=== PATIENT | male | born 1955 | race Caucasian/White ===

== ENCOUNTER → 2018-09-15 10:52 | Outpatient (CLI) | payer BC, MEDICAID, SELFPAY ==
[2018-09-12 13:05] VITALS: BMI 29.4
[2018-09-12 14:10] LABS: Absolute Lymphocyte Count 1.66 X10^3/ul (0.83-4.51); Absolute Neutrophil Count 4.1 X10^3/uL (2.0-7.7); Basophil# 0.02 X10^3/uL; Basophil% 0.3 % (0-1); Eosinophil# 0.18 X10^3/uL; Eosinophils% 2.4 % (0-5); Hemoglobin 11.3 g/dl (13.0-16.5); Lymphocyte # 1.66 X10^3/ul (4.0); Lymphocyte % 22.4 % (19-41); Mean Corp Hgb Conc 29.7 g/gl (32-36); Mean Corpuscular Hgb 23.1 pg (27.0-32.0); Mean Corpuscular Volume 77.7 fL (80-94); Mean Platelet Vol. 8.4 fl (6.2-12.0); Monocyte# 1.41 X10^3/uL; Neutrophil % 55.4 % (47-70); Platelet Count 315 K/mm3 (150-450); RBC Distribution Width CV 29.1 % (11.6-14.6); Red Blood Count 4.89 M/mm3 (4.6-6.2); White Blood Count 7.4 K/mm3 (4.4-11.0)
[2018-09-12 14:12] LABS: Differential Indicated SCAN CRITERIA MET; POSITIVE COUNT NO; POSITIVE DIFFERENTIAL NO; POSITIVE MORPHOLOGY YES
[2018-09-12 14:23] LABS: ALB/GLOB Ratio 0.9 RATIO (0.9-2.4); AST(SGOT) 15 U/L (15-37); Alanine Aminotransfer ALT/SGPT 22 U/L (16-61); Albumin, Serum 3.6 g/dL (3.2-5.0); Alkaline Phosphatase 44 U/L (45-117); Anion Gap 8 (5-15); BUN 18 mg/dL (7-18); BUN/Creat Ratio 16.4 RATIO (10-20); Calcium,Total 8.7 mg/dL (8.5-10.1); Chloride 108 mmol/L (98-107); EST Glomerular Filtration Rate 72 mL/min (>60); Est Glom Filt Rate - Afr Amer 88 mL/min (>60); Globulin 3.9 g/dL (2.2-4.2); Glucose 90 mg/dL (74-106); Protein, Total 7.5 g/dL (6.4-8.2); Sodium Level 139 mmol/L (136-145)
--- NOTE | 2018-09-15 10:42 | CT_ITS ---
STUDY: CT ABDOMEN AND PELVIS WITH CONTRAST REASON FOR EXAM: Male, 62 years old. Colon cancer, newly diagnosed, staging. RADIATION DOSAGE (If Supplied By Facility): CTDIvol = ( 15.37 ) mGy, DLP = ( 1526.41 ) mGycm TECHNIQUE: Transaxial images were obtained from the dome of the diaphragm to the symphysis pubis with oral contrast. 100 ml of Isovue 300 contrast was administered. Sagittal and coronal images were reconstructed. Individualized dose optimization techniques were used for this CT. COMPARISON: None. FINDINGS: The visualized lung bases are unremarkable. The visualized portions of the heart are within normal limits. Normal liver. There is a solitary gallstone. Normal spleen. Normal pancreas. Normal bilateral adrenal glands. Normal right kidney. Normal left kidney. Small right renal cyst, nonenhancing. Normal visualized stomach. Normal small intestine. Circumferential wall thickening with neoplastic narrowing in the ascending colon; apple core lesion. Remainder of the colon demonstrates chronic diverticulosis. The appendix is visualized and appears normal. Normal abdominal aorta. Normal inferior vena cava. Normal retroperitoneum. Normal urinary bladder. Normal visualized prostate gland. Normal abdominal wall. There are diffuse degenerative changes of the visualized lumbar spine. CT/Abdomen/Pelvis WITH Contrast IMPRESSION: Neoplastic process involving the ascending colon. No evidence of metastatic disease involving the liver. No suspicious lymphadenopathy. Electronically Signed: Piter Reid DO at 11:36 EST Tel , Service support ,
== END ==
PROVIDERS: Family Provider Family Medicine; PCP Family Medicine; Referring Provider Physician Assistant; Visit Provider Physician Assistant
DX: C18.9 Malignant neoplasm of colon, unspecified (principal); R10.9 Unspecified abdominal pain
CPT/HCPCS: 36415; 74177; 80053; 85025; Q9967

== ENCOUNTER 2018-10-16 10:14 | Inpatient (IN) | payer MEDICAID, SELFPAY ==
[2018-08-13 09:34] VITALS: BMI 29.4
[2018-10-09 08:31] VITALS: BMI 29.4
[2018-10-09 09:44] VITALS: BP 146/95; PULSE 68; RESP 16; TEMP 36.6; O2SAT 98; BMI 30.7
--- NOTE | 2018-10-09 10:02 | SDCEKG_ITS ---
Test Reason : Blood Pressure : / mmHG Vent. Rate : 067 BPM Atrial Rate : 067 BPM P-R Int : 124 ms QRS Dur : 094 ms QT Int : 410 ms P-R-T Axes : -14 -16 -19 degrees QTc Int : 433 ms Normal sinus rhythm Moderate voltage criteria for LVH, may be normal variant Cannot rule out Inferior infarct , age undetermined Abnormal ECG Confirmed by JUAN TREVIÑO, SERJIO ([id number]), copy editor MILTON MICHEL ([id number]) on 10/11/2018 4:04:18 PM Referred By: Alexandre Salazar Confirmed By:SERJIO MARTINEZ MD
[2018-10-09 10:36] LABS: Hematocrit 40.7 % (40-54); Hemoglobin 12.7 g/dl (13.0-16.5); Mean Corp Hgb Conc 31.2 g/gl (32-36); Mean Corpuscular Hgb 26.2 pg (27.0-32.0); Mean Corpuscular Volume 83.9 fL (80-94); Mean Platelet Vol. 8.4 fl (6.2-12.0); Platelet Count 212 K/mm3 (150-450); RBC Distribution Width CV 21.7 % (11.6-14.6); RBC Distribution Width SD 66.5 fl (35.1-43.9); Red Blood Count 4.85 M/mm3 (4.6-6.2); White Blood Count 5.1 K/mm3 (4.4-11.0)
[2018-10-09 10:41] LABS: Scan Indicated on CBC? Y/N YES- FLAGS NOTED
[2018-10-09 10:44] LABS: International Normalized Ratio 1.1; Prothrombin Time (Protime)PT. 14.4 SECONDS (11.7-14.9)
[2018-10-09 10:45] LABS: Partial Thromboplast Time 36.4 Seconds (24.1-36.2)
[2018-10-09 11:02] LABS: Anion Gap 8 (5-15); BUN 17 mg/dL (7-18); BUN/Creat Ratio 14.2 RATIO (10-20); Calcium,Total 8.8 mg/dL (8.5-10.1); Chloride 107 mmol/L (98-107); EST Glomerular Filtration Rate 65 mL/min (>60); Est Glom Filt Rate - Afr Amer 79 mL/min (>60); Estimated Creatinine Clearance 77.26 ml/min; Glucose 93 mg/dL (74-106); Potassium 4.1 mmol/L (3.5-5.1); Sodium Level 139 mmol/L (136-145)
[2018-10-10 12:33] LABS: Carcinoembryonic Antigen 8.5 ng/mL (0.0-4.7)
[2018-10-16] VITALS (18 sets, daily range): BP systolic 74–132; BP diastolic 49–91; PULSE 76–105; RESP 16–20; TEMP 36.4–37.3; O2SAT 94–98; BMI 30.7
--- NOTE | 2018-10-16 | IMM_PTH ---
PATIENT: NESTOR HALL LOC: MS3 U#:[id number] AGE/SX: 63/M ROOM: IN314 RE10/16/[address]: Dr. Alexandre Salazar MD : 1955 BED: 1 DIS: 10/18/2018 SPEC #: [id number] RECD: 10/22/18 09:25 STATUS: FERCHO REQ #: [id number] HENRIETTA: 10/16/18 00:[address]: Alexandre Salazar DEPT: IMMUNOHISTOCHEMISTRY RECD BY: Marybeth Morin ENTERED: 10/22/18 09:27 SP TYPE: IMMUNO OTHR DR: Dr. Lito Farrell MD Tissues: Right colon Procedures: MSH2 (add) MLH-1 (add) MSH6 (add) Anti-PMS2 (add) SHAIKH-2 (add) HER2 VIJI (add) P53 (add) KI-67 (initial) PHYSICIAN & INSTITUTION [facility] [id number] SPECIMEN INFORMATION: Tissue Source: Right colon Clinical Info: Malignant neoplasm of ascending colon Specimen Number: [id number] #6 CPT code: 31839, 83760 x7 METHODOLOGY: Deparaffinized sections of prefer/formalin-fixed tissue or PAP/DQ stained slides are incubated with monoclonal/polyclonal antibodies/oligonucleotide probes. Localization is made via biotin free immunoperoxidase method. Appropriate controls are performed and reacted as expected. Results on target cell population are indicated in the following table: RESULTS: ANTIBODY / CLONE RESULT Ki-67 (30-9) positive, high P53 (DO-7) positive, >50% SHAIKH-2 (SP21) positive MLH-1 (M1) positive MSH2 (25D12) positive MSH6 (44) positive PMS2 (XJR4723) positive Her-2neu (CB11) negative 0-1+ These tests were developed and their performance characteristics determined by [facility]. They may not have been cleared or approved by the U.S. Food and Drug Administration. The FDA has determined that such clearance or approval is not necessary. INTERPRETATION: Right colon, colectomy: Invasive adenocarcinoma. Result of Microsatellite Instability Study: Negative (no loss of mismatch protein; no microsatellite instability detected). AM:kirsten 10/23/18
[2018-10-16] MEDS: Acetaminophen 500 MG Tablet 1000 MG PO ×3 (10:53→23:53)
[2018-10-16] MEDS: Gabapentin 600 MG Tablet PO (10:53)
[2018-10-16] MEDS: Lactated Ringers 1,000 ML 40 ML IV ×2 (11:18→16:42)
[2018-10-16] MEDS: Magnesium Sulfate 4gm/100mL 4 GM/100 ML IV.SOLN. IV (11:19)
[2018-10-16 11:25] LABS: Bedside Glucose 101 mg/dL (70-110)
--- NOTE | 2018-10-16 12:00 | COL._PTH ---
PATIENT: NESTOR HALL LOC: MS3 U#:[id number] AGE/SX: 63/M ROOM: MS314 RE10/16/[address]: Dr. Alexandre Salazar MD : 1955 BED: 1 DIS: 10/18/2018 SPEC #: [id number] RECD: 10/17/18 07:03 STATUS: FERCHO REMagda #: [id number] HENRIETTA: 10/16/18 12:[address]: Alexandre Salazar DEPT: SURGICAL PATHOLOGY RECD BY: Ted Holguin ENTERED: 10/17/18 08:46 SP TYPE: COLON OTHR DR: Dr. Lito Farrell MD Tissues: Right colon Procedures: Surgery Specimen Level HEADER OPERATION: ERAS, laparoscopic hemicolectomy, repair of umbilical hernia PRE-OP DIAGNOSIS: Malignant neoplasm of ascending colon TISSUE SUBMITTED: Right colon MICROSCOPIC DIAGNOSIS Right colon, segmental colectomy: Invasive adenocarcinoma. See cancer checklist below. AM:kirsten 10/23/18 COMMENT COLON CANCER SUMMARY: Specimen - right colon Procedure - right hemicolectomy Tumor site - right colon Tumor size - 7 x 4 x 1.8 cm Macroscopic tumor perforation - not identified Macroscopic intactness of mesorectum - intact Histologic type - adenocarcinoma with focal mucinous differentiation (15%) Histologic grade - low grade (moderately differentiated) Microscopic tumor extension - tumor penetrates to surface of visceral peritoneum (serosa) Margins: Proximal margin - uninvolved in invasive carcinoma Distal margin - uninvolved in invasive carcinoma Circumferential margin - uninvolved in invasive carcinoma Treatment effect - unknown Lymph-Vascular invasion - not identified Perineural invasion - not identified Tumor deposits - 2 deposits Lymph nodes: Number of lymph nodes examined - 20 Number of lymph nodes involved - 15 Distant metastasis - unknown Additional pathologic findings - appendix with no significant pathologic change. Ancillary studies: See microsatellite instability study by IHC ([id number]) for complete details. Negative (no loss of microsatellite instability markers). See separate immunohistochemical report ([id number]). PATHOLOGIC STAGE: pT4a N2b Mx The above summary is in compliance with [employer] (CAP) Cancer Protocols Checklist and [place] Joint Committee on Cancer (AJCC), Staging Manual, 8th Ed. Case has been reviewed in consultation with Dr. Denise who concurs with the above diagnosis. IDC:CE MICROSCOPIC DESCRIPTION Slides are reviewed. GROSS DESCRIPTION Received in fixative is one container labeled with the patient's name and designated right colon. The specimen consists of a 16.5 cm segment of large bowel with attached 6 cm of terminal ileum and attached 6.5 cm length appendix that has an average diameter of 0.7 cm. Located 3.8 cm distal to the ileocecal valve and 8 cm from its proximal margin of resection and 9 cm from the distal margin of resection is a fungating perez ulcerated mass occupying 100% of the circumference of the bowel and measuring 7 x 4 x 1.8 cm. The fibrofatty tissue in the area of the mass is inked in black ink. Also present free in the specimen container is an elongated fragment of smooth, glistening perez mucosa with attached fibrofatty tissue measuring 7.5 x 2 x 1 cm. Serial sections of the appendix does not reveal mass lesions. The attached fibrofatty tissue contains a number of nodules resembling lymph nodes. The remainder of the small and large bowel mucosa is free of mass lesions. Serial sections through the mass reveal extension into underlying fibrofatty tissue. Also present attached is a fragment of omentum measuring 13 x 8 x 2 cm. Serial sections of the omentum does not reveal mass lesions. Ceo And Founder sections are submitted as follows: 1 - proximal and distal mucosal margins, 2 - appendix and fragment of bowel free in container, 3-6 - tumor, 7 - one firm lymph node, leasing representative section, 8 - leasing representative sections of one lymph node, 9-12 - multiple lymph nodes in each cassette. / AM:kirsten 10/19/18 TC:0 CPT: 07327
[2018-10-16] MEDS: Lidocaine/D5W 2,000 MG/250 ML IV.SOLN 33.42 MG IV (12:47)
--- NOTE | 2018-10-16 12:54 | PCM.OPRPT ---
Problem List (1) Colon cancer Status: Acute Qualifiers: Colon location: ascending Qualified Code(s): C18.2 - Malignant neoplasm of ascending colon (2) Umbilical hernia Status: Acute Qualifiers: Obstruction and gangrene presence: without obstruction or gangrene Qualified Code(s): K42.9 - Umbilical hernia without obstruction or gangrene Report of Operation Date of Procedure: 10/16/18 Pre-Operative Diagnosis: Ascending colon cancer. Umbilical hernia Post-Operative Diagnosis: Same Surgery/Procedure Performed:: Laparoscopic right hemicolectomy. Repair of umbilical hernia Type of Anesthesia:: General Anesthesiologist: Tyrell Samayoa Specimen's removed: Ascending colon Estimated Blood Loss (mL): < 50 cc Fluids Replaced: 2 l lr Description of Procedure: Patient was brought into the operating room placed in the supine position. Under excellent endotracheal intubation abdomen was sterilely prepped and draped in usual fashion. Local was injected superior to the umbilical hernia dissection was carried down to the fascia the fascia grasped with a Sargents varies needle was placed inside the abdomen a 10/12 trocar was placed without difficulty. A right lower quadrant #5 trocar was placed in a subxiphoid #5 trocar was placed over these under direct visualization without injury to underlying structures I used the Enseal device came down along the white line of Toldt for the cecum and ascending colon. I did quite a bit of dissecting and mobilizing of the appendix and terminal ileum as well I took the colo-hepatic ligaments down with the Enseal device and started to rotate the colon lateral to medial standpoint very hard dissection with obvious enlarged lymph nodes I did not feel really comfortable continue to go back further when I could not easily mobilize this laparoscopically I made an incision from the umbilical defect up to the subxiphoid area I placed a wound protector in the wound identified and mobilized the rest of the right side of the colon using the Enseal device with my hands directly and there I rotated the colon mesentery directly off the duodenum I then went to the terminal ileum transected it with a 75 linear cutter came down on the mesentery came down to the right colic artery where most of the lymph nodes were involved I got proximal to that tied off the artery with 0 Vicryl tie. I then went to the transverse colon identified the middle colic and I transected the transverse colon with a 75 linear cutter was again coming down in the mesentery and tying off all the vessels with 0 Vicryl ties. I put the specimen off I then created a [id number]-tqiv functional end-to-end anastomosis by opening up and using a 75 linear cutter to create the anastomosis and then using a 60 stapler to close the enterotomy. It was watertight and airtight. Used a 3-0 GI silk in the crotch stitch I closed the mesenteric rent with a 2-0 Vicryl and I placed a specimen back up into the right upper quadrant after I inspected the area and felt that I did not feel any lymph nodes left behind were hard everything felt soft #1 #2 after I given a proper examination of the liver and I saw nothing that felt hard in the liver with that would be suspicious for metastatic disease. The only thing that looks suspicious was there was obvious hard enlarged lymph nodes just before where the specimen was located in the a sending colon. I placed the anastomosis in the right upper quadrant I got an accurate needle and sponge count. I dissected free the umbilical defect I closed it with interrupted sutures of #1 Nurolon. I injected Exparel throughout my incision I then closed my incision with a #1 PDS. More local was injected subcu was brought together with a 2-0 Vicryl deep dermals with 3-0 Vicryl then a running 4-0 Monocryl Steri-Strips are applied sterile dressings were applied and the patient tolerated the procedure well. - Admit VTE Documentation VTE Present on Admission: No VTE Mechan Device Prophylaxis: SCD's VTE Pharm Prophylaxis ordered?: No Reason prophylaxis not ordered:: Treatment Not Indicated
[2018-10-16] MEDS: BUPIVACAINE LIPOSOME/PF 20 ML VIAL OPERA.SITE (14:00)
[2018-10-16] MEDS: Bupivacaine 0.25% 30 ML Vial (14:00)
[2018-10-16] MEDS: Ketorolac 15 MG/ML Vial IV (18:06)
[2018-10-16] MEDS: Atorvastatin Calcium 40 MG Tablet PO (21:57)
[2018-10-16] MEDS: Docusate Sodium 100 MG Capsule PO (21:57)
[2018-10-16] MEDS: Metoprolol Tartrate 100 MG Tablet PO (23:53)
[2018-10-17] VITALS (8 sets, daily range): BP systolic 101–113; BP diastolic 59–73; PULSE 84–92; RESP 16–18; TEMP 36.8–37.2; O2SAT 89–95
[2018-10-17] MEDS: 0.9% NaCl Peripheral Flush Adult/Peds IV (00:01)
[2018-10-17] MEDS: Ketorolac 15 MG/ML Vial IV ×4 (00:01→17:23)
[2018-10-17] MEDS: oxyCODONE 5 MG Tablet PO ×2 (04:08→14:06)
[2018-10-17] MEDS: Acetaminophen 500 MG Tablet 1000 MG PO ×3 (06:03→18:26)
[2018-10-17 06:27] LABS: Anion Gap 10 (5-15); BUN 16 mg/dL (7-18); BUN/Creat Ratio 10.9 RATIO (10-20); Calcium,Total 7.9 mg/dL (8.5-10.1); Chloride 104 mmol/L (98-107); Creatinine, Serum 1.47 mg/dL (0.70-1.30); EST Glomerular Filtration Rate 52 mL/min (>60); Est Glom Filt Rate - Afr Amer 63 mL/min (>60); Estimated Creatinine Clearance 63.07 ml/min; Glucose 123 mg/dL (74-106); Potassium 4.4 mmol/L (3.5-5.1); Sodium Level 134 mmol/L (136-145)
[2018-10-17 06:41] LABS: Hematocrit 33.6 % (40-54); Hemoglobin 10.7 g/dl (13.0-16.5); Mean Corp Hgb Conc 31.8 g/gl (32-36); Mean Corpuscular Hgb 27.2 pg (27.0-32.0); Mean Corpuscular Volume 85.3 fL (80-94); Mean Platelet Vol. 9.2 fl (6.2-12.0); Platelet Count 217 K/mm3 (150-450); RBC Distribution Width CV 20.1 % (11.6-14.6); RBC Distribution Width SD 60.8 fl (35.1-43.9); Red Blood Count 3.94 M/mm3 (4.6-6.2); White Blood Count 10.6 K/mm3 (4.4-11.0)
[2018-10-17 06:45] LABS: Scan Indicated on CBC? Y/N YES- FLAGS NOTED
--- NOTE | 2018-10-17 07:24 | PCM.PN.SRG ---
Patient Problems: Active and Suspected Problems (Last Reviewed 10/09/18 @ 08:28 by Irina Lema) Colon cancer (Acute) Umbilical hernia (Acute) Subjective: Patient evaluated resting comfortably in bed. He notes pain in his abdomen. He denies nausea, vomiting, fever. He is tolerating clear liquids. - Physical Exam General: Alert, Oriented x3, Cooperative Abdomen: Soft, Hypoactive Bowel Sounds, Distended, Tender - generalized, - - Incisions c/d/i. No erythema or infection noted. Vital Signs Temp Pulse Resp BP Pulse Ox 98.9 F 84 18 101/59 L 92 10/17/18 06:00 10/17/18 06:00 10/17/18 06:00 10/17/18 06:00 10/17/18 06:00 Oxygen Flow Rate (L/min) 2 Oxygen Delivery Method Room Air Weight: 245 lb 9.519 oz Body Mass Index (BMI) 30.7 Intake and Output for Last 24 Hours 10/15/18 10/16/18 10/17/18 23:59 23:59 23:59 Intake Total 3024 / 3024 1555 / 1555 Output Total 25 / 25 350 / 350 Balance 2999 / 2999 1205 / 1205 Laboratory Tests Past 24 Hrs 10/17/18 10/17/18 05:48 05:48 WBC 10.6 RBC 3.94 L Hgb 10.7 L Hct 33.6 L MCV 85.3 MCH 27.2 MCHC 31.8 L RDW 20.1 H RDW Differential 60.8 H Plt Count 217 MPV 9.2 Sodium 134 L Potassium 4.4 Chloride 104 Carbon Dioxide 20.0 L Anion Gap 10 BUN 16 Creatinine 1.47 H Estim Creat Clear Calc 63.07 Est GFR (MDRD) Af Amer 63 Est GFR (MDRD) Non-Af 52 L BUN/Creatinine Ratio 10.9 Glucose 123 H Calcium 7.9 L POC Glucose 10/16/18 11:02 POC Glucose 101 Medical Necessity - Tobacco Use Smoking Status: Never smoker Tobacco Use: Non-smoker Assessment/Plan All Active Problems (Last Reviewed 10/09/18 @ 08:28 by Irina Lema) Colon cancer (Acute) Umbilical hernia (Acute) I am following this patient in conjunction with Dr. Salazar S/p right hemicolectomy Encourage ambulation and I.S. May chew gum or hard candy Start Flomax Labs reviewed Patient discussed with Dr. Salazar We will continue to monitor this patient Code Visit Inpatient E&M: 27329 Subs Hosp L1 - POST-OP
[2018-10-17] MEDS: Docusate Sodium 100 MG Capsule PO (08:35)
[2018-10-17] MEDS: Tamsulosin HCl 0.4 MG Capsule PO ×2 (10:57→18:27)
--- NOTE | 2018-10-17 11:20 | CASEMGMT ---
RN SUZY Face to Face with patient for initial transition planning/care coordination assessment. RN CM introduced self and role at [facility]. Patient lying in bed, alert and oriented. Patient willing to participate in assessment and is able to answer all questions appropriately. Care providers, pharmacy, and demographics verified. Patient wishes to discharge home, denies need for home health at this time. Patient states he has no further needs or concerns at this time. CM to follow for discharge planning needs that may arise. 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 Transportation: self/daughter DME/HHC: Patient has raised toilet, cane, and walker at home. No previous HHC. Disposition Plan: Patient to discharge home with family support and follow-up plans in place. Aruna AVENDAÑO, RN, CM
[2018-10-17] MEDS: Metoprolol Tartrate 100 MG Tablet PO ×2 (16:32→22:12)
[2018-10-17] MEDS: Atorvastatin Calcium 40 MG Tablet PO (22:12)
[2018-10-18] MEDS: Acetaminophen 500 MG Tablet 1000 MG PO ×2 (00:33→06:04)
[2018-10-18] MEDS: Ketorolac 15 MG/ML Vial IV (00:34)
[2018-10-18] MEDS: 0.9% NaCl Peripheral Flush Adult/Peds IV ×2 (00:34→09:05)
[2018-10-18 05:36] VITALS: BP 99/63; PULSE 79; RESP 18; TEMP 36.6; O2SAT 93
[2018-10-18 06:28] LABS: Hematocrit 32.1 % (40-54); Hemoglobin 9.9 g/dl (13.0-16.5); Mean Corp Hgb Conc 30.8 g/gl (32-36); Mean Corpuscular Hgb 26.5 pg (27.0-32.0); Mean Corpuscular Volume 85.8 fL (80-94); Mean Platelet Vol. 8.4 fl (6.2-12.0); Platelet Count 166 K/mm3 (150-450); RBC Distribution Width CV 19.9 % (11.6-14.6); RBC Distribution Width SD 60.6 fl (35.1-43.9); Red Blood Count 3.74 M/mm3 (4.6-6.2); White Blood Count 9.4 K/mm3 (4.4-11.0)
[2018-10-18 06:29] LABS: Scan Indicated on CBC? Y/N NO
[2018-10-18 06:59] LABS: Anion Gap 8 (5-15); BUN 19 mg/dL (7-18); Calcium,Total 8.2 mg/dL (8.5-10.1); Chloride 105 mmol/L (98-107); Creatinine, Serum 1.46 mg/dL (0.70-1.30); EST Glomerular Filtration Rate 52 mL/min (>60); Est Glom Filt Rate - Afr Amer 63 mL/min (>60); Glucose 99 mg/dL (74-106); Potassium 4.1 mmol/L (3.5-5.1); Sodium Level 137 mmol/L (136-145)
[2018-10-18 07:10] VITALS: O2SAT 92
[2018-10-18 09:00] VITALS: BP 105/68; PULSE 86; RESP 18; TEMP 36.8; O2SAT 95
[2018-10-18] MEDS: oxyCODONE 5 MG Tablet PO (09:04)
[2018-10-18] MEDS: Docusate Sodium 100 MG Capsule PO (09:05)
[2018-10-18] MEDS: Losartan Potassium 50 MG Tablet PO (09:05)
--- NOTE | 2018-10-18 11:55 | DCINST_ITS ---
Discharge Diet: - - Continue transitional diet until follow-up in office Discharge Activity: May Not Drive - 5 days or while taking narcotic pain medication May shower in (days): 1 Lifting Restrictions: 10 pounds Call your doctor if your incision/area has: Continuous Slow Oozing, Sudden Increased Bleeding, Increased Pain/ Swelling, Increased Redness, Foul Smelling Discharge, Swelling at the incision site Call your doctor if you observe: Fever of 101 or Higher, Numbness or Tingling Suture Line Care: Avoid Pulling/Pushing, Avoid Pinching/Bending Remove Dressing in (days):: 2 - Leave steri-strips in place for 1 week Cleanse incision/area with: Soap & Water Allergies/Adverse Reactions: Allergies triamterene Allergy (Mild, Verified 10/09/18 09:19) rash Medications to take at Discharge amoxicillin 875 mg-potassium clavulanate 125 mg tablet 1 tab PO BID 08/13/18 atorvastatin 40 mg tablet 40 mg PO DAILY 08/13/18 ferrous sulfate 325 mg (65 mg iron) tablet,delayed release 325 mg PO DAILY tab 08/13/18 losartan 50 mg tablet 50 mg PO DAILY 08/13/18 metoprolol tartrate 100 mg tablet 100 mg PO 1600,2200 08/13/18 Hydroxyzine HCl 25 mg PO TID PRN PRN 10/16/18 traMADol [Ultram] 50 mg PO Q6H PRN PRN 7 Days #20 tablet 10/18/18 The following prescriptions were given: traMADol [Ultram] 50 mg PO Q6H PRN PRN 7 Days #20 tablet PRN Reason: Pain Primary Care Physician: Lito Farrell MD [Primary Care Provider] - Test Results: Test results from this visit will be discussed in further detail at your follow- up appointment, if applicable. Please Follow Up With: Alexandre Salazar MD When: 10/23/2018 at 9:00 AM
--- NOTE | 2018-10-18 11:56 | PCM.DC.SUM ---
Discharge Date and Diagnosis - Problem List Patient Problems: Active and Suspected Problems (Last Reviewed 10/09/18 @ 08:28 by Irina Lema) Colon cancer (Acute) Umbilical hernia (Acute) Date of Admission: 10/16/18 Date of Discharge: 10/18/18 - Primary Discharge Diagnosis Active and Suspected Problems (Last Reviewed 10/09/18 @ 08:28 by Irina Lema) Colon cancer (Acute) Umbilical hernia (Acute) Hospital Course and Treatment Operations: colectomy Summary of Care Provided: The patient is a 63 year old M who presented with colon cancer. Dr. Salazar performed a Laparoscopic right hemicolectomy and repair of umbilical hernia on 10/16/2018. Patient tolerated the procedure well. He had an uneventful hospitalization. Upon discharge, he noted minimal amount of abdominal discomfort. He denies nausea, vomiting, fever. He is tolerating his transitional diet. He is urinating well. He has positive flatus and BM's. Patient Problems: Active and Suspected Problems (Last Reviewed 10/09/18 @ 08:28 by Irina Lema) Colon cancer (Acute) Umbilical hernia (Acute) - Physical Exam General: Alert, Oriented x3, Cooperative Abdomen: Bowel Sounds Present, Soft, Tender - minimal generalized, - - Incisions c/d/i. No erythema or infection noted. Vital Signs Temp Pulse Resp BP Pulse Ox 98.3 F 86 18 105/68 95 10/18/18 09:00 10/18/18 09:00 10/18/18 09:00 10/18/18 09:00 10/18/18 09:00 Oxygen Flow Rate (L/min) 1 Oxygen Delivery Method Room Air Weight: 245 lb 9.519 oz Body Mass Index (BMI) 30.7 Intake and Output for Last 24 Hours 10/16/18 10/17/18 10/18/18 23:59 23:59 23:59 Intake Total 3024 / 3024 3016 / 3016 650 / 650 Output Total 1900 / 1900 650 / 650 Balance 2999 / 2999 1116 / 1116 0 / 0 Laboratory Tests Past 24 Hrs 10/18/18 10/18/18 06:14 06:14 WBC 9.4 RBC 3.74 L Hgb 9.9 L Hct 32.1 L MCV 85.8 MCH 26.5 L MCHC 30.8 L RDW 19.9 H RDW Differential 60.6 H Plt Count 166 MPV 8.4 Sodium 137 Potassium 4.1 Chloride 105 Carbon Dioxide 24.0 Anion Gap 8 BUN 19 H Creatinine 1.46 H Estim Creat Clear Calc 63.50 Est GFR (MDRD) Af Amer 63 Est GFR (MDRD) Non-Af 52 L BUN/Creatinine Ratio 13.0 Glucose 99 Calcium 8.2 L Discharge Diet: - - Continue transitional diet until follow-up in office Discharge Activity: May Not Drive - 5 days or while taking narcotic pain medication May shower in (days): 1 Call your doctor if your incision/area has: Continuous Slow Oozing, Sudden Increased Bleeding, Increased Pain/ Swelling, Increased Redness, Foul Smelling Discharge, Swelling at the incision site Call your doctor if you observe: Fever of 101 or Higher, Numbness or Tingling Suture Line Care: Avoid Pulling/Pushing, Avoid Pinching/Bending Remove Dressing in (days):: 2 - Leave steri-strips in place for 1 week Cleanse incision/area with: Soap & Water Home Medications: Medications to take at Discharge amoxicillin 875 mg-potassium clavulanate 125 mg tablet 1 tab PO BID 08/13/18 atorvastatin 40 mg tablet 40 mg PO DAILY 08/13/18 ferrous sulfate 325 mg (65 mg iron) tablet,delayed release 325 mg PO DAILY tab 08/13/18 losartan 50 mg tablet 50 mg PO DAILY 08/13/18 metoprolol tartrate 100 mg tablet 100 mg PO 1600,2200 08/13/18 Hydroxyzine HCl 25 mg PO TID PRN PRN 10/16/18 traMADol [Ultram] 50 mg PO Q6H PRN PRN 7 Days #20 tablet 10/18/18 Following Prescrptions Were Given to Patient: traMADol [Ultram] 50 mg PO Q6H PRN PRN 7 Days #20 tablet PRN Reason: Pain Primary Care Physician: Lito Farrell MD [Primary Care Provider] - Please Follow Up With: Alexandre Salazar MD When: 10/23/2018 at 9:00 AM Disposition: Home Minutes spent on discharge:: 25 Patient Condition:: Stable Medical Necessity - Tobacco Use Smoking Status: Never smoker Tobacco Use: Non-smoker Meaningful Use Info Meaningful Use Diagnoses (Choose all that apply): None applicable Code Visit Inpatient E&M: 06959 Disch Hosp
[2018-10-18] MEDS: Glycerin/Hypromellose/PEG400 15 ml Bottle 1 DRP EACH EYE (11:58)
[2018-10-18 12:15] VITALS: BP 103/65; PULSE 79; RESP 18; TEMP 36.7; O2SAT 95
--- OUTSIDE RECORDS SUMMARY | 2018-12-18 12:59 | XMS RPT_ITS ---
:1955 Author Organization [place] Support Name Relationship Address Phone BRITTANI RODRIGUEZ Unavailable Unavailable + [facility] Unavailable [address] + [place] [address] MARY RIZOER Unavailable Unavailable + BRITTANI RODRIGUEZ Unavailable Unavailable + [facility] Unavailable [address] + [place] [address] MARY RIZOER Unavailable Unavailable + BRITTANI RODRIGUEZ Unavailable Unavailable + [facility] Unavailable [address] + [place] [address] KIKI RIZOOPHER Unavailable Unavailable + BRITTANI RODRIGUEZ Unavailable Unavailable + BRITTANI RODRIGUEZ Unavailable . + [place] [address] [facility] Unavailable [address] + [place] [address] MARY RIZOER Unavailable . + [place] [address] BRITTANI RODRIGUEZ Unavailable Unavailable + [facility] Unavailable [address] + [place] [address] MARY RIZOER Unavailable Unavailable + BRITTANI RODRIGUEZ Unavailable Unavailable + [facility] Unavailable [address] + [place] [address] KIKI RIZOOPHER Unavailable Unavailable + [facility] Unavailable Unavailable + [place] [address] [facility] Unavailable Unavailable + [place] [address] RODRIGUEZ, BRITTANI Unavailable Unavailable + RODRIGUEZ, BRITTANI Unavailable Unavailable + RODRIGUEZ, BRITTANI Unavailable Unavailable + RODRIGUEZ, BRITTANI Unavailable Unavailable + RODRGIUEZ, BRITTANI Unavailable Unavailable + RODRIGUEZ, BRITTANI Unavailable Unavailable + RODRIGUEZ, BRITTANI Unavailable Unavailable + RODRIGUEZ, BRITTANI Unavailable Unavailable + RODRIGUEZ, BRITTANI Unavailable Unavailable + Care Team Providers Name Role Phone LALITA SULLIVAN Admitting Unavailable LALITA SULLIVAN Attending Unavailable CIFUENTES, GHAZALA Primary Care Unavailable Nimo Lomeli Attending Unavailable [facility], [facility] Primary Care Unavailable Nimo Lomeli L Admitting Unavailable FarrierNimo L Admitting Unavailable FarrierNimo L Attending Unavailable [facility], [facility] Primary Care Unavailable Eileen, Vicente W Admitting Unavailable Eileen, Vicente W Attending Unavailable Cifuentes, Ghazala Primary Care Unavailable Cifuentes, Ghazala Attending Unavailable Cifuentes, Ghazala Primary Care Unavailable Cifuentes, Ghazala Admitting Unavailable Cfiuentes, Ghazala Attending Unavailable Cifuentes, Ghazala Primary Care Unavailable Sleik, Khaled Attending Unavailable Cifuentes, Ghazala Primary Care Unavailable Tourlas, Saul Attending Unavailable Cifuentes, Ghazala Primary Care Unavailable Tourlas, Saul Admitting Unavailable Cifuentes, Ghazala Attending Unavailable Cifuentes, Ghazala Primary Care Unavailable Cifuentes, Ghazala Admitting Unavailable Sleik, Khaled Attending Unavailable Cifuentes, Ghazala Primary Care Unavailable Sleik, Khaled Admitting Unavailable Sleik, Khaled Attending Unavailable Cifuentes, Ghazala Primary Care Unavailable Sleik, Khaled Attending Unavailable Cifuentes, Ghazala Primary Care Unavailable Sleik, Khaled Attending Unavailable Cifuentes, Ghazala Primary Care Unavailable Sleik, Khaled Attending Unavailable Cifuentes, Ghazala Primary Care Unavailable Cifuentes, Ghazala Attending Unavailable Cifuentes, Ghazala Primary Care Unavailable Cifuentes, Ghazala Admitting Unavailable Cifuentes, Ghazala Attending Unavailable Cifuentes, Ghazala Primary Care Unavailable Cifuentes, Ghazala Admitting Unavailable CifuentesGhazala campuzano Attending Unavailable Cifuentes, Ghazala Primary Care Unavailable CifuentesMario loraer Admitting Unavailable CifuentesGhazala campuzano Attending Unavailable Cifuentes, Ghazala Primary Care Unavailable Sleik, Khaled Admitting Unavailable Sleik, Khaled Attending Unavailable CifuentesGhazala campuzano Primary Care Unavailable CifuentesGhazala campuzano Attending Unavailable Cifuentes, Ghazala Primary Care Unavailable Pauly Bolanos Consulting Unavailable Ghazala Cifuentes Attending Unavailable Cifuentes, Ghazala Primary Care Unavailable CifuentesGhazala campuzano Attending Unavailable Cifuentes, Ghazala Primary Care Unavailable CifuentesGhazala campuzano Attending Unavailable Cifuentes, Ghazala Primary Care Unavailable CifuentesGhazala campuzano Admitting Unavailable Ghazala Cifuentes Attending Unavailable Cifuentes, Ghazala Primary Care Unavailable Sleik, Khaled Attending Unavailable CifuentesGhazala campuzano Primary Care Unavailable Sleik, Khaled Admitting Unavailable Sleik, Khaled Attending Unavailable Sleik, Khaled Referring Unavailable Ghazala Cifuentes Primary Care Unavailable Cifuentes, Ghazala Primary Care Unavailable Samdani, Patrice Jawwad Admitting Unavailable Samdani, Patrice Jawwad Attending Unavailable Sleik, Khaled Consulting Unavailable Ghazala Cifuentes Attending Unavailable Ghazala Cifuentes Primary Care Unavailable Ghazala Cifuentes Admitting Unavailable Ghazala Cifuentes Attending Unavailable Ghazala Cifuentes Primary Care Unavailable Ghazala Cifuentes Admitting Unavailable Ghazala Cifuentes Attending Unavailable Ghazala Cifuentes Primary Care Unavailable Ricco Henderson Admitting Unavailable Ricco Henderson D Attending Unavailable Cifuentes, Ghazala Primary Care Unavailable Sleik, Khaled Admitting Unavailable Sleik, Khaled Attending Unavailable Sleik, Khaled Referring Unavailable CifuentesGhazala campuzano Primary Care Unavailable Alexandre Salazar Consulting Unavailable Ghazala Cifuentes Primary Care Unavailable Janice, Jordan Admitting Unavailable Janice, Jordan Attending Unavailable PROVIDER, UNKNOWN Admitting Unavailable PROVIDER, UNKNOWN Attending Unavailable Alexandre Salazar Attending Unavailable GHAZALA CIFUENTES O Referring Unavailable Porsha Barber PA-C Attending Unavailable GHAZALA CIFUENTES O Referring Unavailable Wilbur Downs Attending Unavailable Tyrell Samayoa Referring Unavailable [place], Alexandre Admitting Unavailable Barber PA-C, Porsha Attending Unavailable Princeton, Alexandre Referring Unavailable CIFUENTES, GHAZALA O Primary Care Unavailable Marie, Alexandre Consulting Unavailable Marie, Alexandre Admitting Unavailable Barber PA-C, Porsha Attending Unavailable Marie, Alexandre Referring Unavailable CIFUENTES, GHAZALA O Primary Care Unavailable Princeton, Alexandre Consulting Unavailable Marie, Alexandre Admitting Unavailable Marie, Alexandre Attending Unavailable Marie, Alexandre Referring Unavailable CIFUENTES, GHAZALA O Primary Care Unavailable Barber PA-C, Porsha Attending Unavailable Barber PA-C, Porsha Referring Unavailable CIFUENTES, GHAZALA O Primary Care Unavailable Barber PA-C, Porsha Attending Unavailable CIFUENTES, GHAZALA O Referring Unavailable Monica, Dr. Dane Sibley Admitting Unavailable Monica, Dr. Dane Sibley Referring Unavailable Cifuentes, Ghazala Aquiles Primary Care Unavailable Dr. Darci Yuan Attending Unavailable Cifuentes, Ghazala Aquiles Primary Care Unavailable Cifuentes, Ghazala Aquiles Primary Care Unavailable Cifuentes, Ghazala Aquiles Primary Care Unavailable Cifuentes, Ghazala Aquiles Primary Care Unavailable Patrick Garcia Attending Unavailable ROMAN, ALEXANDRE Referring Unavailable Cifuentes, Ghazala Aquiles Primary Care Unavailable Cifuentes, Ghazala Aquiles Primary Care Unavailable Cifuentes, Ghazala Aquiles Primary Care Unavailable PROBLEMS PROBLEMS DATE TYPE CONDITION / CODE ATTENDING STATUS SOURCE Unknown C18.9 - Malignant Marie, Active [facility] 9 neoplasm of colon, [facility] unspecified / Hospital C18.9(ICD-10) Repository Unknown R94.31 - Abnormal [place], Active Jacek 9 electrocardiogram [facility] [ECG] [EKG] / Hospital R94.31(ICD-10) Repository Unknown R10.9 - Unspecified Barber PA-C, Active [place] 8 abdominal pain / [facility] R10.9(ICD-10) Hospital Repository Unknown 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 Darci Yuan [facility] 8 diagnosis (NSTEMI) myocardial [facility] infarction / Repository I21.4(ICD-10) Final Non-ST elevation Dr. Darci Yuan [facility] 8 diagnosis (NSTEMI) myocardial [facility] (discharge) infarction / Repository I21.4(ICD-10) Final Unspecified systolic Dr. Darci Yuan [facility] 8 diagnosis (congestive) heart [facility] (discharge) failure / Repository I50.20(ICD-10) Final Unspecified atrial Dr. Darci Yuan [facility] 8 diagnosis flutter / [facility] (discharge) I48.92(ICD-10) Repository Final Gastrointestinal Dr. Darci Yuan [facility] 8 diagnosis hemorrhage, [facility] (discharge) unspecified / Repository K92.2(ICD-10) Final Acute posthemorrhagic Dr. Darci Yuan [facility] 8 diagnosis anemia / D62(ICD-10) [facility] (discharge) Repository Final Atelectasis / Dr. Darci Yuan [facility] 8 diagnosis J98.11(ICD-10) [facility] (discharge) Repository Final Thrombocytopenia, Dr. Darci Yuan [facility] 8 diagnosis unspecified / [facility] (discharge) D69.6(ICD-10) Repository Final Hypertensive heart Dr. Darci Yuan [facility] 8 diagnosis disease with heart [facility] (discharge) failure / Repository I11.0(ICD-10) Final Hypomagnesemia / Dr. Darci Yuan [facility] 8 diagnosis E83.42(ICD-10) [facility] (discharge) Repository Final Unspecified atrial Dr. Darci Yuan [facility] 8 diagnosis fibrillation / 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 (discharge) unsp ang pctrs / Repository I25.119(ICD-10) Final Obesity, unspecified / Dr. Darci Yuan [place] 8 diagnosis E66.9(ICD-10) [facility] (discharge) Repository Final Body mass index (BMI) Dr. Darci Yuan [facility] 8 diagnosis 32.0-32.9, adult / [facility] (discharge) Z68.32(ICD-10) Repository Final Iron deficiency Dr. Darci Yuan [facility] 8 diagnosis anemia, unspecified / [facility] (discharge) D50.9(ICD-10) Repository Final Hypoxemia / Dr. Darci Yuan [facility] 8 diagnosis R09.02(ICD-10) [facility] (discharge) Repository Final Hyperglycemia, Dr. Darci Yuan [facility] 8 diagnosis unspecified / [facility] (discharge) R73.9(ICD-10) Repository Final Diaphragmatic hernia Dr. Darci Yuan [facility] 8 diagnosis without obstruction or [facility] (discharge) gangrene / Repository K44.9(ICD-10) Admitting Unstable angina / [place] COUCHTHA [place] [address] diagnosis I20.0(ICD-9) [address] Final ST elevation (STEMI) [place] [address] diagnosis myocardial infarction [facility] / I21.3(ICD-9) Final Anemia, unspecified / SULLIVAN, [facility] 8 diagnosis D64.9(ICD-9) Repository (discharge) Final Essential (primary) SULLIVAN, [facility] 8 diagnosis hypertension / Repository (discharge) I10(ICD-9) [facility] ([facility]charge) unspecified site / M19.90(ICD-9) Final Athscl heart disease SULLIVAN, [facility] 8 diagnosis of makah cor art w Repository (discharge) unstable ang pctrs / I25.110(ICD-9) Final [facility] w/o obst or gangr, not Repository (discharge) spcf as recur / K40.90(ICD-9) PROCEDURES PROCEDURES DATE CODE DESCRIPTION STATUS SOURCE 11/29/2017 [id number](ICD10- [id number] [facility]) Hospitals Repository 11/23/2017 92940A3(ICD10- 46200U3 Completed [facility]) Hospitals Repository 11/23/2017 [id number](ICD10- 18213F5 Completed [facility]) Hospitals Repository 11/23/2017 [id number](ICD10- 792198Q Completed [facility]) Hospitals Repository 11/23/2017 [id number](ICD10- 79LG8AM Completed [facility]) Hospitals Repository 11/23/2017 [id number](ICD10- [id number] Completed [facility]) Hospitals Repository 11/23/2017 [id number](ICD10- 8Y0590P Completed [facility]) Hospitals Repository 11/21/2017 [id number](ICD10- [id number] Completed [facility]) Hospitals Repository RESULTS RESULTS UA COMPLETE Collected: 10/21/2018 Status: F Source: CAODAISM 1:21 PM [facility] REPOSITORY TYPE CODE TESTS RESULT OUT OF RANGE REFERENCE UNITS LAB [id number]( Yellow LOINC) Normal UA Color Yellow LAB [id number]( Clear LOINC) Normal UA Clarity Clear LAB [id number]( Negative LOINC) Normal UA Glucose Negative LAB [id number]( Negative LOINC) Normal UA Bili Negative LAB [id number]( Negative LOINC) Normal UA Ketones Negative LAB [id number]( 1.003-1.030 LOINC) High UA Spec Grav 1.036 LAB [id number]( 4.6-8.0 LOINC) Normal UA pH 5.0 LAB [id number]( Negative LOINC) Normal UA Protein Negative LAB [id number]( mg/dL LOINC) UA Abnormal Urobilinogen 2.0 Result Comment: Due to a manufacturing issue, low positive urobilinogen results may be fasely positive. Correlate with urine bilirubin and additional clinical/laboratory findings to assess the risk of hemolytic anemia or liver disease. If clinically indicated, repeat testing with an alternate method is available by contacting the laboratory within 24 hours. LAB [id number](LOINC) Negative Normal UA Negative Nitrite LAB [id number](LOINC) Negative Normal UA Blood Negative LAB [id number](LOINC) Negative Normal UA Leuk Negative Est LAB [id number](LOINC) 0-3 /HPF Normal UA RBC 0-3 LAB [id number](LOINC) 0-5 /HPF Normal UA WBC 0-5 LAB [id number](LOINC) Trace /LPF Abnormal UA Mucous Trace Performed By: #### [id number] #### BASILIO Urinalysis Automated Subsection [facility] [place] [address] CT ABDOMEN/PELVIS W/ Observed: 10/21/2018 Status: F Source: CAODAISM CONTRAST 12:00 PM [facility] REPOSITORY Exam Date/Time: 10/21/2018 13:20 EST Reason for Exam: Pain Report STUDY: CT Abdomen/Pelvis w/ Contrast; 10/21/2018 1:20 pm INDICATION: Pain. Diffuse abdominal pain. Postop day 4 from right hemicolectomy. COMPARISON: 07/23/2018 ACCESSION NUMBER(S): [id number] ORDERING CLINICIAN: Uma Mcqueen TECHNIQUE: CT of the abdomen and pelvis was performed. Contiguous axial images were obtained at 3 mm slice thickness through the abdomen. Coronal and sagittal reconstructions at 3 mm slice thickness were performed. 200 ml of contrast material Omnipaque 350 were administered intravenously without immediate complication. FINDINGS: LOWER CHEST: Please see following report for chest CT ABDOMEN: LIVER: No definite focal lesion BILE DUCTS: Bile ducts: Normal caliber. GALLBLADDER: Cholelithiasis. No wall thickening or pericholecystic fluid. PANCREAS: The pancreas appears unremarkable. SPLEEN: Within normal limits. ADRENAL GLANDS: Bilateral adrenal glands appear normal. KIDNEYS AND URETERS: Exam Date/Time: 10/21/2018 13:20 EST Report Upper pole right renal cyst unchanged. No definite solid cortical lesion. 4 mm interpolar anterior right renal collecting system stone unchanged. There is new onset mild right hydroureteronephrosis without definite focal obstructing ureter lesion. Bladder: Unusually distended otherwise unremarkable. Reproductive organs: Unremarkable BOWEL: The stomach is unremarkable. Proximal small bowel loops are mildly dilated and there are gas fluid levels possibly due to postoperative ileus. More distally, bowel loops are abnormal in appearance. There are mildly dilated but there is considerable mural thickening. This could relate to enteritis either due to ischemia or infection. Mural thickening is circumferential about these loops of bowel in this extends to the ileocolic anastomosis. In the interval since the prior exam, the patient has undergone a right hemicolectomy. There is ileocolic anastomosis. There fluid contents of the colon possibly due to enteritis but nonspecific. No: Mural thickening. Diverticulosis without acute diverticulitis. Some sigmoid colon extends to the previously present left inguinal hernia without obstruction or incarceration. The appendix is surgically absent due to right hemicolectomy. VESSELS: Minimal atherosclerotic calcifications otherwise liver PERITONEUM/RETROPERITONEUM/LYMPH NODES: Hazy infiltrative postoperative changes in the peritoneal. In the right upper quadrant abutting the medial capsular margin of the inferior right liver lobe there is a small rim enhancing fluid collection measuring 38 mm in AP dimension by 9 mm in transverse dimension which could represent a small abscess. More inferiorly posterior to the ileocolic anastomosis there is another rim enhancing fluid collection that could represent an abscess. It measures 45 by 26 by 26 mm. Other small pockets of inter fluid fluid not greater than 2-3 mm are noted. No overt dependent layering ascites. No abdominopelvic lymphadenopathy is present. ABDOMINAL WALL: The periumbilical abdominal wall hernia apparent on the prior exam may have undergone surgical repair at the time of colectomy is no longer is well seen. There is some fluid at this site within the periumbilical hernia. The there is a left inguinal hernia. On today's exam non incarcerated nonobstructed sigmoid colon extends inferiorly into a. BONES: No suspicious osseous lesions are present. Degenerative discogenic disease is noted in the lower thoracic and lumbar spine. IMPRESSION: 1. There is been interval right hemicolectomy with ileocolic anastomosis. 2. Small bowel loops are mostly mildly dilated along their course with gas fluid levels which could be due to enteritis or ileus. Proximally bowel loops exhibit no mural thickening. However there is significant circumferential mural thickening in the more distal loops possibly due to inflammatory changes or ischemia. 3. The urinary bladder is unusually distended and there is mild symmetric bilateral hydro ureteral nephrosis. 4. There is if peritoneal fluid collection abutting the medial capsular margin of the inferior right liver lobe. Additionally there is an interloop peritoneal collection just posterior to the ileocolic anastomosis. See discussion above in the peritoneum section of the report. 5. Non incarcerated nonobstructed sigmoid colon extends inferiorly into the left inguinal hernia Exam Date/Time: 10/21/2018 13:20 EST Report 6. FINAL REPORT Dictated: 10/21/2018 1:55 pm Ramin Flores MD Signed (Electronic Signature): 10/21/2018 1:55 pm Signed by: Ramin Flores MD Technologist: SLB CTA CHEST Observed: 10/21/2018 Status: F Source: CAODAISM 12:00 PM [facility] REPOSITORY Exam Date/Time: 10/21/2018 13:20 EST Reason for Exam: Pulmonary Emboli (PE) Report STUDY: CTA Chest; 10/21/2018 1:20 pm INDICATION: Pulmonary Emboli (PE). COMPARISON: None. ACCESSION NUMBER(S): [id number] ORDERING CLINICIAN: Uma Mcqueen TECHNIQUE: Helical data acquisition of the chest was obtained contrast with to 100 cc Omnipaque 350 intravenous contrast. Images were reformatted in coronal and sagittal planes. Axial and coronal MIP images were created and reviewed. FINDINGS: POTENTIAL LIMITATIONS OF THE STUDY:Breathing motion limits the exam especially in the lung bases. HEART AND VESSELS: No definite filling defect is seen in the main, lobar, segmental, or proximal subsegmental pulmonary arteries. Main pulmonary artery and its branches are normal in caliber. Thoracic aorta is normal in caliber with mild atherosclerotic calcifications. There are mild coronary atherosclerotic calcifications.The study is not optimized for evaluation of coronary arteries. There is enlargement of the left atrium and left ventricle. No evidence of pericardial effusion. MEDIASTINUM AND REEMA, LOWER NECK AND AXILLA: The visualized thyroid gland is within normal limits. No evidence of thoracic lymphadenopathy by CT criteria. Small hiatus hernia. There may be some circumferential wall thickening of the thoracic esophagus specially below the level the mariella possibly due to esophagitis. Correlate clinically. LUNGS AND AIRWAYS: Exam Date/Time: 10/21/2018 13:20 EST Report There is dependent atelectasis in the lung bases. A linear bandlike density in the right lung base suggest areas platelike atelectasis. No airspace consolidation. No pleural effusion or pneumothorax. Large airways intact. UPPER ABDOMEN: See report for abdomen pelvis CT CHEST WALL AND OSSEOUS STRUCTURES: There are no suspicious osseous lesions. Multilevel degenerative changes are present IMPRESSION: 1. No CT findings suggesting aortic dissection or acute pulmonary embolus. 2. Dependent and platelike atelectasis in the right lung base some minimal dependent atelectasis the left lung base. 3. Question esophagitis with sub circumferential wall thickening of the infracarinal thoracic esophagus FINAL REPORT Dictated: 10/21/2018 2:06 pm Ramin Flores MD Signed (Electronic Signature): 10/21/2018 2:06 pm Signed by: Ramin Flores MD Technologist: KLARISSA PT Collected: 10/21/2018 Status: F Source: CAODAISM 11:12 AM [facility] REPOSITORY TYPE CODE TESTS RESULT OUT OF RANGE REFERENCE UNITS LAB [id number](LO 0.9-1.1 INC) High INR 1.3 Result Comment: INR Recommended Therapeutic ranges: Prophylaxis/treatment of DVT and PE..........2.0-3.0 Prevention of systemic embolism.................2.0-3.0 Mechanical prosthetic values........................2.5-3.5 CRITICAL VALUE.........................................> 4.0 NOTE: New methodology started 10/08/2018 LAB [id number](LOINC) 9.7-12.7 second(s) High PT 14.6 Result Comment: NOTE: New reference range established on 10/08/2018 due to change in methodology. Performed By: #### [id number] #### BASILIO [employer] [address] [place] [address] PTT Collected: 10/21/2018 Status: F Source: CAODAISM 11:12 AM [facility] REPOSITORY TYPE CODE TESTS RESULT OUT OF RANGE REFERENCE UNITS LAB [id number](LO 28-38 second(s) INC) Normal PTT 29 Result Comment: NOTE:New reference range established 10/08/2018 due to change in methodology. Performed By: #### [id number] #### BASILIO [employer] [address] [place] [address] BMP Collected: 10/21/2018 Status: F Source: CAODAISM 11:12 AM [facility] REPOSITORY TYPE CODE TESTS RESULT OUT OF RANGE REFERENCE UNITS LAB [id number](L 70-99 mg/dL OINC) High Glucose Lvl 149 LAB [id number](L 6-23 mg/dL OINC) BUN Normal 16 LAB [id number](LO 0.5-1.3 mg/dL INC) Normal Creatinine 1.0 LAB [id number](L 5.4-30.0 ratio OINC) Normal BUN/Creat Ratio 16.0 LAB [id number](L 8.6-10.3 mg/dL OINC) Calcium Normal Lvl 9.3 LAB [id number](L 136-145 mEq/L OINC) Low Sodium Lvl 134 LAB [id number](L 3.5-5.3 mEq/L OINC) Normal Potassium Lvl 3.5 LAB [id number](L 98-107 mEq/L OINC) Chloride Normal 103 LAB [id number](L 21.0-32.0 mEq/L OINC) CO2 Normal 22.0 LAB [id number](L 10-20 mEq/L OINC) AGAP Normal 13 Performed By: #### [id number] #### BASILIO [employer] [address] [place] [address] EGFR Collected: 10/21/2018 Status: F Source: CAODAISM 11:12 AM [facility] REPOSITORY Order Comment: Order added by Discern Expert. TYPE CODE TESTS RESULT OUT OF RANGE REFERENCE UNITS LAB [id number](LO mL/min/1.73 INC) m2 Normal eGFR >60 LAB [id number](LO mL/min/1.73 INC) m2 Normal eGFR AA >60 Performed By: #### [id number] #### BASILIO [employer] [address] [place], [place] [address] HEP FUNC PANEL Collected: 10/21/2018 Status: F Source: CAODAISM 11:[address] [facility] REPOSITORY TYPE CODE TESTS RESULT OUT OF RANGE REFERENCE UNITS LAB [id number](L 10-52 Int._Unit/L OINC) Normal ALT 15 LAB [id number](L 9-39 Int._Unit/L OINC) Normal AST 12 LAB [id number](L 3.4-5.0 gm/dL OINC) Normal Albumin Lvl 3.4 LAB [id number](L 2.0-4.0 G/DL OINC) Normal Globulin 4.0 LAB [id number](L 1.1-1.9 ratio OINC) Low A/G Ratio 0.9 LAB [id number](L 33-136 Int._Unit/L OINC) Normal Alk Phos 59 LAB [id number](L 0.00-0.30 mg/dL OINC) Normal Bili Direct 0.20 LAB [id number](L mg/dL OINC) Normal Bili Indirect 0.61 Result Comment: No established ranges available for the indirect bilirubin LAB [id number](LOINC) 0.00-1.20 mg/dL Normal Bili Total 0.81 LAB [id number](LOINC) 6.4-8.2 gm/dL Normal Total Protein 7.0 Performed By: #### [id number] #### [employer] [address] [place] [address] LIPASE LEVEL Collected: 10/21/2018 Status: F Source: CAODAISM 11:12 AM [facility] REPOSITORY TYPE CODE TESTS RESULT OUT OF RANGE REFERENCE UNITS LAB [id number](LO 9-82 Int._Unit/L INC) Normal Lipase Lvl 14 Performed By: #### [id number] #### [employer] [address] [place] [address] MAGNESIUM Collected: 10/21/2018 Status: F Source: CAODAISM 11:12 AM [facility] REPOSITORY TYPE CODE TESTS RESULT OUT OF RANGE REFERENCE UNITS LAB [id number](L 1.6-2.4 Int._Unit/L OINC) Normal Magnesium 1.8 Performed By: #### [id number] #### [employer] [address] [place] [address] LACTIC ACID Collected: 10/21/2018 Status: F Source: CAODAISM 11:12 AM [facility] REPOSITORY TYPE CODE TESTS RESULT OUT OF RANGE REFERENCE UNITS LAB [id number](LO 0.4-2.0 mmol/L INC) Normal Lactic Acid 1.2 Lvl Performed By: #### [id number] #### [employer] [address] [place] [address] TROPONIN-I Collected: 10/21/2018 Status: F Source: CAODAISM 11:12 AM [facility] REPOSITORY TYPE CODE TESTS RESULT OUT OF RANGE REFERENCE UNITS LAB [id number](LO .00-.03 ng/mL INC) Normal .03 Troponin-I Performed By: #### [id number] #### [employer] [address] [place] [address] CBC W/ AUTO DIFF Collected: 10/21/2018 Status: F Source: CAODAISM 11:12 AM [facility] REPOSITORY TYPE CODE TESTS RESULT OUT OF RANGE REFERENCE UNITS LAB [id number](L 3.6-11.0 E3/mcL OINC) Normal WBC 10.1 LAB [id number](L 3.90-6.10 E6/mcL OINC) Normal RBC 4.68 LAB [id number](L 13.5-18.0 G/DL OINC) Low Hgb 13.0 LAB 74098017(L 42.0-52.0 % OINC) Low Hct 38.8 LAB 33820032(L 11.5-14.5 % OINC) High RDW 20.6 LAB [id number](L 27.0-31.0 pg OINC) Normal MCH 27.7 LAB 15858472(L 33.0-37.0 G/DL OINC) Normal MCHC 33.4 LAB 83009545(L 78.0-100.0 fL OINC) Normal MCV 82.9 LAB 63866500(L 7.4-11.0 fL OINC) Low MPV 6.7 LAB [id number](L 130-400 E3/mcL OINC) Normal Platelet 375 Performed By: #### [id number] #### [facility] [place] [address] MANUAL DIFF Collected: 10/21/2018 Status: F Source: CAODAISM 11:12 AM [facility] REPOSITORY Order Comment: Order Added by Discern Expert. TYPE CODE TESTS RESULT OUT OF REFERENCE UNITS RANGE LAB [id number]( 37-75 % LOINC) Segs Man 85 High LAB 33251665( 14-48 % LOINC) Low Lymph Man 3 LAB 11240802( 1-11 % LOINC) Monocyte Man 11 Normal LAB 70158480( 0-5 % LOINC) Eos Man 1 Normal LAB 23500090( 0-1 % LOINC) Basophil Man 0 Normal LAB 25791221( LOINC) RBC Morph SEE Normal MORPHOLOGY LAB 49954446( LOINC) Polychromasia 1+ Normal LAB 81334322( LOINC) Anisocytosis 2+ Normal LAB 32311811( LOINC) Ovalocytes 2+ Normal Performed By: #### [id number] #### [employer] [address] [place] [address] ZZPLT MORPH Collected: 10/21/2018 Status: F Source: CAODAISM 11:12 AM [facility] TYPE CODE TESTS RESULT OUT OF RANGE REFERENCE UNITS LAB 54261479(L OINC) Normal Platelet NORMAL Estimate LAB 87619281(L OINC) Normal Platelet Morph NORMAL Performed By: #### [id number] #### [employer] [address] [place] [address] .MANUAL ABS Collected: 10/21/2018 Status: F Source: CAODAISM 11:12 AM [facility] REPOSITORY Order Comment: Order Added by Discern Expert. TYPE CODE TESTS RESULT OUT OF RANGE REFERENCE UNITS LAB [id number](L 1.4-6.5 10x3/ OINC) High Segs Abs Man 8.6 LAB [id number](L 1.2-3.4 10x3/ OINC) Low Lymph Abs Man 0.3 LAB 45150505(L 0.0-0.7 10x3/ OINC) High Ada Abs Man 1.1 LAB 66912024(L 0.0-0.5 10x3/ OINC) Normal Eos Abs Man 0.1 LAB 81249927(L 0.0-0.2 10x3/ OINC) Normal Basophil Abs 0.0 Man Performed By: #### [id number] #### [employer] [address] [place] [address] XR CHEST AP PORTABLE Observed: 10/21/2018 Status: F Source: CAODAISM 11:09 AM [facility] Exam Date/Time: 10/21/2018 11:17 EST Reason for Exam: Chest pain Report STUDY: XR Chest AP Portable; 10/21/2018 11:17 am INDICATION: Chest pain. COMPARISON: 07/14/2019 ACCESSION NUMBER(S): [id number] ORDERING CLINICIAN: Uma Mcqueen FINDINGS: AP portable view of the chest is obtained. Limited exam due to portable nature and likely poor inspiration. Low lung volumes may be due to poor inspiration.. Magnified cardiac silhouette. No infiltrates, effusions or pneumothorax. Sternal wires. IMPRESSION: 1. Limited AP poor inspiratory radiograph without focal active disease. FINAL REPORT Dictated: 10/21/2018 11:32 am Eder Gardiner MD Signed (Electronic Signature): 10/21/2018 11:32 am Signed by: Eder Gardiner MD Technologist: KIM DISCHARGE SUMMARY Observed: 10/18/2018 Status: F Source: SECO 12:09 PM [facility] REPOSITORY [facility] Medical Records Department [address] [place] [address] Discharge Summary 10/18/18 1156 MR#: [id number] Acct: [id number] Name: ANDREI RODRIGUEZ Rep #: [id number] : 1955 63 From: Porsha Barber PA-C PCP: Ghazala Cifuentes MD Status: ADM IN Y Location: [place] [address] Discharge Date and Diagnosis - Problem List Patient Problems: Active and Suspected Problems (Last Reviewed 10/09/18 @ 08:28 by Irina Lema) Colon cancer (Acute) Umbilical hernia (Acute) Date of Admission: 10/16/18 Date of Discharge: 10/18/18 - Primary Discharge Diagnosis Active and Suspected Problems (Last Reviewed 10/09/18 @ 08:28 by Irina Lema) Colon cancer (Acute) Umbilical hernia (Acute) Hospital Course and Treatment Operations: colectomy Summary of Care Provided: The patient is a 63 year old M who presented with colon cancer. Dr. Salazar performed a Laparoscopic right hemicolectomy and repair of umbilical hernia on 10/16/2018. Patient tolerated the procedure well. He had an uneventful hospitalization. Upon discharge, he noted minimal amount of abdominal discomfort. He denies nausea, vomiting, fever. He is tolerating his transitional diet. He is urinating well. He has positive flatus and BM's. Patient Problems: Active and Suspected Problems (Last Reviewed 10/09/18 @ 08:28 by Irina Lema) Colon cancer (Acute) Umbilical hernia (Acute) - Physical Exam General: Alert, Oriented x3, Cooperative Abdomen: Bowel Sounds Present, Soft, Tender - minimal generalized, - - Incisions c/d/i. No erythema or infection noted. Vital Signs Temp Pulse Resp BP Pulse Ox 98.3 F 86 18 105/68 95 10/18/18 09:00 10/18/18 09:00 10/18/18 09:00 10/18/18 09:00 10/18/18 09:00 Oxygen Flow Rate (L/min) 1 Oxygen Delivery Method Room Air Weight: 245 lb 9.519 oz Body Mass Index (BMI) 30.7 Intake and Output for Last 24 Hours Intake Total 3024 / 3024 3016 / 3016 650 / 650 Output Total 1900 / 1900 650 / 650 Balance 2999 / 2999 1116 / 1116 0 / 0 Laboratory Tests Past 24 Hrs WBC 9.4 RBC 3.74 L Hgb 9.9 L Hct 32.1 L Discharge Diet: - - Continue transitional diet until follow- up in office Discharge Activity: May Not Drive - 5 days or while taking narcotic pain medication May shower in (days): 1 Call your doctor if your incision/area has: Continuous Slow Oozing, Sudden Increased Bleeding, Increased Pain/ Swelling, Increased Redness, Foul Smelling Discharge, Swelling at the incision site Call your doctor if you observe: Fever of 101 or Higher, Numbness or Tingling Suture Line Care: Avoid Pulling/Pushing, Avoid Pinching/Bending Remove Dressing in (days):: 2 - Leave steri-strips in place for 1 week Cleanse incision/area with: Soap AND Water Home Medications: Medications to take at Discharge amoxicillin 875 mg-potassium clavulanate 125 mg tablet 1 tab PO BID 08/13/18 atorvastatin 40 mg tablet 40 mg PO DAILY 08/13/18 ferrous sulfate 325 mg (65 mg iron) tablet,delayed release 325 mg PO DAILY tab 08/13/18 losartan 50 mg tablet 50 mg PO DAILY 08/13/18 metoprolol tartrate 100 mg tablet 100 mg PO 1600,2200 08/13/18 Hydroxyzine HCl 25 mg PO TID PRN PRN 10/16/18 traMADol [Ultram] 50 mg PO Q6H PRN PRN 7 Days #20 tablet 10/18/18 Following Prescrptions Were Given to Patient: traMADol [Ultram] 50 mg PO Q6H PRN PRN 7 Days #20 tablet PRN Reason: Pain Primary Care Physician: Ghazala Cifuentes MD [Primary Care Provider] - Please Follow Up With: Alexandre Salazar MD When: 10/23/2018 at 9:00 AM Disposition: Home Minutes spent on discharge:: 25 Patient Condition:: Stable Medical Necessity - Tobacco Use Smoking Status: Never smoker Tobacco Use: Non-smoker Meaningful Use Info Meaningful Use Diagnoses (Choose all that apply): None applicable Code Visit Inpatient Mando STRICKLAND M: [id number] Disch Hosp 10/18/18 1209 <Electronically signed by Porsha Barber PA-C> Date Porsha Barber PA-C Cosigner Signature (if applicable): Date CC: Porsha Barber PA-C; Ghazala Cifuentes MD Signed DISCHARGE INSTRUCTION Observed: 10/18/2018 Status: F Source: SECO 11:56 [facility] REPOSITORY [facility] Medical Records Department [address] [place] [address] Instructions for Home/Discharge Instructions 10/18/18 1148 MR#: [id number] Acct: [id number] Name: ANDREI RODRIGUEZ Rep #: [id number] : 1955 63 From: Porsha Barber PA-C PCP: Ghazala Cifuentes MD Status: ADM IN Discharge Diet: - - Continue transitional diet until follow- up in office Discharge Activity: May Not Drive - 5 days or while taking narcotic pain medication May shower in (days): 1 Lifting Restrictions: 10 pounds Call your doctor if your incision/area has: Continuous Slow Oozing, Sudden Increased Bleeding, Increased Pain/ Swelling, Increased Redness, Foul Smelling Discharge, Swelling at the incision site Call your doctor if you observe: Fever of 101 or Higher, Numbness or Tingling Suture Line Care: Avoid Pulling/Pushing, Avoid Pinching/Bending Remove Dressing in (days):: 2 - Leave steri-strips in place for 1 week Cleanse incision/area with: Soap AND Water Allergies/Adverse Reactions: Allergies triamterene Allergy (Mild, Verified 10/09/18 09:19) rash Medications to take at Discharge amoxicillin 875 mg-potassium clavulanate 125 mg tablet 1 tab PO BID 08/13/18 atorvastatin 40 mg tablet 40 mg PO DAILY 08/13/18 ferrous sulfate 325 mg (65 mg iron) tablet,delayed release 325 mg PO DAILY tab 08/13/18 losartan 50 mg tablet 50 mg PO DAILY 08/13/18 metoprolol tartrate 100 mg tablet 100 mg PO 1600,2200 08/13/18 Hydroxyzine HCl 25 mg PO TID PRN PRN 10/16/18 traMADol [Ultram] 50 mg PO Q6H PRN PRN 7 Days #20 tablet 10/18/18 The following prescriptions were given: traMADol [Ultram] 50 mg PO Q6H PRN PRN 7 Days #20 tablet PRN Reason: Pain Primary Care Physician: Ghazala Cifuentes MD [Primary Care Provider] - Test Results: Test results from this visit will be discussed in further detail at your follow-up appointment, if applicable. Please Follow Up With: Alexandre Salazar MD When: 10/23/2018 at 9:00 AM 10/18/18 1156 <Electronically signed by Porsha Barber PA-C> Date Porsha Barber PA-C CC: Ghazala Cifuentes MD Signed CBC-COMPLETE BLOOD CNT Collected: 10/18/2018 Status: F Source: JACEK NO DIFF 6:14 AM [facility] REPOSITORY TYPE CODE TESTS RESULT OUT OF RANGE REFERENCE UNITS LAB L100.1000 4.4-11.0 K/mm3 Normal WBC 9.4 LAB L100.1200 4.6-6.2 M/mm3 Low RBC 3.74 LAB L100.1300 13.0-16.5 g/dl Low HGB 9.9 LAB L100.1400 40-54 % Low HCT 32.1 LAB L100.1500 80-94 fL Normal MCV 85.8 LAB L100.1600 27.0-32.0 pg Low MCH 26.5 LAB L100.1700 32-36 g/gl Low MCHC 30.8 LAB L100.1810 11.6-14.6 % High RDW CV 19.9 LAB L100.1820 35.1-43.9 fl High RDW SD 60.6 LAB L100.1900 150-450 K/mm3 Normal PLT 166 LAB L100.2000 6.2-12.0 fl Normal MPV 8.4 Performed By: #### L100.0500 #### [facility] [address] [place], [place], [address] BASIC METABOLIC Collected: 10/18/2018 Status: F Source: SECO PROFILE ([facility]) 6:14 AM [facility] REPOSITORY TYPE CODE TESTS RESULT OUT OF RANGE REFERENCE UNITS LAB L501.0100 74-106 mg/dL Normal GLU 99 Result Comment: Please note revised GLUCOSE reference range effective 2017. LAB L501.1000 7-18 mg/dL High BUN 19 LAB L501.1100 0.70-1.30 mg/dL High CREAT,SERUM 1.46 Result Comment: The validity of the calculated GFR AND GFRAA in patients over 70 years has not been determined. Clinical correlation is essential. LAB L501.1110 >60 mL/min Low EST GFR 52 Result Comment: Non- GFR Calc LAB L501.1115 >60 mL/min Normal EST GFR - AA 63 Result Comment: GFR Calc LAB L501.1255 ml/min Normal Estimated CRCL 63.50 LAB L501.1300 10-20 RATIO Normal BUN/CRE 13.0 LAB L501.2200 8.5-10 mg/dL Low .1 CA 8.2 LAB L501.5300 136-14 mmol/L Normal 5 NA 137 LAB L501.5600 3.5-5. mmol/L Normal 1 K 4.1 LAB L501.5900 98-107 mmol/L Normal CL 105 LAB L501.6100 21.0-3 mmol/L Normal 2.0 CO2 24.0 LAB L501.6200 5-15 Normal GAP 8 Performed By: #### L500.2500 #### [facility] [address] [place], [address] BASIC METABOLIC Collected: 10/17/2018 Status: F Source: SECO PROFILE ([facility]) 5:48 AM [facility] REPOSITORY TYPE CODE TESTS RESULT OUT OF RANGE REFERENCE UNITS LAB L501.0100 74-106 mg/dL High GLU 123 Result Comment: Fasting Glucose result from 100 to 125 mg/dL suggests IMPAIRED HOMEOSTASIS per A.D.A. criteria. Please note revised GLUCOSE reference range effective 2017. LAB L501.1000 7-18 mg/dL Normal BUN 16 LAB L501.1100 0.70-1.30 mg/dL High CREAT,SERUM 1.47 Result Comment: The validity of the calculated GFR AND GFRAA in patients over 70 years has not been determined. Clinical correlation is essential. LAB L501.1110 >60 mL/min Low EST GFR 52 Result Comment: Non- GFR Calc LAB L501.1115 >60 mL/min Normal EST GFR - AA 63 Result Comment: GFR Calc LAB L501.1255 ml/min Normal Estimated CRCL 63.07 LAB L501.1300 10-20 RATIO Normal BUN/CRE 10.9 LAB L501.2200 8.5-10 mg/dL Low .1 CA 7.9 LAB L501.5300 136-14 mmol/L Low 5 NA 134 LAB L501.5600 3.5-5. mmol/L Normal 1 K 4.4 LAB L501.5900 98-107 mmol/L Normal CL 104 LAB L501.6100 21.0-3 mmol/L Low 2.0 CO2 20.0 LAB L501.6200 5-15 Normal GAP 10 Performed By: #### L500.2500 #### [facility] [address] [place], [place], [address] CBC-COMPLETE BLOOD CNT Collected: 10/17/2018 Status: F Source: SECO NO DIFF 5:48 AM [facility] REPOSITORY TYPE CODE TESTS RESULT OUT OF RANGE REFERENCE UNITS LAB L100.1000 4.4-11.0 K/mm3 Normal WBC 10.6 LAB L100.1200 4.6-6.2 M/mm3 Low RBC 3.94 LAB L100.1300 13.0-16.5 g/dl Low HGB 10.7 LAB L100.1400 40-54 % Low HCT 33.6 LAB L100.1500 80-94 fL Normal MCV 85.3 LAB L100.1600 27.0-32.0 pg Normal MCH 27.2 LAB L100.1700 32-36 g/gl Low MCHC 31.8 LAB L100.1810 11.6-14.6 % High RDW CV 20.1 LAB L100.1820 35.1-43.9 fl High RDW SD 60.8 LAB L100.1900 150-450 K/mm3 Normal PLT 217 LAB L100.2000 6.2-12.0 fl Normal MPV 9.2 Performed By: #### L100.0500, L100.4500 #### [facility] [address] [place], [address] DIFFERENTIAL COMMENT Collected: 10/17/2018 Status: F Source: JACEK 5:48 AM [facility] REPOSITORY TYPE CODE TESTS RESULT OUT OF RANGE REFERENCE UNITS LAB L100.4500 Normal SMEAR COMMENT COMMENT Result Comment: SLIDE SCANNED - 1+ ANISO. Performed By: #### L100.0500, L100.4500 #### [facility] [address] [place], [address] BEDSIDE GLUCOSE Collected: 10/16/2018 Status: F Source: JACEK 11:02 AM [facility] REPOSITORY TYPE CODE TESTS RESULT OUT OF RANGE REFERENCE UNITS LAB L501.080 70-110 mg/dL Normal BEDSIDE GLU 101 Result Comment: MANAGEMENT OF PATIENT CARE PER NURSING PROTOCOL Performed By: #### L501.080 #### [facility] Point of Care [address] [place] [address] NM MYOCARDIAL SPECT Observed: 10/15/2018 Status: F Source: CAODAISM MULTI REST/STRESS 6:26 AM [facility] REPOSITORY Exam Date/Time: 10/15/2018 10:14 EST Reason for Exam: PRE OP CLEARANCE Report STUDY: NM Myocardial Spect Multi Rest/Stress; 10/15/2018 10:14 am INDICATION: PRE OP CLEARANCE. COMPARISON: None. ACCESSION NUMBER(S): [id number] ORDERING CLINICIAN: Reymundo Scott TECHNIQUE: DIVISION OF NUCLEAR MEDICINE PHARMACOLOGIC STRESS MYOCARDIAL PERFUSION SCAN, ONE DAY PROTOCOL The patient received an intravenous dose of 10.9 mCi of Tc- 99m Myoview and resting emission tomographic (SPECT) images of the myocardium were acquired. The patient then received an intravenous infusion of 0.4 mg regadenoson (Lexiscan) followed by an additional dose of 31.9 mCi of Tc-99m Myoview. Stress phase SPECT images of the myocardium were then acquired. These included ECG-gated images to assess and quantify ventricular function. FINDINGS: Stress and rest images both demonstrate a normal distribution of perfusion throughout all LV segments with no sign of ischemia. There is moderate LV dilation with an end-diastolic volume calculated at 168 mL. ECG-gated images demonstrate artifact secondary to ectopic ventricular arrhythmia. The LV EF could not be calculated. IMPRESSION: 1. Normal stress myocardial perfusion imaging in response to pharmacologic stress without evidence of ischemia or prior infarct. 2. There is moderate dilation of the LV. 3. The LV EF could not be calculated secondary to gating artifact from ectopic ventricular arrhythmia. Exam Date/Time: 10/15/2018 10:14 EST Report I personally reviewed the images/study and I agree with the findings as stated. This study was interpreted at [address], [place]. FINAL REPORT Dictated: 10/15/2018 11:29 am Layton Dupree MD Signed (Electronic Signature): 10/15/2018 11:29 am Signed by: Layton Dupree MD Technologist: CAM 12 LEAD ELECTROCARDIOGRAM Observed: 10/11/2018 Status: F Source: SECO 4:04 PM [facility] REPOSITORY [facility] Cardiovascular Services [address] [place] [id number] EKG - [facility] 10/09/18 0956 MR#: [id number] Acct: [id number] Name: ANDREI RODRIGUEZ Rep #: [id number] : 1955 63 From: Wilbur Downs MD Attending Dr: Alexandre Salazar MD Status: PRE IN Ordering Dr: Tyrell Samayoa MD Date: 10/09/18 Location: [facility] Sex: M C Admitted: Test Reason : Blood Pressure : / mmHG Vent. Rate : 067 BPM Atrial Rate : 067 BPM P-R Int : 124 ms QRS Dur : 094 ms QT Int : 410 ms P-R-T Axes : -14 -16 -19 degrees QTc Int : 433 ms Normal sinus rhythm Moderate voltage criteria for LVH, may be normal variant Cannot rule out Inferior infarct , age undetermined Abnormal ECG Confirmed by JUAN TREVIÑO, WILBUR ([id number]), script editor MILTON MICHEL ([id number]) on 10/11/2018 4:04:18 PM Referred By: Alexandre Salazar Confirmed By:WILBUR DOWNS MD 10/11/18 1604 Date Wilbur Downs MD CC: Aelxandre Salazar MD; Tyrell Samayoa MD; Ghazala Cifuentes MD Date Dictated: 10/09/18955 Date Transcribed: 10/09/18955 Licensed Clinician: Signed SURGERY VISIT REPORT Observed: 10/09/2018 Status: F Source: SECO 11:21 AM [facility] REPOSITORY [facility] [address] [place] [address]. [address] [place] [address] OFFICE VISIT Date of Service: 10/09/18 MR#: [id number] Acct: [id number] Name: ANDREI RODRIGUEZ Rep #: [id number] : 1955 Provider: Porsha Barber PA-C Age/Sex: 63/M Location: [facility] Status: Signed Intake Vital Signs10/09/18 Body Mass Index (BMI) 29.4 10/09/18 Height 6 ft 3 in 10/09/18 Weight: 235 lb 10/09/18 Body Mass Index (BMI) 29.3 Intake Visit Reasons: update h AND p colectomy w/ DP - Chief Complaint: ascending colon cancer Clinical Nursing Instructor Required: No Is patient in pain?: Yes Allergies triamterene Allergy (Mild, Verified 10/09/18 09:19) rash Medications amoxicillin 875 mg-potassium clavulanate 125 mg tablet 1 tab PO BID 08/13/18 [History Confirmed 10/09/18] atorvastatin 40 mg tablet 40 mg PO DAILY 08/13/18 [History Confirmed 10/09/18] ferrous sulfate 325 mg (65 mg iron) tablet,delayed release 325 mg PO DAILY tab 08/13/18 [History Confirmed 10/09/18] losartan 50 mg tablet 50 mg PO DAILY 08/13/18 [History Confirmed 10/09/18] metoprolol tartrate 100 mg tablet 100 mg PO 1600,2200 08/13/18 [History Confirmed 10/09/18] hydrALAZINE [Apresoline] 25 mg PO TID PRN 10/09/18 [History Confirmed 10/09/18] traMADol [Ultram (G)] 50 mg PO Q6H PRN PRN 10/09/18 [History Confirmed 10/09/18] PFSH Medical History Anemia (Acute 06/2018) Back pain (Acute) Colon cancer (Acute 07/2018) Hyperlipidemia (Acute) Myocardial infarction (Acute 10/2017) Osteoarthritis (Acute) HTN (hypertension) (Chronic) Surgical History History of colonoscopy (Acute 07/2018) History of coronary artery bypass graft x 6 (Acute 10/2017) Family History Mother Hypertension Alzheimer disease Brother Colon cancer, Onset Age: 42 Social History Smoking Status: Never smoker alcohol intake: never HPI HPI HPI: ANDREI RODRIGUEZ, is a 62 M who presents to the office today for an update history and physical for an upcoming elective colectomy for known biopsied colon cancer. Patient notes recent history of right-sided abdominal pain for 1 month. Patient does note his brother with colon cancer at the age of 47. Patient also has bilateral inguinal and umbilical hernias. He notes having increased pain/discomfort with the left inguinal hernia. Patient is also concerned that he may have to have chemotherapy after the procedure. 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 Patient notes he has had 3 previous heart attacks in October of last year. Patient noted he had a 5 vessel bypass at that time at in [place]. Patient noted a bloody bowel movement yesterday. He also notes feeling slightly weak. He is also taking Augmentin for sinus infection. Patient's previous history per Dr. Salazar: ANDREI RODRIGUEZ, is a 62 M who presents to the office today for evaluation for colon cancer. Patient underwent a colonoscopy by Dr. Patrick Soliz on 07/25/2018. Patient was noted to have a near obstructing apple core lesion in the ascending colon. Biopsy came back as moderately differentiated adenocarcinoma. Patient prior to that had undergone a CAT scan of the abdomen which was suspicious for the colon cancer. There were no lesions identified in the liver however it was suspicious for lymph node involvement in the ascending colon area. Patient has not had any diarrhea. He is complaining of occasional abdominal discomfort on the right side. He has had no nausea or vomiting. Earlier this year the patient underwent a 5 vessel bypass up in [place]. He had been on aspirin and what propagated this workup was that he presented to the emergency department in [place] on 07/23/2018. At that time he was noted to be profoundly anemic with a hemoglobin of 6.6. He had been on quite a bit of aspirin secondary to his 5 vessel bypass this past November. His most recent hemoglobin on 07/24/2018 was 7.7. Platelets were 287,000. Impression on the CAT scan was that there was a 4.5 cm enhancing annular constricting mass in the ascending colon consistent with colon carcinoma. In addition there was several lymph nodes bordering on enlargement in the ascending colon region. In addition he has 2 rather large inguinal hernias. As well as an umbilical hernia. Patient was seen by his enterprise architect manager status post his 5 vessel bypass. From a cardiac standpoint he was noted to be asymptomatic and stable and was cleared for surgery with a moderate risk. ROS General General: Yes fatigue and colon cancer; no weight change, appetite, breast cancer or weakness HEENT HEENT: Yes swollen glands; no difficulty swallowing, eye injury, eye surgery or hoarseness Endo Endocrine: No thyroid disease, diabetes mellitus, thyroid cancer, Hair loss, heat intolerance or cold intolerance Musc Musculoskeletal: Yes back problems and arthritis; no rheumatoid arthritis, gout or joint pain Cardio Cardiovascular: Yes high blood pressure, heart attack and chest pain; no murmur, pacemaker, heart disease, atrial fibrillation, heart stent, palpitations or shortness of breat with exertion Resp Respiratory: Yes shortness of breath, No sleep apnea, No cough, No COPD, No asthma, No emphysema, No wheezing Gastro Gastrointestinal: No abdominal pain, No nausea or vomiting, Yes diarrhea, No constipation, Yes blood in stool, No acid reflux, No hemorrhoids, No ulcers, No gallbladder problem, No black,tarry stools Dominguez Hematologic: No blood thinners, No blood disorders, No bleeding, Yes anemia, No blood clots Neuro Neurologic: No weakness Exam Const General: cooperative, healthy appearing, comfortable, no acute distress [facility] Head: normal to inspection Eyes General: appearance normal, both eyes and all related structures Neck Neck: normal visual inspection Neck mass: No Resp Effort AND Inspection: normal respiratory effort Auscultation: clear to auscultation bilaterally Cardio Rate: regular rate Rhythm: regular rhythm Heart Sounds: no murmurs GI Inspection: obesity Palpation: soft, tender in the RUQ Auscultation: normal bowel sounds Skin General: no rashes or lesions noted Neuro General: no focal motor deficits, CN's II-XI intact bilaterally Extrem General: normal to inspection Psych Appearance: grossly normal Affect: normal affect Assessment AND Plan Problems 1. Malignant neoplasm of ascending colon C18.2 2. Non-recurrent bilateral inguinal hernia without obstruction or gangrene K40.20 3. Umbilical hernia without obstruction and without gangrene K42.[address] Salazar will plan to perform a laparoscopic right hemicolectomy with ERAS protocol. Procedure details, risks and benefits were reviewed. Patient will also have to wait approximately 3 months after colectomy to have his umbilical, bilateral inguinal hernias repaired. Patient is aware of this and has been discussed in complete detail. Patient is also aware that we are not able to predict how quickly his cancer may spread. I have also discussed with him that he will continue to be anemic until the tumor is removed. Coding Level of Care Code No Charge Diagnoses Malignant neoplasm of ascending colon C18.2 Colon location: ascending Non-recurrent bilateral inguinal hernia without obstruction or gangrene K40.20 Obstruction and gangrene presence: without obstruction or gangrene Recurrence: non-recurrent Umbilical hernia without obstruction and without gangrene K42.9 Obstruction and gangrene presence: without obstruction or gangrene Comment Update H AND P 10/09/18 1121 <Electronically signed by Porsha Barber PA-C> Date Porsha Barber PA-C Cosigner Signature: Date (if applicable) CC: CBC-COMPLETE BLOOD CNT Collected: 10/09/2018 Status: F Source: JACEK NO DIFF 10:20 AM [facility] REPOSITORY TYPE CODE TESTS RESULT OUT OF RANGE REFERENCE UNITS LAB L100.1000 4.4-11.0 K/mm3 Normal WBC 5.1 LAB L100.1200 4.6-6.2 M/mm3 Normal RBC 4.85 LAB L100.1300 13.0-16.5 g/dl Low HGB 12.7 LAB L100.1400 40-54 % Normal HCT 40.7 LAB L100.1500 80-94 fL Normal MCV 83.9 LAB L100.1600 27.0-32.0 pg Low MCH 26.2 LAB L100.1700 32-36 g/gl Low MCHC 31.2 LAB L100.1810 11.6-14.6 % High RDW CV 21.7 LAB L100.1820 35.1-43.9 fl High RDW SD 66.5 LAB L100.1900 150-450 K/mm3 Normal PLT 212 LAB L100.2000 6.2-12.0 fl Normal MPV 8.4 Performed By: #### L100.0500, L100.4500 #### [facility] [address] [place], [place], [id number] DIFFERENTIAL COMMENT Collected: 10/09/2018 Status: F Source: JACEK 10:20 AM [facility] REPOSITORY TYPE CODE TESTS RESULT OUT OF RANGE REFERENCE UNITS LAB L100.4500 Normal SMEAR COMMENT Result Comment: ANISOCYTOSIS 2+ Performed By: #### L100.0500, L100.4500 #### [facility] [address] [place], [place], [id number] PROTHROMBIN TIME W/INR Collected: 10/09/2018 Status: F Source: JACEK 10:20 AM [facility] REPOSITORY TYPE CODE TESTS RESULT OUT OF RANGE REFERENCE UNITS LAB L300.4150 11.7-14.9 SECONDS Normal PROTIME 14.4 LAB L300.4200 Normal INR 1.1 Performed By: #### L300.3900, L300.4310 #### [facility] [address] [place], [place], [id number] PARTIAL THROMBOPLAST Collected: 10/09/2018 Status: F Source: SECO TIME 10:20 AM [facility] REPOSITORY TYPE CODE TESTS RESULT OUT OF REFERENCE UNITS RANGE LAB L300.4310 24.1-36.2 Seconds High PTT 36.4 Performed By: #### L300.3900, L300.4310 #### [facility] [address] [place], [place], [address] BASIC METABOLIC Collected: 10/09/2018 Status: F Source: JACEK PROFILE (BMP) 10:20 AM [facility] REPOSITORY TYPE CODE TESTS RESULT OUT OF RANGE REFERENCE UNITS LAB L501.0100 74-106 mg/dL Normal GLU 93 Result Comment: Please note revised GLUCOSE reference range effective 2017. LAB L501.1000 7-18 mg/dL Normal BUN 17 LAB L501.1100 0.70-1.30 mg/dL Normal CREAT,SERUM 1.20 Result Comment: The validity of the calculated GFR AND GFRAA in patients over 70 years has not been determined. Clinical correlation is essential. LAB L501.1110 >60 mL/min Normal EST GFR 65 Result Comment: Non- GFR Calc LAB L501.1115 >60 mL/min Normal EST GFR - AA 79 Result Comment: GFR Calc LAB L501.1255 ml/min Normal Estimated CRCL 77.26 LAB L501.1300 10-20 RATIO Normal BUN/CRE 14.2 LAB L501.2200 8.5-10 mg/dL Normal .1 CA 8.8 LAB L501.5300 136-14 mmol/L Normal 5 NA 139 LAB L501.5600 3.5-5. mmol/L Normal 1 K 4.1 LAB L501.5900 98-107 mmol/L Normal CL 107 LAB L501.6100 21.0-3 mmol/L Normal 2.0 CO2 24.0 LAB L501.6200 5-15 Normal GAP 8 Performed By: #### L500.2500 #### [facility] [address] [place], [address] CARCINOEMBRYONIC ANTIGEN Collected: 10/09/2018 Status: F Source: JACEK 10:20 AM [facility] REPOSITORY TYPE CODE TESTS RESULT OUT OF RANGE REFERENCE UNITS LAB L3100.2300 0.0-4.7 ng/mL High CEA 8.5 Result Comment: Nonsmokers <3.9 Smokers <5.6 [facility] Electrochemiluminescence Immunoassay (ECLIA) Values obtained with different assay methods or kits cannot be used interchangeably. Results cannot be interpreted as absolute evidence of the presence or absence of malignant disease. Performed at: [facility] [id number] Advertising Director: Adriano Waters PhD, Phone: [phone] Performed By: #### L3100.2300 #### [facility] (refer to report for specific site) refer to report for address and phone number SURGERY VISIT REPORT Observed: 09/17/2018 Status: F Source: SECO 7:47 AM [facility] [address] [place] [address] [address] [place], [place] [id number] OFFICE VISIT Date of Service: 09/12/18 MR#: [id number] Acct: [id number] Name: ANDREI RODRIGUEZ Rep #: [id number] : 1955 Provider: Porsha Barber PA-C Age/Sex: 62/M Location: [facility] Status: Signed Intake Vital Signs09/12/18 Body Mass Index (BMI) 29.4 09/12/18 Height 6 ft 3 in 09/12/18 Weight: 235 lb Intake Visit Reasons: update h AND p colectomy w/ DP 09-20 Chief Complaint: ascending colon cancer Clinical Nursing Instructor Required: No Is patient in pain?: Yes (RUQ / R Flank) Pain scale (1-10): 8 Allergies triamterene Allergy (Mild, Verified 09/12/18 13:05) rash Medications amoxicillin 875 mg-potassium clavulanate 125 mg tablet 1 tab PO BID 08/13/18 [History Confirmed 09/12/18] atorvastatin 40 mg tablet 40 mg PO DAILY 08/13/18 [History Confirmed 09/12/18] ferrous sulfate 325 mg (65 mg iron) tablet,delayed release 325 mg PO DAILY tab 08/13/18 [History Confirmed 09/12/18] losartan 50 mg tablet 50 mg PO DAILY 08/13/18 [History Confirmed 09/12/18] metoprolol tartrate 100 mg tablet 100 mg PO BID 08/13/18 [History Confirmed 09/12/18] metronidazole 500 mg tablet 500 mg PO .COMPLEX #6 tab 09/12/18 [Rx Confirmed 09/12/18] neomycin 500 mg tablet 500 mg PO .COMPLEX #6 tab 09/12/18 [Rx Confirmed 09/12/18] PFSH Medical History Anemia (Acute 06/2018) Back pain (Acute) Colon cancer (Acute 07/2018) Hyperlipidemia (Acute) Myocardial infarction (Acute 10/2017) Osteoarthritis (Acute) HTN (hypertension) (Chronic) Surgical History History of colonoscopy (Acute 07/2018) History of coronary artery bypass graft x 6 (Acute 10/2017) Family History Mother Hypertension Alzheimer disease Brother Colon cancer, Onset Age: 42 Social History Smoking Status: Never smoker alcohol intake: never HPI HPI HPI: ANDREI RODRIGUEZ, is a 62 M who presents to the office today for an update history and physical for an upcoming elective colectomy for known biopsied colon cancer. Patient notes recent history of right-sided abdominal pain for 2 weeks. Patient is concerned that the cancer has spread. Patient is also concerned about finances and would like to wait until mid September to have his surgery. Patient also would like to have a way to see if the cancer has spread. Patient notes if cancer has spread, he would like the surgery as scheduled currently on 09-20. Patient does note his brother with colon cancer at the age of 47. Patient also has bilateral inguinal and umbilical hernias. He notes having increased pain/discomfort with the left inguinal hernia. Patient notes he is at risk for having his electric shut off due to non-payment, which is the reason he would also like to wait. Patient is also concerned that he may have to have chemotherapy after the procedure. 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 Patient's previous history per Dr. Salazar: ANDREI RODRIGUEZ, is a 62 M who presents to the office today for evaluation for colon cancer. Patient underwent a colonoscopy by Dr. Patrick Soliz on 07/25/2018. Patient was noted to have a near obstructing apple core lesion in the ascending colon. Biopsy came back as moderately differentiated adenocarcinoma. Patient prior to that had undergone a CAT scan of the abdomen which was suspicious for the colon cancer. There were no lesions identified in the liver however it was suspicious for lymph node involvement in the ascending colon area. Patient has not had any diarrhea. He is complaining of occasional abdominal discomfort on the right side. He has had no nausea or vomiting. Earlier this year the patient underwent a 5 vessel bypass up in [place]. He had been on aspirin and what propagated this workup was that he presented to the emergency department in [place] on 07/23/2018. At that time he was noted to be profoundly anemic with a hemoglobin of 6.6. He had been on quite a bit of aspirin secondary to his 5 vessel bypass this past November. His most recent hemoglobin on 07/24/2018 was 7.7. Platelets were 287,000. Impression on the CAT scan was that there was a 4.5 cm enhancing annular constricting mass in the ascending colon consistent with colon carcinoma. In addition there was several lymph nodes bordering on enlargement in the ascending colon region. In addition he has 2 rather large inguinal hernias. As well as an umbilical hernia. Patient was seen by his enterprise architect manager status post his 5 vessel bypass. From a cardiac standpoint he was noted to be asymptomatic and stable and was cleared for surgery with a moderate risk. ROS General General: Yes fatigue and colon cancer; no weight change, appetite, breast cancer or weakness HEENT HEENT: Yes swollen glands; no difficulty swallowing, eye injury, eye surgery or hoarseness Endo Endocrine: No thyroid disease, diabetes mellitus, thyroid cancer, Hair loss, heat intolerance or cold intolerance Musc Musculoskeletal: Yes back problems and arthritis; no rheumatoid arthritis, gout or joint pain Cardio Cardiovascular: Yes high blood pressure, heart attack and chest pain; no murmur, pacemaker, heart disease, atrial fibrillation, heart stent, palpitations or shortness of breat with exertion Resp Respiratory: Yes shortness of breath, No sleep apnea, No cough, No COPD, No asthma, No emphysema, No wheezing Gastro Gastrointestinal: No abdominal pain, No nausea or vomiting, Yes diarrhea, No constipation, Yes blood in stool, No acid reflux, No hemorrhoids, No ulcers, No gallbladder problem, No black,tarry stools Dominguez Hematologic: No blood thinners, No blood disorders, No bleeding, Yes anemia, No blood clots Neuro Neurologic: No weakness Exam Const General: no acute distress, disheveled Nutritional Appearance: obese HENMT Head: normal to inspection Ears: hearing grossly normal bilaterally Eyes General: appearance normal, both eyes and all related structures Neck Neck: normal visual inspection Neck mass: No Resp Effort AND Inspection: normal respiratory effort Auscultation: clear to auscultation bilaterally Cardio Rate: regular rate Rhythm: regular rhythm Heart Sounds: no murmurs GI Inspection: obesity Palpation: hernia other (bilateral inguinal hernia. Left inguinal hernia larger than the right. Umbilical hernia noted.), other (obtunded; hollow. RUQ pain/discomfort noted. ) Auscultation: normal bowel sounds Skin General: no rashes or lesions noted Neuro General: no focal motor deficits, CN's II-XI intact bilaterally Extrem General: normal to inspection Psych Appearance: grossly normal Affect: normal affect Assessment AND Plan Problems 1. Malignant neoplasm of ascending colon C18.2 2. Non-recurrent bilateral inguinal hernia with obstruction without gangrene K40.00 3. Umbilical hernia with obstruction, without gangrene K42.[address] Salazar will plan to perform a laparoscopic right hemicolectomy with ERAS protocol. Procedure details, risks and benefits were reviewed. Recommend a CT scan of the abdomen/pelvis and STAT labs today. We will evaluate progression of the disease. It was discussed with the patient that postponing may allow for spreading of the disease. Patient will also have to wait approximately 3 months after colectomy to have his umbilical, bilateral inguinal hernias repaired. Patient is aware of this and has been discussed in complete detail. Patient is also aware that we are not able to predict how quickly his cancer may spread. I have also discussed with him that he will continue to be anemic until the tumor is removed. I have highly recommended that patient keep his scheduled 09/20 date of surgery. Our office will continue to be in discussion with the patient in regards to when he would like to proceed. Orders Orders: Medications New: neomycin Take two (2) 500 mg tablets PO at 1300, 1500, 2300 6 tabs 0RF pre-op antibio tics Coding Level of Care Code No Charge Diagnoses Malignant neoplasm of ascending colon C18.2 Colon location: ascending Non-recurrent bilateral inguinal hernia with obstruction without gangrene K40.00 Obstruction and gangrene presence: with obstruction but without gangrene Recurrence: non-recurrent Umbilical hernia with obstruction, without gangrene K42.0 Obstruction and gangrene presence: with obstruction but without gangrene Comment Update H AND P 09/17/18 0747 <Electronically signed by Porsha Barber PA-C> Date Porsha Barber PA-C Cosigner Signature: Date (if applicable) CC: ABDOMEN/PELVIS WITH Observed: 09/15/2018 Status: F Source: SECO CONTRAST 10:42 AM [facility] REPOSITORY [facility] Imaging Services [address] [facility] [place] [address] Abdomen/Pelvis WITH Contrast MR#: [id number] Acct: [id number] Name: RODRIGUEZANDREI Rep #: [id number] : 1955 62 From: Piter Jeanette PCP: Ghazala Cifuentes MD Status: REG CLI Study: Abdomen/Pelvis WITH Contrast Date of Exam: 09/15/18 Exam# [id number] Ordering Dr: Porsha Barber PA-C STUDY: CT ABDOMEN AND PELVIS WITH CONTRAST REASON FOR EXAM: Male, 62 years old. Colon cancer, newly diagnosed, staging. RADIATION DOSAGE (If Supplied By Facility): CTDIvol = ( 15.37 ) mGy, DLP = ( 1526.41 ) mGycm TECHNIQUE: Transaxial images were obtained from the dome of the diaphragm to the symphysis pubis with oral contrast. 100 ml of Isovue 300 contrast was administered. Sagittal and coronal images were reconstructed. Individualized dose optimization techniques were used for this CT. COMPARISON: None. FINDINGS: The visualized lung bases are unremarkable. The visualized portions of the heart are within normal limits. Normal liver. There is a solitary gallstone. Normal spleen. Normal pancreas. Normal bilateral adrenal glands. Normal right kidney. Normal left kidney. Small right renal cyst, nonenhancing. Normal visualized stomach. Normal small intestine. Circumferential wall thickening with neoplastic narrowing in the ascending colon; apple core lesion. Remainder of the colon demonstrates chronic diverticulosis. The appendix is visualized and appears normal. Normal abdominal aorta. Normal inferior vena cava. Normal retroperitoneum. Normal urinary bladder. Normal visualized prostate gland. Normal abdominal wall. There are diffuse degenerative changes of the visualized lumbar spine. CT/Abdomen/Pelvis WITH Contrast IMPRESSION: Neoplastic process involving the ascending colon. No evidence of metastatic disease involving the liver. No suspicious lymphadenopathy. Electronically Signed: Piter Reid DO at 11:36 EST Tel , Service support , CC: Porsha Barber PA-C; Ghazala Cifuentes MD Licensed Clinician: Signed CBC W/DIFF, AUTOMATED Collected: 09/12/2018 Status: F Source: JACEK 1:53 PM [facility] REPOSITORY TYPE CODE TESTS RESULT OUT OF RANGE REFERENCE UNITS LAB L100.1000 4.4-11.0 K/mm3 Normal WBC 7.4 LAB L100.1200 4.6-6.2 M/mm3 Normal RBC 4.89 LAB L100.1300 13.0-16.5 g/dl Low HGB 11.3 LAB L100.1400 40-54 % Low HCT 38.0 LAB L100.1500 80-94 fL Low MCV 77.7 LAB L100.1600 27.0-32.0 pg Low MCH 23.1 LAB L100.1700 32-36 g/gl Low MCHC 29.7 LAB L100.1810 11.6-14.6 % High RDW CV 29.1 LAB L100.1820 35.1-43.9 fl High RDW SD 80.0 LAB L100.1900 150-450 K/mm3 Normal PLT 315 LAB L100.2000 6.2-12.0 fl Normal MPV 8.4 LAB L100.2100 47-70 % Normal NEUT% 55.4 LAB L100.2200 19-41 % Normal LY% 22.4 LAB L100.2300 0-10 % High MONO% 19.0 LAB L100.2400 0-5 % Normal EO% 2.4 LAB L100.2500 0-1 % Normal BASO% 0.3 LAB L100.2550 0.0-0.9 % Normal IM GRAN % 0.500 Result Comment: IG% - Immature Granulocytes (promyelocytes, myelocytes and metamyelocytes) > 1% indicates that a LEFT SHIFT is Present. LAB L100.2620 2.0-7.7 X10 3/uL Normal Absolute Neut 4.1 LAB L100.2720 0.83-4.51 X10 3/ul Normal Absolute Lymph 1.66 LAB L100.4500 Normal SMEAR COMMENT COMMENT Result Comment: SLIDE SCANNED - 1+ ANISO. Performed By: #### L100.0100 #### [facility] [address] [place], [address] COMPREHENSIVE METABOLIC Collected: 09/12/2018 Status: F Source: [facility] 1:53 PM [facility] REPOSITORY TYPE CODE TESTS RESULT OUT OF RANGE REFERENCE UNITS LAB L501.0100 74-106 mg/dL Normal GLU 90 Result Comment: Please note revised GLUCOSE reference range effective 2017. LAB L501.1000 7-18 mg/dL Normal BUN 18 LAB L501.1100 0.70-1.30 mg/dL Normal CREAT,SERUM 1.10 Result Comment: The validity of the calculated GFR AND GFRAA in patients over 70 years has not been determined. Clinical correlation is essential. LAB L501.1110 >60 mL/min Normal EST GFR 72 Result Comment: Non- GFR Calc LAB L501.1115 >60 mL/min Normal EST GFR - AA 88 Result Comment: GFR Calc LAB L501.1300 10-20 RATIO Normal BUN/CRE 16.4 LAB L501.1500 6.4-8.2 g/dL T Normal PROT 7.5 LAB L501.1800 3.2-5.0 g/dL Normal ALB 3.6 LAB L501.1950 2.2-4.2 g/dL Normal GLOB 3.9 LAB L501.2000 0.9-2.4 RATIO Normal A/G 0.9 LAB L501.2200 8.5-10.1 mg/dL CA Normal 8.7 LAB L501.4100 15-37 U/L Normal AST 15 LAB L501.4305 45-117 U/L Low ALK P 44 LAB L501.4405 16-61 U/L Normal ALT 22 LAB L501.4600 0.20-1.00 mg/dL T Normal BILI 0.70 LAB L501.5300 136-145 mmol/L NA Normal 139 LAB L501.5600 3.5-5.1 mmol/L K Normal 4.0 LAB L501.5900 98-107 mmol/L High CL 108 LAB L501.6100 21.0-32.0 mmol/L Normal CO2 23.0 LAB L501.6200 5-15 Normal GAP 8 Performed By: #### L500.4050 #### [facility] [address] [place], [address] SURGERY VISIT REPORT Observed: 08/13/2018 Status: F Source: SECO 10:13 AM [facility] REPOSITORY [facility] [address] [place] [address] OFFICE VISIT Date of Service: 08/13/18 MR#: [id number] Acct: [id number] Name: ANDREI RODRIGUEZ [place] Rep #: [id number] : 1955 Provider: Alexandre Salazar MD Age/Sex: 62/M Location: [facility] Status: Signed Intake Vital Signs08/13/18 Height 6 ft 3 in 08/13/18 Weight: 235 lb 8 oz 08/13/18 Body Mass Index (BMI) 29.4 08/13/18 Blood Pressure 129/81 H Intake Visit Reasons: Hemicolectomy DX Colon Cancer Chief Complaint: ascending colon cancer Clinical Nursing Instructor Required: No Is patient in pain?: No Allergies triamterene Allergy (Mild, Verified 08/13/18 09:35) rash Medications amoxicillin 875 mg-potassium clavulanate 125 mg tablet 1 tab PO BID 08/13/18 [History Confirmed 08/13/18] atorvastatin 40 mg tablet 40 mg PO DAILY 08/13/18 [History Confirmed 08/13/18] ferrous sulfate 325 mg (65 mg iron) tablet,delayed release 325 mg PO DAILY tab 08/13/18 [History Confirmed 08/13/18] losartan 50 mg tablet 50 mg PO DAILY 08/13/18 [History Confirmed 08/13/18] metoprolol tartrate 100 mg tablet 100 mg PO BID 08/13/18 [History Confirmed 08/13/18] [facility] Medical History Anemia (Acute 06/2018) Back pain (Acute) Colon cancer (Acute 07/2018) Hyperlipidemia (Acute) Myocardial infarction (Acute 10/2017) Osteoarthritis (Acute) HTN (hypertension) (Chronic) Surgical History History of colonoscopy (Acute 07/2018) History of coronary artery bypass graft x 6 (Acute 10/2017) Family History Mother Hypertension Alzheimer disease Brother Colon cancer, Onset Age: 42 Social History Smoking Status: Never smoker alcohol intake: never HPI HPI HPI: ANDREI RODRIGUEZ, is a 62 M who presents to the office today for evaluation for colon cancer. Patient underwent a colonoscopy by Dr. Patrick Soliz on 07/25/2018. Patient was noted to have a near obstructing apple core lesion in the ascending colon. Biopsy came back as moderately differentiated adenocarcinoma. Patient prior to that had undergone a CAT scan of the abdomen which was suspicious for the colon cancer. There were no lesions identified in the liver however it was suspicious for lymph node involvement in the ascending colon area. Patient has not had any diarrhea. He is complaining of occasional abdominal discomfort on the right side. He has had no nausea or vomiting. Earlier this year the patient underwent a 5 vessel bypass up in [place]. He had been on aspirin and what propagated this workup was that he presented to the emergency department in [place] on 07/23/2018. At that time he was noted to be profoundly anemic with a hemoglobin of 6.6. He had been on quite a bit of aspirin secondary to his 5 vessel bypass this past November. His most recent hemoglobin on 07/24/2018 was 7.7. Platelets were 287,000. Impression on the CAT scan was that there was a 4.5 cm enhancing annular constricting mass in the ascending colon consistent with colon carcinoma. In addition there was several lymph nodes bordering on enlargement in the ascending colon region. In addition he has 2 rather large inguinal hernias. As well as an umbilical hernia. Patient was seen by his enterprise architect manager status post his 5 vessel bypass. From a cardiac standpoint he was noted to be asymptomatic and stable and was cleared for surgery with a moderate risk. ROS General General: Yes fatigue and colon cancer; no weight change, appetite, breast cancer or weakness HEENT HEENT: Yes swollen glands; no difficulty swallowing, eye injury, eye surgery or hoarseness Endo Endocrine: No thyroid disease, diabetes mellitus, thyroid cancer, Hair loss, heat intolerance or cold intolerance Musc Musculoskeletal: Yes back problems and arthritis; no rheumatoid arthritis, gout or joint pain Cardio Cardiovascular: Yes high blood pressure, heart attack and chest pain; no murmur, pacemaker, heart disease, atrial fibrillation, heart stent, palpitations or shortness of breat with exertion Resp Respiratory: Yes shortness of breath, No sleep apnea, No cough, No COPD, No asthma, No emphysema, No wheezing Gastro Gastrointestinal: No abdominal pain, No nausea or vomiting, Yes diarrhea, No constipation, Yes blood in stool, No acid reflux, No hemorrhoids, No ulcers, No gallbladder problem, No black,tarry stools Dominguez Hematologic: No blood thinners, No blood disorders, No bleeding, Yes anemia, No blood clots Neuro Neurologic: No weakness Exam Const General: well developed, no acute distress, well hydrated Orientation: oriented to person, oriented to place, oriented to time [facility] Head: normocephalic, atraumatic Ears: external ears normal Mouth: moist mucous membranes Eyes Sclera: sclerae normal Pupils: normal by confrontation Neck Neck: no lymphadenopathy noted Neck mass: No Thyroid: symmetrical, thyroid normal Other: There are no palpable cervical lymphadenopathy noted. Chest Chest palpation AND inspection: normal inspection of the chest Resp Effort AND Inspection: normal respiratory effort Auscultation: clear to auscultation bilaterally Percussion: percussion normal Cardio Rate: regular rate Rhythm: regular rhythm Heart Sounds: no murmurs GI Palpation: soft, tender, no masses, no hepatosplenomegaly Rectal Exam: other Other: Patient has both the left and right inguinal hernia as well as an umbilical hernia. These are all reducible. There are nontender. Rectal exam deferred. I cannot palpate any abdominal masses at this time Extrem General: no clubbing, cyanosis or edema, normal to inspection Assessment AND Plan Problems 1. Colon cancer, ascending C18.2 Plan Did discuss the anatomy and procedure: laparoscopic right sera-colectomy, possible open with the patient. Including risks, but not limited to, bleeding, infection (superficial or intraabdominal), injury to another organ (small bowel, colon, ureter, etc.) requiring additional procedures, and blood clots. Also, discussed the pre-op, colon prep and antibiotics. All questions were answered. Coding Level of Care Code Off vis,new,level 4 Diagnoses Colon cancer, ascending C18.2 08/13/18 1013 <Electronically signed by Alexandre Salazar MD> Date Alexandre Salazar MD Cosigner Signature: Date (if applicable) CC: Ghazala Cifuentes MD CBC W/ AUTO DIFF Collected: 08/10/2018 Status: F Source: [facility] 10:40 AM [facility] REPOSITORY TYPE CODE TESTS RESULT OUT OF RANGE REFERENCE UNITS LAB [id number](L 3.6-11.0 E3/mcL OINC) Normal WBC 6.5 LAB 79537539(L 3.90-6.10 E6/mcL OINC) Normal RBC 5.16 LAB 60112297(L 13.5-18.0 G/DL OINC) Low Hgb 9.9 LAB 03645639(L 42.0-52.0 % OINC) Low Hct 33.5 LAB 04354834(L 11.5-14.5 % OINC) High RDW 28.5 LAB 83296320(L 27.0-31.0 pg OINC) Low MCH 19.2 LAB 77248942(L 33.0-37.0 G/DL OINC) Low MCHC 29.7 LAB 37253234(L 78.0-100.0 fL OINC) Low MCV 64.9 LAB 63198216(L 7.4-11.0 fL OINC) Normal MPV 8.4 LAB 99276546(L 130-400 E3/mcL OINC) High Platelet 415 Performed By: #### [id number] #### [facility] Rem[facility] [place] [address] MORPH Collected: 08/10/2018 Status: F Source: [place] 10:40 AM [facility] REPOSITORY Order Comment: Order Added by Discern Expert. TYPE CODE TESTS RESULT OUT OF REFERENCE UNITS RANGE LAB 24775429( LOINC) RBC Morph SEE Normal MORPHOLOGY LAB 10163220( LOINC) Hypochromasia 2+ Normal LAB 31210646( LOINC) Poikilocytosis 2+ Normal LAB 37130396( LOINC) Microcyte 2+ Normal LAB 12884742( LOINC) Anisocytosis 1+ Normal LAB 73599667( LOINC) Elliptocytes 1+ Normal Performed By: #### [id number] #### BAS[facility] SabrinaHemo [address] [place] [address] ZZPLT MORPH Collected: 08/10/2018 Status: F Source: [place] 10:40 AM [facility] REPOSITORY TYPE CODE TESTS RESULT OUT OF RANGE REFERENCE UNITS LAB 20366045(L OINC) Normal Platelet NORMAL Estimate LAB 69534911(L OINC) Normal Platelet Morph NORMAL Performed By: #### [id number] #### [place] [address] AUTO DIFF Collected: 08/10/2018 Status: F Source: [place] 10:40 AM [facility] REPOSITORY Order Comment: Order Added by Discern Expert. TYPE CODE TESTS RESULT OUT OF RANGE REFERENCE UNITS LAB 66144849(L 37.0-75.0 % OINC) Normal Neutro Auto 55.1 LAB 93023934(L 20.0-55.0 % OINC) Normal Lymph Auto 22.9 LAB 72687216(L 0.0-10.0 % OINC) High Ada Auto 17.7 LAB 10377612(L 0.0-11.0 % OINC) Normal Eos Auto 3.5 LAB 66369023(L 0.0-2.0 % OINC) Normal Basophil Auto 0.8 LAB 14869969(L 1.4-6.5 E3/mcL OINC) Normal Neutro 3.6 Absolute LAB 63496353(L 1.2-3.4 E3/mcL OINC) Normal Lymph Absolute 1.5 LAB 86319686(L 0.0-0.7 E3/mcL OINC) High Ada Absolute 1.1 LAB 02858951(L 0.0-0.7 E3/mcL OINC) Normal Eos Absolute 0.2 LAB 48690798(L 0.0-0.2 E3/mcL OINC) Normal Basophil 0.0 Absolute Performed By: #### [id number] #### [place] [address] XR SPINE CERVICAL Observed: 08/10/2018 Status: F Source: [place] COMP FLEX/EXT 10:26 AM [facility] REPOSITORY Exam Date/Time: 08/10/2018 10:43 EST Reason for Exam: Other (please specify) Report STUDY: XR Spine Cervical Comp Flex/Ext; 08/10/2018 10:43 am INDICATION: Other (please specify). Neck pain COMPARISON: None ACCESSION NUMBER(S): [id number] ORDERING CLINICIAN: Ghazala Cifuentes FINDINGS: 8 views cervical spine. Alignment normal. Prevertebral soft tissues normal. Mild upper cervical facet arthrosis noted. Moderate C6-7 discogenic degenerative disease with bilateral neural foraminal narrowing from osteophytes.. No pathologic motion. IMPRESSION: C6-7 discogenic degenerative disease with bilateral neural foraminal narrowing. Upper cervical mild facet arthrosis. FINAL REPORT Dictated: 08/12/2018 7:53 am Aleksander Bennett MD Signed (Electronic Signature): 08/12/2018 7:53 am Signed by: Aleksander Bennett MD Technologist: [facility] SURGICAL PATHOLOGY Observed: 07/30/2018 Status: F Source: [place] [facility] 12[facility] REPOS[facility] Name ANDREI RODRIGUEZ Pathologist: ZOHRA AL MD Date of Procedure: 07/30/2018 Date Received: 07/30/2018 Date Reported 07/31/2018 Submitting Physician: PATRICK GARCIA DO Location: [facility] Copy To/Referring/Attending: ALEXANDRE OWENS MD FINAL DIAGNOSIS RESULTS OF ANCILLARY TESTING ORDERED BY PATIENT'S PHYSICIAN/PATHOLOGIST ON OUTSIDE/ARCHIVED MATERIAL WILL BE RESULTED AN ADDENDUM. NO DIAGNOSIS IS RENDERED ON THIS CASE Electronically Signed Out By ZOHRA AL MD/ION By the signature on this report, the individual or group listed as making the Final Interpretation/Diagnosis certifies that they have reviewed this case. Addendum/Procedures: Special Oncology Report Date Ordered: 07/31/2018 Status: Signed Out Date Complete: 07/31/2018 Date Reported: 07/31/2018 Addendum Diagnosis Porsha [id number] (Scientology): Colon, adenocarcinoma. MISMATCH REPAIR PROTEIN EXPRESSION: Paraffin block number: A1 Protein: Result: MLH-1 Expression Present PMS-2 Expression Present MSH-2 Expression Present MSH-6 Expression Present INTERPRETATION: Colon neoplasm with normal mismatch repair protein expression. The immunohistochemistry study of DNA mismatch repair protein expression reveals the normal presence of hMLH-1, hMSH2, hMSH6 and hPMS2 in the tumor (normal internal controls stain appropriately). Reference Range: A result is reported Expression Present if any tumor staining is found. The findings do not exclude underlying Noriega Syndrome (HNPCC) because some mutations may result in intact protein expression. In addition, rare alterations can exist in other mismatch proteins, which have not been tested. In addition, some hereditary colorectal cancers are caused by alteration in other pathways unrelated to DNA Mismatch Repair. NOTE: Immunohistochemical staining (IHC) is used to determine the presence or absence of protein expression MLH1, MSH2, MSH6 and PMS2. Lymphocytes and normal epithelial cells exhibit strong nuclear staining and serve as Expression Present internal controls for staining of these proteins. Infiltrating carcinoma cells exhibiting nuclear staining are considered EXPRESSION PRESENT. The stated protein mouse and rabbit monoclonal antibodies (MLH1-clone M1([employer]), MSH2- clone [id number]([employer]), MSH6-clone 44 ([employer]), and PMS2- clone lone [id number]([employer])) staining are performed on formalin fixed paraffin embedded specimens. The method employed was a standard peroxidase labeled-polymer detection system from [employer] (ultraView Cantil DAB). Each assay was performed using appropriate Expression Present and negative controls, as well as evaluation of internal controls. LDT: One or more of the reagents used to perform assays on this specimen MAY have contained components considered to be Laboratory Developed Tests (LDT). LDT's have not been cleared or approved by the U.S. Food and Drug Administration. These assays/tests were developed and their performance characteristics determined by the Department of Pathology Immunohistochemistry Lab at [facility]. The FDA does not require this test to go through premarket FDA review. This test is used for clinical purposes. It should not be regarded as investigational or for research. This laboratory is certified under the Clinical Laboratory Improvement Amendments (CLIA) as qualified to perform high complexity clinical laboratory testing. The assays/tests were performed with appropriate Expression Present and negative controls, which stained appropriately. CAUTIONS: Test results should be interpreted in context of clinical findings, family history, and other laboratory data. If results obtained do not match other clinical or laboratory findings, please contact the laboratory for possible interpretation. Misinterpretation of results may occur if the information provided is inaccurate or incomplete. REFERENCE: 1. Susan Oreilly. Immunohistochemistry versus microsatellite microsatellite instability testing for screening colorectal CANCER patients at risk for Hereditary Nonpolyposis Colorectal Cancer Syndrome. Part1: The utility of immunohistochemistry. J Mol Diag 10(4):293-300, 2007. 2. JULIANE Clayton, Vicki THACKER. Colorectal cancer due to deficiency in DNA mismatch repair function: a review. Adv. Annemarie Pathol 16: 405-17, 2008. Electronically Signed Out By RAMIN KINGSLEY MD/AALIYAH By the signature on this report, the individual or group listed as making the Final Interpretation/Diagnosis certifies that they have reviewed this case. Clinical History: {Not Provided} Specimens Submitted As: A: [id number] (Scientology) Gross Description: {Not Entered} The assays/tests were performed with appropriate positive and negative controls which stained appropriately. Performed By: #### [facility] #### [facility] Surgical Pathology Department [id number] [facility] [id number] PT Collected: 07/26/2018 Status: F Source: [place] 5:[address] [facility] REPOSITORY TYPE CODE TESTS RESULT OUT OF RANGE REFERENCE UNITS LAB 63094324(LO 1.0-1.2 INC) High INR 1.3 Result Comment: INR Recommended Therapeuptic Ranges: Prophylaxis/treatment of DVT and PE?2.0-3.0 Prevention of systemic embolism?.2.0-3.0 Mechanical prosthetic values?2.5-3.5 CRITICAL VALUES?.>4.0 LAB 32844839(LOINC) 11.6-14.6 second(s) High PT 15.0 Performed By: #### [id number] #### [facility] [employer] [address] [place] [address] BMP Collected: 07/26/2018 Status: F Source: [place] 5:[address] [facility] REPOSITORY TYPE CODE TESTS RESULT OUT OF RANGE REFERENCE UNITS LAB 66439006(L 70-99 mg/dL OINC) Glucose Normal Lvl 85 LAB 36782445(L 6-23 mg/dL OINC) BUN Normal 10 LAB 5038448(LO 0.6-1.3 mg/dL INC) Normal Creatinine 1.0 LAB 91544856(L 5.4-30.0 ratio OINC) Normal BUN/Creat Ratio 10.0 LAB 79779906(L 8.6-10.3 mg/dL OINC) Calcium Normal Lvl 8.7 LAB 92628279(L 136-145 mEq/L OINC) Sodium Normal Lvl 137 LAB 75562434(L 3.5-5.3 mEq/L OINC) Normal Potassium Lvl 4.1 LAB 06526429(L 98-107 mEq/L OINC) High Chloride 108 LAB 51617006(L 21.0-32.0 mEq/L OINC) CO2 Normal 24.0 LAB 57798142(L 10-20 mEq/L OINC) Low AGAP 9 Performed By: #### [id number] #### BAS[facility] [employer] [address] [place] [address] EGFR Collected: 07/26/2018 Status: F Source: [place] 5:58 AM [facility] REPOSITORY Order Comment: Order added by Discern Expert. TYPE CODE TESTS RESULT OUT OF RANGE REFERENCE UNITS LAB 00852555(LO mL/min/1.73 INC) m2 Normal eGFR >60 LAB 17979749(LO mL/min/1.73 INC) m2 Normal eGFR AA >60 Performed By: #### [id number] #### BAS[facility] [address] [place] [address] CBC W/ AUTO DIFF Collected: 07/26/2018 Status: F Source: [place] 5:58 AM [facility] REPOSITORY TYPE CODE TESTS RESULT OUT OF RANGE REFERENCE UNITS LAB 33715170(L 3.6-11.0 E3/mcL OINC) Normal WBC 5.4 LAB 85719877(L 3.90-6.10 E6/mcL OINC) Normal RBC 4.75 LAB 09176921(L 13.5-18.0 G/DL OINC) Low Hgb 9.0 LAB 19223453(L 42.0-52.0 % OINC) Low Hct 29.8 LAB 75010505(L 11.5-14.5 % OINC) High RDW 27.2 LAB 20450644(L 27.0-31.0 pg OINC) Low MCH 19.0 LAB 86762130(L 33.0-37.0 G/DL OINC) Low MCHC 30.3 LAB 27111911(L 78.0-100.0 fL OINC) Low MCV 62.7 LAB 57136266(L 7.4-11.0 fL OINC) Normal MPV 8.3 LAB 43464955(L 130-400 E3/mcL OINC) Normal Platelet 313 Performed By: #### [id number] #### BASILIO BennettHemo [address] [place], [place] [address] MORPH Collected: 07/26/2018 Status: F Source: [place] 5:58 AM [facility] REPOSITORY Order Comment: Order Added by Discern Expert. TYPE CODE TESTS RESULT OUT OF REFERENCE UNITS RANGE LAB 89217675( LOINC) RBC Morph SEE Normal MORPHOLOGY LAB 00055393( LOINC) Hypochromasia 2+ Normal LAB 10104204( LOINC) Polychromasia 1+ Normal LAB 40918526( LOINC) Microcyte 2+ Normal LAB 05827178( LOINC) Anisocytosis 3+ Normal LAB 09460139( LOINC) Elliptocytes 2+ Normal Performed By: #### [id number] #### BAS[facility] RemHemo [facility] [place] [address] ZZPLT MORPH Collected: 07/26/2018 Status: F Source: [place] 5:58 AM [facility] REPOSITORY TYPE CODE TESTS RESULT OUT OF RANGE REFERENCE UNITS LAB 96029246(L OINC) Normal Platelet NORMAL Estimate LAB 27201373(L OINC) Normal Platelet Morph NORMAL Performed By: #### [id number] #### BASILIO SabrinaHemo [address] [place], [place] [address] AUTO DIFF Collected: 07/26/2018 Status: F Source: [place] 5:[address] [facility] REPOSITORY Order Comment: Order Added by Discern Expert. TYPE CODE TESTS RESULT OUT OF RANGE REFERENCE UNITS LAB 31794761(L 37.0-75.0 % OINC) Normal Neutro Auto 61.5 LAB 00433465(L 20.0-55.0 % OINC) Normal Lymph Auto 20.3 LAB 49426449(L 0.0-10.0 % OINC) High Ada Auto 13.7 LAB 11839688(L 0.0-11.0 % OINC) Normal Eos Auto 3.6 LAB 20397658(L 0.0-2.0 % OINC) Normal Basophil Auto 0.9 LAB 29452718(L 1.4-6.5 E3/mcL OINC) Normal Neutro 3.3 Absolute LAB 82137630(L 1.2-3.4 E3/mcL OINC) Low Lymph Absolute 1.1 LAB 11969030(L 0.0-0.7 E3/mcL OINC) Normal Ada Absolute 0.7 LAB 77671791(L 0.0-0.7 E3/mcL OINC) Normal Eos Absolute 0.2 LAB 85825366(L 0.0-0.2 E3/mcL OINC) Normal Basophil 0.0 Absolute Performed By: #### [id number] #### BAS[facility] Rem[facility] [address] [place], [place] [address] HCT & HGB Collected: 07/25/2018 Status: F Source: [place] 4:[address] [facility] REPOSITORY TYPE CODE TESTS RESULT OUT OF RANGE REFERENCE UNITS LAB 97540150(LO 13.5-18.0 G/DL INC) Low Hgb 9.2 LAB 59651588(LO 42.0-52.0 % INC) Low Hct 31.8 Performed By: #### [id number] #### BAS[facility]IO RemHemo [address] [place], [place] [address] HCT & HGB Collected: 07/25/2018 Status: F Source: [place] 8:35 AM [facility] REPOSITORY TYPE CODE TESTS RESULT OUT OF RANGE REFERENCE UNITS LAB 66836091(LO 13.5-18.0 G/DL INC) Low Hgb 8.8 LAB 14048807(LO 42.0-52.0 % INC) Low Hct 29.1 Performed By: #### [id number] #### BASILIO [facility] [address] [place] [address] BMP Collected: 07/25/2018 Status: F Source: [place] 8:35 AM [facility] REPOSITORY TYPE CODE TESTS RESULT OUT OF RANGE REFERENCE UNITS LAB 20343651(L 70-99 mg/dL OINC) Glucose Normal Lvl 98 LAB 90914770(L 6-23 mg/dL OINC) BUN Normal 11 LAB 2578434(LO 0.6-1.3 mg/dL INC) Normal Creatinine 1.0 LAB 62060562(L 5.4-30.0 ratio OINC) Normal BUN/Creat Ratio 11.0 LAB 58071213(L 8.6-10.3 mg/dL OINC) Calcium Normal Lvl 9.0 LAB 37389332(L 136-145 mEq/L OINC) Sodium Normal Lvl 138 LAB 66792115(L 3.5-5.3 mEq/L OINC) Normal Potassium Lvl 4.3 LAB 47324382(L 98-107 mEq/L OINC) High Chloride 110 LAB 71140459(L 21.0-32.0 mEq/L OINC) CO2 Normal 22.0 LAB 05570876(L 10-20 mEq/L OINC) AGAP Normal 10 Performed By: #### [id number] #### [facility] [address] [place] [address] EGFR Collected: 07/25/2018 Status: F Source: [place] 8:35 AM [facility] REPOSITORY Order Comment: Order added by Discern Expert. TYPE CODE TESTS RESULT OUT OF RANGE REFERENCE UNITS LAB 63972753(LO mL/min/1.73 INC) m2 Normal eGFR >60 LAB 64189111(LO mL/min/1.73 INC) m2 Normal eGFR AA >60 Performed By: #### [id number] #### [facility] [employer] [address] [place] [address] HCT & HGB Collected: 07/24/2018 Status: F Source: [place] 5:49 PM [facility] REPOSITORY TYPE CODE TESTS RESULT OUT OF RANGE REFERENCE UNITS LAB 40754286(LO 13.5-18.0 G/DL INC) Low Hgb 9.3 LAB 50814839(LO 42.0-52.0 % INC) Low Hct 30.7 Performed By: #### [id number] #### [facility] Rem[facility] [address] [place] [address] RCO Collected: 07/24/2018 Status: F Source: [place] 10:39 AM [facility] REPOSITORY TYPE CODE TESTS RESULT OUT OF RANGE REFERENCE UNITS LAB 67206070(L OINC) Normal Product Type None Required Performed By: #### [id number] #### [facility] [address] [place] [address] BMP Collected: 07/24/2018 Status: F Source: [place] 6:03 AM [facility] REPOSITORY TYPE CODE TESTS RESULT OUT OF RANGE REFERENCE UNITS LAB 04739050(L 70-99 mg/dL OINC) Glucose Normal Lvl 94 LAB 13165983(L 6-23 mg/dL OINC) BUN Normal 14 LAB 5781926(LO 0.6-1.3 mg/dL INC) Normal Creatinine 1.0 LAB 49313824(L 5.4-30.0 ratio OINC) Normal BUN/Creat Ratio 14.0 LAB 85111629(L 8.6-10.3 mg/dL OINC) Calcium Normal Lvl 8.6 LAB 87877897(L 136-145 mEq/L OINC) Sodium Normal Lvl 136 LAB 00273132(L 3.5-5.3 mEq/L OINC) Normal Potassium Lvl 4.1 LAB 27029964(L 98-107 mEq/L OINC) High Chloride 108 LAB 22929566(L 21.0-32.0 mEq/L OINC) CO2 Normal 22.0 LAB 61835272(L 10-20 mEq/L OINC) AGAP Normal 10 Performed By: #### [id number] #### [facility] [address] [place] [address] MAGNESIUM Collected: 07/24/2018 Status: F Source: [place] 6:[address] [facility] REPOSITORY TYPE CODE TESTS RESULT OUT OF RANGE REFERENCE UNITS LAB 67088732(L 1.6-2.4 mg/dL OINC) Normal Magnesium 1.8 Performed By: #### [id number] #### [facility] [place] [address] EGFR Collected: 07/24/2018 Status: F Source: [place] 6:[address] [facility] REPOSITORY Order Comment: Order added by Discern Expert. TYPE CODE TESTS RESULT OUT OF RANGE REFERENCE UNITS LAB 30125687(LO mL/min/1.73 INC) m2 Normal eGFR >60 LAB 44951528(LO mL/min/1.73 INC) m2 Normal eGFR AA >60 Performed By: #### [id number] #### [facility] [employer] [facility] [place] [address] CBC W/ AUTO DIFF Collected: 07/24/2018 Status: F Source: [place] 6:03 AM [facility] REPOSITORY TYPE CODE TESTS RESULT OUT OF RANGE REFERENCE UNITS LAB 04043356(L 3.6-11.0 E3/mcL OINC) Normal WBC 6.3 LAB 25118363(L 3.90-6.10 E6/mcL OINC) Normal RBC 4.18 LAB 43003645(L 13.5-18.0 G/DL OINC) Low Hgb 7.7 LAB 99269477(L 42.0-52.0 % OINC) Low Hct 25.7 LAB 92691299(L 11.5-14.5 % OINC) High RDW 24.4 LAB 26972086(L 27.0-31.0 pg OINC) Low MCH 18.4 LAB 05653309(L 33.0-37.0 G/DL OINC) Low MCHC 30.0 LAB 18765255(L 78.0-100.0 fL OINC) Low MCV 61.4 LAB 16408267(L 7.4-11.0 fL OINC) Normal MPV 8.2 LAB 43316375(L 130-400 E3/mcL OINC) Normal Platelet 287 Performed By: #### [id number] #### [facility] [address] [place] [address] MORPH Collected: 07/24/2018 Status: F Source: [place] 6:03 [facility] REPOSITORY Order Comment: Order Added by Discern Expert. TYPE CODE TESTS RESULT OUT OF REFERENCE UNITS RANGE LAB 26237777( LOINC) RBC Morph SEE Normal MORPHOLOGY LAB 73065808( LOINC) Hypochromasia 3+ Normal LAB 90337148( LOINC) Polychromasia 1+ Normal LAB 51667320( LOINC) Microcyte 3+ Normal LAB 50340109( LOINC) Anisocytosis 3+ Normal LAB 48816122( LOINC) Ovalocytes 1+ Normal Performed By: #### [id number] #### [facility] [place] [address] ZZPLT MORPH Collected: 07/24/2018 Status: F Source: [place] 6:03 [facility] REPOSITORY TYPE CODE TESTS RESULT OUT OF RANGE REFERENCE UNITS LAB 51499404(L OINC) Normal Platelet NORMAL Estimate LAB 48363625(L OINC) Normal Platelet Morph NORMAL Performed By: #### [id number] #### [facility] [place] [id number] AUTO DIFF Collected: 07/24/2018 Status: F Source: [place] 6:[address] [place] [address] REPOSITORY Order Comment: Order Added by Discern Expert. TYPE CODE TESTS RESULT OUT OF RANGE REFERENCE UNITS LAB 86693423(L 37.0-75.0 % OINC) Normal Neutro Auto 61.4 LAB 02679488(L 20.0-55.0 % OINC) Normal Lymph Auto 21.2 LAB 70402623(L 0.0-10.0 % OINC) High Ada Auto 15.0 LAB 90788046(L 0.0-11.0 % OINC) Normal Eos Auto 2.0 LAB 72835191(L 0.0-2.0 % OINC) Normal Basophil Auto 0.4 LAB 90095824(L 1.4-6.5 E3/mcL OINC) Normal Neutro 3.8 Absolute LAB 00539095(L 1.2-3.4 E3/mcL OINC) Normal Lymph Absolute 1.3 LAB 49613783(L 0.0-0.7 E3/mcL OINC) High Ada Absolute 0.9 LAB 51491558(L 0.0-0.7 E3/mcL OINC) Normal Eos Absolute 0.1 LAB 31909280(L 0.0-0.2 E3/mcL OINC) Normal Basophil 0.0 Absolute Performed By: #### [id number] #### [facility] [address] [place] [address] CT ABDOMEN/PELVIS W/ Observed: 07/23/2018 Status: F Source: [place] CONTRAST 6:18 PM [facility] REPOSITORY Exam Date/Time: 07/23/2018 18:35 EDT Reason for Exam: Other (please specify) Report STUDY: CT Abdomen/Pelvis w/ Contrast; 07/23/2018 6:35 pm INDICATION: Other (please specify). Amb to ED with c/o L arm pain and SOB x 3 days. COMPARISON: None. ACCESSION NUMBER(S): [id number] ORDERING CLINICIAN: Nazario Sanchez TECHNIQUE: Multiple contiguous axial images of the abdomen and pelvis were obtained after the intravenous administration of 150 mL Omnipaque 350 contrast. Coronal and sagittal reformatted images were reconstructed from the axial data. FINDINGS: LOWER CHEST: Heart is enlarged. Coronary artery calcifications are noted. ABDOMEN/PELVIS: ABDOMINAL WALL: Small fat containing bilateral inguinal hernias. Additionally, a small portion of the anti mesenteric sigmoid colonic wall projects into the proximal aspect of the inguinal canal. Moderate-sized fat containing umbilical hernia. LIVER: No significant abnormality. BILE DUCTS: No significant abnormality. GALLBLADDER: No significant abnormality. SPLEEN: Mild splenomegaly measuring 15.8 cm. No focal lesions. PANCREAS: No significant abnormality. ADRENALS: No significant abnormality. Exam Date/Time: 07/23/2018 18:35 EDT Report KIDNEYS, URETERS, BLADDER: 8 mm nonobstructing calculus in the midpole of the right kidney. No hydronephrosis. Kidneys enhance symmetrically. Bladder wall appears within normal limits for degree of distention. VESSELS: Mild aortic atherosclerosis without AAA. LYMPH NODES: No enlarged lymph nodes. RETROPERITONEUM: No significant abnormality. PERITONEUM: No ascites, free air, or fluid collection. BOWEL: There is a 4.5 cm long annular constricting enhancing mass within the ascending colon highly suspicious for a colonic carcinoma. There is a nodular soft tissue lesion (16 mm x 16 mm) abutting the medial wall of the ascending colon along the proximal medial aspect of the annular lesion that could represent pathologic pericolonic lymph node versus (less likely) extra colonic extension. There are multiple pathologically enlarged pericolonic lymph nodes measuring 8 mm, 7 mm, and 9 mm, all located medial to the ascending colon and extend in a chain-like fashion superomedially, best seen on coronal image 43/107. A short segment of the anti mesenteric wall of the proximal sigmoid colon slightly projects into the fat containing left inguinal hernia without evidence of obstruction or strangulation. However, question minimal stranding about the distal descending colon that could represent early diverticulitis. Normal appendix. REPRODUCTIVE ORGANS: No significant abnormality. OSSEOUS STRUCTURES: No acute osseous abnormality. IMPRESSION: 1. 4.5 cm-long enhancing annular constricting mass in the ascending colon consistent with a colon carcinoma. Colonoscopic evaluation and GI consultation recommended for definitive management. 2. Numerous pathologically enlarged locoregional lymph nodes both medially adjacent to, as well as extending superomedially from, the annular constricting ascending colonic mass highly suspicious for metastatic adenopathy. (Coronal images 40-47/107). 3. Possible stranding about the distal descending colon that could relate to early diverticulitis in the appropriate clinical setting. 4. Fat containing umbilical hernia and bilateral fat containing inguinal hernias with slight protrusion of the anti mesenteric sigmoid colonic wall into the proximal left inguinal canal without evidence of strangulation or obstruction. Document Only: The critical information above was relayed directly by me by telephone to Nazario Sanchez on 07/23/2018 at 7:13 pm with readback verification. FINAL REPORT Dictated: 07/23/2018 7:13 pm Bob Moore MD Signed (Electronic Signature): 07/23/2018 7:13 pm Signed by: Bob Moore MD Technologist: [facility] XR SHOULDER COMPLETE Observed: 07/23/2018 Status: F Source: [facility] 6:00 PM [facility] REPOSITORY Exam Date/Time: 07/23/2018 18:10 EDT Reason for Exam: Pain, Non Traumatic Report STUDY: XR Shoulder Complete Left; 07/23/2018 6:10 pm INDICATION: Pain, Non Traumatic. COMPARISON/CORRELATION: None available. ACCESSION NUMBER(S): [id number] ORDERING CLINICIAN: Nazario Sanchez TECHNIQUE: The shoulder: Frontal, scapular Y, axillary views FINDINGS: There is mild osteopenia. There is no fracture or dislocation identified. No osseous erosion or periosteal reaction is visualized. There is mild acromioclavicular degenerative arthrosis. Minimal osteophyte formation along the posterior glenoid rim is visualized. The imaged lung is clear. IMPRESSION: No fracture or dislocation. Mild glenohumeral and acromioclavicular degenerative arthrosis. I personally reviewed the images/study and I agree with the findings as stated. This study was interpreted at [address], [place]. FINAL REPORT Dictated: 07/23/2018 6:29 pm Derian LANG MD, Andrei Mata Signed (Electronic Signature): 07/23/2018 6:29 pm Signed by: Derian LANG MD, Harold Woods Technologist: [facility]DA ABO/RH ECHO Collected: 07/23/2018 Status: F Source: [facility] 5:49 PM [facility] REPOSITORY TYPE CODE TESTS RESULT OUT OF RANGE REFERENCE UNITS LAB [id number](LO INC) ABO/Rh E O POS Interp... Performed By: #### [id number] #### [facility] Subsection [address] [place] [address] ANTIBODY SCREEN Collected: 07/23/2018 Status: F Source: [facility] CAP... 5:49 PM [facility] REPOS[facility]ORY TYPE CODE TESTS RESULT OUT OF RANGE REFERENCE UNITS LAB [id number](L OINC) Normal Screen Negative Interp... Performed By: #### [id number] #### [facility]section [address] [place] [address] RCO Collected: 07/23/2018 Status: F Source: [facility] 5:[address] [facility] REPOSITORY Order Comment: PRBC TYPE CODE TESTS RESULT OUT OF RANGE REFERENCE UNITS LAB [id number](L OINC) Normal Product Type None Required Performed By: #### [id number] #### [facility] [address] [place] [address] XR CHEST AP PORTABLE Observed: 07/23/2018 Status: F Source: [place] 4:03 PM [facility] REPOSITORY Exam Date/Time: 07/23/2018 16:07 EDT Reason for Exam: Difficulty breathing Report STUDY: XR Chest AP Portable; 07/23/2018 4:07 pm INDICATION: Difficulty breathing. COMPARISON: 11/28/2017 ACCESSION NUMBER(S): [id number] ORDERING CLINICIAN: Nazario Sanchez TECHNIQUE: FINDINGS: The heart is normal in size. Sternal wires and mediastinal clips are present. There is no obvious consolidation or pleural fluid. There is an old right clavicular fracture. COMPARISON OF FINDING: The lungs appear improved when compared to prior exam. IMPRESSION: No acute cardiopulmonary disease. FINAL REPORT Dictated: 07/23/2018 4:41 pm Cassie Bennett MD Signed (Electronic Signature): 07/23/2018 4:41 pm Signed by: Cassie Bennett MD Technologist: [facility] PT Collected: 07/23/2018 Status: F Source: [facility] 3:59 PM [facility] REPOS[facility]ORY TYPE CODE TESTS RESULT OUT OF RANGE REFERENCE UNITS LAB [id number](LO 1.0-1.2 INC) High INR 1.3 Result Comment: INR Recommended Therapeuptic Ranges: Prophylaxis/treatment of DVT and PE?2.0-3.0 Prevention of systemic embolism?.2.0-3.0 Mechanical prosthetic values?2.5-3.5 CRITICAL VALUES?.>4.0 LAB [id number](LOINC) 11.6-14.6 second(s) High PT 15.2 Performed By: #### [id number] #### [facility] Hematology Automated Subsection [facility] [place] [address] D-DIMER Collected: 07/23/2018 Status: F Source: [place] 3:59 PM [facility] REPOS[facility]ORY TYPE CODE TESTS RESULT OUT OF RANGE REFERENCE UNITS LAB [id number](LO <=0.50 mg/L FEU INC) Normal D-Dimer <0.22 Result Comment: Normal D Dimer level indicates no Deep Vein Thrombosis (DVT) or Pulmonary Embolism (PE). Elevated D Dimer level indicates additional studies and clinical assessments are indicated to conclude diagnosis of Deep Vein Thromobsis (DVT) or Pulmonary Embolism (PE). Performed By: #### [id number] #### [facility] Hematology Automated Subsection [address] [place] [address] TROPONIN-I Collected: 07/23/2018 Status: F Source: [facility] 3:59 PM [facility] REPOSITORY TYPE CODE TESTS RESULT OUT OF RANGE REFERENCE UNITS LAB [id number](LO .00-.03 ng/mL INC) Normal .02 Troponin-I Performed By: #### [id number] #### [facility] [employer] [address] [place] [address] CMP Collected: 07/23/2018 Status: F Source: [place] 3:59 PM [facility] REPOSITORY TYPE CODE TESTS RESULT OUT OF RANGE REFERENCE UNITS LAB [id number](L 70-99 mg/dL OINC) High Glucose Lvl 138 LAB 95768383(L 6-23 mg/dL OINC) BUN Normal 17 LAB 6746810(LO 0.6-1.3 mg/dL INC) Normal Creatinine 1.0 LAB 10948593(L 8.6-10.3 mg/dL OINC) Calcium Normal Lvl 8.8 LAB 03201597(L 136-145 mEq/L OINC) Sodium Normal Lvl 137 LAB 04466178(L 3.5-5.3 mEq/L OINC) Normal Potassium Lvl 3.7 LAB 48576389(L 98-107 mEq/L OINC) High Chloride 108 LAB 96101044(L 21.0-32.0 mEq/L OINC) CO2 Normal 23.0 LAB 37199657(L 33-136 Int._Unit/ OINC) L Alk Phos Normal 36 LAB 70480483(L 0.0-1.2 mg/dL OINC) Bili Normal Total 0.6 LAB 98413708(L 3.4-5.0 G/DL OINC) Albumin Normal Lvl 3.9 LAB 80494014(L 6.4-8.2 gm/dL OINC) Total Normal Protein 6.4 LAB 67330288(L 10-52 Int._Unit/ OINC) L ALT Normal 11 LAB 90992793(L 9-39 Int._Unit/ OINC) L AST Normal 12 LAB 96449167(L 5.4-30.0 ratio OINC) Normal BUN/Creat Ratio 17.0 LAB 73501680(L 2.0-4.0 G/DL OINC) Globulin Normal 3.0 LAB 22272717(L 1.1-1.9 ratio OINC) A/G Normal Ratio 1.6 LAB 29682527(L 10-20 mEq/L OINC) AGAP Normal 10 Performed By: #### [id number] #### [facility] [employer] [address] [place] [address] EGFR Collected: 07/23/2018 Status: F Source: [facility] 3:59 PM [facility] REPOSITORY Order Comment: Order added by Discern Expert. TYPE CODE TESTS RESULT OUT OF RANGE REFERENCE UNITS LAB [id number](LO mL/min/1.73 INC) m2 Normal eGFR >60 LAB 17864070(LO mL/min/1.73 INC) m2 Normal eGFR AA >60 Performed By: #### [id number] #### [facility] [employer] [address] [place] [address] CBC W/ AUTO DIFF Collected: 07/23/2018 Status: F Source: [facility] 3:59 PM [facility] REPOS[facility]ORY TYPE CODE TESTS RESULT OUT OF RANGE REFERENCE UNITS LAB [id number](LO 3.6-11.0 E3/mcL INC) Normal WBC 5.3 LAB 52831330(LO 3.90-6.10 E6/mcL INC) Normal RBC 3.90 LAB 09061689(LO 13.5-18.0 G/DL INC) Abnormal Alert Hgb 6.6 Result Comment: REPEATED AND VERIFIED\Critical Result HGB:6.6 Called to MATTHIEU MUNOZ at: 16:11:28 by:[facility] Read back by:MATTHIEU MUNOZ LAB 65792413(LOINC) 42.0-52.0 % Low Hct 22.3 LAB 35933316(LOINC) 11.5-14.5 % High RDW 20.4 LAB 98964935(LOINC) 27.0-31.0 pg Low MCH 17.0 LAB 20343851(LOINC) 33.0-37.0 G/DL Low MCHC 29.7 LAB 22713812(LOINC) 78.0-100.0 fL Low MCV 57.3 LAB 79993583(LOINC) 7.4-11.0 fL Normal MPV 8.1 LAB 23132806(LOINC) 130-400 E3/mcL Normal Platelet 332 Performed By: #### [id number] #### [facility] [employer] [address] [place] [address] MORPH Collected: 07/23/2018 Status: F Source: [facility] 3:[address] [facility] REPOSITORY Order Comment: Order Added by Discern Expert. TYPE CODE TESTS RESULT OUT OF REFERENCE UNITS RANGE LAB 40769444( LOINC) RBC Morph SEE Normal MORPHOLOGY LAB 06767241( LOINC) Hypochromasia 1+ Normal LAB 35000894( LOINC) Microcyte 1+ Normal LAB 24833523( LOINC) Anisocytosis 2+ Normal LAB 49327192( LOINC) Ovalocytes 1+ Normal Performed By: #### [id number] #### [facility] [employer] [facility] [place] [address] ZZPLT MORPH Collected: 07/23/2018 Status: F Source: [place] 3:59 PM [facility] REPOSITORY TYPE CODE TESTS RESULT OUT OF RANGE REFERENCE UNITS LAB 30629646(L OINC) Normal Platelet NORMAL Estimate LAB 12932176(L OINC) Normal Platelet Morph NORMAL Performed By: #### [id number] #### [facility] [employer] [facility] [place] [address] AUTO DIFF Collected: 07/23/2018 Status: F Source: [facility] 3:[address] [facility] REPOSITORY Order Comment: Order Added by Discern Expert. TYPE CODE TESTS RESULT OUT OF RANGE REFERENCE UNITS LAB 01335916(L 37.0-75.0 % OINC) Normal Neutro Auto 68.0 LAB 28563781(L 20.0-55.0 % OINC) Low Lymph Auto 18.0 LAB 44699297(L 0.0-10.0 % OINC) Normal Ada Auto 10.0 LAB 32997982(L 0.0-11.0 % OINC) Normal Eos Auto 3.0 LAB 92565212(L 0.0-2.0 % OINC) Normal Basophil Auto 0.0 LAB 42344554(L 1.4-6.5 E3/mcL OINC) Normal Neutro 3.7 Absolute LAB 66731457(L 1.2-3.4 E3/mcL OINC) Low Lymph Absolute 1.0 LAB 84496456(L 0.0-0.7 E3/mcL OINC) Normal Ada Absolute 0.5 LAB 77620688(L 0.0-0.7 E3/mcL OINC) Normal Eos Absolute 0.2 LAB 18675910(L 0.0-0.2 E3/mcL OINC) Normal Basophil 0.0 Absolute Performed By: #### [id number] #### [facility]dez [facility] [place] [address] CMP Collected: 02/12/2018 Status: F Source: [place] 9:43 AM [facility] REPOSITORY TYPE CODE TESTS RESULT OUT OF RANGE REFERENCE UNITS LAB [id number](L 70-99 mg/dL OINC) High Glucose Lvl 101 LAB 05374534(L 8.4-10.2 mg/dL OINC) Calcium Normal Lvl 9.3 LAB 45308696(L 136-145 mEq/L OINC) Sodium Normal Lvl 140 LAB 99786725(L 3.5-5.1 mEq/L OINC) Normal Potassium Lvl 4.4 LAB 44019869(L 98-107 mEq/L OINC) Chloride Normal 107 LAB 32085784(L 24.0-30.0 mEq/L OINC) Low CO2 22.5 LAB 91814570(L 7-18 mg/dL OINC) BUN Normal 15 LAB 7572961(LO 0.6-1.3 mg/dL INC) Normal Creatinine 1.0 LAB 39627876(L 5.4-30.0 ratio OINC) Normal BUN/Creat Ratio 15.0 LAB 19590052(L 42-121 Int._Unit/ OINC) Low L Alk Phos 36 LAB 69704885(L 0.2-1.0 mg/dL OINC) Bili Normal Total 0.7 LAB 64478285(L 3.2-5.0 G/DL OINC) Albumin Normal Lvl 4.2 LAB 40777785(L 6.4-8.3 G/DL OINC) Total Normal Protein 7.5 LAB 32086557(L 10-40 Int._Unit/ OINC) L ALT Normal 21 LAB 30433596(L 10-42 Int._Unit/ OINC) L AST Normal 20 LAB 63405065(L 2.0-4.0 G/DL OINC) Globulin Normal 3.3 LAB 71751847(L 1.1-1.9 ratio OIHI) A/G Normal Ratio 1.3 Performed By: #### [id number] #### [facility] [employer] [facility] [place] [address] TSH Collected: 02/12/2018 Status: F Source: [place] 9:[address] [facility] REPOSITORY TYPE CODE TESTS RESULT OUT OF RANGE REFERENCE UNITS LAB [id number](LO 0.30-5.60 mIU/m INC) Normal TSH 0.72 Performed By: #### [id number] #### [facility] [employer] [address] [place], [place] [address] EGFR Collected: 02/12/2018 Status: F Source: [facility] 9:[address] [facility] REPOSITORY Order Comment: Order added by Discern Expert. TYPE CODE TESTS RESULT OUT OF RANGE REFERENCE UNITS LAB [id number](LO mL/min/1.73 INC) m2 Normal eGFR >60 LAB 41917566(LO mL/min/1.73 INC) m2 Normal eGFR AA >60 Performed By: #### [id number] #### [facility] Buck [address] [place], [place] [address] LIPID PROFILE Collected: 02/12/2018 Status: F Source: [facility] 9:[address] [facility] REPOSITORY TYPE CODE TESTS RESULT OUT OF RANGE REFERENCE UNITS LAB [id number](LO 50-200 mg/dL INC) Normal Chol 105 Result Comment: TOTAL CHOLEESTEROL: <200 NORMAL 200 - 239 BORDERLINE HIGH >240 HIGH LAB 05436776(LOINC) >=41 mg/dL Low HDL 35 LAB 54384773(LOINC) 0-130 mg/dL Normal LDL 44 Result Comment: <100 OPTIMAL 100-129 NEAR / ABOVE OPTIMAL 130-159 BORDERLINE HIGH 160-189 HIGH >190 VERY HIGH CALC LDL NOT VALID WHEN TRIGLYCERIDE IS >400 MG/DL LAB 85107399(LOINC) 35-150 mg/dL Normal Trig 129 Result Comment: <150 NORMAL 150-199 BORDERLINE HIGH 200-499 HIGH >500 VERY HIGH LAB 90150884(LOINC) Normal VLDL 26 Performed By: #### [id number] #### [facility] [employer] [facility] [place] [address] XR SPINE LUMBAR W/ Observed: 02/09/2018 Status: F Source: [facility] 11:16 AM [facility] REPOSITORY Exam Date/Time: 02/09/2018 11:25 EDT Reason for Exam: Back pain Report XR SPINE LUMBAR W/ OBLIQUES CLINICAL STATEMENT: Back pain. COMPARISON: None. TECHNIQUE: AP, oblique, and lateral views with a lateral coned- down view of the lumbosacral junction. FINDINGS: There are 5 lumbar type segments. There is a slight broad curvature of the lumbar spine centered at L3, convex left. The lumbar vertebral bodies are maintained in height. The intervertebral disc spaces are maintained in height with the exception of mild disc space narrowing L1- L2 associated with mild endplate sclerosis. There is moderate facet osteoarthritis L4-L5 and L5-S1. The pedicles are intact. There is no listhesis. Sacroiliac joints appear unremarkable. No obvious osseous destructive lesion. IMPRESSION: 1. No acute osseous abnormality or listhesis. 2. Lower lumbar facet osteoarthritis. 3. Mild degenerative disc changes L1-L2. FINAL REPORT Dictated: 02/09/2018 1:07 pm Anant Menendez DO Signed (Electronic Signature): 02/09/2018 1:07 pm Signed by: Anant Menendez DO Technologist: [facility] DISCHARGE SUMMARY Observed: 12/03/2017 Status: COMPLETED Source: [place] 9:36 AM [facility] Send Summary: Discharge Summary Providers: Provider Role Provider Name ? Referring Dane Anderson ? Primary Free, Text Entry ? Attending Darci Yuan Note Recipients: Darci Yuan MD MOHAN, GEETHA - [phone] [] MARLENE ENGEL ROGER OWEN - [phone] [] Discharge: Summary: Admission Date: .20-Nov-2017 14:22:00 Discharge Date: 03-Dec-2017 Attending Physician at Discharge: Darci Yuan Admission Reason: CABG(1) Final Discharge Diagnoses: Acute coronary syndrome, S/P CABG x 5, Procedures: Date: 23-Nov-2017 13:03:00 Procedure Name: Cab X5 SVG Composite graft to Radial to PDA to PDL SVG Composite graft to Radial to Diag to OM EVANS to LAD Left internal mammary harvest Left saphenous vein endo harvest Left Radial endo harvest Date: 24-Nov-2017 11:32:00 Procedure Name: Removal of Right femoral IABP Rodriguez Procedure Date: 11/21/2017 8:20 AM Date of : 1955 Admit Type: Inpatient Site: Travel Ethnicity: Not or Race: White Attending MD: Carolina Waterman , Nov 21, 2017 Condition at Discharge: Satisfactory Disposition at Discharge: Home Health Care - New Vital Signs: T P R BP SpO2 Value 37 71 18 104/68 93% Date/Time 12/03 6:57 12/03 6:57 12/03 6:57 12/03 6:57 12/03 6:57 Range (36.5C - 37C ) (71 - 78 ) (18 - 20 ) (104 - 135 )/ (67 - 87 ) (93% - 96% ) Highest temp of 37 C was recorded at 12/03 6:57 Physical Exam: Physical Exam: Constitutional: Sitting in chair; Alert and Oriented X3; NAD Eyes: sclera clear ENMT: pink, mucous membranes moist, Head/Neck: Neck supple, trachea midline, Respiratory/Thorax: Lungs clear, diminished in bases, resp. unlabored; sternum stable Cardiovascular: RRR, S1S2 Tele NSR 70's no alarms no wires Gastrointestinal: obese, soft, nontender, nondistended, +BS, +postop BM 12/03 Genitourinary: voiding Musculoskeletal: SOLIZ; ambulating in halls Extremities: no lower ext. edema, midline in right antecubital, SOLIZ x4 purposefully Neurological: awake; A&Ox3; no focal def Psychological: Appropriate mood and behavior Skin: Warm and dry Midsternal incision NELI- no s/s infection Left radial graft- PLASTIC SHAPER no s/s infection Left SVG- NELI no s/s infection Hospital Course: Patient is a 62yo M with PMH HTN who presented as a transfer from [place] on 11/20/17 with STEMI. Patient had been having exertional chest pain for ~2 months prior to presentation. 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 CP was associated occasionally with dyspnea and diaphoresis and radiated down his b/l arms. Rest always relieved the chest pain until 11/17, when the chest pain developed with walking and was unremitting even with rest. Patient took multiple aspirin and an extra dose of his lopressor and went to sleep. Upon awakening on 11/18 he continued to have chest pain at rest, for which he took more aspirin (10 aspirin total) and more Lopressor. Eventually due to persistent chest pain he presented to [facility]. At [facility] on 11/19 he was found with STEMI (no EKG from this), loaded with ASA, ticagrelor, started on heparin gtt and nitro gtt, and transferred to [facility]. EKG on arrival to [facility] showed diffuse ST depressions as well as ST elevations in aVR, V1. Taken for LHC (report below) and placement of IABP. At [facility], patient was started on metoprolol tartrate 25mg 6h, atorva 80, ASA 81mg daily, s/p load Brilinta 11/19 at OSH, protonix 40mg daily, Lisinopril 2.5mg. Given 1u pRBCs for H&H 6.4/23.2 and transferred to [facility] CICU for further care. At [facility] patient was given another 2 Unit(s) pRBCs without appropriate incrementation (6.4 > 7.8). GI was consulted and EGD was performed as patient had 1 episode of hemoptysis 2-3 weeks prior to presentation and took multiple ASA. Was started on IV PPI BID. EGD showed 1 cm hiatal hernia, mild gastritis and mild erythematous duodenopathy. No clear source of blood loss. Suspected slow LGIB but unable to perform colonoscopy due to IABP. GI signed off and recommended re-consulting if new s/s of bleeding. CT-PE was negative for PE. Heparin gtt was held for 24 hours and then restarted when there were no further s/s of bleeding. Patient was given another 3 Unit(s) pRBCs and Hgb up to 10.4. Cardiac surgery was consulted and patient was scheduled for CABG. Patient was heparinized for 24 hrs prior to CABG with no further s/s of bleeding. All anti-platelet agents except for ASA held due to risk of bleeding. Patient presents to [facility]ICU s/p CABG X 5 (SVG Composite graft to Radial to PDA to PDL, SVG Composite graft to Radial to Diag to OM, EVANS to LAD), left internal mammary harvest, endoscopic left saphenous vein harvest and endoscopic left radial harvest. OPERATION/PROCEDURE: 11/23/17 Dr. Yuan 1. Urgent coronary artery bypass graft x5, left internal mammary artery to left anterior descending artery; composite radial artery graft to diagonal and obtuse marginal sequentially. 2. Composite radial artery graft sequentially to PDA and to the PLV branch of the right coronary artery. 3. Extracorporeal circulation. 4. Endoscopic harvest of left radial artery. 5. Endoscopic harvest of left greater saphenous vein. SICU- Afib with RVR Transfer to T3 11/27 -Patient alert and oriented, no neuro deficits, ambulating in unit. Eating without difficulty, Moving bowels and bladder without difficulty. -Heart rhythm with uncontrolled Afib RVR, now in NSR 70's on discharge after increasing medications, received a call from patient's pharmacy d/t cost of Metoprolol Succinate changed patient to Metoprolol Tartrate 100mg TID, he needed the consistency, along with Digoxin 0.25 mg daily, last level 0.74 on 12/03/17, Amiodarone decreased to 200mg daily. SBP range 104- 135 discharged on Losartan 25 mg daily, Diuresed during stay pre-op wt. 134 kg, down to 100 kg. STEMI on 11/19/17 Clopidogrel 75mg for 1 year. Epicardial wires cut on 11/28/17. -Resp. unlabored, using IS no difficulties. -VSS, patient discharged to home with home health care on 12/03/17 POD # 10 PMH: HTN Home Meds: Claritin 10mg daily Metoprolol tartrate 100mg BID Tramadol 50mg BID as needed Ibuprofen 600mg SocHx: denies tobacco, alcohol, ilicit drugs FamHx: HTN, T2DM, dementia; no h/o IL or CAD LHC: RCA: dominant, 70-80% distal stenosis; PDA with 80% mid-stenosis No LM coronary artery, LAD and LCx arise by dual ostia. LCx: prox AV groove with 70% stenosis, second OM 90% stenosis, third OM 50% stenosis LAD: diffuse 30-40% disease spanning entire proximal segment, major diag branch with 80% ostial proximal disease EF 30-35% with global hypokinesis No AAA Intraaortic balloon pump placed. Discharge Information: and Continuing Care: Discharge Instructions: Activity: You have been referred to cardiac rehab, as an outpatient. After your discharge from the hospital and home recovery period, you may follow up in 4-6 weeks or after you have been cleared to exercise with the program located at: [facility] [phone]. Continue to increase activity and use incentive spirometer, cough and deep breathing. Pace activities as tolerated. Avoid heavy physical exertion and lifting. Balance rest periods with activity. All refills will be obtained from the Primary Care Physician or Ground Equipment Mechanic. For chest tightness or pain, extreme shortness of breath, coughing up frothy sputum or fainting. GO DIRECTLY TO THE EMERGENCY ROOM OR CALL 911 IF YOU HAVE ANY OF THESE SYMPTOMS. No pushing, pulling, or lifting objects greater than 10 pounds for 3 months. MAY shower. MAY NOT drive for 4 to 6 weeks, until follow up visit with the surgeon. Maintain a daily weight log. Use same scale, before breakfast, after voiding Please notify the cardiac surgeon's office if you are readmitted to any hospital within 30 days Nutrition/Diet: Low Sodium Labs: Lab Test(s): Basic Metabolic Panel, CBC, Magnesium, Digoxin level Date To Be Drawn: Once the week following discharge Call Results To: Dr. Cifuentes and Wound Care: Cleanse incisions with soap and water daily. No dressing, leave open to air. No lotions, creams or tub soaks Respiratory: Oxygen: Incentive spirometer 10x/hr while awake Additional Orders: Vital Signs: Every Visit Weight: daily Infectious Disease: PPD Status: not given MRSA: no VRE: no C. Diff: no Other Resistant Organism: no Isolation Type: none Home Care Certification: Home Care Agency: [facility] Sk[facility] [employer]ipl[employer] Ordered: RN/BEHAVIORAL PEDIATRICIAN Home Care Services: Home Care Skilled Service: CABG carepath, follow up teaching, labs, medication, new diagnosis teaching, weight check Follow Up Appointments: Follow-Up 1: Physician/Dept./Service: Dr. Yuan- Cardiac surgeon Scheduled Date/Time: 13-Dec-2017 09:30 Location: [place] [address] [place] [address] Comments/Instructions: [facility] nurse practitioner is phone # above, appt. in building A 4th floor room 410 Follow-Up Appointment 01: Physician/Dept/Service: Dr. Ghazala Cifeuntes, PCP Scheduled Date/Time: 12-Dec-2017 11:20 Location: [address], [place]. [address] Follow-Up Appointment 02: Physician/Dept/Service: Dr. Lalita Sullivan, Cardiology Scheduled Date/Time: 19-Dec-2017 13:30 Location: [address] [address] Discharge Medications: Home Medication aspirin 81 mg oral tablet, dispersible - 1 tab(s) orally once a day (at bedtime) Claritin 10 mg oral tablet - 1 tab(s) orally once a day losartan 25 mg oral tablet - 1 tab(s) orally once a day amiodarone 200 mg oral tablet - 1 tab(s) orally once a day, Take for one month only unless directed otherwise by your enterprise architect manager clopidogrel 75 mg oral tablet - 1 tab(s) orally once a day, will be on for one year atorvastatin 40 mg oral tablet - 1 tab(s) orally once a day digoxin 250 mcg (0.25 mg) oral tablet - 1 tab(s) orally once a day iron polysaccharide (as elemental iron) 150 mg oral capsule - 1 cap(s) orally once a day take for one month only docusate-senna 50 mg-8.6 mg oral tablet - 2 tab(s) orally 2 times a day, take while on pain medication and taking iron, for hard stools Multiple Vitamins with Minerals oral tablet - 1 tab(s) orally once a day, can buy over the counter metoprolol tartrate 100 mg oral tablet - 1 tab(s) orally 3 times a day Start at 9pm tonight then on a 10pm, 6am, 2pm schedule around the clock you must take this on time PRN Medication Percocet 5/325 oral tablet - 1 tab(s) orally every 6 hours, As Needed for surgical pain Do not take any additional tylenol with this medication; may switch to plain tylenol when no longer taking percocet. ICD-DX G89.18 polyethylene glycol 3350 oral powder for reconstitution - 17 gram(s) orally 3 times a day, As Needed Lab Results - Pending: None Radiology Results - Pending: none Signature/Cosignature/Attestation: Provider/Team Contact Info-Pager Number cardiac surgery [phone] Electronic Signatures: Darci Yuan) (Signed 07-Jan-2018 08:21) Co-Signer: Send Summary, Summary Content, Ongoing Care Monica Calderon (HAUL DRIVER-WIRE TESTER) (Signed 19-Dec-2017 18:16) Authored: Send Summary, Summary Content, Ongoing Care, Signature/Cosignature/Attestation Last Updated: 07-Jan-2018 08:21 by Darci Yuan) DAILY PROGRESS Observed: 12/03/2017 Status: COMPLETED Source: [facility] 8:16 AM [facility] REPOSITORY Service: Cardiac Surgery Subjective Data: ANDREI RODRIGUEZ is a 62 year old Male who is Hospital Day # 14 and POD #10 for Cab X5;SVG Composite graft to Radial to PDA to PDL;SVG Composite graft to Radial to Diag to OM;EVANS to LAD;Left internal mammary harvest;Left saphenous vein endo harvest;Left Radial endo harvest. Objective Data: Objective Information: T P R BP SpO2 Value 37 71 18 104/68 93% Date/Time 12/03 6:57 12/03 6:57 12/03 6:57 12/03 6:57 12/03 6:57 Range (36.5C - 37.5C ) (71 - 82 ) (18 - 20 ) (104 - 135 )/ (67 - 87 ) (93% - 96% ) Highest temp of 37.5 C was recorded at 12/02 14:45 Weights 12/03 1:28: Weight in kg (Weight (kg)) 100.2 12/03 1:28: Weight in lbs ((lbs)) 221 ---- Intake and Output ----- Mn/Dy/Year Time Intake Output Net Dec 03, 2017 6:00 am 0 0 0 Dec 02, 2017 10:00 pm 0 0 0 Dec 02, 2017 2:00 pm 600 0 600 The Intake and Output Totals for the last 24 hours are: Intake Output Net 600 null null Intake Output Enteral - Oral 600 mL Physical Exam: Constitutional: Sitting in chair; Alert and Oriented X3; NAD Eyes: sclera clear ENMT: pink, mucous membranes moist, Head/Neck: Neck supple, trachea midline, Respiratory/Thorax: Lungs clear, diminished in bases, resp. unlabored; sternum stable Cardiovascular: RRR, S1S2 Tele NSR 70's no alarms no wires Gastrointestinal: obese, soft, nontender, nondistended, +BS, +postop BM 12/03 Genitourinary: voiding Musculoskeletal: SOLIZ; ambulating in halls Extremities: no lower ext. edema, midline in right antecubital, SOLIZ x4 purposefully Neurological: awake; A&Ox3; no focal def Psychological: Appropriate mood and behavior Skin: Warm and dry Midsternal incision NELI- no s/s infection Left radial graft- NELI no s/s infection Left SVG- NELI no s/s infection Medication: Medications: Continuous Medications No continuous medications are active Scheduled Medications 1. Acetaminophen: 650 mg Oral Every 6 Hours 2. Amiodarone: 400 mg Oral Every 12 Hours 3. Aspirin Enteric Coated: 81 mg Oral Daily 4. Atorvastatin: 40 mg Oral Daily 5. Clopidogrel: 75 mg Oral Daily 6. Digoxin: 0.25 mg Oral Daily 7. Docusate 50 mg - Senna 8.6 m tablet(s) Oral 2 Times a Day 8. Furosemide: 40 mg Oral 2 Times a Day 9. Heparin SubCutaneous: 5000 unit(s) SubCutaneous Every 8 Hours 10. Influenza Virus QUADRIVALENT (Inactive) ADULT Vaccine: 0.5 mL IntraMuscular Once 11. Iron Polysaccharide Complex: 150 mg Oral Daily 12. Losartan: 25 mg Oral Daily 13. Metoprolol Succinate Extended Release: 150 mg Oral <User Schedule> 14. Multivitamin with Minerals: 1 tablet(s) Oral Daily 15. Pantoprazole: 40 mg Oral 2 Times a Day 16. Polyethylene Glycol: 17 gram(s) Oral 3 Times a Day 17. Sodium Chloride 0.9% Injectable Flush: 10 mL IntraVenous Flush Every 12 Hours 18. Sodium Chloride 0.9% Injectable Flush: 1.5 mL IntraVenous Flush Every 8 Hours and as Needed PRN Medications 1. Heparin Flush 10 unit/ mL PF Injectable: 5 mL IntraVenous Flush Every 12 Hours 2. Heparin Flush 10 unit/ mL PF Injectable PRN: 5 mL IntraVenous Flush According to Flush Policy 3. Melatonin: 6 mg Oral At Bedtime 4. Ondansetron Injectable: 4 mg IntraVenous Push Every 8 Hours 5. oxyCODONE Immediate Release: 5 mg Oral Every 4 Hours 6. Sodium Chloride 0.9% Injectable Flush PRN: 10 mL IntraVenous Flush According to Flush Policy 7. Sodium Chloride 0.9% Injectable Flush PRN: 20 mL IntraVenous Flush According to Flush Policy Recent Lab Results: Results: I have reviewed these laboratory results: Coagulation Screen 03-Dec-2017 05:31:00 Result Value Prothrombin Time, Plasma 14.4 H International Normalized Ratio, Plasma 1.3 H Activated Partial Thromboplastin Time 29 Renal Function Panel 03-Dec-2017 05:31:00 Result Value Glucose, Serum 85 NA 135 L K 5.0 CL 101 Bicarbonate, Serum 24 Anion Gap, Serum 15 BUN 15 CREAT 0.95 GFR-Non >60 GFR- >60 Calcium, Serum 9.0 Phosphorus, Serum 5.0 H ALB 3.5 Magnesium, Serum 03-Dec-2017 05:31:00 Result Value Magnesium, Serum 2.14 Radiology Results: Results: Conclusion: CONCLUSIONS: 1. The left ventricular systolic function is mildly decreased with a 45-50% estimated ejection fraction. 2. Although there is mild global hypkinesis, the inferior wall appears to be more hypokinetic than the rest of the LV. 3. LV false tendon present. 4. The patient was tachycardic throughout the exam with HR 145 bpm ( afib). 5. Compared with the intraoperative MALGORZATA there are no significant changes. LVEF is similar, though the patient is now in rapid AFib. 6. The patient is in atrial fibrillation which may influence the estimate of left ventricular function and transvalvular flows. QUANTITATIVE DATA SUMMARY: 2D MEASUREMENTS: Normal Ranges: IVSd: 1.16 cm (0.6-1.1cm) LVPWd: 1.00 cm (0.6-1.1cm) LVIDd: 4.37 cm (3.9-5.9cm) LVIDs: 3.44 cm LV Mass Index: 76.4 g/m2 LV % FS 21.3 % LA VOLUME: Normal Ranges: LA Area A4C: 20.4 cm2 LA Area A2C: 22.5 cm2 LA Volume Index: 23.8 ml/m2 RA VOLUME BY A/L METHOD: Normal Ranges: RA Area A4C: 18.2 cm2 M-MODE MEASUREMENTS: Normal Ranges: Ao Root: 3.80 cm (2.0-3.7cm) LAs: 3.80 cm (2.7-4.0cm) AORTA MEASUREMENTS: Normal Ranges: Ao Sinus, d: 3.10 cm (2.1-3.5cm) Asc Ao, d: 3.50 cm (2.1-3.4cm) LV SYSTOLIC FUNCTION BY 2D PLANIMETRY (MOD): Normal Ranges: EF-A4C View: 49.3 % (>55%) EF-A2C View: 44.3 % EF-Biplane: 42.1 % AORTIC VALVE: Normal Ranges: LVOT Diameter: 2.60 cm (1.8-2.4cm) RIGHT VENTRICLE: RV 1 4.85 cm RV 2 2.95 cm RV 3 9.51 cm Echocardiogram [Nov 29 2017 4:32PM] Impression: 1. Improved but persistent perihilar congestion and interstitial edema. 2. Unchanged mild bibasilar pleural effusion and atelectasis, left greater than right. 3. Cardiomegaly status post median sternotomy and CABG. Xray Chest 2 View PA + Lateral [Nov 28 2017 2:33PM] Assessment and Plan: Assessment: Patient is a 62yo M with PMH HTN who presented as a transfer from [place] on 11/20/17 with STEMI. Patient had been having exertional chest pain for ~2 months prior to presentation. 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 CP was associated occasionally with dyspnea and diaphoresis and radiated down his b/l arms. Rest always relieved the chest pain until 11/17, when the chest pain developed with walking and was unremitting even with rest. Patient took multiple aspirin and an extra dose of his lopressor and went to sleep. Upon awakening on 11/18 he continued to have chest pain at rest, for which he took more aspirin (10 aspirin total) and more Lopressor. Eventually due to persistent chest pain he presented to [facility]. At [facility] on 11/19 he was found with STEMI (no EKG from this), loaded with ASA, ticagrelor, started on heparin gtt and nitro gtt, and transferred to [place]. EKG on arrival to [facility] showed diffuse ST depressions as well as ST elevations in aVR, V1. Taken for LHC (report below) and placement of IABP. At [facility], patient was started on metoprolol tartrate 25mg 6h, atorva 80, ASA 81mg daily, s/p load Brilinta 11/19 at OSH, protonix 40mg daily, Lisinopril 2.5mg. Given 1u pRBCs for H&H 6.4/23.2 and transferred to [facility]ICU for further care. At [facility] patient was given another 2 Unit(s) pRBCs without appropriate incrementation (6.4 > 7.8). GI was consulted and EGD was performed as patient had 1 episode of hemoptysis 2-3 weeks prior to presentation and took multiple ASA. Was started on IV PPI BID. EGD showed 1 cm hiatal hernia, mild gastritis and mild erythematous duodenopathy. No clear source of blood loss. Suspected slow LGIB but unable to perform colonoscopy due to IABP. GI signed off and recommended re-consulting if new s/s of bleeding. CT-PE was negative for PE. Heparin gtt was held for 24 hours and then restarted when there were no further s/s of bleeding. Patient was given another 3 Unit(s) pRBCs and Hgb up to 10.4. Cardiac surgery was consulted and patient was scheduled for CABG. Patient was heparinized for 24 hrs prior to CABG with no further s/s of bleeding. All anti-platelet agents except for ASA held due to risk of bleeding. Patient presents to CTICU s/p CABG X 5 (SVG Composite graft to Radial to PDA to PDL, SVG Composite graft to Radial to Diag to OM, EVANS to LAD), left internal mammary harvest, endoscopic left saphenous vein harvest and endoscopic left radial harvest. OPERATION/PROCEDURE: 11/23/17 Dr. Yuan 1. Urgent coronary artery bypass graft x5, left internal mammary artery to left anterior descending artery; composite radial artery graft to diagonal and obtuse marginal sequentially. 2. Composite radial artery graft sequentially to PDA and to the PLV branch of the right coronary artery. 3. Extracorporeal circulation. 4. Endoscopic harvest of left radial artery. 5. Endoscopic harvest of left greater saphenous vein. SICU- Afib with RVR Transfer to T3 11/27 Impression and Plan POD# 10 s/p CABGX5 -increase activity/ ambulation; physical therapy -encourage IS, C/DB; respiratory therapy -cardiac rehab referral -continue cardiac meds: aspirin, statin, beta rachael - Plavix for NSTEMI for one year -pain and constipation meds -2v CXR see above results - wires removed 11/28 - optimize lytes and nutrition - tele until discharge - stopped accu checks Rhythm- Postop AFib in CTICU; aflutter on T3 - Tele NSR 70s - EP consulted appreciate recs - Metoprolol 25mg PO BID; 50mg q6 hours, 11/30 changed to Metoprolol Succinate 100mg BID - additional 5mg IV metoprolol given - 11/29 Ami bolus and drip restarted per Dr. Yuan for Afib - Amiodarone 400mg PO BID- on hold since now getting bolus and drip , drip will end 11/30 1900 and restart by mouth Amio - Digoxin 0.5mg X1 then 0.25mg X1 on 11/29 stopped due to ami bolus - Limited Echo done to rule out effusion- No effusion but LV false tendon present- Dr. Yuan aware - No heparin or coumadin at this time per Dr. Yuan will reassess in am of 11/30 -12/01 Aflutter/Afib 130's to low 100's 1st gave 5mg IV metop., then restarted Digoxin 0.25 mg daily PO, HR in 110's, 150mg Amio bolus IV x1 given, then inc. Metop. succinate to 150 mg BID - discharged on lower dose of Amio 200mg PO daily other medications unchanged Acute postop blood loss anemia - Hct 32.3, 32.3, 32.8, 33.9, 32.3, 31.6 - Mv and iron - daily CBC while in hospital Fluid Volume status- Preop wt 134 - wt 100.2, 100.7, 102.4, 107.4 - Lasix 20mg IV BID; change to PO in am 11/30, inc. to 2xd - Losartan 25mg daily; holding for afib and low SBP 11/29; resumed 12/02 - replace lytes as needed for hypokalemia/ hypomagnesemia- repleted MG on 11/30 - daily weights - no lasix on discharge Hx Hypertension - SBP last 24 hours 9104-135 - losartan 25mg daily; holding 11/29; resumed 12/02 Preoperative Bleeding- microcytic anemia - GI consult - EGD negative - continue protonix BID - may need colonoscopy if pt rebleeds - received 6units PRBC prior to OR Dispo - PT recs home with PT - discharge today Monday morning -follow up at with Dr. Yuan/ appt. made Signature/Cosignature/Attestation: Provider/Team Contact Info-Pager Number cardiac surgery [phone] Electronic Signatures: Monica Calderon (HAUL DRIVER-WIRE TESTER) (Signed 03-Dec-2017 10:14) Authored: Service, Subjective Data, Objective Data, Assessment and Plan, Signature/Cosignature/Attestation Last Updated: 03-Dec-2017 10:14 by Monica Calderon (HAUL DRIVER-WIRE TESTER) COAGULATION SCREEN Collected: 12/03/2017 Status: F Source: [place] 5:31 [facility] REPOSITORY TYPE CODE TESTS RESULT OUT OF REFERENCE UNITS RANGE LAB PT(LOINC) 9.8 - 12.7 sec PROTHROMBIN High TIME 14.4 LAB INR(LOINC) 0.9 - 1.1 PT, INR High 1.3 LAB APTT(LOINC 25 - 36 sec ) APTT 29 Result Comment: THE APTT IS NO LONGER USED FOR MONITORING UNFRACTIONATED HEPARIN THERAPY. FOR MONITORING HEPARIN THERAPY, USE THE HEPARIN ASSAY. Performed By: #### COAGS #### [facility] [id number] [place] [address] MAGNESIUM Collected: 12/03/2017 Status: F Source: [place] 5:31 [facility] REPOSITORY TYPE CODE TESTS RESULT OUT OF REFERENCE UNITS RANGE LAB MG(LOINC) 1.60 - 2.40 mg/dL MAGNESIUM 2.14 Performed By: #### MG #### [facility] [id number] [place] [address] RENAL FUNCTION PANEL Collected: 12/03/2017 Status: F Source: [place] 5:31 AM [facility] REPOSITORY TYPE CODE TESTS RESULT OUT OF REFERENCE UNITS RANGE LAB GLU(LOINC) 74 - 99 mg/dL GLUCOSE 85 LAB SOD(LOINC) 136 - 145 mmol/L Low SODIUM 135 LAB K(LOINC) 3.5 - 5.3 mmol/L POTASSIUM 5.0 LAB CHLOR(LOIN 98 - 107 mmol/L C) CHLORIDE 101 LAB BIC(LOINC) 21 - 32 mmol/L BICARBONATE 24 LAB ANGAP(LOIN 10 - 20 mmol/L C) ANION GAP 15 LAB UREA(LOINC 6 - 23 mg/dL ) UREA NITROGEN 15 LAB CREA(LOINC 0.50 - 1.30 mg/dL ) CREATININE 0.95 LAB GFRFN(LOIN >60 mL/min/1.7 C) 3m2 GFR-NON AM. >60 LAB GFRAA(LOIN >60 mL/min/1.7 C) 3m2 GFR- AM. >60 Result Comment: CALCULATIONS OF ESTIMATED GFR ARE PERFORMED USING THE MDRD STUDY EQUATION FOR THE IDMS-TRACEABLE CREATININE METHODS. CLIN CHEM 2007;53:766-72 LAB CA(LOINC) 8.6 - 10.6 mg/dL CALCIUM 9.0 LAB PHOS(LOINC) 2.5 - 4.9 mg/dL PHOSPHORUS High 5.0 Result Comment: The performance characteristics of phosphorus testing in heparinized plasma have been validated by the individual laboratory site where testing is performed. Testing on heparinized plasma is not approved by the FDA; however, such approval is not necessary. LAB ALB(LOINC) 3.4 - 5.0 g/dL ALBUMIN 3.5 Performed By: #### RENAL #### [facility] [address] [place] [address] CBC AND DIFFERENTIAL Collected: 12/03/2017 Status: F Source: [place] 5:31 AM [facility] REPOSITORY TYPE CODE TESTS RESULT OUT OF REFERENCE UNITS RANGE LAB WBCR(LOINC 4.4 - 11.3 x10E9/L ) WBC 10.3 LAB NRBC(LOINC 0.0-0.0 /100 WBC ) NUCLEATED RBC 0.0 LAB RBCCT(LOIN 4.50 - 5.90 x10E12/L C) Low RBC 4.41 LAB HGB(LOINC) 13.5 - 17.5 g/dL Low HGB 10.0 LAB HCT(LOINC) 41.0 - 52.0 % Low HCT 34.3 LAB MCV(LOINC) 80 - 100 fL Low MCV 78 LAB MCHC2(LOIN 32.0 - 36.0 g/dL C) Low MCHC 29.2 LAB PLTCT(LOIN 150 - 450 x10E9/L C) PLT High 589 LAB RDWCV(LOIN 11.5 - 14.5 % C) RDW-CV High 26.9 LAB NEUT(LOINC 40.0 - 80.0 % ) % NEUTROPHIL 68.9 LAB IG(LOINC) 0.0 - 0.9 % % High AUTOMATED 1.7 IMMATURE GRAN Result Comment: Percent differential counts (%) should be interpreted in the context of the absolute cell counts (cells/L). LAB LYMPH(LOINC) 13.0 - % 44.0 % LYMPHOCYTE 14.8 LAB MONO(LOINC) 2.0 - 10.0 % % MONOCYTE High 11.7 LAB EOS(LOINC) 0.0 - 6.0 % % EOSINOPHIL 2.5 LAB BASO(LOINC) 0.0 - 2.0 % % BASOPHIL 0.4 LAB #NEUT(LOINC) 1.20 - x10E9/L 7.70 NEUTROPHIL 7.08 LAB #LYMP(LOINC) 1.20 - x10E9/L 4.80 LYMPHOCYTE 1.52 LAB #MONO(LOINC) 0.10 - x10E9/L 1.00 MONOCYTE High 1.20 LAB #EOS(LOINC) 0.00 - x10E9/L 0.70 EOSINOPHIL 0.26 LAB #BASO(LOINC) 0.00 - x10E9/L 0.10 BASOPHIL 0.04 Result Comment: Automated WBC differential has been confirmed by manual smear. Performed By: #### CBCDF #### [facility] [address] [place] [address] RED CELL MORPHOLOGY Collected: 12/03/2017 Status: F Source: [place] 5:31 AM [facility] REPOSITORY TYPE CODE TESTS RESULT OUT OF REFERENCE UNITS RANGE LAB RBCMO(LOIN C) RBC MORPHOLOGY See Below LAB POLY(LOINC ) POLYCHROMASIA Mild LAB RBCFR(LOIN C) RBC FRAGMENTS Few LAB OVALO(LOIN C) OVALOCYTES Few Performed By: #### MORP2 #### [facility] [address] [place] [address] DAILY PROGRESS Observed: 12/02/2017 Status: COMPLETED Source: [facility] 4:07 PM [facility] REPOSITORY Service: Cardiac Surgery Subjective Data: ANDREI RODRIGUEZ is a 62 year old Male who is Hospital Day # 13 and POD #9 for Cab X5;SVG Composite graft to Radial to PDA to PDL;SVG Composite graft to Radial to Diag to OM;EVANS to LAD;Left internal mammary harvest;Left saphenous vein endo harvest;Left Radial endo harvest. Overnight Events: Patient had an uneventful night. Additional Information: Converted to NSR 70s ~ 0039 this morning. Objective Data: Objective Information: ---- Intake and Output ----- Mn/Dy/Year Time Intake Output Net Dec 02, 2017 2:00 pm 600 0 600 Dec 02, 2017 6:00 am 0 0 0 Dec 01, 2017 10:00 pm 0 0 0 T P R BP SpO2 Value 37.5 79 18 114/69 95% Date/Time 12/02 14:45 12/02 14:45 12/02 14:45 12/02 14:45 12/02 14:45 Range (36.4C - 37.6C ) (79 - 97 ) (16 - 20 ) (113 - 124 )/ (69 - 73 ) (93% - 96% ) Highest temp of 37.6 C was recorded at 12/01 23:24 Weights 12/02 4:43: Weight in kg (Weight (kg)) 100.7 12/02 4:43: Weight in lbs ((lbs)) 222.1 Physical Exam: Constitutional: Awake and alert, oriented x3, in no distress, cooperative. Eyes: sclera clear ENMT: mucous membranes moist, no apparent injury, no lesions seen Head/Neck: Neck supple, no apparent injury, trachea midline. Respiratory/Thorax: CTAB, good chest expansion, thorax symmetric. Using IS, on RA. Cardiovascular: Regular, rate and rhythm, no murmurs, 2+ equal pulses of the extremities, no S3, S4. Tele: NSR 70s converted from afib overnight Gastrointestinal: Obese, soft, non-tender, +BS. No diarrhea. Genitourinary: voiding clear yellow urine, denies dysuria Musculoskeletal: ROM intact, no joint swelling, weak. Extremities: Well perfused minimal edema Neurological: alert and oriented x3, intact senses, motor, response and reflexes, weak. Psychological: Appropriate mood and behavior Skin: Pale, warm & dry. Midline sternotomy incision well approximated, no erythema or drainage. Medication: Medications: Continuous Medications No continuous medications are active Scheduled Medications 1. Acetaminophen: 650 mg Oral Every 6 Hours 2. Amiodarone: 400 mg Oral Every 12 Hours 3. Aspirin Enteric Coated: 81 mg Oral Daily 4. Atorvastatin: 40 mg Oral Daily 5. Clopidogrel: 75 mg Oral Daily 6. Digoxin: 0.25 mg Oral Daily 7. Docusate 50 mg - Senna 8.6 m tablet(s) Oral 2 Times a Day 8. Furosemide: 40 mg Oral 2 Times a Day 9. Heparin SubCutaneous: 5000 unit(s) SubCutaneous Every 8 Hours 10. Influenza Virus QUADRIVALENT (Inactive) ADULT Vaccine: 0.5 mL IntraMuscular Once 11. Iron Polysaccharide Complex: 150 mg Oral Daily 12. Losartan: 25 mg Oral Daily 13. Metoprolol Succinate Extended Release: 150 mg Oral <User Schedule> 14. Multivitamin with Minerals: 1 tablet(s) Oral Daily 15. Pantoprazole: 40 mg Oral 2 Times a Day 16. Polyethylene Glycol: 17 gram(s) Oral 3 Times a Day 17. Sodium Chloride 0.9% Injectable Flush: 10 mL IntraVenous Flush Every 12 Hours 18. Sodium Chloride 0.9% Injectable Flush: 1.5 mL IntraVenous Flush Every 8 Hours and as Needed PRN Medications 1. Heparin Flush 10 unit/ mL PF Injectable: 5 mL IntraVenous Flush Every 12 Hours 2. Heparin Flush 10 unit/ mL PF Injectable PRN: 5 mL IntraVenous Flush According to Flush Policy 3. Melatonin: 6 mg Oral At Bedtime 4. Ondansetron Injectable: 4 mg IntraVenous Push Every 8 Hours 5. oxyCODONE Immediate Release: 5 mg Oral Every 4 Hours 6. Sodium Chloride 0.9% Injectable Flush PRN: 10 mL IntraVenous Flush According to Flush Policy 7. Sodium Chloride 0.9% Injectable Flush PRN: 20 mL IntraVenous Flush According to Flush Policy Recent Lab Results: Results: I have reviewed these laboratory results: Coagulation Screen 02-Dec-2017 05:29:00 Result Value Prothrombin Time, Plasma 14.3 H International Normalized Ratio, Plasma 1.3 H Activated Partial Thromboplastin Time 28 Complete Blood Count + Differential 02-Dec-2017 05:29:00 Result Value White Blood Cell Count 10.0 Nucleated Erythrocyte Count 0.0 Red Blood Cell Count 4.23 L HGB 9.7 L HCT 32.3 L MCV 76 L MCHC 30.0 L PLT 553 H RDW-CV 26.7 H Neutrophil % 69.7 Immature Granulocytes % 2.0 H Lymphocyte % 14.2 Monocyte % 11.4 H Eosinophil % 2.3 Basophil % 0.4 Neutrophil Count 7.00 Lymphocyte Count 1.43 Monocyte Count 1.14 H Eosinophil Count 0.23 Basophil Count 0.04 Renal Function Panel 02-Dec-2017 05:29:00 Result Value Glucose, Serum 101 H NA 132 L K 4.5 CL 99 Bicarbonate, Serum 23 Anion Gap, Serum 15 BUN 15 CREAT 0.96 GFR-Non >60 GFR- >60 Calcium, Serum 8.7 Phosphorus, Serum 4.4 ALB 3.2 L RBC Morphology 02-Dec-2017 05:29:00 Result Value Red Blood Cell Morphology See Below Polychromasia Mild Hypochromasia Mild Ovalocytes Few Magnesium, Serum 02-Dec-2017 05:29:00 Result Value Magnesium, Serum 2.08 Digoxin Level, Serum 02-Dec-2017 05:29:00 Result Value Digoxin Level, Serum 0.74 L Assessment and Plan: Assessment: Patient is a 62yo M with PMH HTN who presented as a transfer from [place] on 11/20/17 with STEMI. Patient had been having exertional chest pain for ~2 months prior to presentation. 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 CP was associated occasionally with dyspnea and diaphoresis and radiated down his b/l arms. Rest always relieved the chest pain until 11/17, when the chest pain developed with walking and was unremitting even with rest. Patient took multiple aspirin and an extra dose of his lopressor and went to sleep. Upon awakening on 11/18 he continued to have chest pain at rest, for which he took more aspirin (10 aspirin total) and more Lopressor. Eventually due to persistent chest pain he presented to [facility]. At [facility] on 11/19 he was found with STEMI (no EKG from this), loaded with ASA, ticagrelor, started on heparin gtt and nitro gtt, and transferred to [place]. EKG on arrival to [place] showed diffuse ST depressions as well as ST elevations in aVR, V1. Taken for LHC (report below) and placement of IABP. At [place], patient was started on metoprolol tartrate 25mg 6h, atorva 80, ASA 81mg daily, s/p load Brilinta 2/25 at OSH, protonix 40mg daily, Lisinopril 2.5mg. Given 1u pRBCs for H&H 6.4/23.2 and transferred to [facility] for further care. At [facility] patient was given another 2 Unit(s) pRBCs without appropriate incrementation (6.4 > 7.8). GI was consulted and EGD was performed as patient had 1 episode of hemoptysis 2-3 weeks prior to presentation and took multiple ASA. Was started on IV PPI BID. EGD showed 1 cm hiatal hernia, mild gastritis and mild erythematous duodenopathy. No clear source of blood loss. Suspected slow LGIB but unable to perform colonoscopy due to IABP. GI signed off and recommended re-consulting if new s/s of bleeding. CT-PE was negative for PE. Heparin gtt was held for 24 hours and then restarted when there were no further s/s of bleeding. Patient was given another 3 Unit(s) pRBCs and Hgb up to 10.4. Cardiac surgery was consulted and patient was scheduled for CABG. Patient was heparinized for 24 hrs prior to CABG with no further s/s of bleeding. All anti-platelet agents except for ASA held due to risk of bleeding. Patient presents to CTICU s/p CABG X 5 (SVG Composite graft to Radial to PDA to PDL, SVG Composite graft to Radial to Diag to OM, EVANS to LAD), left internal mammary harvest, endoscopic left saphenous vein harvest and endoscopic left radial harvest. OPERATION/PROCEDURE: 11/23/17 Dr. Yuan 1. Urgent coronary artery bypass graft x5, left internal mammary artery to left anterior descending artery; composite radial artery graft to diagonal and obtuse marginal sequentially. 2. Composite radial artery graft sequentially to PDA and to the PLV branch of the right coronary artery. 3. Extracorporeal circulation. 4. Endoscopic harvest of left radial artery. 5. Endoscopic harvest of left greater saphenous vein. SICU- Afib with RVR Transfer to T3 11/27 Impression and Plan POD# 9 s/p CABGX5 -increase activity/ ambulation; physical therapy -encourage IS, C/DB; respiratory therapy -cardiac rehab referral -continue cardiac meds: aspirin, statin, beta rachael - Plavix for NSTEMI for one year -pain and constipation meds -2v CXR see above results - wires removed 11/28 - optimize lytes and nutrition - tele until discharge - stopped accu checks Rhythm- Postop AFib in CTICU; aflutter on T3 - Tele NSR 70s - EP consulted appreciate recs - Metoprolol 25mg PO BID; 50mg q6 hours, 11/30 changed to Metoprolol Succinate 100mg BID - additional 5mg IV metoprolol given - 11/29 Ami bolus and drip restarted per Dr. Yuan for Afib - Amiodarone 400mg PO BID- on hold since now getting bolus and drip , drip will end 11/30 1900 and restart by mouth Amio - Digoxin 0.5mg X1 then 0.25mg X1 on 11/29 stopped due to ami bolus - Limited Echo done to rule out effusion- No effusion but LV false tendon present- Dr. Yuan aware - No heparin or coumadin at this time per Dr. Yuan will reassess in am of 11/30 -12/01 Aflutter/Afib 130's to low 100's 1st gave 5mg IV metop., then restarted Digoxin 0.25 mg daily PO, HR in 110's, 150mg Amio bolus IV x1 given, then inc. Metop. succinate to 150 mg BID - adjust as needed Acute postop blood loss anemia - Hct 32.3, 32.8, 33.9, 32.3, 31.6 - Mv and iron - daily CBC while in hospital Fluid Volume status- Preop wt 134 - wt pending 100.7, 102.4, 107.4 - Lasix 20mg IV BID; change to PO in am 11/30, inc. to 2xd - Losartan 25mg daily; holding for afib and low SBP 11/29; resumed 12/02 - replace lytes as needed for hypokalemia/ hypomagnesemia- repleted MG on 11/30 - daily weights; I and O's - daily renal panel Hx Hypertension - SBP last 24 hours 110-120ss - losartan 25mg daily; holding 11/29; resumed 12/02 Preoperative Bleeding- microcytic anemia - GI consult - EGD negative - continue protonix BID - may need colonoscopy if pt rebleeds - received 6units PRBC prior to OR Dispo - PT recs home with PT - anticipate discharge Monday -follow up at with Dr. Yuan/ appt. made Signature/Cosignature/Attestation: Provider/Team Contact Info-Pager Number cardiac surgery [phone] Electronic Signatures: Veronica Moore (HAUL DRIVER-WIRE TESTER) (Signed 02-Dec-2017 16:16) Authored: Service, Subjective Data, Objective Data, Assessment and Plan, Signature/Cosignature/Attestation Last Updated: 02-Dec-2017 16:16 by Veronica Moore (HAUL DRIVER-WIRE TESTER) EMR ADDON Collected: 12/02/2017 Status: F Source: [place] 8:54 AM [facility] REPOSITORY TYPE CODE TESTS RESULT OUT OF REFERENCE UNITS RANGE LAB EMRAC(LOIN C) ADDON CONFIRMATION REQUEST REC'D Performed By: #### EMRAD #### NO LOCATION NEEDED MAGNESIUM Collected: 12/02/2017 Status: F Source: [place] 5:29 AM [facility] REPOSITORY TYPE CODE TESTS RESULT OUT OF REFERENCE UNITS RANGE LAB MG(LOINC) 1.60 - 2.40 mg/dL MAGNESIUM 2.08 Performed By: #### MG #### [facility] [address] [place] [address] RENAL FUNCTION PANEL Collected: 12/02/2017 Status: F Source: [place] 5:29 AM [facility] REPOSITORY TYPE CODE TESTS RESULT OUT OF REFERENCE UNITS RANGE LAB GLU(LOINC) 74 - 99 mg/dL GLUCOSE High 101 LAB SOD(LOINC) 136 - 145 mmol/L Low SODIUM 132 LAB K(LOINC) 3.5 - 5.3 mmol/L POTASSIUM 4.5 LAB CHLOR(LOIN 98 - 107 mmol/L C) CHLORIDE 99 LAB BIC(LOINC) 21 - 32 mmol/L BICARBONATE 23 LAB ANGAP(LOIN 10 - 20 mmol/L C) ANION GAP 15 LAB UREA(LOINC 6 - 23 mg/dL ) UREA NITROGEN 15 LAB CREA(LOINC 0.50 - 1.30 mg/dL ) CREATININE 0.96 LAB GFRFN(LOIN >60 mL/min/1.7 C) 3m2 GFR-NON AM. >60 LAB GFRAA(LOIN >60 mL/min/1.7 C) 3m2 GFR- AM. >60 Result Comment: CALCULATIONS OF ESTIMATED GFR ARE PERFORMED USING THE MDRD STUDY EQUATION FOR THE IDMS-TRACEABLE CREATININE METHODS. CLIN CHEM 2007;53:766-72 LAB CA(LOINC) 8.6 - 10.6 mg/dL CALCIUM 8.7 LAB PHOS(LOINC) 2.5 - 4.9 mg/dL PHOSPHORUS 4.4 Result Comment: The performance characteristics of phosphorus testing in heparinized plasma have been validated by the individual laboratory site where testing is performed. Testing on heparinized plasma is not approved by the FDA; however, such approval is not necessary. LAB ALB(LOINC) 3.4 - 5.0 g/dL Low ALBUMIN 3.2 Performed By: #### RENAL #### [facility] [address] [place] [address] COAGULATION SCREEN Collected: 12/02/2017 Status: F Source: [place] 5:29 AM [facility] REPOSITORY TYPE CODE TESTS RESULT OUT OF REFERENCE UNITS RANGE LAB PT(LOINC) 9.8 - 12.7 sec PROTHROMBIN High TIME 14.3 LAB INR(LOINC) 0.9 - 1.1 PT, INR High 1.3 LAB APTT(LOINC 25 - 36 sec ) APTT 28 Result Comment: THE APTT IS NO LONGER USED FOR MONITORING UNFRACTIONATED HEPARIN THERAPY. FOR MONITORING HEPARIN THERAPY, USE THE HEPARIN ASSAY. Performed By: #### COAGS #### [facility] [address] [place] [address] CBC AND DIFFERENTIAL Collected: 12/02/2017 Status: F Source: [place] 5:29 AM [facility] REPOSITORY TYPE CODE TESTS RESULT OUT OF REFERENCE UNITS RANGE LAB WBCR(LOINC 4.4 - 11.3 x10E9/L ) WBC 10.0 LAB NRBC(LOINC 0.0-0.0 /100 WBC ) NUCLEATED RBC 0.0 LAB RBCCT(LOIN 4.50 - 5.90 x10E12/L C) Low RBC 4.23 LAB HGB(LOINC) 13.5 - 17.5 g/dL Low HGB 9.7 LAB HCT(LOINC) 41.0 - 52.0 % Low HCT 32.3 LAB MCV(LOINC) 80 - 100 fL Low MCV 76 LAB MCHC2(LOIN 32.0 - 36.0 g/dL C) Low MCHC 30.0 LAB PLTCT(LOIN 150 - 450 x10E9/L C) PLT High 553 LAB RDWCV(LOIN 11.5 - 14.5 % C) RDW-CV High 26.7 LAB NEUT(LOINC 40.0 - 80.0 % ) % NEUTROPHIL 69.7 LAB IG(LOINC) 0.0 - 0.9 % % High AUTOMATED 2.0 IMMATURE GRAN Result Comment: Percent differential counts (%) should be interpreted in the context of the absolute cell counts (cells/L). LAB LYMPH(LOINC) 13.0 - % 44.0 % LYMPHOCYTE 14.2 LAB MONO(LOINC) 2.0 - 10.0 % % MONOCYTE High 11.4 LAB EOS(LOINC) 0.0 - 6.0 % % EOSINOPHIL 2.3 LAB BASO(LOINC) 0.0 - 2.0 % % BASOPHIL 0.4 LAB #NEUT(LOINC) 1.20 - x10E9/L 7.70 NEUTROPHIL 7.00 LAB #LYMP(LOINC) 1.20 - x10E9/L 4.80 LYMPHOCYTE 1.43 LAB #MONO(LOINC) 0.10 - x10E9/L 1.00 MONOCYTE High 1.14 LAB #EOS(LOINC) 0.00 - x10E9/L 0.70 EOSINOPHIL 0.23 LAB #BASO(LOINC) 0.00 - x10E9/L 0.10 BASOPHIL 0.04 Result Comment: Automated WBC differential has been confirmed by manual smear. Performed By: #### CBCDF #### [facility] [address] [place] [address] RED CELL MORPHOLOGY Collected: 12/02/2017 Status: F Source: [place] 5:29 AM [facility] REPOSITORY TYPE CODE TESTS RESULT OUT OF REFERENCE UNITS RANGE LAB RBCMO(LOIN C) RBC MORPHOLOGY See Below LAB POLY(LOINC ) POLYCHROMASIA Mild LAB HYPO(LOINC ) HYPOCHROMASIA Mild LAB OVALO(LOIN C) OVALOCYTES Few Performed By: #### MORP2 #### [facility] [address] [place] [address] DIGOXIN Collected: 12/02/2017 Status: F Source: [place] 5:29 [facility] REPOSITORY TYPE CODE TESTS RESULT OUT OF REFERENCE UNITS RANGE LAB DIGOX(LOINC 0.80 - 2.00 ng/mL ) Low DIGOXIN 0.74 Performed By: #### DIGOX #### [facility] [address] [place] [address] DAILY PROGRESS Observed: 12/01/2017 Status: COMPLETED Source: [place] NOTE-CARDIAC SURGERY 8:40 AM [facility] REPOSITORY Service: Cardiac Surgery Subjective Data: ANDREI RODRIGUEZ is a 62 year old Male who is Hospital Day # 12 and POD #8 for Cab X5;SVG Composite graft to Radial to PDA to PDL;SVG Composite graft to Radial to Diag to OM;EVANS to LAD;Left internal mammary harvest;Left saphenous vein endo harvest;Left Radial endo harvest. Patient continues in afib/ aflutter low 100's. Overnight Events: Acute events in the past 24 hours include Objective Data: Objective Information: T P R BP SpO2 Value 36.8 62 18 120/77 94% Date/Time 12/01 7:33 12/01 7:33 12/01 7:33 12/01 7:33 12/01 7:33 Range (36.4C - 36.8C ) (62 - 104 ) (18 - 22 ) (108 - 131 )/ (68 - 81 ) (93% - 95% ) ---- Intake and Output ----- Mn/Dy/Year Time Intake Output Net Nov 30, 2017 10:00 pm 16.7 276 -260 Nov 30, 2017 2:00 pm 116.9 2 114 The Intake and Output Totals for the last 24 hours are: Intake Output Net 133 278 -145 Intake Output Medicated IV Drips 133.6 mL Urine 278 mL Physical Exam: Constitutional: Sitting in chair; Alert and Oriented X3; NAD Eyes: sclera clear ENMT: pink, mucous membranes moist, Head/Neck: Neck supple, trachea midline, Respiratory/Thorax: Lungs clear, diminished in bases with bibasilar crackles; sternum stable Cardiovascular: Irregular, S1S2 Tele Aflutter- Afib 90's-130's no wires Gastrointestinal: obese, soft, nontender, nondistended, +BS, +postop BM 11/30 Genitourinary: voiding Musculoskeletal: SOLIZ; ambulating in halls Extremities: trace pedal edema, midline in right antecubital, right hand + 2 edema s/p IV infiltrate no erythema, Neurological: awake; A&Ox3; no focal def Psychological: Appropriate mood and behavior Skin: Warm and dry Midsternal incision NELI- no s/s infection Left radial graft- PLASTIC SHAPER no s/s infection Left SVG- PLASTIC SHAPER no s/s infection Medication: Medications: Continuous Medications No continuous medications are active Scheduled Medications 1. Acetaminophen: 650 mg Oral Every 6 Hours 2. Amiodarone: 400 mg Oral Every 12 Hours 3. Aspirin Enteric Coated: 81 mg Oral Daily 4. Atorvastatin: 40 mg Oral Daily 5. Clopidogrel: 75 mg Oral Daily 6. Digoxin: 0.25 mg Oral Daily 7. Docusate 50 mg - Senna 8.6 m tablet(s) Oral 2 Times a Day 8. Furosemide: 40 mg Oral 2 Times a Day 9. Heparin SubCutaneous: 5000 unit(s) SubCutaneous Every 8 Hours 10. Influenza Virus QUADRIVALENT (Inactive) ADULT Vaccine: 0.5 mL IntraMuscular Once 11. Iron Polysaccharide Complex: 150 mg Oral Daily 12. Magnesium Oxide: 800 mg Oral 2 Times a Day 13. Metoprolol Succinate Extended Release: 150 mg Oral <User Schedule> 14. Multivitamin with Minerals: 1 tablet(s) Oral Daily 15. Pantoprazole: 40 mg Oral 2 Times a Day 16. Polyethylene Glycol: 17 gram(s) Oral 3 Times a Day 17. Sodium Chloride 0.9% Injectable Flush: 10 mL IntraVenous Flush Every 12 Hours 18. Sodium Chloride 0.9% Injectable Flush: 1.5 mL IntraVenous Flush Every 8 Hours and as Needed PRN Medications 1. Heparin Flush 10 unit/ mL PF Injectable: 5 mL IntraVenous Flush Every 12 Hours 2. Heparin Flush 10 unit/ mL PF Injectable PRN: 5 mL IntraVenous Flush According to Flush Policy 3. Melatonin: 6 mg Oral At Bedtime 4. Ondansetron Injectable: 4 mg IntraVenous Push Every 8 Hours 5. oxyCODONE Immediate Release: 5 mg Oral Every 4 Hours 6. Sodium Chloride 0.9% Injectable Flush PRN: 10 mL IntraVenous Flush According to Flush Policy 7. Sodium Chloride 0.9% Injectable Flush PRN: 20 mL IntraVenous Flush According to Flush Policy Currently Suspended Medications 1. Losartan: 25 mg Oral Daily Recent Lab Results: Results: I have reviewed these laboratory results: Coagulation Screen 01-Dec-2017 06:18:00 Result Value Prothrombin Time, Plasma 14.4 H International Normalized Ratio, Plasma 1.3 H Activated Partial Thromboplastin Time 27 Complete Blood Count + Differential 01-Dec-2017 06:18:00 Result Value White Blood Cell Count 10.8 Nucleated Erythrocyte Count 0.0 Red Blood Cell Count 4.14 L HGB 9.8 L HCT 32.8 L MCV 79 L MCHC 29.9 L PLT 451 H RDW-CV 26.9 H Neutrophil % 72.8 Immature Granulocytes % 1.7 H Lymphocyte % 11.2 L Monocyte % 11.9 H Eosinophil % 2.0 Basophil % 0.4 Neutrophil Count 7.85 H Lymphocyte Count 1.21 Monocyte Count 1.28 H Eosinophil Count 0.22 Basophil Count 0.04 Renal Function Panel 01-Dec-2017 06:18:00 Result Value Glucose, Serum 89 NA 135 L K 4.5 CL 103 Bicarbonate, Serum 21 Anion Gap, Serum 16 BUN 18 CREAT 0.95 GFR-Non >60 GFR- >60 Calcium, Serum 8.5 L Phosphorus, Serum 4.5 ALB 3.1 L RBC Morphology 01-Dec-2017 06:18:00 Result Value Red Blood Cell Morphology See Below Polychromasia Mild Ovalocytes Few Magnesium, Serum 01-Dec-2017 06:18:00 Result Value Magnesium, Serum 1.96 Radiology Results: Results: Conclusion: CONCLUSIONS: 1. The left ventricular systolic function is mildly decreased with a 45-50% estimated ejection fraction. 2. Although there is mild global hypkinesis, the inferior wall appears to be more hypokinetic than the rest of the LV. 3. LV false tendon present. 4. The patient was tachycardic throughout the exam with HR 145 bpm ( afib). 5. Compared with the intraoperative MALGORZATA there are no significant changes. LVEF is similar, though the patient is now in rapid AFib. 6. The patient is in atrial fibrillation which may influence the estimate of left ventricular function and transvalvular flows. QUANTITATIVE DATA SUMMARY: 2D MEASUREMENTS: Normal Ranges: IVSd: 1.16 cm (0.6-1.1cm) LVPWd: 1.00 cm (0.6-1.1cm) LVIDd: 4.37 cm (3.9-5.9cm) LVIDs: 3.44 cm LV Mass Index: 76.4 g/m2 LV % FS 21.3 % LA VOLUME: Normal Ranges: LA Area A4C: 20.4 cm2 LA Area A2C: 22.5 cm2 LA Volume Index: 23.8 ml/m2 RA VOLUME BY A/L METHOD: Normal Ranges: RA Area A4C: 18.2 cm2 M-MODE MEASUREMENTS: Normal Ranges: Ao Root: 3.80 cm (2.0-3.7cm) LAs: 3.80 cm (2.7-4.0cm) AORTA MEASUREMENTS: Normal Ranges: Ao Sinus, d: 3.10 cm (2.1-3.5cm) Asc Ao, d: 3.50 cm (2.1-3.4cm) LV SYSTOLIC FUNCTION BY 2D PLANIMETRY (MOD): Normal Ranges: EF-A4C View: 49.3 % (>55%) EF-A2C View: 44.3 % EF-Biplane: 42.1 % AORTIC VALVE: Normal Ranges: LVOT Diameter: 2.60 cm (1.8-2.4cm) RIGHT VENTRICLE: RV 1 4.85 cm RV 2 2.95 cm RV 3 9.51 cm Echocardiogram [Nov 29 2017 4:32PM] Impression: 1. Improved but persistent perihilar congestion and interstitial edema. 2. Unchanged mild bibasilar pleural effusion and atelectasis, left greater than right. 3. Cardiomegaly status post median sternotomy and CABG. Xray Chest 2 View PA + Lateral [Nov 28 2017 2:33PM] Assessment and Plan: Assessment: Patient is a 62yo M with PMH HTN who presented as a transfer from [place] on 11/20/17 with STEMI. Patient had been having exertional chest pain for ~2 months prior to presentation. 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 CP was associated occasionally with dyspnea and diaphoresis and radiated down his b/l arms. Rest always relieved the chest pain until 11/17, when the chest pain developed with walking and was unremitting even with rest. Patient took multiple aspirin and an extra dose of his lopressor and went to sleep. Upon awakening on 11/18 he continued to have chest pain at rest, for which he took more aspirin (10 aspirin total) and more Lopressor. Eventually due to persistent chest pain he presented to [facility]. At [facility] on 11/19 he was found with STEMI (no EKG from this), loaded with ASA, ticagrelor, started on heparin gtt and nitro gtt, and transferred to [place]. EKG on arrival to [place] showed diffuse ST depressions as well as ST elevations in aVR, V1. Taken for LHC (report below) and placement of IABP. At [place], patient was started on metoprolol tartrate 25mg 6h, atorva 80, ASA 81mg daily, s/p load Brilinta 2/25 at OSH, protonix 40mg daily, Lisinopril 2.5mg. Given 1u pRBCs for H&H 6.4/23.2 and transferred to [facility] CICU for further care. At [facility] patient was given another 2 Unit(s) pRBCs without appropriate incrementation (6.4 > 7.8). GI was consulted and EGD was performed as patient had 1 episode of hemoptysis 2-3 weeks prior to presentation and took multiple ASA. Was started on IV PPI BID. EGD showed 1 cm hiatal hernia, mild gastritis and mild erythematous duodenopathy. No clear source of blood loss. Suspected slow LGIB but unable to perform colonoscopy due to IABP. GI signed off and recommended re-consulting if new s/s of bleeding. CT-PE was negative for PE. Heparin gtt was held for 24 hours and then restarted when there were no further s/s of bleeding. Patient was given another 3 Unit(s) pRBCs and Hgb up to 10.4. Cardiac surgery was consulted and patient was scheduled for CABG. Patient was heparinized for 24 hrs prior to CABG with no further s/s of bleeding. All anti-platelet agents except for ASA held due to risk of bleeding. Patient presents to CTICU s/p CABG X 5 (SVG Composite graft to Radial to PDA to PDL, SVG Composite graft to Radial to Diag to OM, EVANS to LAD), left internal mammary harvest, endoscopic left saphenous vein harvest and endoscopic left radial harvest. OPERATION/PROCEDURE: 11/23/17 Dr. Yuan 1. Urgent coronary artery bypass graft x5, left internal mammary artery to left anterior descending artery; composite radial artery graft to diagonal and obtuse marginal sequentially. 2. Composite radial artery graft sequentially to PDA and to the PLV branch of the right coronary artery. 3. Extracorporeal circulation. 4. Endoscopic harvest of left radial artery. 5. Endoscopic harvest of left greater saphenous vein. SICU- Afib with RVR Transfer to T3 11/27 Impression and Plan POD# 8 s/p CABGX5 -increase activity/ ambulation; physical therapy -encourage IS, C/DB; respiratory therapy -cardiac rehab referral -continue cardiac meds: aspirin, statin, beta rachael - Plavix for NSTEMI for one year -pain and constipation meds -2v CXR see above results - wires removed / - optimize lytes and nutrition - tele until discharge - stopped accu checks Rhythm- Postop AFib in CTICU - Tele Aflutter 90's-130's - EP consulted appreciate recs - Metoprolol 25mg PO BID; 50mg q6 hours, 11/30 changed to Metoprolol Succinate 100mg BID - additional 5mg IV metoprolol given - 11/29 Ami bolus and drip restarted per Dr. Yuan for Afib - Amiodarone 400mg PO BID- on hold since now getting bolus and drip , drip will end 11/30 1900 and restart by mouth Amio - Digoxin 0.5mg X1 then 0.25mg X1 on 11/29 stopped due to ami bolus - Limited Echo done to rule out effusion- No effusion but LV false tendon present- Dr. Yuan aware - No heparin or coumadin at this time per Dr. Yuan will reassess in am of 11/30 -12/01 Aflutter/Afib 130's to low 100's 1st gave 5mg IV metop., then restarted Digoxin 0.25 mg daily PO, HR in 110's, 150mg Amio bolus IV x1 given, then inc. Metop. succinate to 150 mg BID - adjust as needed Acute postop blood loss anemia - Hct 32.8, 33.9, 32.3, 31.6 - Mv and iron - daily CBC while in hospital Fluid Volume status- Preop wt 134 - wt pending 102.4, 107.4 - Lasix 20mg IV BID; change to PO in am 11/30, inc. to 2xd - Losartan 25mg daily; holding for afib and low SBP 11/29 - replace lytes as needed for hypokalemia/ hypomagnesemia- repleted MG on 11/30 - daily weights; I and O's - daily renal panel Hx Hypertension - SBP last 24 hours 108-131 - losartan 25mg daily; holding 11/29 Preoperative Bleeding- microcytic anemia - GI consult - EGD negative - continue protonix BID - may need colonoscopy if pt rebleeds - received 6units PRBC prior to OR Dispo - PT recs home with PT - not ready for discharge at this time - anticipate discharge once HR stable -follow up at with Dr. Yuan/ appt. made d/w Dr. Yuan Signature/Cosignature/Attestation: Provider/Team Contact Info-Pager Number cardiac surgery [phone] Electronic Signatures: Monica Calderon (HAUL DRIVER-WIRE TESTER) (Signed 01-Dec-2017 17:48) Authored: Service, Subjective Data, Objective Data, Assessment and Plan, Signature/Cosignature/Attestation Last Updated: 01-Dec-2017 17:48 by Monica Calderon (HAUL DRIVER-WIRE TESTER) COAGULATION SCREEN Collected: 12/01/2017 Status: F Source: [place] 6:18 [facility] REPOSITORY TYPE CODE TESTS RESULT OUT OF REFERENCE UNITS RANGE LAB PT(LOINC) 9.8 - 12.7 sec PROTHROMBIN High TIME 14.4 LAB INR(LOINC) 0.9 - 1.1 PT, INR High 1.3 LAB APTT(LOINC 25 - 36 sec ) APTT 27 Result Comment: THE APTT IS NO LONGER USED FOR MONITORING UNFRACTIONATED HEPARIN THERAPY. FOR MONITORING HEPARIN THERAPY, USE THE HEPARIN ASSAY. Performed By: #### COAGS #### [facility] [address] [place] [id number] MAGNESIUM Collected: 12/01/2017 Status: F Source: [place] 6:18 [facility] REPOSITORY TYPE CODE TESTS RESULT OUT OF REFERENCE UNITS RANGE LAB MG(LOINC) 1.60 - 2.40 mg/dL MAGNESIUM 1.96 Performed By: #### MG #### [facility] [address] [place] [id number] RENAL FUNCTION PANEL Collected: 12/01/2017 Status: F Source: [place] 6:18 [facility] REPOSITORY TYPE CODE TESTS RESULT OUT OF REFERENCE UNITS RANGE LAB GLU(LOINC) 74 - 99 mg/dL GLUCOSE 89 LAB SOD(LOINC) 136 - 145 mmol/L Low SODIUM 135 LAB K(LOINC) 3.5 - 5.3 mmol/L POTASSIUM 4.5 LAB CHLOR(LOIN 98 - 107 mmol/L C) CHLORIDE 103 LAB BIC(LOINC) 21 - 32 mmol/L BICARBONATE 21 LAB ANGAP(LOIN 10 - 20 mmol/L C) ANION GAP 16 LAB UREA(LOINC 6 - 23 mg/dL ) UREA NITROGEN 18 LAB CREA(LOINC 0.50 - 1.30 mg/dL ) CREATININE 0.95 LAB GFRFN(LOIN >60 mL/min/1.7 C) 3m2 GFR-NON AM. >60 LAB GFRAA(LOIN >60 mL/min/1.7 C) 3m2 GFR- AM. >60 Result Comment: CALCULATIONS OF ESTIMATED GFR ARE PERFORMED USING THE MDRD STUDY EQUATION FOR THE IDMS-TRACEABLE CREATININE METHODS. CLIN CHEM 2007;53:766-72 LAB CA(LOINC) 8.6 - 10.6 mg/dL CALCIUM Low 8.5 LAB PHOS(LOINC) 2.5 - 4.9 mg/dL PHOSPHORUS 4.5 Result Comment: The performance characteristics of phosphorus testing in heparinized plasma have been validated by the individual laboratory site where testing is performed. Testing on heparinized plasma is not approved by the FDA; however, such approval is not necessary. LAB ALB(LOINC) 3.4 - 5.0 g/dL Low ALBUMIN 3.1 Performed By: #### RENAL #### [facility] [address] [place] [address] CBC AND DIFFERENTIAL Collected: 12/01/2017 Status: F Source: [place] 6:18 [facility]POSIT[facility] TYPE CODE TESTS RESULT OUT OF REFERENCE UNITS RANGE LAB WBCR(LOINC 4.4 - 11.3 x10E9/L ) WBC 10.8 LAB NRBC(LOINC 0.0-0.0 /100 WBC ) NUCLEATED RBC 0.0 LAB RBCCT(LOIN 4.50 - 5.90 x10E12/L C) Low RBC 4.14 LAB HGB(LOINC) 13.5 - 17.5 g/dL Low HGB 9.8 LAB HCT(LOINC) 41.0 - 52.0 % Low HCT 32.8 LAB MCV(LOINC) 80 - 100 fL Low MCV 79 LAB MCHC2(LOIN 32.0 - 36.0 g/dL C) Low MCHC 29.9 LAB PLTCT(LOIN 150 - 450 x10E9/L C) PLT High 451 LAB RDWCV(LOIN 11.5 - 14.5 % C) RDW-CV High 26.9 LAB NEUT(LOINC 40.0 - 80.0 % ) % NEUTROPHIL 72.8 LAB IG(LOINC) 0.0 - 0.9 % % High AUTOMATED 1.7 IMMATURE GRAN Result Comment: Percent differential counts (%) should be interpreted in the context of the absolute cell counts (cells/L). LAB LYMPH(LOINC) 13.0 - % Low 44.0 % LYMPHOCYTE 11.2 LAB MONO(LOINC) 2.0 - 10.0 % % MONOCYTE High 11.9 LAB EOS(LOINC) 0.0 - 6.0 % % EOSINOPHIL 2.0 LAB BASO(LOINC) 0.0 - 2.0 % % BASOPHIL 0.4 LAB #NEUT(LOINC) 1.20 - x10E9/L 7.70 NEUTROPHIL High 7.85 LAB #LYMP(LOINC) 1.20 - x10E9/L 4.80 LYMPHOCYTE 1.21 LAB #MONO(LOINC) 0.10 - x10E9/L 1.00 MONOCYTE High 1.28 LAB #EOS(LOINC) 0.00 - x10E9/L 0.70 EOSINOPHIL 0.22 LAB #BASO(LOINC) 0.00 - x10E9/L 0.10 BASOPHIL 0.04 Result Comment: Automated WBC differential has been confirmed by manual smear. Performed By: #### CBCDF #### [facility] [address] [place] [address] RED CELL MORPHOLOGY Collected: 12/01/2017 Status: F Source: [place] 6:18 [facility] REPOSITORY TYPE CODE TESTS RESULT OUT OF REFERENCE UNITS RANGE LAB RBCMO(LOIN C) RBC MORPHOLOGY See Below LAB POLY(LOINC ) POLYCHROMASIA Mild LAB OVALO(LOIN C) OVALOCYTES Few Performed By: #### MORP2 #### [facility] [address] [place] [address] DAILY PROGRESS Observed: 11/30/2017 Status: COMPLETED Source: [place] [facility]CARDIAC [facility] 11:40 [facility] Service: Cardiac Surgery Subjective Data: ANDREI RODRIGUEZ is a 62 year old Male who is Hospital Day # 11 and POD #7 for Cab X5;SVG Composite graft to Radial to PDA to PDL;SVG Composite graft to Radial to Diag to OM;EVANS to LAD;Left internal mammary harvest;Left saphenous vein endo harvest;Left Radial endo harvest. Overnight Events: Patient had an uneventful night. Objective Data: Objective Information: T P R BP SpO2 Value 36.4 104 19 119/81 94% Date/Time 11/30 10:11/30 10:06 11/30 10:06 11/30 10:06 11/30 10:06 Range (36.1C - 36.5C ) (92 - 145 ) (16 - 21 ) (96 - 130 )/ (65 - 101 ) (93% - 98% ) Weights 11/30 6:00: Weight in kg (Weight (kg)) 102.1 11/30 6:00: Weight in lbs ((lbs)) 225.3 ---- Intake and Output ----- Mn/Dy/Year Time Intake Output Net Nov 30, 2017 6:00 am 250.1 500 -250 Nov 29, 2017 10:00 pm 253.2 1 252 Nov 29, 2017 2:00 pm 0 2 -2 The Intake and Output Totals for the last 24 hours are: Intake Output Net 503 503 0 Intake Output Enteral - Oral 120 mL Urine 503 mL Medicated IV Drips 383.3 mL Physical Exam: Constitutional: Sitting in chair; Alert and Oriented X3; NAD Eyes: sclera clear ENMT: pink, mucous membranes moist, Head/Neck: Neck supple, trachea midline, Respiratory/Thorax: Lungs clear, diminished in bases with bibasilar crackles; sternum stable Cardiovascular: Irregular, S1S2 Tele Aflutter 90's no wires Gastrointestinal: obese, soft, nontender, nondistended, +BS, +postop BM 11/28 Genitourinary: voiding Musculoskeletal: SOLIZ; ambulating in halls Extremities: trace pedal edema, midline in right antecubital, right hand + 2 edema s/p IV infiltrate no erythema, Neurological: awake; A&Ox3; no focal def Psychological: Appropriate mood and behavior Skin: Warm and dry Midsternal incision PLASTIC SHAPER- no s/s infection Left radial graft- PLASTIC SHAPER no s/s infection Left SVG- PLASTIC SHAPER no s/s infection Medication: Medications: Continuous Medications 1. Amiodarone 900 mg/ D5W 500 mL Infusion: 900 mg IntraVenous <Continuous> 2. Lactated Ringers .: 1000 mL IntraVenous <Continuous> Scheduled Medications 1. Acetaminophen: 650 mg Oral Every 6 Hours 2. Aspirin Enteric Coated: 81 mg Oral Daily 3. Atorvastatin: 40 mg Oral Daily 4. Clopidogrel: 75 mg Oral Daily 5. Docusate 50 mg - Senna 8.6 m tablet(s) Oral 2 Times a Day 6. Furosemide: 20 mg Oral Daily 7. Heparin SubCutaneous: 5000 unit(s) SubCutaneous Every 8 Hours 8. Influenza Virus QUADRIVALENT (Inactive) ADULT Vaccine: 0.5 mL IntraMuscular Once 9. Iron Polysaccharide Complex: 150 mg Oral Daily 10. Metoprolol Tartrate: 50 mg Oral Every 6 Hours 11. Multivitamin with Minerals: 1 tablet(s) Oral Daily 12. Pantoprazole: 40 mg Oral 2 Times a Day 13. Polyethylene Glycol: 17 gram(s) Oral 3 Times a Day 14. Sodium Chloride 0.9% Injectable Flush: 1.5 mL IntraVenous Flush Every 8 Hours and as Needed 15. Sodium Chloride 0.9% Injectable Flush: 10 mL IntraVenous Flush Every 12 Hours PRN Medications 1. Heparin Flush 10 unit/ mL PF Injectable: 5 mL IntraVenous Flush Every 12 Hours 2. Heparin Flush 10 unit/ mL PF Injectable PRN: 5 mL IntraVenous Flush According to Flush Policy 3. Melatonin: 6 mg Oral At Bedtime 4. Ondansetron Injectable: 4 mg IntraVenous Push Every 8 Hours 5. oxyCODONE Immediate Release: 5 mg Oral Every 4 Hours 6. oxyCODONE Immediate Release: 10 mg Oral Every 4 Hours 7. Sodium Chloride 0.9% Injectable Flush PRN: 10 mL IntraVenous Flush According to Flush Policy 8. Sodium Chloride 0.9% Injectable Flush PRN: 20 mL IntraVenous Flush According to Flush Policy Currently Suspended Medications 1. Amiodarone: 400 mg Oral Every 12 Hours 2. Losartan: 25 mg Oral Daily Recent Lab Results: Results: I have reviewed these laboratory results: Coagulation Screen 30-Nov-2017 06:14:00 Result Value Prothrombin Time, Plasma 14.6 H International Normalized Ratio, Plasma 1.3 H Activated Partial Thromboplastin Time 27 Complete Blood Count + Differential 30-Nov-2017 06:14:00 Result Value White Blood Cell Count 11.5 H Nucleated Erythrocyte Count 0.0 Red Blood Cell Count 4.37 L HGB 9.9 L HCT 33.9 L MCV 78 L MCHC 29.2 L PLT 433 RDW-CV 26.9 H Neutrophil % 71.4 Immature Granulocytes % 3.0 H Lymphocyte % 10.8 L Monocyte % 12.6 H Eosinophil % 1.8 Basophil % 0.4 Neutrophil Count 8.20 H Lymphocyte Count 1.24 Monocyte Count 1.45 H Eosinophil Count 0.21 Basophil Count 0.05 Renal Function Panel 30-Nov-2017 06:14:00 Result Value Glucose, Serum 123 H NA 134 L K 4.2 CL 101 Bicarbonate, Serum 21 Anion Gap, Serum 16 BUN 21 CREAT 1.01 GFR-Non >60 GFR- >60 Calcium, Serum 8.5 L Phosphorus, Serum 4.3 ALB 3.1 L RBC Morphology 30-Nov-2017 06:14:00 Result Value Red Blood Cell Morphology See Below Polychromasia Mild Hypochromasia Mild Ovalocytes Few Magnesium, Serum 30-Nov-2017 06:14:00 Result Value Magnesium, Serum 1.98 Radiology Results: Results: Conclusion: CONCLUSIONS: 1. The left ventricular systolic function is mildly decreased with a 45-50% estimated ejection fraction. 2. Although there is mild global hypokinesis, the inferior wall appears to be more hypokinetic than the rest of the LV. 3. LV false tendon present. 4. The patient was tachycardic throughout the exam with HR 145 bpm ( afib). 5. Compared with the intraoperative MALGORZATA there are no significant changes. LVEF is similar, though the patient is now in rapid AFib. 6. The patient is in atrial fibrillation which may influence the estimate of left ventricular function and transvalvular flows. QUANTITATIVE DATA SUMMARY: 2D MEASUREMENTS: Normal Ranges: IVSd: 1.16 cm (0.6-1.1cm) LVPWd: 1.00 cm (0.6-1.1cm) LVIDd: 4.37 cm (3.9-5.9cm) LVIDs: 3.44 cm LV Mass Index: 76.4 g/m2 LV % FS 21.3 % LA VOLUME: Normal Ranges: LA Area A4C: 20.4 cm2 LA Area A2C: 22.5 cm2 LA Volume Index: 23.8 ml/m2 RA VOLUME BY A/L METHOD: Normal Ranges: RA Area A4C: 18.2 cm2 M-MODE MEASUREMENTS: Normal Ranges: Ao Root: 3.80 cm (2.0-3.7cm) LAs: 3.80 cm (2.7-4.0cm) AORTA MEASUREMENTS: Normal Ranges: Ao Sinus, d: 3.10 cm (2.1-3.5cm) Asc Ao, d: 3.50 cm (2.1-3.4cm) LV SYSTOLIC FUNCTION BY 2D PLANIMETRY (MOD): Normal Ranges: EF-A4C View: 49.3 % (>55%) EF-A2C View: 44.3 % EF-Biplane: 42.1 % AORTIC VALVE: Normal Ranges: LVOT Diameter: 2.60 cm (1.8-2.4cm) RIGHT VENTRICLE: RV 1 4.85 cm RV 2 2.95 cm RV 3 9.51 cm Echocardiogram [Nov 29 2017 4:32PM] Impression: 1. Improved but persistent perihilar congestion and interstitial edema. 2. Unchanged mild bibasilar pleural effusion and atelectasis, left greater than right. 3. Cardiomegaly status post median sternotomy and CABG. Xray Chest 2 View PA + Lateral [Nov 28 2017 2:33PM] Assessment and Plan: Assessment: Patient is a 62yo M with PMH HTN who presented as a transfer from [place] on 11/20/17 with STEMI. Patient had been having exertional chest pain for ~2 months prior to presentation. 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 CP was associated occasionally with dyspnea and diaphoresis and radiated down his b/l arms. Rest always relieved the chest pain until 11/17, when the chest pain developed with walking and was unremitting even with rest. Patient took multiple aspirin and an extra dose of his lopressor and went to sleep. Upon awakening on 11/18 he continued to have chest pain at rest, for which he took more aspirin (10 aspirin total) and more Lopressor. Eventually due to persistent chest pain he presented to [facility]. At [facility] on 11/19 he was found with STEMI (no EKG from this), loaded with ASA, ticagrelor, started on heparin gtt and nitro gtt, and transferred to [facility]. EKG on arrival to [facility] showed diffuse ST depressions as well as ST elevations in aVR, V1. Taken for LHC (report below) and placement of IABP. At [facility], patient was started on metoprolol tartrate 25mg 6h, atorva 80, ASA 81mg daily, s/p load Brilinta 11/19 at OSH, protonix 40mg daily, Lisinopril 2.5mg. Given 1u pRBCs for H&H 6.4/23.2 and transferred to [facility] CICU for further care. At [facility] patient was given another 2 Unit(s) pRBCs without appropriate incrementation (6.4 > 7.8). GI was consulted and EGD was performed as patient had 1 episode of hemoptysis 2-3 weeks prior to presentation and took multiple ASA. Was started on IV PPI BID. EGD showed 1 cm hiatal hernia, mild gastritis and mild erythematous duodenopathy. No clear source of blood loss. Suspected slow LGIB but unable to perform colonoscopy due to IABP. GI signed off and recommended re-consulting if new s/s of bleeding. CT-PE was negative for PE. Heparin gtt was held for 24 hours and then restarted when there were no further s/s of bleeding. Patient was given another 3 Unit(s) pRBCs and Hgb up to 10.4. Cardiac surgery was consulted and patient was scheduled for CABG. Patient was heparinized for 24 hrs prior to CABG with no further s/s of bleeding. All anti-platelet agents except for ASA held due to risk of bleeding. Patient presents to CTICU s/p CABG X 5 (SVG Composite graft to Radial to PDA to PDL, SVG Composite graft to Radial to Diag to OM, EVANS to LAD), left internal mammary harvest, endoscopic left saphenous vein harvest and endoscopic left radial harvest. OPERATION/PROCEDURE: 11/23/17 Dr. Yuan 1. Urgent coronary artery bypass graft x5, left internal mammary artery to left anterior descending artery; composite radial artery graft to diagonal and obtuse marginal sequentially. 2. Composite radial artery graft sequentially to PDA and to the PLV branch of the right coronary artery. 3. Extracorporeal circulation. 4. Endoscopic harvest of left radial artery. 5. Endoscopic harvest of left greater saphenous vein. SICU- Afib with RVR Transfer to T3 3/ Impression and Plan POD# 7 s/p CABGX5 -increase activity/ ambulation; physical therapy -encourage IS, C/DB; respiratory therapy -cardiac rehab referral -continue cardiac meds: aspirin, statin, beta rachael - Plavix for NSTEMI for one year -pain and constipation meds -2v CXR see above results - wires removed 11/28 - optimize lytes and nutrition - tele until discharge - stopped accu checks Rhythm- Postop AFib in CTICU - Tele Aflutter 90's - EP consulted appreciate recs - Metoprolol 25mg PO BID; 50mg q6 hours, 11/30 changed to Metoprolol Succinate 100mg BID - additional 5mg IV metoprolol given - 11/29 Ami bolus and drip restarted per Dr. Yuan for Afib - Amiodarone 400mg PO BID- on hold since now getting bolus and drip , drip will end 11/30 1900 and restart by mouth Amio - Digoxin 0.5mg X1 then 0.25mg X1 on 11/29 stopped due to ami bolus - Limited Echo done to rule out effusion- No effusion but LV false tendon present- Dr. Yuan aware - No heparin or coumadin at this time per Dr. Yuan will reassess in am of 11/30 - adjust as needed Acute postop blood loss anemia - Hct 33.9, 32.3, 31.6 - Mv and iron - daily CBC while in hospital Fluid Volume status- Preop wt 134 - wt 102.4, 107.4 - Lasix 20mg IV BID; change to PO in am 11/30, inc. to 2xd - Losartan 25mg daily; holding for afib and low SBP 11/29 - replace lytes as needed for hypokalemia/ hypomagnesemia- repleted MG on 11/30 - daily weights; I and O's - daily renal panel Hx Hypertension - SBP last 24 hours 90-125 - losartan 25mg daily; holding 37 Preoperative Bleeding- microcytic anemia - GI consult - EGD negative - continue protonix BID - may need colonoscopy if pt rebleeds - received 6units PRBC prior to OR Dispo - PT recs home with PT - not ready for discharge at this time - anticipate discharge once HR stable -follow up at with Dr. Yuan d/w Dr. Yuan Signature/Cosignature/Attestation: Provider/Team Contact Info-Pager Number cardiac surgery [phone] Electronic Signatures: Monica Calderon (HAUL DRIVER-WIRE TESTER) (Signed 30-Nov-2017 18:49) Authored: Service, Subjective Data, Objective Data, Assessment and Plan, Signature/Cosignature/Attestation Last Updated: 30-Nov-2017 18:49 by Monica Calderon (HAUL DRIVER-WIRE TESTER) CLINICAL EVENT Observed: 11/30/2017 Status: UNK Source: [facility] NOTE-PAIN IN THE 11:29 AM HOSPITALS REPOSITORY MIDLINE ARM Event: Topic: pain in the Midline arm Details: [place] RN called to consult regarding pt c/o pain in the RUE with Midline placed 3/7 for general access due to HR >150 times/mins. At night, ordered to start Aminodarone IV cont. Recommended the nurse to have a Central line/PICC placed for Amiodarone drips. But the pt with renal issues. Needed renal clearance prior to place PICC line. Provider / Team Contact Information: Provider/Team Contact Info-Pager Number: [phone] Electronic Signatures: Elba Lynn (RN) (Signed 30-Nov-2017 11:34) Authored: Event, Provider / Team Contact Information Last Updated: 30-Nov-2017 11:34 by Elba Lynn (RN) DAILY PROGRESS Observed: 11/30/2017 Status: COMPLETED Source: [facility] NOTE-EP 10:50 AM HOSPITALS REPOSITORY Service: EP Subjective Data: ANDREI RODRIGUEZ is a 62 year old Male who is Hospital Day # 11 and POD #7 for Cab X5;SVG Composite graft to Radial to PDA to PDL;SVG Composite graft to Radial to Diag to OM;EVANS to LAD;Left internal mammary harvest;Left saphenous vein endo harvest;Left Radial endo harvest. Rate much better controlled overnight, (80-90, max HR low 100). Objective Data: Objective Information: T P R BP SpO2 Value 36.4 104 19 119/81 94% Date/Time 11/30 10:11/30 10:06 11/30 10:06 11/30 10:06 11/30 10:06 Range (36.1C - 37.2C ) (92 - 145 ) (16 - 21 ) (96 - 130 )/ (65 - 101 ) (93% - 98% ) Highest temp of 37.2 C was recorded at 11/29 11:03 ---- Intake and Output ----- Mn/Dy/Year Time Intake Output Net Nov 30, 2017 6:00 am 250.1 500 -250 Nov 29, 2017 10:00 pm 253.2 1 252 Nov 29, 2017 2:00 pm 0 2 -2 The Intake and Output Totals for the last 24 hours are: Intake Output Net 503 503 0 Physical Exam: Constitutional: AAO x3, NAD Respiratory/Thorax: ctab Cardiovascular: regular rate, irregular rhythm Extremities: No edema Skin: warm and dry Medication: Medications: ALTERNATIVE MEDICINES: 1. Melatonin: 6 mg Oral At Bedtime PRN CARDIOVASCULAR AGENTS: 1. Amiodarone 900 mg/ D5W 500 mL Infusion: 900 mg IntraVenous <Continuous> 2. Metoprolol Tartrate: 50 mg Oral Every 6 Hours 3. Furosemide: 20 mg Oral Daily CENTRAL NERVOUS SYSTEM AGENTS: 1. Acetaminophen: 650 mg Oral Every 6 Hours 2. Aspirin Enteric Coated: 81 mg Oral Daily 3. oxyCODONE Immediate Release: 5 mg Oral Every 4 Hours PRN 4. oxyCODONE Immediate Release: 10 mg Oral Every 4 Hours PRN 5. Ondansetron Injectable: 4 mg IntraVenous Push Every 8 Hours PRN COAGULATION MODIFIERS: 1. Heparin Flush 10 unit/ mL PF Injectable: 5 mL IntraVenous Flush Every 12 Hours PRN 2. Heparin Flush 10 unit/ mL PF Injectable PRN: 5 mL IntraVenous Flush According to Flush Policy PRN 3. Heparin SubCutaneous: 5000 unit(s) SubCutaneous Every 8 Hours 4. Clopidogrel: 75 mg Oral Daily GASTROINTESTINAL AGENTS: 1. Docusate 50 mg - Senna 8.6 m tablet(s) Oral 2 Times a Day 2. Polyethylene Glycol: 17 gram(s) Oral 3 Times a Day 3. Pantoprazole: 40 mg Oral 2 Times a Day IMMUNOLOGIC AGENTS: 1. Influenza Virus QUADRIVALENT (Inactive) ADULT Vaccine: 0.5 mL IntraMuscular Once METABOLIC AGENTS: 1. Atorvastatin: 40 mg Oral Daily NUTRITIONAL PRODUCTS: 1. Iron Polysaccharide Complex: 150 mg Oral Daily 2. Sodium Chloride 0.9% Injectable Flush: 10 mL IntraVenous Flush Every 12 Hours 3. Sodium Chloride 0.9% Injectable Flush: 1.5 mL IntraVenous Flush Every 8 Hours and as Needed 4. Sodium Chloride 0.9% Injectable Flush PRN: 10 mL IntraVenous Flush According to Flush Policy PRN 5. Sodium Chloride 0.9% Injectable Flush PRN: 20 mL IntraVenous Flush According to Flush Policy PRN 6. Multivitamin with Minerals: 1 tablet(s) Oral Daily Currently Suspended Medications 1. Losartan: 25 mg Oral Daily 2. Amiodarone: 400 mg Oral Every 12 Hours Recent Lab Results: Results: I have reviewed these laboratory results: Coagulation Screen 29-Nov-2017 06:23:00 Result Value Prothrombin Time, Plasma 14.1 H International Normalized Ratio, Plasma 1.3 H Activated Partial Thromboplastin Time 27 Complete Blood Count + Differential 29-Nov-2017 06:23:00 Result Value White Blood Cell Count 9.8 Nucleated Erythrocyte Count 0.0 Red Blood Cell Count 4.58 HGB 10.3 L HCT 35.1 L MCV 77 L MCHC 29.3 L PLT 396 RDW-CV 27.1 H Neutrophil % 67.7 Immature Granulocytes % 2.4 H Lymphocyte % 13.5 Monocyte % 13.8 H Eosinophil % 2.1 Basophil % 0.5 Neutrophil Count 6.62 Lymphocyte Count 1.32 Monocyte Count 1.35 H Eosinophil Count 0.21 Basophil Count 0.05 Renal Function Panel 29-Nov-2017 06:23:00 Result Value Glucose, Serum 93 NA 134 L K 4.0 CL 100 Bicarbonate, Serum 23 Anion Gap, Serum 15 BUN 18 CREAT 0.91 GFR-Non >60 GFR- >60 Calcium, Serum 8.7 Phosphorus, Serum 4.1 ALB 3.2 L Radiology Results: Results: Conclusion: CONCLUSIONS: 1. The left ventricular systolic function is mildly decreased with a 45-50% estimated ejection fraction. 2. Although there is mild global hypkinesis, the inferior wall appears to be more hypokinetic than the rest of the LV. 3. LV false tendon present. 4. The patient was tachycardic throughout the exam with HR 145 bpm ( afib). 5. Compared with the intraoperative MALGORZATA there are no significant changes. LVEF is similar, though the patient is now in rapid AFib. 6. The patient is in atrial fibrillation which may influence the estimate of left ventricular function and transvalvular flows. QUANTITATIVE DATA SUMMARY: 2D MEASUREMENTS: Normal Ranges: IVSd: 1.16 cm (0.6-1.1cm) LVPWd: 1.00 cm (0.6-1.1cm) LVIDd: 4.37 cm (3.9-5.9cm) LVIDs: 3.44 cm LV Mass Index: 76.4 g/m2 LV % FS 21.3 % LA VOLUME: Normal Ranges: LA Area A4C: 20.4 cm2 LA Area A2C: 22.5 cm2 LA Volume Index: 23.8 ml/m2 RA VOLUME BY A/L METHOD: Normal Ranges: RA Area A4C: 18.2 cm2 M-MODE MEASUREMENTS: Normal Ranges: Ao Root: 3.80 cm (2.0-3.7cm) LAs: 3.80 cm (2.7-4.0cm) AORTA MEASUREMENTS: Normal Ranges: Ao Sinus, d: 3.10 cm (2.1-3.5cm) Asc Ao, d: 3.50 cm (2.1-3.4cm) LV SYSTOLIC FUNCTION BY 2D PLANIMETRY (MOD): Normal Ranges: EF-A4C View: 49.3 % (>55%) EF-A2C View: 44.3 % EF-Biplane: 42.1 % AORTIC VALVE: Normal Ranges: LVOT Diameter: 2.60 cm (1.8-2.4cm) RIGHT VENTRICLE: RV 1 4.85 cm RV 2 2.95 cm RV 3 9.51 cm Echocardiogram [Nov 29 2017 4:32PM] Assessment and Plan: Assessment: 62 y/o man with HTN, CAD s/p IL and CABGx5 now with recurrence of post op AF 6 days after surgery. Telemetry reviewed. Beta blockers were increased on 11/29/17 and received Dig load. Patient ChadsVasc 2, would benefit from anticoagulation due to increased stroke risk. Recs: - continue with rate control (Metoprolol), responded well at this point with rate in the 80s-90s. No further optimization needed at this point. - When cleared from surgical standpoint, please start anticoagulation, given CHADSVasc 2 - Patient not a candidate for DCCV since he is spontaneously converting in and out of AF/AFL We will sign off, please contact us if further questions arise. Staffed with Signature/Cosignature/Attestation: Attending Attestation I reviewed the resident/fellow?s documentation and discussed the patient with the resident/fellow. I agree with the resident/fellow?s medical decision making as documented in the resident?s note. Electronic Signatures: Rmay Corbett) (Signed 04-Dec-2017 12:59) Authored: Signature/Cosignature/Attestation Co-Signer: Signature/Cosignature/Attestation Farnaz Carrington (Fellow)) (Signed 30-Nov-2017 20:17) Authored: Service, Subjective Data, Objective Data, Assessment and Plan, Signature/Cosignature/Attestation Last Updated: 04-Dec-2017 12:59 by Ramy Corbett) MAGNESIUM Collected: 11/30/2017 Status: F Source: [facility] 6:14 [facility]PITALS REPOSITORY TYPE CODE TESTS RESULT OUT OF REFERENCE UNITS RANGE LAB MG(LOINC) 1.60 - 2.40 mg/dL MAGNESIUM 1.98 Performed By: #### MG #### [facility] [id number] [place] [address] RENAL FUNCTION PANEL Collected: 11/30/2017 Status: F Source: [facility] 6:14 [facility] REPOSITORY TYPE CODE TESTS RESULT OUT OF REFERENCE UNITS RANGE LAB GLU(LOINC) 74 - 99 mg/dL GLUCOSE High 123 LAB SOD(LOINC) 136 - 145 mmol/L Low SODIUM 134 LAB K(LOINC) 3.5 - 5.3 mmol/L POTASSIUM 4.2 LAB CHLOR(LOIN 98 - 107 mmol/L C) CHLORIDE 101 LAB BIC(LOINC) 21 - 32 mmol/L BICARBONATE 21 LAB ANGAP(LOIN 10 - 20 mmol/L C) ANION GAP 16 LAB UREA(LOINC 6 - 23 mg/dL ) UREA NITROGEN 21 LAB CREA(LOINC 0.50 - 1.30 mg/dL ) CREATININE 1.01 LAB GFRFN(LOIN >60 mL/min/1.7 C) 3m2 GFR-NON AM. >60 LAB GFRAA(LOIN >60 mL/min/1.7 C) 3m2 GFR- AM. >60 Result Comment: CALCULATIONS OF ESTIMATED GFR ARE PERFORMED USING THE MDRD STUDY EQUATION FOR THE IDMS-TRACEABLE CREATININE METHODS. CLIN CHEM 2007;53:766-72 LAB CA(LOINC) 8.6 - 10.6 mg/dL CALCIUM Low 8.5 LAB PHOS(LOINC) 2.5 - 4.9 mg/dL PHOSPHORUS 4.3 Result Comment: The performance characteristics of phosphorus testing in heparinized plasma have been validated by the individual laboratory site where testing is performed. Testing on heparinized plasma is not approved by the FDA; however, such approval is not necessary. LAB ALB(LOINC) 3.4 - 5.0 g/dL Low ALBUMIN 3.1 Performed By: #### RENAL #### [facility] [address] [place] [id number] COAGULATION SCREEN Collected: 11/30/2017 Status: F Source: [facility] 6:14 [facility] REPOSITORY TYPE CODE TESTS RESULT OUT OF REFERENCE UNITS RANGE LAB PT(LOINC) 9.8 - 12.7 sec PROTHROMBIN High TIME 14.6 LAB INR(LOINC) 0.9 - 1.1 PT, INR High 1.3 LAB APTT(LOINC 25 - 36 sec ) APTT 27 Result Comment: THE APTT IS NO LONGER USED FOR MONITORING UNFRACTIONATED HEPARIN THERAPY. FOR MONITORING HEPARIN THERAPY, USE THE HEPARIN ASSAY. Performed By: #### COAGS #### [facility] [address] [place] [id number] CBC AND DIFFERENTIAL Collected: 11/30/2017 Status: F Source: [facility] 6:14 [facility] REPOSITORY TYPE CODE TESTS RESULT OUT OF REFERENCE UNITS RANGE LAB WBCR(LOINC 4.4 - 11.3 x10E9/L ) WBC High 11.5 LAB NRBC(LOINC 0.0-0.0 /100 WBC ) NUCLEATED RBC 0.0 LAB RBCCT(LOIN 4.50 - 5.90 x10E12/L C) Low RBC 4.37 LAB HGB(LOINC) 13.5 - 17.5 g/dL Low HGB 9.9 LAB HCT(LOINC) 41.0 - 52.0 % Low HCT 33.9 LAB MCV(LOINC) 80 - 100 fL Low MCV 78 LAB MCHC2(LOIN 32.0 - 36.0 g/dL C) Low MCHC 29.2 LAB PLTCT(LOIN 150 - 450 x10E9/L C) PLT 433 LAB RDWCV(LOIN 11.5 - 14.5 % C) RDW-CV High 26.9 LAB NEUT(LOINC 40.0 - 80.0 % ) % NEUTROPHIL 71.4 LAB IG(LOINC) 0.0 - 0.9 % % High AUTOMATED 3.0 IMMATURE GRAN Result Comment: Percent differential counts (%) should be interpreted in the context of the absolute cell counts (cells/L). LAB LYMPH(LOINC) 13.0 - % Low 44.0 % LYMPHOCYTE 10.8 LAB MONO(LOINC) 2.0 - 10.0 % % MONOCYTE High 12.6 LAB EOS(LOINC) 0.0 - 6.0 % % EOSINOPHIL 1.8 LAB BASO(LOINC) 0.0 - 2.0 % % BASOPHIL 0.4 LAB #NEUT(LOINC) 1.20 - x10E9/L 7.70 NEUTROPHIL High 8.20 LAB #LYMP(LOINC) 1.20 - x10E9/L 4.80 LYMPHOCYTE 1.24 LAB #MONO(LOINC) 0.10 - x10E9/L 1.00 MONOCYTE High 1.45 LAB #EOS(LOINC) 0.00 - x10E9/L 0.70 EOSINOPHIL 0.21 LAB #BASO(LOINC) 0.00 - x10E9/L 0.10 BASOPHIL 0.05 Performed By: #### CBCDF #### [facility] [address] [place] [address] RED CELL MORPHOLOGY Collected: 11/30/2017 Status: F Source: [facility] 6:14 AM [facility]ALS REPOSITORY TYPE CODE TESTS RESULT OUT OF REFERENCE UNITS RANGE LAB RBCMO(LOIN C) RBC MORPHOLOGY See Below LAB POLY(LOINC ) POLYCHROMASIA Mild LAB HYPO(LOINC ) HYPOCHROMASIA Mild LAB OVALO(LOIN C) OVALOCYTES Few Performed By: #### MORP2 #### [facility] [address] [place] [address] DAILY PROGRESS Observed: 11/29/2017 Status: COMPLETED Source: [facility] NOTE-CARDIAC SURGERY 6:07 PM HOSPITALS REPOSITORY Service: Cardiac Surgery Subjective Data: ANDREI RODRIGUEZ is a 62 year old Male who is Hospital Day # 10 and POD #6 for Cab X5;SVG Composite graft to Radial to PDA to PDL; SVG Composite graft to Radial to Diag to OM;EVANS to LAD;Left internal mammary harvest;Left saphenous vein endo harvest;Left Radial endo harvest. Overnight Events: Acute events in the past 24 hours include Additional Information: Remains in Afib with RVR; Dig loaded; EP consulted Objective Data: Objective Information: ---- Intake and Output ----- Mn/Dy/Year Time Intake Output Net Nov 29, 2017 2:00 pm 0 2 -2 Nov 29, 2017 6:00 am 0 200 -200 Nov 28, 2017 10:00 pm 0 0 0 The Intake and Output Totals for the last 24 hours are: Intake Output Net 240 200 40 T P R BP SpO2 Value 36.3 142 20 120/84 94% Date/Time 11/29 15:51 11/29 15:51 11/29 15:51 11/29 17:00 11/29 15:51 Range (36.3C - 37.7C ) (93 - 150 ) (18 - 21 ) (90 - 123 )/ (65 - 87 ) (92% - 97% ) Highest temp of 37.7 C was recorded at 11/29 3:11 Weights 11/29 3:11: Weight in kg (Weight (kg)) 102.4 11/29 3:11: Weight in lbs ((lbs)) 225.9 Physical Exam: Constitutional: Laying in bed; Alert and Oriented X3; NAD Eyes: sclera clear Respiratory/Thorax: Lungs clear, diminished in bases; sternum stable Cardiovascular: Irregular, S1S2 Tele AFib 120-140's no wires Gastrointestinal: obese, soft, nontender, nondistended, +BS, +postop BM 11/28 Genitourinary: voiding Musculoskeletal: SOLIZ; ambulating in halls Extremities: trace pedal edema Neurological: No focal deficits Psychological: Appropriate mood and behavior Skin: Warm and dry Midsternal incision NELI- no s/s infection Left radial graft- PLASTIC SHAPER no s/s infection Left SVG- NELI no s/s infection Medication: Medications: Continuous Medications No continuous medications are active Scheduled Medications 1. Acetaminophen: 650 mg Oral Every 6 Hours 2. Amiodarone: 400 mg Oral Every 12 Hours 3. Aspirin Enteric Coated: 81 mg Oral Daily 4. Atorvastatin: 40 mg Oral Daily 5. Clopidogrel: 75 mg Oral Daily 6. Digoxin Injectable: 0.25 mg IntraVenous Push Once 7. Docusate 50 mg - Senna 8.6 m tablet(s) Oral 2 Times a Day 8. Heparin SubCutaneous: 5000 unit(s) SubCutaneous Every 8 Hours 9. Influenza Virus QUADRIVALENT (Inactive) ADULT Vaccine: 0.5 mL IntraMuscular Once 10. Iron Polysaccharide Complex: 150 mg Oral Daily 11. Metoprolol Tartrate: 50 mg Oral Every 6 Hours 12. Multivitamin with Minerals: 1 tablet(s) Oral Daily 13. Pantoprazole: 40 mg Oral 2 Times a Day 14. Polyethylene Glycol: 17 gram(s) Oral 3 Times a Day 15. Sodium Chloride 0.9% Injectable Flush: 1.5 mL IntraVenous Flush Every 8 Hours and as Needed 16. Sodium Chloride 0.9% Injectable Flush: 10 mL IntraVenous Flush Every 12 Hours PRN Medications 1. Heparin Flush 10 unit/ mL PF Injectable: 5 mL IntraVenous Flush Every 12 Hours 2. Heparin Flush 10 unit/ mL PF Injectable PRN: 5 mL IntraVenous Flush According to Flush Policy 3. Melatonin: 6 mg Oral At Bedtime 4. Ondansetron Injectable: 4 mg IntraVenous Push Every 8 Hours 5. oxyCODONE Immediate Release: 5 mg Oral Every 4 Hours 6. oxyCODONE Immediate Release: 10 mg Oral Every 4 Hours 7. Sodium Chloride 0.9% Injectable Flush PRN: 10 mL IntraVenous Flush According to Flush Policy 8. Sodium Chloride 0.9% Injectable Flush PRN: 20 mL IntraVenous Flush According to Flush Policy Currently Suspended Medications 1. Losartan: 25 mg Oral Daily Recent Lab Results: Results: I have reviewed these laboratory results: Coagulation Screen 29-Nov-2017 06:23:00 Result Value Prothrombin Time, Plasma 14.1 H International Normalized Ratio, Plasma 1.3 H Activated Partial Thromboplastin Time 27 Complete Blood Count + Differential 29-Nov-2017 06:23:00 Result Value White Blood Cell Count 9.8 Nucleated Erythrocyte Count 0.0 Red Blood Cell Count 4.58 HGB 10.3 L HCT 35.1 L MCV 77 L MCHC 29.3 L PLT 396 RDW-CV 27.1 H Neutrophil % 67.7 Immature Granulocytes % 2.4 H Lymphocyte % 13.5 Monocyte % 13.8 H Eosinophil % 2.1 Basophil % 0.5 Neutrophil Count 6.62 Lymphocyte Count 1.32 Monocyte Count 1.35 H Eosinophil Count 0.21 Basophil Count 0.05 Renal Function Panel 29-Nov-2017 06:23:00 Result Value Glucose, Serum 93 NA 134 L K 4.0 CL 100 Bicarbonate, Serum 23 Anion Gap, Serum 15 BUN 18 CREAT 0.91 GFR-Non >60 GFR- >60 Calcium, Serum 8.7 Phosphorus, Serum 4.1 ALB 3.2 L RBC Morphology 29-Nov-2017 06:23:00 Result Value Red Blood Cell Morphology See Below Polychromasia Mild Hypochromasia Mild Ovalocytes Few Teardrop Cells Few Magnesium, Serum 29-Nov-2017 06:23:00 Result Value Magnesium, Serum 2.02 Radiology Results: Results: Conclusion: CONCLUSIONS: 1. The left ventricular systolic function is mildly decreased with a 45-50% estimated ejection fraction. 2. Although there is mild global hypkinesis, the inferior wall appears to be more hypokinetic than the rest of the LV. 3. LV false tendon present. 4. The patient was tachycardic throughout the exam with HR 145 bpm ( afib). 5. Compared with the intraoperative MALGORZATA there are no significant changes. LVEF is similar, though the patient is now in rapid AFib. 6. The patient is in atrial fibrillation which may influence the estimate of left ventricular function and transvalvular flows. QUANTITATIVE DATA SUMMARY: 2D MEASUREMENTS: Normal Ranges: IVSd: 1.16 cm (0.6-1.1cm) LVPWd: 1.00 cm (0.6-1.1cm) LVIDd: 4.37 cm (3.9-5.9cm) LVIDs: 3.44 cm LV Mass Index: 76.4 g/m2 LV % FS 21.3 % LA VOLUME: Normal Ranges: LA Area A4C: 20.4 cm2 LA Area A2C: 22.5 cm2 LA Volume Index: 23.8 ml/m2 RA VOLUME BY A/L METHOD: Normal Ranges: RA Area A4C: 18.2 cm2 M-MODE MEASUREMENTS: Normal Ranges: Ao Root: 3.80 cm (2.0-3.7cm) LAs: 3.80 cm (2.7-4.0cm) AORTA MEASUREMENTS: Normal Ranges: Ao Sinus, d: 3.10 cm (2.1-3.5cm) Asc Ao, d: 3.50 cm (2.1-3.4cm) LV SYSTOLIC FUNCTION BY 2D PLANIMETRY (MOD): Normal Ranges: EF-A4C View: 49.3 % (>55%) EF-A2C View: 44.3 % EF-Biplane: 42.1 % AORTIC VALVE: Normal Ranges: LVOT Diameter: 2.60 cm (1.8-2.4cm) RIGHT VENTRICLE: RV 1 4.85 cm RV 2 2.95 cm RV 3 9.51 cm Echocardiogram [Nov 29 2017 4:32PM] Impression: 1. Improved but persistent perihilar congestion and interstitial edema. 2. Unchanged mild bibasilar pleural effusion and atelectasis, left greater than right. 3. Cardiomegaly status post median sternotomy and CABG. Xray Chest 2 View PA + Lateral [Nov 28 2017 2:33PM] Assessment and Plan: Assessment: Patient is a 62yo M with PMH HTN who presented as a transfer from [place] on 11/20/17 with STEMI. Patient had been having exertional chest pain for ~2 months prior to presentation. 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 CP was associated occasionally with dyspnea and diaphoresis and radiated down his b/l arms. Rest always relieved the chest pain until 11/17, when the chest pain developed with walking and was unremitting even with rest. Patient took multiple aspirin and an extra dose of his lopressor and went to sleep. Upon awakening on 11/18 he continued to have chest pain at rest, for which he took more aspirin (10 aspirin total) and more Lopressor. Eventually due to persistent chest pain he presented to [facility]. At [facility] on 11/19 he was found with STEMI (no EKG from this), loaded with ASA, ticagrelor, started on heparin gtt and nitro gtt, and transferred to [facility]. EKG on arrival to [place] showed diffuse ST depressions as well as ST elevations in aVR, V1. Taken for LHC (report below) and placement of IABP. At [facility], patient was started on metoprolol tartrate 25mg 6h, atorva 80, ASA 81mg daily, s/p load Brilinta 11/19 at OSH, protonix 40mg daily, Lisinopril 2.5mg. Given 1u pRBCs for H&H 6.4/23.2 and transferred to [facility] CICU for further care. At [facility] patient was given another 2 Unit(s) pRBCs without appropriate incrementation (6.4 > 7.8). GI was consulted and EGD was performed as patient had 1 episode of hemoptysis 2-3 weeks prior to presentation and took multiple ASA. Was started on IV PPI BID. EGD showed 1 cm hiatal hernia, mild gastritis and mild erythematous duodenopathy. No clear source of blood loss. Suspected slow LGIB but unable to perform colonoscopy due to IABP. GI signed off and recommended re-consulting if new s/s of bleeding. CT-PE was negative for PE. Heparin gtt was held for 24 hours and then restarted when there were no further s/s of bleeding. Patient was given another 3 Unit(s) pRBCs and Hgb up to 10.4. Cardiac surgery was consulted and patient was scheduled for CABG. Patient was heparinized for 24 hrs prior to CABG with no further s/s of bleeding. All anti-platelet agents except for ASA held due to risk of bleeding. Patient presents to CTICU s/p CABG X 5 (SVG Composite graft to Radial to PDA to PDL, SVG Composite graft to Radial to Diag to OM, EVANS to LAD), left internal mammary harvest, endoscopic left saphenous vein harvest and endoscopic left radial harvest. OPERATION/PROCEDURE: 11/23/17 Dr. Yuan 1. Urgent coronary artery bypass graft x5, left internal mammary artery to left anterior descending artery; composite radial artery graft to diagonal and obtuse marginal sequentially. 2. Composite radial artery graft sequentially to PDA and to the PLV branch of the right coronary artery. 3. Extracorporeal circulation. 4. Endoscopic harvest of left radial artery. 5. Endoscopic harvest of left greater saphenous vein. SICU- Afib with RVR Transfer to T3 3/ Impression and Plan POD# 6 s/p CABGX5 -increase activity/ ambulation; physical therapy -encourage IS, C/DB; respiratory therapy -cardiac rehab referral -continue cardiac meds: aspirin, statin, beta rachael - Plavix for NSTEMI for one year -pain and constipation meds -2v CXR see above results - wires removed 11/28 - optimize lytes and nutrition - tele until discharge - stopped accu checks Rhythm- Postop AFib in CTICU - NSR 80's; Today AFib with RVR - EP consulted appreciate recs - Metoprolol 25mg PO BID; 50mg q6 hours - additional 5mg IV metoprolol given - 11/29 Ami bolus and drip restarted per Dr. Yuan for Afib - Amiodarone 400mg PO BID- on hold since now getting bolus and drip - Digoxin 0.5mg X1 then 0.25mg X1 on 11/29 stopped due to ami bolus - Limited Echo done to rule out effusion- No effusion but LV false tendon present- Dr. Yuan aware - No heparin or coumadin at this time per Dr. Yuan will reassess in am of 11/30 - adjust as needed Acute postop blood loss anemia - Hct 32.3, 31.6 - Mv and iron - daily CBC while in hospital Fluid Volume status- Preop wt 134 - wt 102.4, 107.4 - Lasix 20mg IV BID; change to PO in am 11/30 - Losartan 25mg daily; holding for afib and low SBP 11/29 -replace lytes as needed for hypokalemia/ hypomagnesemia- repleted - daily weights; I and O's - daily renal panel Hx Hypertension - SBP last 24 hours 98-133 - losartan 25mg daily; holding 11/29 Preoperative Bleeding- microcytic anemia - GI consult - EGD negative - continue protonix BID - may need colonoscopy if pt rebleeds - received 6units PRBC prior to OR Dispo - PT recs home with PT - not ready for discharge at this time - anticipate discharge once HR stable -follow up at with Dr. Yuan d/w Dr. Yuan Signature/Cosignature/Attestation: Provider/Team Contact Info-Pager Number cardiac surgery [phone] Electronic Signatures: Miguel Coffey (HAUL DRIVER-WIRE TESTER) (Signed 29-Nov-2017 18:26) Authored: Service, Subjective Data, Objective Data, Assessment and Plan, Signature/Cosignature/Attestation Last Updated: 29-Nov-2017 18:26 by Miguel Coffey (HAUL DRIVER-WIRE TESTER) ECHOCARDIOGRAM Observed: 11/29/2017 Status: F Source: [place] 3:30 PM [facility], [address] [place] [address] and TRANSTHORACIC ECHOCARDIOGRAM REPORT Patient Name: ANDREI Edmond Hernandez Physician: [id number] Ignacia Lim MD Study Date: 11/29/2017 Referring Darci Yuan MD Physician: MRN/PID: [id number] PCP: Accession/Order#: [id number] [place] [id number] Location: Date of : 1955 Fellow: Shiloh Adair MD Gender: M Nurse: Admit Date: 11/20/2017 Manager Metrology: Lucia Whitfield RDCS Admission Status: Inpatient - Routine Additional Staff: Height: 182.88 cm CC Report to: [address] Weight: 90.72 kg Study Type: Echocardiogram BSA: 2.13 m2 Blood Pressure: 100 /71 mmHg Diagnosis/ICD: I31.3 Pericardial effusion (noninflammatory) Indication: Effusion/A-Fib Procedure/CPT: Echo Limited (80488);Doppler Limited (97241);Color Doppler (29429) Patient History: Pertinent History: A-Fib, HTN, Dyspnea and Chest Pain. CAD s/p CABG X 5 (11/23/2017), STEMI (11/20/2017),. Study Detail: The following Echo studies were performed: 2D, M-Mode, Doppler and color flow. PHYSICIAN INTERPRETATION: Left Ventricle: The left ventricular systolic function is mildly decreased, with an estimated ejection fraction of 45-50%. The patient is in atrial fibrillation which may influence the estimate of left ventricular function and transvalvular flows. The left ventricular cavity size is normal. There is a false tendon visualized in the left ventricle. Left ventricular diastolic filling was not assessed. A lthough there is mild global hypkinesis, the inferior wall appears to be more hypokinetic than the rest of the LV. Left Atrium: The left atrium is normal in size. Right Ventricle: The right ventricle is normal in size. Right ventricular systolic function not assessed. Right Atrium: The right atrium is mildly dilated. Aortic Valve: The aortic valve is probably trileaflet. There is no evidence of aortic valve regurgitation. Mitral Valve: The mitral valve is normal in structure. There is trace mitral valve regurgitation. Tricuspid Valve: The tricuspid valve is structurally normal. There is trace tricuspid regurgitation. The right ventricular systolic pressure is unable to be estimated. Pulmonic Valve: The pulmonic valve is not well visualized. There is physiologic pulmonic valve regurgitation. Pericardium: There is a trivial pericardial effusion. There are tricuspid valve respiratory variations. Aorta: The aortic root is normal. There is mild dilatation of the ascending aorta. Systemic Veins: The inferior vena cava appears to be of normal size. There is IVC inspiratory collapse greater than 50%. In comparison to the previous echocardiogram(s): Compared with the intraoperative MALGORZATA there are no significant changes. LVEF is similar, though the patient is now in rapid AFib. CONCLUSIONS: 1. The left ventricular systolic function is mildly decreased with a 45-50% estimated ejection fraction. 2. Although there is mild global hypkinesis, the inferior wall appears to be more hypokinetic than the rest of the LV. 3. LV false tendon present. 4. The patient was tachycardic throughout the exam with HR 145 bpm ( afib). 5. Compared with the intraoperative MALGORZATA there are no significant changes. LVEF is similar, though the patient is now in rapid AFib. 6. The patient is in atrial fibrillation which may influence the estimate of left ventricular function and transvalvular flows. QUANTITATIVE DATA SUMMARY: 2D MEASUREMENTS: Normal Ranges: IVSd: 1.16 cm (0.6-1.1cm) LVPWd: 1.00 cm (0.6-1.1cm) LVIDd: 4.37 cm (3.9-5.9cm) LVIDs: 3.44 cm LV Mass Index: 76.4 g/m2 LV % FS 21.3 % LA VOLUME: Normal Ranges: LA Area A4C: 20.4 cm2 LA Area A2C: 22.5 cm2 LA Volume Index: 23.8 ml/m2 RA VOLUME BY A/L METHOD: Normal Ranges: RA Area A4C: 18.2 cm2 M-MODE MEASUREMENTS: Normal Ranges: Ao Root: 3.80 cm (2.0-3.7cm) LAs: 3.80 cm (2.7-4.0cm) AORTA MEASUREMENTS: Normal Ranges: Ao Sinus, d: 3.10 cm (2.1-3.5cm) Asc Ao, d: 3.50 cm (2.1-3.4cm) LV SYSTOLIC FUNCTION BY 2D PLANIMETRY (MOD): Normal Ranges: EF-A4C View: 49.3 % (>55%) EF-A2C View: 44.3 % EF-Biplane: 42.1 % AORTIC VALVE: Normal Ranges: LVOT Diameter: 2.60 cm (1.8-2.4cm) RIGHT VENTRICLE: RV 1 4.85 cm RV 2 2.95 cm RV 3 9.51 cm [id number] Ignacia Lim MD Electronically signed on 11/29/2017 at 4:32:00 PM Final MAGNESIUM Collected: 11/29/2017 Status: F Source: [place] 6:23 [facility] REPOSITORY TYPE CODE TESTS RESULT OUT OF REFERENCE UNITS RANGE LAB MG(LOINC) 1.60 - 2.40 mg/dL MAGNESIUM 2.02 Performed By: #### MG #### [facility] [address] [place] [address] RENAL FUNCTION PANEL Collected: 11/29/2017 Status: F Source: [place] 6:23 [facility] REPOSITORY TYPE CODE TESTS RESULT OUT OF REFERENCE UNITS RANGE LAB GLU(LOINC) 74 - 99 mg/dL GLUCOSE 93 LAB SOD(LOINC) 136 - 145 mmol/L Low SODIUM 134 LAB K(LOINC) 3.5 - 5.3 mmol/L POTASSIUM 4.0 LAB CHLOR(LOIN 98 - 107 mmol/L C) CHLORIDE 100 LAB BIC(LOINC) 21 - 32 mmol/L BICARBONATE 23 LAB ANGAP(LOIN 10 - 20 mmol/L C) ANION GAP 15 LAB UREA(LOINC 6 - 23 mg/dL ) UREA NITROGEN 18 LAB CREA(LOINC 0.50 - 1.30 mg/dL ) CREATININE 0.91 LAB GFRFN(LOIN >60 mL/min/1.7 C) 3m2 GFR-NON AM. >60 LAB GFRAA(LOIN >60 mL/min/1.7 C) 3m2 GFR- AM. >60 Result Comment: CALCULATIONS OF ESTIMATED GFR ARE PERFORMED USING THE MDRD STUDY EQUATION FOR THE IDMS-TRACEABLE CREATININE METHODS. CLIN CHEM 2007;53:766-72 LAB CA(LOINC) 8.6 - 10.6 mg/dL CALCIUM 8.7 LAB PHOS(LOINC) 2.5 - 4.9 mg/dL PHOSPHORUS 4.1 Result Comment: The performance characteristics of phosphorus testing in heparinized plasma have been validated by the individual laboratory site where testing is performed. Testing on heparinized plasma is not approved by the FDA; however, such approval is not necessary. LAB ALB(LOINC) 3.4 - 5.0 g/dL Low ALBUMIN 3.2 Performed By: #### RENAL #### [facility] [address] [place] [address] COAGULATION SCREEN Collected: 11/29/2017 Status: F Source: [place] 6:23 [facility] REPOSITORY TYPE CODE TESTS RESULT OUT OF REFERENCE UNITS RANGE LAB PT(LOINC) 9.8 - 12.7 sec PROTHROMBIN High TIME 14.1 LAB INR(LOINC) 0.9 - 1.1 PT, INR High 1.3 LAB APTT(LOINC 25 - 36 sec ) APTT 27 Result Comment: THE APTT IS NO LONGER USED FOR MONITORING UNFRACTIONATED HEPARIN THERAPY. FOR MONITORING HEPARIN THERAPY, USE THE HEPARIN ASSAY. Performed By: #### COAGS #### [facility] [address] [place] [address] CBC AND DIFFERENTIAL Collected: 11/29/2017 Status: F Source: [place] 6:23 [facility]POSITORY TYPE CODE TESTS RESULT OUT OF REFERENCE UNITS RANGE LAB WBCR(LOINC 4.4 - 11.3 x10E9/L ) WBC 9.8 LAB NRBC(LOINC 0.0-0.0 /100 WBC ) NUCLEATED RBC 0.0 LAB RBCCT(LOIN 4.50 - 5.90 x10E12/L C) RBC 4.58 LAB HGB(LOINC) 13.5 - 17.5 g/dL Low HGB 10.3 LAB HCT(LOINC) 41.0 - 52.0 % Low HCT 35.1 LAB MCV(LOINC) 80 - 100 fL Low MCV 77 LAB MCHC2(LOIN 32.0 - 36.0 g/dL C) Low MCHC 29.3 LAB PLTCT(LOIN 150 - 450 x10E9/L C) PLT 396 LAB RDWCV(LOIN 11.5 - 14.5 % C) RDW-CV High 27.1 LAB NEUT(LOINC 40.0 - 80.0 % ) % NEUTROPHIL 67.7 LAB IG(LOINC) 0.0 - 0.9 % % High AUTOMATED 2.4 IMMATURE GRAN Result Comment: Percent differential counts (%) should be interpreted in the context of the absolute cell counts (cells/L). LAB LYMPH(LOINC) 13.0 - % 44.0 % LYMPHOCYTE 13.5 LAB MONO(LOINC) 2.0 - 10.0 % % MONOCYTE High 13.8 LAB EOS(LOINC) 0.0 - 6.0 % % EOSINOPHIL 2.1 LAB BASO(LOINC) 0.0 - 2.0 % % BASOPHIL 0.5 LAB #NEUT(LOINC) 1.20 - x10E9/L 7.70 NEUTROPHIL 6.62 LAB #LYMP(LOINC) 1.20 - x10E9/L 4.80 LYMPHOCYTE 1.32 LAB #MONO(LOINC) 0.10 - x10E9/L 1.00 MONOCYTE High 1.35 LAB #EOS(LOINC) 0.00 - x10E9/L 0.70 EOSINOPHIL 0.21 LAB #BASO(LOINC) 0.00 - x10E9/L 0.10 BASOPHIL 0.05 Result Comment: Automated WBC differential has been confirmed by manual smear. Performed By: #### CBCDF #### [facility] [address] [place] [address] RED CELL MORPHOLOGY Collected: 11/29/2017 Status: F Source: [place] 6:23 AM [facility] REPOSITORY TYPE CODE TESTS RESULT OUT OF REFERENCE UNITS RANGE LAB RBCMO(LOIN C) RBC MORPHOLOGY See Below LAB POLY(LOINC ) POLYCHROMASIA Mild LAB HYPO(LOINC ) HYPOCHROMASIA Mild LAB OVALO(LOIN C) OVALOCYTES Few LAB TEAR(LOINC ) TEARDROP CELLS Few Performed By: #### MORP2 #### [facility] [address] [place] [address] CLINICAL EVENT Observed: 11/28/2017 Status: UNK Source: [place] NOTE-EPICARDIAL WIRE CUT 12:46 PM [facility] REPOSITORY Event: Topic: Epicardial Wire Cut Details: 1200 Atrial and ventricular wires cut at skin level due to surgeon request. Patient instructed to notify radiology of retained epicardial wires prior to any MRI procedure, and to notify Dr Yuan of any visible wires or s/s infection. Provider / Team Contact Information: Provider/Team Contact Info-Pager Number: cardiac surgery [phone] Electronic Signatures: Miguel Coffey (HAUL DRIVER-WIRE TESTER) (Signed 28-Nov-2017 12:46) Authored: Event, Provider / Team Contact Information Last Updated: 28-Nov-2017 12:46 by Miguel Coffey (HAUL DRIVER-WIRE TESTER) DAILY PROGRESS Observed: 11/28/2017 Status: COMPLETED Source: [place] NOTE-CARDIAC SURGERY 12:09 PM [facility] REPOSITORY Service: Cardiac Surgery Subjective Data: ANDREI RODRIGUEZ is a 62 year old Male who is Hospital Day # 9 and POD #5 for Cab X5;SVG Composite graft to Radial to PDA to PDL; SVG Composite graft to Radial to Diag to OM;EVANS to LAD;Left internal mammary harvest;Left saphenous vein endo harvest;Left Radial endo harvest. Overnight Events: Patient had an uneventful night. Additional Information: Pt doing well; no complaints; anticipate discharge tomorrow Objective Data: Objective Information: ---- Intake and Output ----- Mn/Dy/Year Time Intake Output Net Nov 28, 2017 6:00 am 0 0 0 Nov 27, 2017 10:00 pm 83.5 450 -367 Nov 27, 2017 2:00 pm 613.6 500 113 The Intake and Output Totals for the last 24 hours are: Intake Output Net 907 950 -253 T P R BP SpO2 Value 36.2 84 18 133/80 95% Date/Time 11/28 10:40 11/28 10:40 11/28 10:40 11/28 10:40 11/28 10:40 Range (36C - 37.2C ) (84 - 101 ) (17 - 21 ) (120 - 151 )/ (72 - 89 ) (93% - 96% ) As of 27-Nov-2017 20:25:00, patient is on 2 L/min of oxygen via nasal cannula. Highest temp of 37.2 C was recorded at 11/27 14:18 Pain reported at 11/28 12:05: 3 = Mild Physical Exam: Constitutional: Sitting in chair; Alert and Oriented X3; NAD Eyes: sclera clear Respiratory/Thorax: Lungs clear, diminished in bases; sternum stable Cardiovascular: RRR, S1S2 Tele NSR 80's wires removed on exam Gastrointestinal: obese, soft, nontender, nondistended, +BS, +postop BM 11/28 Genitourinary: voiding Musculoskeletal: SOLIZ Extremities: trace pedal edema Neurological: No focal deficits Psychological: Appropriate mood and behavior Skin: Warm and dry Midsternal incision PLASTIC SHAPER- no s/s infection Left radial graft- NELI no s/s infection Left SVG- PLASTIC SHAPER no s/s infection Medication: Medications: Continuous Medications No continuous medications are active Scheduled Medications 1. Acetaminophen: 650 mg Oral Every 6 Hours 2. Amiodarone: 400 mg Oral Every 12 Hours 3. Aspirin Enteric Coated: 81 mg Oral Daily 4. Atorvastatin: 40 mg Oral Daily 5. Clopidogrel: 75 mg Oral Daily 6. Docusate 50 mg - Senna 8.6 m tablet(s) Oral 2 Times a Day 7. Furosemide Injectable: 20 mg IntraVenous Push 2 Times a Day 8. Heparin SubCutaneous: 5000 unit(s) SubCutaneous Every 8 Hours 9. Influenza Virus QUADRIVALENT (Inactive) ADULT Vaccine: 0.5 mL IntraMuscular Once 10. Iron Polysaccharide Complex: 150 mg Oral Daily 11. Losartan: 25 mg Oral Daily 12. Metoprolol Tartrate: 50 mg Oral Every 12 Hours 13. Multivitamin with Minerals: 1 tablet(s) Oral Daily 14. Pantoprazole: 40 mg Oral 2 Times a Day 15. Polyethylene Glycol: 17 gram(s) Oral 3 Times a Day 16. Sodium Chloride 0.9% Injectable Flush: 1.5 mL IntraVenous Flush Every 8 Hours and as Needed PRN Medications 1. Melatonin: 6 mg Oral At Bedtime 2. Ondansetron Injectable: 4 mg IntraVenous Push Every 8 Hours 3. oxyCODONE Immediate Release: 5 mg Oral Every 4 Hours 4. oxyCODONE Immediate Release: 10 mg Oral Every 4 Hours Recent Lab Results: Results: I have reviewed these laboratory results: Coagulation Screen 28-Nov-2017 06:43:00 Result Value Prothrombin Time, Plasma 14.7 H International Normalized Ratio, Plasma 1.3 H Activated Partial Thromboplastin Time 27 Complete Blood Count + Differential 28-Nov-2017 06:43:00 Result Value White Blood Cell Count 9.3 Nucleated Erythrocyte Count 0.0 Red Blood Cell Count 4.21 L HGB 9.8 L HCT 32.3 L MCV 77 L MCHC 30.3 L PLT 354 RDW-CV 26.9 H Neutrophil % 69.3 Immature Granulocytes % 2.4 H Lymphocyte % 11.2 L Monocyte % 14.7 H Eosinophil % 2.1 Basophil % 0.3 Neutrophil Count 6.45 Lymphocyte Count 1.04 L Monocyte Count 1.37 H Eosinophil Count 0.20 Basophil Count 0.03 Renal Function Panel 28-Nov-2017 06:43:00 Result Value Glucose, Serum 98 NA 136 K 4.1 CL 102 Bicarbonate, Serum 23 Anion Gap, Serum 15 BUN 18 CREAT 0.87 GFR-Non >60 GFR- >60 Calcium, Serum 8.7 Phosphorus, Serum 4.0 ALB 3.1 L RBC Morphology 28-Nov-2017 06:43:00 Result Value Red Blood Cell Morphology See Below Polychromasia Mild Hypochromasia Mild Target Cells Few Ovalocytes Few Teardrop Cells Few Magnesium, Serum 28-Nov-2017 06:43:00 Result Value Magnesium, Serum 2.02 Assessment and Plan: Assessment: Patient is a 62yo M with PMH HTN who presented as a transfer from [place] on 11/20/17 with STEMI. Patient had been having exertional chest pain for ~2 months prior to presentation. 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 CP was associated occasionally with dyspnea and diaphoresis and radiated down his b/l arms. Rest always relieved the chest pain until 11/17, when the chest pain developed with walking and was unremitting even with rest. Patient took multiple aspirin and an extra dose of his lopressor and went to sleep. Upon awakening on 11/18 he continued to have chest pain at rest, for which he took more aspirin (10 aspirin total) and more Lopressor. Eventually due to persistent chest pain he presented to [facility]. At [facility] on 11/19 he was found with STEMI (no EKG from this), loaded with ASA, ticagrelor, started on heparin gtt and nitro gtt, and transferred to [facility]. EKG on arrival to [facility] showed diffuse ST depressions as well as ST elevations in aVR, V1. Taken for LHC (report below) and placement of IABP. At [facility], patient was started on metoprolol tartrate 25mg 6h, atorva 80, ASA 81mg daily, s/p load Brilinta 11/19 at OSH, protonix 40mg daily, Lisinopril 2.5mg. Given 1u pRBCs for H&H 6.4/23.2 and transferred to [facility] CICU for further care. At [facility] patient was given another 2 Unit(s) pRBCs without appropriate incrementation (6.4 > 7.8). GI was consulted and EGD was performed as patient had 1 episode of hemoptysis 2-3 weeks prior to presentation and took multiple ASA. Was started on IV PPI BID. EGD showed 1 cm hiatal hernia, mild gastritis and mild erythematous duodenopathy. No clear source of blood loss. Suspected slow LGIB but unable to perform colonoscopy due to IABP. GI signed off and recommended re-consulting if new s/s of bleeding. CT-PE was negative for PE. Heparin gtt was held for 24 hours and then restarted when there were no further s/s of bleeding. Patient was given another 3 Unit(s) pRBCs and Hgb up to 10.4. Cardiac surgery was consulted and patient was scheduled for CABG. Patient was heparinized for 24 hrs prior to CABG with no further s/s of bleeding. All anti-platelet agents except for ASA held due to risk of bleeding. Patient presents to CTICU s/p CABG X 5 (SVG Composite graft to Radial to PDA to PDL, SVG Composite graft to Radial to Diag to OM, EVANS to LAD), left internal mammary harvest, endoscopic left saphenous vein harvest and endoscopic left radial harvest. OPERATION/PROCEDURE: 11/23/17 Dr. Yuan 1. Urgent coronary artery bypass graft x5, left internal mammary artery to left anterior descending artery; composite radial artery graft to diagonal and obtuse marginal sequentially. 2. Composite radial artery graft sequentially to PDA and to the PLV branch of the right coronary artery. 3. Extracorporeal circulation. 4. Endoscopic harvest of left radial artery. 5. Endoscopic harvest of left greater saphenous vein. SICU- Afib with RVR Transfer to T3 3 Impression and Plan POD# 5 s/p CABGX5 -increase activity/ ambulation; physical therapy -encourage IS, C/DB; respiratory therapy -cardiac rehab referral -continue cardiac meds: aspirin, statin, beta rachael - Plavix for NSTEMI for one year -pain and constipation meds -2v CXR see above results - wires removed 11/28 - optimize lytes and nutrition - tele until discharge - stopped accu checks Rhythm- Postop AFib in CTICU - NSR 80's - Metoprolol 25mg PO BID - Ami gtt for AFib; now off; - Amiodarone 400mg PO BID; decrease to daily on discharge - adjust as needed Acute postop blood loss anemia - Hct 32.3, 31.6 - Mv and iron - daily CBC while in hospital Fluid Volume status- Preop wt 134 - wt 107.4? accuracy - Lasix 20mg IV BID - holding oral lasix - Losartan 25mg daily -replace lytes as needed for hypokalemia/ hypomagnesemia- repleted - daily weights; I and O's - daily renal panel Hx Hypertension - SBP last 24 [id number] - losartan 25mg daily Preoperative Bleeding- microcytic anemia - GI consult - EGD negative - continue protonix BID - may need colonoscopy if pt rebleeds - received 6units PRBC prior to OR Dispo - PT recs home with PT - not ready for discharge at this time - anticipate discharge Monday d/w Dr. Yuan Signature/Cosignature/Attestation: Provider/Team Contact Info-Pager Number cardiac surgery [phone] Electronic Signatures: Miguel Coffey (HAUL DRIVER-WIRE TESTER) (Signed 28-Nov-2017 12:19) Authored: Service, Subjective Data, Objective Data, Assessment and Plan, Signature/Cosignature/Attestation Last Updated: 28-Nov-2017 12:19 by Miguel Coffey (HAUL DRIVER-WIRE TESTER) CHEST 2 VIEW PA Observed: 11/28/2017 Status: F Source: [facility] AND LAT 10:00 AM HOSPITALS REPOSITORY Patient Name: ANDREI RODRIGUEZ STUDY: CHEST 2 VIEW PA AND LAT; 11/28/2017 10:00 am INDICATION: Signs/Symptoms: s/p cabg; dual energy. COMPARISON: 11/26/2017, 11/25/2017 ACCESSION NUMBER(S): [id number] ORDERING CLINICIAN: MIGUEL COFFEY FINDINGS: Patient is status post median sternotomy and CABG. CARDIOMEDIASTINAL SILHOUETTE: Cardiomediastinal silhouette is enlarged and stable in size and configuration. LUNGS: There is improved but persistent perihilar congestion and edema. Unchanged mild bibasilar opacities, left greater than right. No pneumothorax. ABDOMEN: No remarkable upper abdominal findings. BONES: No acute osseous changes. IMPRESSION: 1. Improved but persistent perihilar congestion and interstitial edema. 2. Unchanged mild bibasilar pleural effusion and atelectasis, left greater than right. 3. Cardiomegaly status post median sternotomy and CABG. I personally reviewed the images/study and I agree with the findings as stated. This study was interpreted at [facility], [place], [place]. Electronically signed by: JOSE MIGUEL ALAS MD GLUCOSE-POCT Collected: 11/28/2017 Status: F Source: [facility] 6:50 AM HOSPITALS REPOSITORY TYPE CODE TESTS RESULT OUT OF RANGE REFERENCE UNITS LAB GLUP(LOINC) 74 - 99 mg/dL High 121 GLUCOSE-POCT Performed By: #### GLUPO #### [facility] [address] [place] [address] COAGULATION SCREEN Collected: 11/28/2017 Status: F Source: [facility] 6:43 AM HOSPITALS REPOSITORY TYPE CODE TESTS RESULT OUT OF REFERENCE UNITS RANGE LAB PT(LOINC) 9.8 - 12.7 sec PROTHROMBIN High TIME 14.7 LAB INR(LOINC) 0.9 - 1.1 PT, INR High 1.3 LAB APTT(LOINC 25 - 36 sec ) APTT 27 Result Comment: THE APTT IS NO LONGER USED FOR MONITORING UNFRACTIONATED HEPARIN THERAPY. FOR MONITORING HEPARIN THERAPY, USE THE HEPARIN ASSAY. Performed By: #### COAGS #### [facility] [address] [place] [address] MAGNESIUM Collected: 11/28/2017 Status: F Source: [facility] 6:43 HOSPITALS REPOSITORY TYPE CODE TESTS RESULT OUT OF REFERENCE UNITS RANGE LAB MG(LOINC) 1.60 - 2.40 mg/dL MAGNESIUM 2.02 Performed By: #### MG #### [facility] [address] [place] [address] RENAL FUNCTION PANEL Collected: 11/28/2017 Status: F Source: [place] [address]:[address] [place] [address] REPOSITORY TYPE CODE TESTS RESULT OUT OF REFERENCE UNITS RANGE LAB GLU(LOINC) 74 - 99 mg/dL GLUCOSE 98 LAB SOD(LOINC) 136 - 145 mmol/L SODIUM 136 LAB K(LOINC) 3.5 - 5.3 mmol/L POTASSIUM 4.1 LAB CHLOR(LOIN 98 - 107 mmol/L C) CHLORIDE 102 LAB BIC(LOINC) 21 - 32 mmol/L BICARBONATE 23 LAB ANGAP(LOIN 10 - 20 mmol/L C) ANION GAP 15 LAB UREA(LOINC 6 - 23 mg/dL ) UREA NITROGEN 18 LAB CREA(LOINC 0.50 - 1.30 mg/dL ) CREATININE 0.87 LAB GFRFN(LOIN >60 mL/min/1.7 C) 3m2 GFR-NON AM. >60 LAB GFRAA(LOIN >60 mL/min/1.7 C) 3m2 GFR- AM. >60 Result Comment: CALCULATIONS OF ESTIMATED GFR ARE PERFORMED USING THE MDRD STUDY EQUATION FOR THE IDMS-TRACEABLE CREATININE METHODS. CLIN CHEM 2007;53:766-72 LAB CA(LOINC) 8.6 - 10.6 mg/dL CALCIUM 8.7 LAB PHOS(LOINC) 2.5 - 4.9 mg/dL PHOSPHORUS 4.0 Result Comment: The performance characteristics of phosphorus testing in heparinized plasma have been validated by the individual laboratory site where testing is performed. Testing on heparinized plasma is not approved by the FDA; however, such approval is not necessary. LAB ALB(LOINC) 3.4 - 5.0 g/dL Low ALBUMIN 3.1 Performed By: #### RENAL #### [facility] [address] [place] [address] CBC AND DIFFERENTIAL Collected: 11/28/2017 Status: F Source: [facility] 6:43 AM HOSPITALS REPOSITORY TYPE CODE TESTS RESULT OUT OF REFERENCE UNITS RANGE LAB WBCR(LOINC 4.4 - 11.3 x10E9/L ) WBC 9.3 LAB NRBC(LOINC 0.0-0.0 /100 WBC ) NUCLEATED RBC 0.0 LAB RBCCT(LOIN 4.50 - 5.90 x10E12/L C) Low RBC 4.21 LAB HGB(LOINC) 13.5 - 17.5 g/dL Low HGB 9.8 LAB HCT(LOINC) 41.0 - 52.0 % Low HCT 32.3 LAB MCV(LOINC) 80 - 100 fL Low MCV 77 LAB MCHC2(LOIN 32.0 - 36.0 g/dL C) Low MCHC 30.3 LAB PLTCT(LOIN 150 - 450 x10E9/L C) PLT 354 LAB RDWCV(LOIN 11.5 - 14.5 % C) RDW-CV High 26.9 LAB NEUT(LOINC 40.0 - 80.0 % ) % NEUTROPHIL 69.3 LAB IG(LOINC) 0.0 - 0.9 % % High AUTOMATED 2.4 IMMATURE GRAN Result Comment: Percent differential counts (%) should be interpreted in the context of the absolute cell counts (cells/L). LAB LYMPH(LOINC) 13.0 - % Low 44.0 % LYMPHOCYTE 11.2 LAB MONO(LOINC) 2.0 - 10.0 % % MONOCYTE High 14.7 LAB EOS(LOINC) 0.0 - 6.0 % % EOSINOPHIL 2.1 LAB BASO(LOINC) 0.0 - 2.0 % % BASOPHIL 0.3 LAB #NEUT(LOINC) 1.20 - x10E9/L 7.70 NEUTROPHIL 6.45 LAB #LYMP(LOINC) 1.20 - x10E9/L Low 4.80 LYMPHOCYTE 1.04 LAB #MONO(LOINC) 0.10 - x10E9/L 1.00 MONOCYTE High 1.37 LAB #EOS(LOINC) 0.00 - x10E9/L 0.70 EOSINOPHIL 0.20 Result Comment: Automated WBC differential has been confirmed by manual smear. LAB #BASO(LOINC) 0.00 - x10E9/L 0.10 BASOPHIL 0.03 Performed By: #### CBCDF #### [facility] [address] [place] [address] RED CELL MORPHOLOGY Collected: 11/28/2017 Status: F Source: [facility] 6:43 AM HOSPITALS REPOSITORY TYPE CODE TESTS RESULT OUT OF REFERENCE UNITS RANGE LAB RBCMO(LOIN C) RBC MORPHOLOGY See Below LAB POLY(LOINC ) POLYCHROMASIA Mild LAB HYPO(LOINC ) HYPOCHROMASIA Mild LAB TARGE(LOIN C) TARGET CELLS Few LAB OVALO(LOIN C) OVALOCYTES Few LAB TEAR(LOINC ) TEARDROP CELLS Few Performed By: #### MORP2 #### [facility] [address] [place] [id number] GLUCOSE-POCT Collected: 11/27/2017 Status: F Source: [facility] 9:49 PM HOSPITALS REPOSITORY TYPE CODE TESTS RESULT OUT OF RANGE REFERENCE UNITS LAB GLUP(LOINC) 74 - 99 mg/dL High 137 GLUCOSE-POCT Performed By: #### GLUPO #### [facility] [address] [place] [address] GLUCOSE-POCT Collected: 11/27/2017 Status: F Source: [facility] 4:58 PM HOSPITALS REPOSITORY TYPE CODE TESTS RESULT OUT OF RANGE REFERENCE UNITS LAB GLUP(LOINC) 74 - 99 mg/dL High 132 GLUCOSE-POCT Performed By: #### GLUPO #### [facility] [address] [place] [address] GLUCOSE-POCT Collected: 11/27/2017 Status: F Source: [facility] 11:39 AM HOSPITALS REPOSITORY TYPE CODE TESTS RESULT OUT OF RANGE REFERENCE UNITS LAB GLUP(LOINC) 74 - 99 mg/dL High 109 GLUCOSE-POCT Performed By: #### GLUPO #### [facility] [address] [place] [address] DISCHARGE PROFILE2 Observed: 11/27/2017 Status: UNK Source: [facility] 8:28 AM HOSPITALS REPOSITORY Discharge Orders: Anticipated Discharge Date: ? Anticipated Discharge Date 04-Dec-2017 Problem List: Prelim Disch Dx: ? S/P CABG x 5: Catalog Name: Presence of aortocoronary bypass graft ? Coronary artery disease: Catalog Name: Atherosclerotic heart disease of makah coronary artery without angina pectoris DNAR: ? DNAR Status none Activity: Other activity instructions: You have been referred to cardiac rehab, as an outpatient. After your discharge from the hospital and home recovery period, you may follow up in 4-6 weeks or after you have been cleared to exercise with the program located at: [facility] [phone]. Labs 1: ? Lab Test(s) Basic Metabolic Panel, CBC, Magnesium, Digoxin level ? Date To Be Drawn Once the week following discharge ? Call Results To Dr. Cifuentes and Oxygen: Other Instructions Incentive spirometer 10x/hr while awake. Additional Orders: ? Vital Signs Every Visit ? Weight daily Call Provider If (Homegoing Patients): Any new concerning symptoms. CABG / Valve: Activity: - Continue to increase activity and use incentive spirometer, cough and deep breathing. - Pace activities as tolerated. Avoid heavy physical exertion and lifting. Balance rest periods with activity. - All refills will be obtained from the Primary Care Physician or Ground Equipment Mechanic. - For chest tightness or pain, extreme shortness of breath, coughing up frothy sputum or fainting. GO DIRECTLY TO THE EMERGENCY ROOM OR CALL 911 IF YOU HAVE ANY OF THESE SYMPTOMS. - No pushing, pulling, or lifting objects greater than 10 pounds for 3 months. - MAY shower. - MAY NOT drive for 4 to 6 weeks, until follow up visit with the surgeon. - Maintain a daily weight log. Use same scale, before breakfast, after voiding. Please notify the cardiac surgeon's office if you are readmitted to any hospital within 30 days. Wound Care Instructions: - Cleanse incisions with soap and water daily. No dressing, leave open to air. No lotions, creams or tub soaks. Call Provider If: - Redness, drainage or other problems with incisions, notify the Cardiac Surgeon. - Signs and symptoms of Heart Failure: call your Ground Equipment Mechanic if you have weight gain of 3 pounds or more in less than 3 days; shortness of breath at rest, with activity, or when lying flat; dizziness or fainting. - Signs and symptoms of Heart Failure: call your Ground Equipment Mechanic for frequent coughing; swelling of feet, ankles, legs or abdomen; fatigue and loss of energy; change in appetite. Diet: ? Diet Low Sodium Follow-Up 1: ? Physician/Dept./Service Dr. Yuan- Cardiac surgeon ? Scheduled Date/Time 13-Dec-2017 09:30 ? Location [place] [address] [place] [id number] ? ? Comments/Instructions [place] nurse practitioner is phone # above, appt. in building A 4th floor room 410 Hospital Course (Home Care/Gold Form): Hospital Course: ? Hospital Course: include significant abnormal lab values Patient is a 62yo M with PMH HTN who presented as a transfer from [facility] on 11/20/17 with STEMI. Patient had been having exertional chest pain for ~2 months prior to presentation. 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 CP was associated occasionally with dyspnea and diaphoresis and radiated down his b/l arms. Rest always relieved the chest pain until 11/17, when the chest pain developed with walking and was unremitting even with rest. Patient took multiple aspirin and an extra dose of his lopressor and went to sleep. Upon awakening on 11/18 he continued to have chest pain at rest, for which he took more aspirin (10 aspirin total) and more Lopressor. Eventually due to persistent chest pain he presented to [facility]. At [facility] on 11/19 he was found with STEMI (no EKG from this), loaded with ASA, ticagrelor, started on heparin gtt and nitro gtt, and transferred to [facility]. EKG on arrival to [facility] showed diffuse ST depressions as well as ST elevations in aVR, V1. Taken for LHC (report below) and placement of IABP. At [facility], patient was started on metoprolol tartrate 25mg 6h, atorva 80, ASA 81mg daily, s/p load Brilinta 25 at OSH, protonix 40mg daily, Lisinopril 2.5mg. Given 1u pRBCs for H&H 6.4/23.2 and transferred to [facility] for further care. At [facility] patient was given another 2 Unit(s) pRBCs without appropriate incrementation (6.4 > 7.8). GI was consulted and EGD was performed as patient had 1 episode of hemoptysis 2-3 weeks prior to presentation and took multiple ASA. Was started on IV PPI BID. EGD showed 1 cm hiatal hernia, mild gastritis and mild erythematous duodenopathy. No clear source of blood loss. Suspected slow LGIB but unable to perform colonoscopy due to IABP. GI signed off and recommended re-consulting if new s/s of bleeding. CT-PE was negative for PE. Heparin gtt was held for 24 hours and then restarted when there were no further s/s of bleeding. Patient was given another 3 Unit(s) pRBCs and Hgb up to 10.4. Cardiac surgery was consulted and patient was scheduled for CABG. Patient was heparinized for 24 hrs prior to CABG with no further s/s of bleeding. All anti-platelet agents except for ASA held due to risk of bleeding. Patient presents to CTICU s/p CABG X 5 (SVG Composite graft to Radial to PDA to PDL, SVG Composite graft to Radial to Diag to OM, EVANS to LAD), left internal mammary harvest, endoscopic left saphenous vein harvest and endoscopic left radial harvest. OPERATION/PROCEDURE: 11/23/17 Dr. Yuan 1. Urgent coronary artery bypass graft x5, left internal mammary artery to left anterior descending artery; composite radial artery graft to diagonal and obtuse marginal sequentially. 2. Composite radial artery graft sequentially to PDA and to the PLV branch of the right coronary artery. 3. Extracorporeal circulation. 4. Endoscopic harvest of left radial artery. 5. Endoscopic harvest of left greater saphenous vein. SICU- Afib with RVR Transfer to T3 11/27 PMH: HTN Home Meds: Claritin 10mg daily Metoprolol tartrate 100mg BID Tramadol 50mg BID as needed Ibuprofen 600mg SocHx: denies tobacco, alcohol, ilicit drugs FamHx: HTN, T2DM, dementia; no h/o IL or CAD LHC: RCA: dominant, 70-80% distal stenosis; PDA with 80% mid-stenosis No LM coronary artery, LAD and LCx arise by dual ostia. LCx: prox AV groove with 70% stenosis, second OM 90% stenosis, third OM 50% stenosis LAD: diffuse 30-40% disease spanning entire proximal segment, major diag branch with 80% ostial proximal disease EF 30-35% with global hypokinesis No AAA Intraaortic balloon pump placed. Infectious Disease: ? PPD Status not given ? MRSA no ? VRE no ? C. Diff no ? Other Resistant Organism no ? Isolation Type none Home Care Orders: Face to Face Certification: Home Care Services Needed: yes Home Care Agency: Home [facility] Sk[facility]ipl[facility] Ordered: RN/BEHAVIORAL PEDIATRICIAN Face to Face Encounter Completed: yes Date of Encounter: 28-Nov-2017 Medical Necessity for Homecare (based on clinical findings): Short-term fci is needed to monitor for signs and symptoms of decomposition/adverse events as s/p CABG. Patient at high risk for re-hospitalization. Homebound Status: homebound Homebound Due to:: Patient with recent cardiac surgery. Patient experiences dyspnea with minimal exertion. Ambulates limited distance. The totality of these findings support a considerable and taxing effort to leave home due to limited mobility and pain. Also unable to drive for 1 month due to sternal precautions. Face to Face Certification and Home Care Orders Reviewed: I certify that this patient is under my care. I have reviewed the information included in the face to face and certify that the home care services ordered are medically necessary for this patient. Home Care Services: ? Home Care Skilled Service CABG carepath, follow up teaching, labs, medication, new diagnosis teaching, weight check ? CABG: First Home Care Visit Home Care to determine ? Teaching: First Home Care Visit Home Care to determine ? Lab Instructions please see lab orders ? Med Compliance: First Home Care Visit Home Care to determine ? New Diagnosis: First Home Care Visit Home Care to determine ? Weight Check: First Home Care Visit Home Care to determine Provider FINAL REVIEW of Orders: Final Review: ? Final Review of Medication Reconciliation and Orders Completed by ERP SPECIALIST/CNM ? Reviewing Provider ADDISON Schmitz at 01-Dec-2017 18:02:03 Appointments: Follow-Up Appointment 01: ? Physician/Dept/Service Dr. Ghazala Cifuentes, PCP ? Scheduled Date/Time 12-Dec-2017 11:20 ? Location [address], [address], [place]. [address] ? ? Comments Please arrive 10-15 minutes early, bring photo ID, insurance card, discharge summary, and list of current medications and dosages. If unable to keep this appointment, please call to cancel. Please call the office concerning your insurance. Follow-Up Appointment 02: ? Physician/Dept/Service Dr. Lalita Sullivan, Cardiology ? Scheduled Date/Time 19-Dec-2017 13:30 ? Location [address], [place]. [address] ? ? Comments Please arrive 10-15 minutes early, bring photo ID, insurance card, discharge summary, and list of current medications and dosages. If unable to keep this appointment, please call to cancel. Electronic Signatures: Mirza Dickey (CLIN COOR) (Signed 30-Nov-2017 12:13) Authored: Discharge Orders, Gold Form - [employer] Job Setter Summary Eleanor Castellanos (RN) (Signed 27-Nov-2017 16:11) Authored: Discharge Orders Sahra Garcia (PT SVS REP) (Signed 28-Nov-2017 13:43) Authored: Appointments Darci Yuan) (Signed 29-Nov-2017 13:28) Authored: Home Care Orders, Provider FINAL REVIEW of Orders Co-Signer: Discharge Orders, CABG / Valve, Hospital Course (Home Care/Gold Form), Home Care Orders Monica Calderon (HAUL DRIVER-WIRE TESTER) (Signed 03-Dec-2017 08:57) Authored: Discharge Orders, CABG / Valve, Provider FINAL REVIEW of Orders Miguel Coffey (HAUL DRIVER-WIRE TESTER) (Signed 28-Nov-2017 09:44) Authored: Discharge Orders, CABG / Valve, Hospital Course (Home Care/Gold Form), Home Care Orders Last Updated: 03-Dec-2017 08:57 by Monica Calderon (HAUL DRIVER-WIRE TESTER) GLUCOSE-POCT Collected: 11/27/2017 Status: F Source: [place] 7:23 AM [facility]OSPITALS REPOSITORY TYPE CODE TESTS RESULT OUT OF RANGE REFERENCE UNITS LAB GLUP(LOINC) 74 - 99 mg/dL High 116 GLUCOSE-POCT Performed By: #### GLUPO #### [facility] [address] [place] [address] MAGNESIUM Collected: 11/27/2017 Status: F Source: [place] 4:38 HOSPITALS REPOSITORY TYPE CODE TESTS RESULT OUT OF REFERENCE UNITS RANGE LAB MG(LOINC) 1.60 - 2.40 mg/dL MAGNESIUM 2.03 Performed By: #### MG #### [facility] [address] [place] [address] RENAL FUNCTION PANEL Collected: 11/27/2017 Status: F Source: [place] 4:38 HOSPITALS REPOSITORY TYPE CODE TESTS RESULT OUT OF REFERENCE UNITS RANGE LAB GLU(LOINC) 74 - 99 mg/dL GLUCOSE High 107 LAB SOD(LOINC) 136 - 145 mmol/L Low SODIUM 132 LAB K(LOINC) 3.5 - 5.3 mmol/L POTASSIUM 3.8 LAB CHLOR(LOIN 98 - 107 mmol/L C) CHLORIDE 99 LAB BIC(LOINC) 21 - 32 mmol/L BICARBONATE 25 LAB ANGAP(LOIN 10 - 20 mmol/L C) ANION GAP 12 LAB UREA(LOINC 6 - 23 mg/dL ) UREA NITROGEN 18 LAB CREA(LOINC 0.50 - 1.30 mg/dL ) CREATININE 0.78 LAB GFRFN(LOIN >60 mL/min/1.7 C) 3m2 GFR-NON AM. >60 LAB GFRAA(LOIN >60 mL/min/1.7 C) 3m2 GFR- AM. >60 Result Comment: CALCULATIONS OF ESTIMATED GFR ARE PERFORMED USING THE MDRD STUDY EQUATION FOR THE IDMS-TRACEABLE CREATININE METHODS. CLIN CHEM 2007;53:766-72 LAB CA(LOINC) 8.6 - 10.6 mg/dL CALCIUM 8.6 LAB PHOS(LOINC) 2.5 - 4.9 mg/dL PHOSPHORUS 3.9 Result Comment: The performance characteristics of phosphorus testing in heparinized plasma have been validated by the individual laboratory site where testing is performed. Testing on heparinized plasma is not approved by the FDA; however, such approval is not necessary. LAB ALB(LOINC) 3.4 - 5.0 g/dL Low ALBUMIN 3.1 Performed By: #### RENAL #### [facility] [address] [place] [address] CBC Collected: 11/27/2017 Status: F Source: [place] 4:37 AM HOSPITALS REPOSITORY TYPE CODE TESTS RESULT OUT OF RANGE REFERENCE UNITS LAB WBCR(LOINC 4.4 - 11.3 x10E9/L ) WBC 9.4 LAB NRBC(LOINC 0.0-0.0 /100 WBC ) NUCLEATED RBC 0.0 LAB RBCCT(LOIN 4.50 - 5.90 x10E12/L C) Low RBC 4.12 LAB HGB(LOINC) 13.5 - 17.5 g/dL Low HGB 9.4 LAB HCT(LOINC) 41.0 - 52.0 % Low HCT 31.6 LAB MCV(LOINC) 80 - 100 fL Low MCV 77 LAB MCHC2(LOIN 32.0 - 36.0 g/dL C) Low MCHC 29.7 LAB PLTCT(LOIN 150 - 450 x10E9/L C) PLT 291 LAB RDWCV(LOIN 11.5 - 14.5 % C) Abnormal RDW-CV Not Measured Result Comment: Dimorphic population precludes RDW-CV Performed By: #### CBC #### [facility] [address] [place] [address] COAGULATION SCREEN Collected: 11/27/2017 Status: F Source: [place] 4:36 AM [facility] REPOSITORY TYPE CODE TESTS RESULT OUT OF REFERENCE UNITS RANGE LAB PT(LOINC) 9.8 - 12.7 sec PROTHROMBIN High TIME 15.1 LAB INR(LOINC) 0.9 - 1.1 PT, INR High 1.4 LAB APTT(LOINC 25 - 36 sec ) APTT 27 Result Comment: THE APTT IS NO LONGER USED FOR MONITORING UNFRACTIONATED HEPARIN THERAPY. FOR MONITORING HEPARIN THERAPY, USE THE HEPARIN ASSAY. Performed By: #### COAGS #### [facility] [address] [place] [address] ARTERIAL BLOOD GAS Collected: 11/26/2017 Status: F Source: [place] 9:44 [facility] REPOSITORY TYPE CODE TESTS RESULT OUT OF REFERENCE UNITS RANGE LAB PHART(LOIN 7.38 - 7.42 C) pH High 7.49 LAB PCO2A(LOIN 38 - 42 mmHg C) PCO2 Low 30 LAB PO2A(LOINC 85 - 95 mmHg ) PO2 88 LAB TEMP(LOINC degrees C ) PATIENT TEMPERATURE 37.0 Result Comment: NOTE: PATIENT RESULTS ARE NOT CORRECTED FOR TEMPERATURE. LAB SO2%A(LOINC) 94 - 100 % SO2 99 LAB BSEXB(LOINC) -2.0 - 3.0 mmol/L BASE EXCESS-BLOOD 0.1 LAB BICAR(LOINC) 22.0 - mmol/L 26.0 BICARB, CALCULATED 22.9 Performed By: #### [email or web address] #### [facility] [address] [place] [address] RENAL FUNCTION PANEL Collected: 11/26/2017 Status: F Source: [place] 9:25 [facility] REPOSITORY TYPE CODE TESTS RESULT OUT OF REFERENCE UNITS RANGE LAB GLU(LOINC) 74 - 99 mg/dL GLUCOSE High 117 LAB SOD(LOINC) 136 - 145 mmol/L Low SODIUM 130 LAB K(LOINC) 3.5 - 5.3 mmol/L POTASSIUM 3.7 LAB CHLOR(LOIN 98 - 107 mmol/L C) CHLORIDE 100 LAB BIC(LOINC) 21 - 32 mmol/L BICARBONATE 23 LAB ANGAP(LOIN 10 - 20 mmol/L C) ANION GAP 11 LAB UREA(LOINC 6 - 23 mg/dL ) UREA NITROGEN 19 LAB CREA(LOINC 0.50 - 1.30 mg/dL ) CREATININE 0.80 LAB GFRFN(LOIN >60 mL/min/1.7 C) 3m2 GFR-NON AM. >60 LAB GFRAA(LOIN >60 mL/min/1.7 C) 3m2 GFR- AM. >60 Result Comment: CALCULATIONS OF ESTIMATED GFR ARE PERFORMED USING THE MDRD STUDY EQUATION FOR THE IDMS-TRACEABLE CREATININE METHODS. CLIN CHEM 2007;53:766-72 LAB CA(LOINC) 8.6 - 10.6 mg/dL CALCIUM Low 8.2 LAB PHOS(LOINC) 2.5 - 4.9 mg/dL PHOSPHORUS 3.0 Result Comment: The performance characteristics of phosphorus testing in heparinized plasma have been validated by the individual laboratory site where testing is performed. Testing on heparinized plasma is not approved by the FDA; however, such approval is not necessary. LAB ALB(LOINC) 3.4 - 5.0 g/dL Low ALBUMIN 3.0 Performed By: #### RENAL #### [facility] [address] [place] [address] GLUCOSE-POCT Collected: 11/26/2017 Status: F Source: [place] 3:51 PM [facility] REPOSITORY TYPE CODE TESTS RESULT OUT OF RANGE REFERENCE UNITS LAB GLUP(LOINC) 74 - 99 mg/dL 96 GLUCOSE-POCT Performed By: #### GLUPO #### [facility] [address] [place] [address] ARTERIAL BLOOD GAS Collected: 11/26/2017 Status: F Source: [place] 3:02 [facility] REPOSITORY TYPE CODE TESTS RESULT OUT OF REFERENCE UNITS RANGE LAB PHART(LOIN 7.38 - 7.42 C) pH High 7.49 LAB PCO2A(LOIN 38 - 42 mmHg C) PCO2 Low 31 LAB PO2A(LOINC 85 - 95 mmHg ) PO2 Low 69 LAB TEMP(LOINC degrees C ) PATIENT TEMPERATURE 37.0 Result Comment: NOTE: PATIENT RESULTS ARE NOT CORRECTED FOR TEMPERATURE. LAB SO2%A(LOINC) 94 - 100 % SO2 98 LAB BSEXB(LOINC) -2.0 - 3.0 mmol/L BASE EXCESS-BLOOD 0.7 LAB BICAR(LOINC) 22.0 - mmol/L 26.0 BICARB, CALCULATED 23.6 Performed By: #### [id number] #### [facility] [address] [place] [address] CALCIUM, IONIZED Collected: 11/26/2017 Status: F Source: [place] 2:49 [facility] REPOSITORY TYPE CODE TESTS RESULT OUT OF RANGE REFERENCE UNITS LAB CAION(LOINC 1.10 - 1.33 mmol/L ) 1.19 CALCIUM,IONI ZED Result Comment: The performance characteristics of ionized calcium tested in heparinized plasma or serum have been validated by the individual laboratory site where testing is performed. Testing on heparinized plasma or serum is not approved by the FDA; however, such approval is not necessary. Performed By: #### IONC1 #### [facility] [address] [place] [address] MAGNESIUM Collected: 11/26/2017 Status: F Source: [place] 2:49 [facility] REPOSITORY TYPE CODE TESTS RESULT OUT OF REFERENCE UNITS RANGE LAB MG(LOINC) 1.60 - 2.40 mg/dL MAGNESIUM 2.14 Performed By: #### MG #### [facility] [address] [place] [address] RENAL FUNCTION PANEL Collected: 11/26/2017 Status: F Source: [place] 2:49 [facility] REPOSITORY TYPE CODE TESTS RESULT OUT OF REFERENCE UNITS RANGE LAB GLU(LOINC) 74 - 99 mg/dL GLUCOSE High 115 LAB SOD(LOINC) 136 - 145 mmol/L Low SODIUM 133 LAB K(LOINC) 3.5 - 5.3 mmol/L POTASSIUM 3.8 LAB CHLOR(LOIN 98 - 107 mmol/L C) CHLORIDE 102 LAB BIC(LOINC) 21 - 32 mmol/L BICARBONATE 24 LAB ANGAP(LOIN 10 - 20 mmol/L C) ANION GAP 11 LAB UREA(LOINC 6 - 23 mg/dL ) UREA NITROGEN 21 LAB CREA(LOINC 0.50 - 1.30 mg/dL ) CREATININE 0.78 LAB GFRFN(LOIN >60 mL/min/1.7 C) 3m2 GFR-NON AM. >60 LAB GFRAA(LOIN >60 mL/min/1.7 C) 3m2 GFR- AM. >60 Result Comment: CALCULATIONS OF ESTIMATED GFR ARE PERFORMED USING THE MDRD STUDY EQUATION FOR THE IDMS-TRACEABLE CREATININE METHODS. CLIN CHEM 2007;53:766-72 LAB CA(LOINC) 8.6 - 10.6 mg/dL CALCIUM 8.6 LAB PHOS(LOINC) 2.5 - 4.9 mg/dL PHOSPHORUS 3.5 Result Comment: The performance characteristics of phosphorus testing in heparinized plasma have been validated by the individual laboratory site where testing is performed. Testing on heparinized plasma is not approved by the FDA; however, such approval is not necessary. LAB ALB(LOINC) 3.4 - 5.0 g/dL Low ALBUMIN 3.1 Performed By: #### RENAL #### [facility] [address] [place] [address] GLUCOSE-POCT Collected: 11/26/2017 Status: F Source: [place] 11:41 AM [facility] REPOSITORY TYPE CODE TESTS RESULT OUT OF RANGE REFERENCE UNITS LAB GLUP(LOINC) 74 - 99 mg/dL High 155 GLUCOSE-POCT Performed By: #### GLUPO #### [facility] [address] [place] [address] GLUCOSE-POCT Collected: 11/26/2017 Status: F Source: [place] 7:50 AM [facility] REPOSITORY TYPE CODE TESTS RESULT OUT OF RANGE REFERENCE UNITS LAB GLUP(LOINC) 74 - 99 mg/dL High 116 GLUCOSE-POCT Performed By: #### GLUPO #### [facility] [address] [place] [address] TH CHEST 1 VIEW Observed: 11/26/2017 Status: F Source: [place] 6:24 AM [facility] REPOSITORY Patient Name: ANDREI RODRIGUEZ STUDY: TH CHEST 1 VIEW; 11/26/2017 6:24 am INDICATION: Signs/Symptoms: AM rounds. COMPARISON: 11/25/2017 ACCESSION NUMBER(S): [id number] ORDERING CLINICIAN: PORSHA CONTRERAS FINDINGS: [place] catheter has been removed. CARDIOMEDIASTINAL SILHOUETTE: Patient status post median sternotomy. LUNGS: Continued perihilar edema and left-sided effusion. No pneumothorax. ABDOMEN: No remarkable upper abdominal findings. BONES: No acute osseous changes. IMPRESSION: 1. Continued perihilar edema without pneumothorax. Status post extubation. Electronically signed by: Kip REDDY MD CBC Collected: 11/26/2017 Status: F Source: [place] 2:50 AM [facility] REPOSITORY TYPE CODE TESTS RESULT OUT OF REFERENCE UNITS RANGE LAB WBCR(LOINC 4.4 - 11.3 x10E9/L ) WBC 10.5 LAB NRBC(LOINC 0.0-0.0 /100 WBC ) NUCLEATED RBC 0.0 LAB RBCCT(LOIN 4.50 - 5.90 x10E12/L C) Low RBC 3.83 LAB HGB(LOINC) 13.5 - 17.5 g/dL Low HGB 8.9 LAB HCT(LOINC) 41.0 - 52.0 % Low HCT 29.3 LAB MCV(LOINC) 80 - 100 fL Low MCV 77 LAB MCHC2(LOIN 32.0 - 36.0 g/dL C) Low MCHC 30.4 LAB PLTCT(LOIN 150 - 450 x10E9/L C) PLT 197 LAB RDWCV(LOIN 11.5 - 14.5 % C) High RDW-CV 26.6 Performed By: #### CBC #### [facility] [address] [place] [address] CALCIUM, IONIZED Collected: 11/26/2017 Status: F Source: [place] 2:50 [facility] REPOSITORY TYPE CODE TESTS RESULT OUT OF RANGE REFERENCE UNITS LAB CAION(LOINC 1.10 - 1.33 mmol/L ) 1.17 CALCIUM,IONI ZED Result Comment: The performance characteristics of ionized calcium tested in heparinized plasma or serum have been validated by the individual laboratory site where testing is performed. Testing on heparinized plasma or serum is not approved by the FDA; however, such approval is not necessary. Performed By: #### IONC1 #### [facility] [address] [place] [address] COAGULATION SCREEN Collected: 11/26/2017 Status: F Source: [place] [id number] [place] [address] REPOSITORY TYPE CODE TESTS RESULT OUT OF REFERENCE UNITS RANGE LAB PT(LOINC) 9.8 - 12.7 sec PROTHROMBIN High TIME 15.3 LAB INR(LOINC) 0.9 - 1.1 PT, INR High 1.4 LAB APTT(LOINC 25 - 36 sec ) APTT 28 Result Comment: THE APTT IS NO LONGER USED FOR MONITORING UNFRACTIONATED HEPARIN THERAPY. FOR MONITORING HEPARIN THERAPY, USE THE HEPARIN ASSAY. Performed By: #### COAGS #### [facility] [address] [place] [address] MAGNESIUM Collected: 11/26/2017 Status: F Source: [place] 2:[address] [place] [address] REPOSITORY TYPE CODE TESTS RESULT OUT OF REFERENCE UNITS RANGE LAB MG(LOINC) 1.60 - 2.40 mg/dL MAGNESIUM 2.15 Performed By: #### MG #### [facility] [address] [place] [address] RENAL FUNCTION PANEL Collected: 11/26/2017 Status: F Source: [place] 2:[address] [place] [address] REPOSITORY TYPE CODE TESTS RESULT OUT OF REFERENCE UNITS RANGE LAB GLU(LOINC) 74 - 99 mg/dL GLUCOSE High 114 LAB SOD(LOINC) 136 - 145 mmol/L SODIUM 137 LAB K(LOINC) 3.5 - 5.3 mmol/L POTASSIUM 3.7 LAB CHLOR(LOIN 98 - 107 mmol/L C) CHLORIDE 104 LAB BIC(LOINC) 21 - 32 mmol/L BICARBONATE 24 LAB ANGAP(LOIN 10 - 20 mmol/L C) ANION GAP 13 LAB UREA(LOINC 6 - 23 mg/dL ) UREA High NITROGEN 24 LAB CREA(LOINC 0.50 - 1.30 mg/dL ) CREATININE 0.86 LAB GFRFN(LOIN >60 mL/min/1.7 C) 3m2 GFR-NON AM. >60 LAB GFRAA(LOIN >60 mL/min/1.7 C) 3m2 GFR- AM. >60 Result Comment: CALCULATIONS OF ESTIMATED GFR ARE PERFORMED USING THE MDRD STUDY EQUATION FOR THE IDMS-TRACEABLE CREATININE METHODS. CLIN CHEM 2007;53:766-72 LAB CA(LOINC) 8.6 - 10.6 mg/dL CALCIUM Low 8.2 LAB PHOS(LOINC) 2.5 - 4.9 mg/dL PHOSPHORUS 3.1 Result Comment: The performance characteristics of phosphorus testing in heparinized plasma have been validated by the individual laboratory site where testing is performed. Testing on heparinized plasma is not approved by the FDA; however, such approval is not necessary. LAB ALB(LOINC) 3.4 - 5.0 g/dL Low ALBUMIN 3.1 Performed By: #### RENAL #### [facility] [address] [place] [address] ARTERIAL BLOOD GAS Collected: 11/25/2017 Status: F Source: [place] 3:29 [facility] REPOSITORY TYPE CODE TESTS RESULT OUT OF REFERENCE UNITS RANGE LAB PHART(LOIN 7.38 - 7.42 C) pH High 7.47 LAB PCO2A(LOIN 38 - 42 mmHg C) PCO2 Low 33 LAB PO2A(LOINC 85 - 95 mmHg ) PO2 High 97 LAB TEMP(LOINC degrees C ) PATIENT TEMPERATURE 37.0 Result Comment: NOTE: PATIENT RESULTS ARE NOT CORRECTED FOR TEMPERATURE. LAB SO2%A(LOINC) 94 - 100 % SO2 99 LAB BSEXB(LOINC) -2.0 - 3.0 mmol/L BASE EXCESS-BLOOD 0.5 LAB BICAR(LOINC) 22.0 - mmol/L 26.0 BICARB, CALCULATED 24.0 Performed By: #### [email or web address] #### [facility] [address] [place] [address] GLUCOSE-POCT Collected: 11/25/2017 Status: F Source: [place] 3:25 PM [facility] REPOSITORY TYPE CODE TESTS RESULT OUT OF RANGE REFERENCE UNITS LAB GLUP(LOINC) 74 - 99 mg/dL High 122 GLUCOSE-POCT Performed By: #### GLUPO #### [facility] [address] [place] [address] RENAL FUNCTION PANEL Collected: 11/25/2017 Status: F Source: [place] 3:15 PM [facility] REPOSITORY TYPE CODE TESTS RESULT OUT OF REFERENCE UNITS RANGE LAB GLU(LOINC) 74 - 99 mg/dL GLUCOSE High 138 LAB SOD(LOINC) 136 - 145 mmol/L SODIUM 136 LAB K(LOINC) 3.5 - 5.3 mmol/L POTASSIUM 3.7 LAB CHLOR(LOIN 98 - 107 mmol/L C) CHLORIDE 102 LAB BIC(LOINC) 21 - 32 mmol/L BICARBONATE 24 LAB ANGAP(LOIN 10 - 20 mmol/L C) ANION GAP 14 LAB UREA(LOINC 6 - 23 mg/dL ) UREA High NITROGEN 27 LAB CREA(LOINC 0.50 - 1.30 mg/dL ) CREATININE 0.93 LAB GFRFN(LOIN >60 mL/min/1.7 C) 3m2 GFR-NON AM. >60 LAB GFRAA(LOIN >60 mL/min/1.7 C) 3m2 GFR- AM. >60 Result Comment: CALCULATIONS OF ESTIMATED GFR ARE PERFORMED USING THE MDRD STUDY EQUATION FOR THE IDMS-TRACEABLE CREATININE METHODS. CLIN CHEM 2007;53:766-72 LAB CA(LOINC) 8.6 - 10.6 mg/dL CALCIUM Low 8.2 LAB PHOS(LOINC) 2.5 - 4.9 mg/dL PHOSPHORUS 3.4 Result Comment: The performance characteristics of phosphorus testing in heparinized plasma have been validated by the individual laboratory site where testing is performed. Testing on heparinized plasma is not approved by the FDA; however, such approval is not necessary. LAB ALB(LOINC) 3.4 - 5.0 g/dL Low ALBUMIN 3.2 Performed By: #### RENAL #### [facility] [address] [place] [address] CBC Collected: 11/25/2017 Status: F Source: [place] 3:15 PM [facility] REPOSITORY TYPE CODE TESTS RESULT OUT OF RANGE REFERENCE UNITS LAB WBCR(LOINC 4.4 - 11.3 x10E9/L ) High WBC 11.4 LAB NRBC(LOINC 0.0-0.0 /100 WBC ) NUCLEATED RBC 0.0 LAB RBCCT(LOIN 4.50 - 5.90 x10E12/L C) Low RBC 3.94 LAB HGB(LOINC) 13.5 - 17.5 g/dL Low HGB 9.0 LAB HCT(LOINC) 41.0 - 52.0 % Low HCT 29.5 LAB MCV(LOINC) 80 - 100 fL Low MCV 75 LAB MCHC2(LOIN 32.0 - 36.0 g/dL C) Low MCHC 30.5 LAB PLTCT(LOIN 150 - 450 x10E9/L C) PLT 206 LAB RDWCV(LOIN 11.5 - 14.5 % C) Abnormal RDW-CV Not Measured Result Comment: Dimorphic population precludes RDW-CV Performed By: #### CBC #### [facility] [address] [place] [address] CBC Collected: 11/25/2017 Status: F Source: [place] 8:10 AM [facility] REPOSITORY TYPE CODE TESTS RESULT OUT OF REFERENCE UNITS RANGE LAB WBCR(LOINC 4.4 - 11.3 x10E9/L ) WBC 9.5 LAB NRBC(LOINC 0.0-0.0 /100 WBC ) NUCLEATED RBC 0.0 LAB RBCCT(LOIN 4.50 - 5.90 x10E12/L C) Low RBC 3.59 LAB HGB(LOINC) 13.5 - 17.5 g/dL Low HGB 8.4 LAB HCT(LOINC) 41.0 - 52.0 % Low HCT 27.5 LAB MCV(LOINC) 80 - 100 fL Low MCV 77 LAB MCHC2(LOIN 32.0 - 36.0 g/dL C) Low MCHC 30.5 LAB PLTCT(LOIN 150 - 450 x10E9/L C) PLT 156 LAB RDWCV(LOIN 11.5 - 14.5 % C) High RDW-CV 26.5 Performed By: #### CBC #### [facility] [address] [place] [address] GLUCOSE-POCT Collected: 11/25/2017 Status: F Source: [place] 8:09 AM [facility] REPOSITORY TYPE CODE TESTS RESULT OUT OF RANGE REFERENCE UNITS LAB GLUP(LOINC) 74 - 99 mg/dL High 124 GLUCOSE-POCT Performed By: #### GLUPO #### [facility] [address] [place] [address] REQUEST-LEUKOREDUCED RED CELLS Collected: Status: F Source: [place] 11/25/2017 5:26 AM [facility] REPOSITORY TYPE CODE TESTS RESULT OUT OF RANGE REFERENCE UNITS LAB OLPC(LOINC) ORDER RECD REQUEST-LEUK OREDUCED RED CELLS Performed By: #### OLPC #### [facility] [address] [place] [address] TH CHEST 1 VIEW Observed: 11/25/2017 Status: F Source: [place] 5:08 AM [facility] REPOSITORY Patient Name: ANDREI RODRIGUEZ STUDY: TH CHEST 1 VIEW; 11/25/2017 5:08 am INDICATION: Signs/Symptoms: AM rounds. COMPARISON: 11/24/2017 ACCESSION NUMBER(S): [id number] ORDERING CLINICIAN: PORSHA CONTRERAS FINDINGS: Patient has been extubated. Interval removal of intra-aortic balloon pump. CARDIOMEDIASTINAL SILHOUETTE: Patient is status post median sternotomy. LUNGS: Perihilar edema without pneumothorax. Correlate with fluid status. ABDOMEN: No remarkable upper abdominal findings. BONES: No acute osseous changes. IMPRESSION: 1. Perihilar edema status post extubation. Correlate with fluid status. Electronically signed by: Kip REDDY MD ARTERIAL BLOOD GAS Collected: 11/25/2017 Status: F Source: [place] 3:18 AM [facility] REPOSITORY TYPE CODE TESTS RESULT OUT OF REFERENCE UNITS RANGE LAB PHART(LOIN 7.38 - 7.42 C) pH High 7.47 LAB PCO2A(LOIN 38 - 42 mmHg C) PCO2 Low 36 LAB PO2A(LOINC 85 - 95 mmHg ) PO2 High 97 LAB TEMP(LOINC degrees C ) PATIENT TEMPERATURE 37.0 Result Comment: NOTE: PATIENT RESULTS ARE NOT CORRECTED FOR TEMPERATURE. LAB SO2%A(LOINC) 94 - 100 % SO2 99 LAB BSEXB(LOINC) -2.0 - 3.0 mmol/L BASE EXCESS-BLOOD 2.4 LAB BICAR(LOINC) 22.0 - mmol/L 26.0 BICARB, High CALCULATED 26.2 Performed By: #### [email or web address] #### [facility] [address] [place] [address] CBC Collected: 11/25/2017 Status: F Source: [place] 3:[address] [place] [address] REPOSITORY TYPE CODE TESTS RESULT OUT OF REFERENCE UNITS RANGE LAB WBCR(LOINC 4.4 - 11.3 x10E9/L ) WBC 9.2 LAB NRBC(LOINC 0.0-0.0 /100 WBC ) NUCLEATED RBC 0.0 LAB RBCCT(LOIN 4.50 - 5.90 x10E12/L C) Low RBC 3.44 LAB HGB(LOINC) 13.5 - 17.5 g/dL Low HGB 7.6 LAB HCT(LOINC) 41.0 - 52.0 % Low HCT 25.6 LAB MCV(LOINC) 80 - 100 fL Low MCV 74 LAB MCHC2(LOIN 32.0 - 36.0 g/dL C) Low MCHC 29.7 LAB PLTCT(LOIN 150 - 450 x10E9/L C) PLT 175 LAB RDWCV(LOIN 11.5 - 14.5 % C) High RDW-CV 26.5 Performed By: #### CBC #### [facility] [address] [place] [address] CALCIUM, IONIZED Collected: 11/25/2017 Status: F Source: [address] REPOSITORY TYPE CODE TESTS RESULT OUT OF RANGE REFERENCE UNITS LAB CAION(LOINC 1.10 - 1.33 mmol/L ) 1.18 CALCIUM,IONI ZED Result Comment: The performance characteristics of ionized calcium tested in heparinized plasma or serum have been validated by the individual laboratory site where testing is performed. Testing on heparinized plasma or serum is not approved by the FDA; however, such approval is not necessary. Performed By: #### IONC1 #### [facility] [address] [place] [address] COAGULATION SCREEN Collected: 11/25/2017 Status: F Source: [place] [address] REPOSITORY TYPE CODE TESTS RESULT OUT OF REFERENCE UNITS RANGE LAB PT(LOINC) 9.8 - 12.7 sec PROTHROMBIN High TIME 15.9 LAB INR(LOINC) 0.9 - 1.1 PT, INR High 1.4 LAB APTT(LOINC 25 - 36 sec ) APTT 26 Result Comment: THE APTT IS NO LONGER USED FOR MONITORING UNFRACTIONATED HEPARIN THERAPY. FOR MONITORING HEPARIN THERAPY, USE THE HEPARIN ASSAY. Performed By: #### COAGS #### [facility] [address] [place] [address] MAGNESIUM Collected: 11/25/2017 Status: F Source: [place] 3:14 AM [facility] REPOSITORY TYPE CODE TESTS RESULT OUT OF REFERENCE UNITS RANGE LAB MG(LOINC) 1.60 - 2.40 mg/dL MAGNESIUM 2.28 Performed By: #### MG #### [facility] [address] [place] [address] RENAL FUNCTION PANEL Collected: 11/25/2017 Status: F Source: [place] 3:14 AM [facility] REPOSITORY TYPE CODE TESTS RESULT OUT OF REFERENCE UNITS RANGE LAB GLU(LOINC) 74 - 99 mg/dL GLUCOSE High 123 LAB SOD(LOINC) 136 - 145 mmol/L SODIUM 138 LAB K(LOINC) 3.5 - 5.3 mmol/L POTASSIUM 4.1 LAB CHLOR(LOIN 98 - 107 mmol/L C) CHLORIDE 105 LAB BIC(LOINC) 21 - 32 mmol/L BICARBONATE 25 LAB ANGAP(LOIN 10 - 20 mmol/L C) ANION GAP 12 LAB UREA(LOINC 6 - 23 mg/dL ) UREA High NITROGEN 26 LAB CREA(LOINC 0.50 - 1.30 mg/dL ) CREATININE 1.07 LAB GFRFN(LOIN >60 mL/min/1.7 C) 3m2 GFR-NON AM. >60 LAB GFRAA(LOIN >60 mL/min/1.7 C) 3m2 GFR- AM. >60 Result Comment: CALCULATIONS OF ESTIMATED GFR ARE PERFORMED USING THE MDRD STUDY EQUATION FOR THE IDMS-TRACEABLE CREATININE METHODS. CLIN CHEM 2007;53:766-72 LAB CA(LOINC) 8.6 - 10.6 mg/dL CALCIUM Low 8.2 LAB PHOS(LOINC) 2.5 - 4.9 mg/dL PHOSPHORUS 3.5 Result Comment: The performance characteristics of phosphorus testing in heparinized plasma have been validated by the individual laboratory site where testing is performed. Testing on heparinized plasma is not approved by the FDA; however, such approval is not necessary. LAB ALB(LOINC) 3.4 - 5.0 g/dL Low ALBUMIN 3.0 Performed By: #### RENAL #### [facility] [address] [place] [address] ARTERIAL BLOOD GAS Collected: 11/24/2017 Status: F Source: [place] 8:03 PM [facility] REPOSITORY TYPE CODE TESTS RESULT OUT OF REFERENCE UNITS RANGE LAB PHART(LOIN 7.38 - 7.42 C) pH High 7.51 LAB PCO2A(LOIN 38 - 42 mmHg C) PCO2 Low 31 LAB PO2A(LOINC 85 - 95 mmHg ) PO2 Low 59 LAB TEMP(LOINC degrees C ) PATIENT TEMPERATURE 37.0 Result Comment: NOTE: PATIENT RESULTS ARE NOT CORRECTED FOR TEMPERATURE. LAB SO2%A(LOINC) 94 - 100 % SO2 96 LAB BSEXB(LOINC) -2.0 - 3.0 mmol/L BASE EXCESS-BLOOD 1.8 LAB BICAR(LOINC) 22.0 - mmol/L 26.0 BICARB, CALCULATED 24.7 Performed By: #### [email or web address] #### [facility] [address] [place] [address] GLUCOSE-POCT Collected: 11/24/2017 Status: F Source: [place] 7:19 PM [facility] REPOSITORY TYPE CODE TESTS RESULT OUT OF RANGE REFERENCE UNITS LAB GLUP(LOINC) 74 - 99 mg/dL High 132 GLUCOSE-POCT Performed By: #### GLUPO #### [facility] [address] [place] [address] ARTERIAL FULL PANEL Collected: 11/24/2017 Status: F Source: [place] 4:35 PM [facility] REPOSITORY TYPE CODE TESTS RESULT OUT OF REFERENCE UNITS RANGE LAB PHART(LOIN 7.38 - 7.42 C) pH High 7.50 LAB PCO2A(LOIN 38 - 42 mmHg C) PCO2 Low 32 LAB PO2A(LOINC 85 - 95 mmHg ) PO2 Low 73 LAB TEMP(LOINC degrees C ) PATIENT TEMPERATURE 37.0 Result Comment: NOTE: PATIENT RESULTS ARE NOT CORRECTED FOR TEMPERATURE. LAB SO2%A(LOINC) 94 - 100 % SO2 98 LAB HCTN(LOINC) 41.0 - % Low 52.0 HCT 22.0 LAB SODN(LOINC) 136 - 145 mmol/L Low SODIUM 135 LAB POTN(LOINC) 3.5 - 5.3 mmol/L POTASSIUM 4.0 LAB CHLN(LOINC) 98 - 107 mmol/L CHLORIDE 107 LAB IONCA(LOINC) 1.10 - mmol/L 1.33 CALCIUM,IONIZED 1.11 LAB GLUN(LOINC) 74 - 99 mg/dL GLUCOSE High 135 LAB LACTN(LOINC) 0.4 - 2.0 mmol/L LACTATE 1.2 LAB BSEXB(LOINC) -2.0 - 3.0 mmol/L BASE EXCESS-BLOOD 1.8 LAB BICAR(LOINC) 22.0 - mmol/L 26.0 BICARB, CALCULATED 25.0 LAB HGBNC(LOINC) 13.5 - g/dL Low 17.5 HGB,CALCULATED 7.5 LAB ANGPN(LOINC) 10 - 25 mmol/L Low ANION GAP 7 Performed By: #### [email or web address] #### [facility] [address] [place] [address] GLUCOSE-POCT Collected: 11/24/2017 Status: F Source: [place] 4:32 PM [facility] REPOSITORY TYPE CODE TESTS RESULT OUT OF RANGE REFERENCE UNITS LAB GLUP(LOINC) 74 - 99 mg/dL High 114 GLUCOSE-POCT Performed By: #### GLUPO #### [facility] [id number] [place] [address] ARTERIAL FULL PANEL Collected: 11/24/2017 Status: F Source: [place] 2:00 [facility] REPOSITORY TYPE CODE TESTS RESULT OUT OF REFERENCE UNITS RANGE LAB PHART(LOIN 7.38 - 7.42 C) pH High 7.48 LAB PCO2A(LOIN 38 - 42 mmHg C) PCO2 Low 34 LAB PO2A(LOINC 85 - 95 mmHg ) PO2 High 100 LAB TEMP(LOINC degrees C ) PATIENT TEMPERATURE 37.0 Result Comment: NOTE: PATIENT RESULTS ARE NOT CORRECTED FOR TEMPERATURE. LAB SO2%A(LOINC) 94 - 100 % SO2 99 LAB HCTN(LOINC) 41.0 - % Low 52.0 HCT 24.0 LAB SODN(LOINC) 136 - 145 mmol/L Low SODIUM 134 LAB POTN(LOINC) 3.5 - 5.3 mmol/L POTASSIUM 3.8 LAB CHLN(LOINC) 98 - 107 mmol/L CHLORIDE 106 LAB IONCA(LOINC) 1.10 - mmol/L 1.33 CALCIUM,IONIZED 1.15 LAB GLUN(LOINC) 74 - 99 mg/dL GLUCOSE High 137 LAB LACTN(LOINC) 0.4 - 2.0 mmol/L LACTATE 1.3 LAB BSEXB(LOINC) -2.0 - 3.0 mmol/L BASE EXCESS-BLOOD 1.8 LAB BICAR(LOINC) 22.0 - mmol/L 26.0 BICARB, CALCULATED 25.3 LAB HGBNC(LOINC) 13.5 - g/dL Low 17.5 HGB,CALCULATED 8.2 LAB ANGPN(LOINC) 10 - 25 mmol/L Low ANION GAP 7 Performed By: #### [email or web address] #### [facility] [id number] [place] [address] CBC Collected: 11/24/2017 Status: F Source: [place] 1:39 [facility] REPOSITORY TYPE CODE TESTS RESULT OUT OF REFERENCE UNITS RANGE LAB WBCR(LOINC 4.4 - 11.3 x10E9/L ) WBC 10.5 LAB NRBC(LOINC 0.0-0.0 /100 WBC ) NUCLEATED RBC 0.0 LAB RBCCT(LOIN 4.50 - 5.90 x10E12/L C) Low RBC 3.77 LAB HGB(LOINC) 13.5 - 17.5 g/dL Low HGB 8.5 LAB HCT(LOINC) 41.0 - 52.0 % Low HCT 27.9 LAB MCV(LOINC) 80 - 100 fL Low MCV 74 LAB MCHC2(LOIN 32.0 - 36.0 g/dL C) Low MCHC 30.5 LAB PLTCT(LOIN 150 - 450 x10E9/L C) PLT 188 LAB RDWCV(LOIN 11.5 - 14.5 % C) High RDW-CV 26.9 Performed By: #### CBC #### [facility] [id number] [place] [address] CALCIUM, IONIZED Collected: 11/24/2017 Status: F Source: [place] 1:39 [facility] REPOSITORY TYPE CODE TESTS RESULT OUT OF RANGE REFERENCE UNITS LAB CAION(LOINC 1.10 - 1.33 mmol/L ) 1.13 CALCIUM,IONI ZED Result Comment: The performance characteristics of ionized calcium tested in heparinized plasma or serum have been validated by the individual laboratory site where testing is performed. Testing on heparinized plasma or serum is not approved by the FDA; however, such approval is not necessary. Performed By: #### [email or web address] #### [facility] [address] [place] [address] MAGNESIUM Collected: 11/24/2017 Status: F Source: [place] 1:39 [facility] REPOSITORY TYPE CODE TESTS RESULT OUT OF REFERENCE UNITS RANGE LAB MG(LOINC) 1.60 - 2.40 mg/dL MAGNESIUM 2.27 Performed By: #### MG #### [facility] [address] [place] [address] RENAL FUNCTION PANEL Collected: 11/24/2017 Status: F Source: [place] 1:39 [facility] REPOSITORY TYPE CODE TESTS RESULT OUT OF REFERENCE UNITS RANGE LAB GLU(LOINC) 74 - 99 mg/dL GLUCOSE High 132 LAB SOD(LOINC) 136 - 145 mmol/L SODIUM 138 LAB K(LOINC) 3.5 - 5.3 mmol/L POTASSIUM 4.1 LAB CHLOR(LOIN 98 - 107 mmol/L C) CHLORIDE 105 LAB BIC(LOINC) 21 - 32 mmol/L BICARBONATE 24 LAB ANGAP(LOIN 10 - 20 mmol/L C) ANION GAP 13 LAB UREA(LOINC 6 - 23 mg/dL ) UREA NITROGEN 19 LAB CREA(LOINC 0.50 - 1.30 mg/dL ) CREATININE 1.05 LAB GFRFN(LOIN >60 mL/min/1.7 C) 3m2 GFR-NON AM. >60 LAB GFRAA(LOIN >60 mL/min/1.7 C) 3m2 GFR- AM. >60 Result Comment: CALCULATIONS OF ESTIMATED GFR ARE PERFORMED USING THE MDRD STUDY EQUATION FOR THE IDMS-TRACEABLE CREATININE METHODS. CLIN CHEM 2007;53:766-72 LAB CA(LOINC) 8.6 - 10.6 mg/dL CALCIUM Low 8.5 LAB PHOS(LOINC) 2.5 - 4.9 mg/dL PHOSPHORUS 3.8 Result Comment: The performance characteristics of phosphorus testing in heparinized plasma have been validated by the individual laboratory site where testing is performed. Testing on heparinized plasma is not approved by the FDA; however, such approval is not necessary. LAB ALB(LOINC) 3.4 - 5.0 g/dL Low ALBUMIN 3.3 Performed By: #### RENAL #### [facility] [address] [place] [address] GLUCOSE-POCT Collected: 11/24/2017 Status: F Source: [place] 12:17 [facility] REPOSITORY TYPE CODE TESTS RESULT OUT OF RANGE REFERENCE UNITS LAB GLUP(LOINC) 74 - 99 mg/dL High 136 GLUCOSE-POCT Performed By: #### GLUPO #### [facility] [address] [place] [address] GLUCOSE-POCT Collected: 11/24/2017 Status: F Source: [place] 11:54 [facility] REPOSITORY TYPE CODE TESTS RESULT OUT OF RANGE REFERENCE UNITS LAB GLUP(LOINC) 74 - 99 mg/dL High 136 GLUCOSE-POCT Performed By: #### GLUPO #### [facility] [address] [place] [address] GLUCOSE-POCT Collected: 11/24/2017 Status: F Source: [place] 8:43 AM [facility] REPOSITORY TYPE CODE TESTS RESULT OUT OF RANGE REFERENCE UNITS LAB GLUP(LOINC) 74 - 99 mg/dL High 143 GLUCOSE-POCT Performed By: #### GLUPO #### [facility] [address] [place] [address] TH CHEST 1 VIEW Observed: 11/24/2017 Status: F Source: [place] 5:00 [facility] REPOSITORY Patient Name: ANDREI RODRIGUEZ STUDY: TH CHEST 1 VIEW; 11/24/2017 5:00 am INDICATION: Signs/Symptoms: CT surgey. COMPARISON: 11/23/2017, CT dated 11/20/2017 ACCESSION NUMBER(S): [id number] ORDERING CLINICIAN: AKASH PAREKH FINDINGS: The patient is status post median sternotomy. there is an endotracheal tube in place with the distal tip terminating approximately 5.6 cm from the level the mariella. There is a right IJ [place] catheter with the distal tip terminating in the main pulmonary artery. There is a left-sided chest tube in place.There is an intra-aortic balloon pump in place. CARDIOMEDIASTINAL SILHOUETTE: Cardiomediastinal silhouette is enlarged and stable in size and configuration. LUNGS: Redemonstration of bilateral perihilar congestion, unchanged compared to prior examination. No evidence of focal consolidation or pneumothorax. ABDOMEN: No remarkable upper abdominal findings. BONES: No acute osseous changes. IMPRESSION: 1. Unchanged bilateral perihilar congestion. No malou edema. 2. Status post median sternotomy. 3. Stable medical appliances as detailed above. I personally reviewed the images/study and I agree with the findings as stated. This study was interpreted at [facility], [place], [place]. Electronically signed by: JOSE MIGUEL ALAS MD ARTERIAL FULL PANEL Collected: 11/24/2017 Status: F Source: [place] 2:31 [facility] REPOSITORY TYPE CODE TESTS RESULT OUT OF REFERENCE UNITS RANGE LAB PHART(LOIN 7.38 - 7.42 C) pH High 7.47 LAB PCO2A(LOIN 38 - 42 mmHg C) PCO2 Low 33 LAB PO2A(LOINC 85 - 95 mmHg ) PO2 92 LAB TEMP(LOINC degrees C ) PATIENT TEMPERATURE 37.0 Result Comment: NOTE: PATIENT RESULTS ARE NOT CORRECTED FOR TEMPERATURE. LAB SO2%A(LOINC) 94 - 100 % SO2 99 LAB HCTN(LOINC) 41.0 - % Low 52.0 HCT 25.0 LAB SODN(LOINC) 136 - 145 mmol/L Low SODIUM 135 LAB POTN(LOINC) 3.5 - 5.3 mmol/L POTASSIUM 4.0 LAB CHLN(LOINC) 98 - 107 mmol/L CHLORIDE 107 LAB IONCA(LOINC) 1.10 - mmol/L 1.33 CALCIUM,IONIZED 1.15 LAB GLUN(LOINC) 74 - 99 mg/dL GLUCOSE High 144 LAB LACTN(LOINC) 0.4 - 2.0 mmol/L LACTATE 1.2 LAB BSEXB(LOINC) -2.0 - 3.0 mmol/L BASE EXCESS-BLOOD 0.5 LAB BICAR(LOINC) 22.0 - mmol/L 26.0 BICARB, CALCULATED 24.0 LAB HGBNC(LOINC) 13.5 - g/dL Low 17.5 HGB,CALCULATED 8.5 LAB ANGPN(LOINC) 10 - 25 mmol/L Low ANION GAP 8 Performed By: #### AFPA3 #### [facility] [address] [place] [address] CALCIUM, IONIZED Collected: 11/24/2017 Status: F Source: [place] 2:24 [facility] REPOSITORY TYPE CODE TESTS RESULT OUT OF RANGE REFERENCE UNITS LAB CAION(LOINC 1.10 - 1.33 mmol/L ) 1.17 CALCIUM,IONI ZED Result Comment: The performance characteristics of ionized calcium tested in heparinized plasma or serum have been validated by the individual laboratory site where testing is performed. Testing on heparinized plasma or serum is not approved by the FDA; however, such approval is not necessary. Performed By: #### IONC1 #### [facility] [address] [place] [address] CBC Collected: 11/24/2017 Status: F Source: [place] [id number] [facility] REPOSITORY TYPE CODE TESTS RESULT OUT OF REFERENCE UNITS RANGE LAB WBCR(LOINC 4.4 - 11.3 x10E9/L ) WBC 8.7 LAB NRBC(LOINC 0.0-0.0 /100 WBC ) NUCLEATED RBC 0.0 LAB RBCCT(LOIN 4.50 - 5.90 x10E12/L C) Low RBC 3.73 LAB HGB(LOINC) 13.5 - 17.5 g/dL Low HGB 8.6 LAB HCT(LOINC) 41.0 - 52.0 % Low HCT 27.6 LAB MCV(LOINC) 80 - 100 fL Low MCV 74 LAB MCHC2(LOIN 32.0 - 36.0 g/dL C) Low MCHC 31.2 LAB PLTCT(LOIN 150 - 450 x10E9/L C) PLT 187 LAB RDWCV(LOIN 11.5 - 14.5 % C) High RDW-CV 26.2 Performed By: #### CBC #### [facility] [address] [place] [address] MAGNESIUM Collected: 11/24/2017 Status: F Source: [place] 2:24 [facility] REPOSITORY TYPE CODE TESTS RESULT OUT OF REFERENCE UNITS RANGE LAB MG(LOINC) 1.60 - 2.40 mg/dL MAGNESIUM 2.13 Performed By: #### MG #### [facility] [address] [place] [address] RENAL FUNCTION PANEL Collected: 11/24/2017 Status: F Source: [place] 2:24 [facility] REPOSITORY TYPE CODE TESTS RESULT OUT OF REFERENCE UNITS RANGE LAB GLU(LOINC) 74 - 99 mg/dL GLUCOSE High 142 LAB SOD(LOINC) 136 - 145 mmol/L SODIUM 138 LAB K(LOINC) 3.5 - 5.3 mmol/L POTASSIUM 4.1 LAB CHLOR(LOIN 98 - 107 mmol/L C) CHLORIDE 105 LAB BIC(LOINC) 21 - 32 mmol/L BICARBONATE 24 LAB ANGAP(LOIN 10 - 20 mmol/L C) ANION GAP 13 LAB UREA(LOINC 6 - 23 mg/dL ) UREA NITROGEN 18 LAB CREA(LOINC 0.50 - 1.30 mg/dL ) CREATININE 1.05 LAB GFRFN(LOIN >60 mL/min/1.7 C) 3m2 GFR-NON AM. >60 LAB GFRAA(LOIN >60 mL/min/1.7 C) 3m2 GFR- AM. >60 Result Comment: CALCULATIONS OF ESTIMATED GFR ARE PERFORMED USING THE MDRD STUDY EQUATION FOR THE IDMS-TRACEABLE CREATININE METHODS. CLIN CHEM 2007;53:766-72 LAB CA(LOINC) 8.6 - 10.6 mg/dL CALCIUM Low 8.4 LAB PHOS(LOINC) 2.5 - 4.9 mg/dL PHOSPHORUS 4.7 Result Comment: The performance characteristics of phosphorus testing in heparinized plasma have been validated by the individual laboratory site where testing is performed. Testing on heparinized plasma is not approved by the FDA; however, such approval is not necessary. LAB ALB(LOINC) 3.4 - 5.0 g/dL Low ALBUMIN 3.3 Performed By: #### RENAL #### [facility] [address] [place] [id number] COAGULATION SCREEN Collected: 11/24/2017 Status: F Source: [place] 2:24 [facility] REPOSITORY TYPE CODE TESTS RESULT OUT OF REFERENCE UNITS RANGE LAB PT(LOINC) 9.8 - 12.7 sec PROTHROMBIN High TIME 15.2 LAB INR(LOINC) 0.9 - 1.1 PT, INR High 1.4 LAB APTT(LOINC 25 - 36 sec ) APTT 27 Result Comment: THE APTT IS NO LONGER USED FOR MONITORING UNFRACTIONATED HEPARIN THERAPY. FOR MONITORING HEPARIN THERAPY, USE THE HEPARIN ASSAY. Performed By: #### COAGS #### [facility] [address] [place] [address] GLUCOSE-POCT Collected: 11/24/2017 Status: F Source: [place] 2:18 [facility] REPOSITORY TYPE CODE TESTS RESULT OUT OF RANGE REFERENCE UNITS LAB GLUP(LOINC) 74 - 99 mg/dL High 140 GLUCOSE-POCT Result Comment: Glu2: Arterial Performed By: #### GLUPO #### [facility] [address] [place] [address] GLUCOSE-POCT Collected: 11/23/2017 Status: F Source: [place] 11:03 [facility] REPOSITORY TYPE CODE TESTS RESULT OUT OF RANGE REFERENCE UNITS LAB GLUP(LOINC) 74 - 99 mg/dL High 129 GLUCOSE-POCT Result Comment: Glu2: Arterial Performed By: #### GLUPO #### [facility] [address] [place] [address] GLUCOSE-POCT Collected: 11/23/2017 Status: F Source: [place] 10:06 [facility] REPOSITORY TYPE CODE TESTS RESULT OUT OF RANGE REFERENCE UNITS LAB GLUP(LOINC) 74 - 99 mg/dL High 130 GLUCOSE-POCT Result Comment: Glu2: Arterial Performed By: #### GLUPO #### [facility] [address] [place] [address] GLUCOSE-POCT Collected: 11/23/2017 Status: F Source: [place] 9:07 [facility] REPOSITORY TYPE CODE TESTS RESULT OUT OF RANGE REFERENCE UNITS LAB GLUP(LOINC) 74 - 99 mg/dL High 130 GLUCOSE-POCT Result Comment: Glu2: Arterial Performed By: #### GLUPO #### [facility] [address] [place] [address] ARTERIAL FULL PANEL Collected: 11/23/2017 Status: F Source: [place] 8:21 [facility] REPOSITORY TYPE CODE TESTS RESULT OUT OF REFERENCE UNITS RANGE LAB PHART(LOIN 7.38 - 7.42 C) pH High 7.45 LAB PCO2A(LOIN 38 - 42 mmHg C) PCO2 Low 35 LAB PO2A(LOINC 85 - 95 mmHg ) PO2 Low 80 LAB TEMP(LOINC degrees C ) PATIENT TEMPERATURE 37.0 Result Comment: NOTE: PATIENT RESULTS ARE NOT CORRECTED FOR TEMPERATURE. LAB SO2%A(LOINC) 94 - 100 % SO2 98 LAB HCTN(LOINC) 41.0 - % Low 52.0 HCT 25.0 LAB SODN(LOINC) 136 - 145 mmol/L SODIUM 136 LAB POTN(LOINC) 3.5 - 5.3 mmol/L POTASSIUM 4.2 LAB CHLN(LOINC) 98 - 107 mmol/L CHLORIDE 106 LAB IONCA(LOINC) 1.10 - mmol/L 1.33 CALCIUM,IONIZED 1.19 LAB GLUN(LOINC) 74 - 99 mg/dL GLUCOSE High 119 LAB LACTN(LOINC) 0.4 - 2.0 mmol/L LACTATE 1.1 LAB BSEXB(LOINC) -2.0 - 3.0 mmol/L BASE EXCESS-BLOOD 0.4 LAB BICAR(LOINC) 22.0 - mmol/L 26.0 BICARB, CALCULATED 24.3 LAB HGBNC(LOINC) 13.5 - g/dL Low 17.5 HGB,CALCULATED 8.5 LAB ANGPN(LOINC) 10 - 25 mmol/L ANION GAP 10 Performed By: #### [email or web address] #### [facility] [address] [place] [address] GLUCOSE-POCT Collected: 11/23/2017 Status: F Source: [place] 8:13 [facility] REPOSITORY TYPE CODE TESTS RESULT OUT OF RANGE REFERENCE UNITS LAB GLUP(LOINC) 74 - 99 mg/dL High 130 GLUCOSE-POCT Result Comment: Glu2: Arterial Performed By: #### GLUPO #### [facility] [address] [place] [address] GLUCOSE-POCT Collected: 11/23/2017 Status: F Source: [place] 7:05 [facility] REPOSITORY TYPE CODE TESTS RESULT OUT OF RANGE REFERENCE UNITS LAB GLUP(LOINC) 74 - 99 mg/dL High 125 GLUCOSE-POCT Performed By: #### GLUPO #### [facility] [address] [place] [address] GLUCOSE-POCT Collected: 11/23/2017 Status: F Source: [place] 5:14 [facility] REPOSITORY TYPE CODE TESTS RESULT OUT OF RANGE REFERENCE UNITS LAB GLUP(LOINC) 74 - 99 mg/dL High 151 GLUCOSE-POCT Performed By: #### GLUPO #### [facility] [address] [place] [address] TH CHEST 1 VIEW Observed: 11/23/2017 Status: F Source: [place] 4:41 [facility] REPOSITORY Patient Name: ANDREI RODRIGUEZ STUDY: CHEST 1 VIEW; 11/23/2017 4:41 pm INDICATION: Signs/Symptoms: post op. COMPARISON: Chest x-ray 11/20/2017d ACCESSION NUMBER(S): [id number] ORDERING CLINICIAN: AKASH PAREKH FINDINGS: The endotracheal tube tip overlies 6 cm above the mariella at the level of the thoracic inlet. There is a right IJ central venous catheter with the tip overlies the main pulmonary artery. The enteric tube is extending below the diaphragm, the tip is incompletely visualized. There is a left apical chest tube is in place. CARDIOMEDIASTINAL SILHOUETTE: The cardiomediastinal silhouette is enlarged, unchanged. Intra-aortic balloon pump is in place. LUNGS: Mild perihilar congestion with no malou edema. No focal consolidations, sizeable pleural effusion or pneumothorax. ABDOMEN: No remarkable upper abdominal findings. BONES: No acute osseous changes. IMPRESSION: 1. Endotracheal tube tip overlies 6 cm above the mariella at the level of the thoracic inlet. 2. Perihilar congestion with no malou edema. I personally reviewed the study and resident interpretation. I agree with the findings as stated. This study was interpreted at [facility]. Electronically signed by: Kip REDDY MD ARTERIAL FULL PANEL Collected: 11/23/2017 Status: F Source: [place] 4:15 [facility] REPOSITORY TYPE CODE TESTS RESULT OUT OF REFERENCE UNITS RANGE LAB PHART(LOIN 7.38 - 7.42 C) pH 7.42 LAB PCO2A(LOIN 38 - 42 mmHg C) PCO2 38 LAB PO2A(LOINC 85 - 95 mmHg ) PO2 Low 74 LAB TEMP(LOINC degrees C ) PATIENT TEMPERATURE 37.0 Result Comment: NOTE: PATIENT RESULTS ARE NOT CORRECTED FOR TEMPERATURE. LAB SO2%A(LOINC) 94 - 100 % SO2 98 LAB HCTN(LOINC) 41.0 - % Low 52.0 HCT 27.0 LAB SODN(LOINC) 136 - 145 mmol/L SODIUM 137 LAB POTN(LOINC) 3.5 - 5.3 mmol/L POTASSIUM 4.1 LAB CHLN(LOINC) 98 - 107 mmol/L CHLORIDE 105 LAB IONCA(LOINC) 1.10 - mmol/L 1.33 CALCIUM,IONIZED 1.29 LAB GLUN(LOINC) 74 - 99 mg/dL GLUCOSE High 156 LAB LACTN(LOINC) 0.4 - 2.0 mmol/L LACTATE 1.7 LAB BSEXB(LOINC) -2.0 - 3.0 mmol/L BASE EXCESS-BLOOD 0.2 LAB BICAR(LOINC) 22.0 - mmol/L 26.0 BICARB, CALCULATED 24.6 LAB HGBNC(LOINC) 13.5 - g/dL Low 17.5 HGB,CALCULATED 9.2 LAB ANGPN(LOINC) 10 - 25 mmol/L ANION GAP 12 Performed By: #### AFPA3 #### [facility] [address] [place] [address] CALCIUM, IONIZED Collected: 11/23/2017 Status: F Source: [place] 4:[address] [place] [address] REPOSITORY TYPE CODE TESTS RESULT OUT OF RANGE REFERENCE UNITS LAB CAION(LOINC 1.10 - 1.33 mmol/L ) 1.28 CALCIUM,IONI ZED Result Comment: The performance characteristics of ionized calcium tested in heparinized plasma or serum have been validated by the individual laboratory site where testing is performed. Testing on heparinized plasma or serum is not approved by the FDA; however, such approval is not necessary. Performed By: #### IONC1 #### [facility] [address] [place] [address] CBC Collected: 11/23/2017 Status: F Source: [place] 4:[address] [place] [address] REPOSITORY TYPE CODE TESTS RESULT OUT OF REFERENCE UNITS RANGE LAB WBCR(LOINC 4.4 - 11.3 x10E9/L ) WBC 10.6 LAB NRBC(LOINC 0.0-0.0 /100 WBC ) NUCLEATED RBC 0.0 LAB RBCCT(LOIN 4.50 - 5.90 x10E12/L C) Low RBC 3.98 LAB HGB(LOINC) 13.5 - 17.5 g/dL Low HGB 9.2 LAB HCT(LOINC) 41.0 - 52.0 % Low HCT 29.7 LAB MCV(LOINC) 80 - 100 fL Low MCV 75 LAB MCHC2(LOIN 32.0 - 36.0 g/dL C) Low MCHC 31.0 LAB PLTCT(LOIN 150 - 450 x10E9/L C) PLT 181 LAB RDWCV(LOIN 11.5 - 14.5 % C) High RDW-CV 26.1 Performed By: #### CBC #### [facility] [address] [place] [address] MAGNESIUM Collected: 11/23/2017 Status: F Source: [place] 4:[facility] REPOSITORY TYPE CODE TESTS RESULT OUT OF REFERENCE UNITS RANGE LAB MG(LOINC) 1.60 - 2.40 mg/dL MAGNESIUM 2.34 Performed By: #### MG #### [facility] [address] [place] [address] RENAL FUNCTION PANEL Collected: 11/23/2017 Status: F Source: [place] 4:[address] [place] [address] REPOSITORY TYPE CODE TESTS RESULT OUT OF REFERENCE UNITS RANGE LAB GLU(LOINC) 74 - 99 mg/dL GLUCOSE High 167 LAB SOD(LOINC) 136 - 145 mmol/L SODIUM 138 LAB K(LOINC) 3.5 - 5.3 mmol/L POTASSIUM 4.2 LAB CHLOR(LOIN 98 - 107 mmol/L C) CHLORIDE 105 LAB BIC(LOINC) 21 - 32 mmol/L BICARBONATE 26 LAB ANGAP(LOIN 10 - 20 mmol/L C) ANION GAP 11 LAB UREA(LOINC 6 - 23 mg/dL ) UREA NITROGEN 13 LAB CREA(LOINC 0.50 - 1.30 mg/dL ) CREATININE 1.12 LAB GFRFN(LOIN >60 mL/min/1.7 C) 3m2 GFR-NON AM. >60 LAB GFRAA(LOIN >60 mL/min/1.7 C) 3m2 GFR- AM. >60 Result Comment: CALCULATIONS OF ESTIMATED GFR ARE PERFORMED USING THE MDRD STUDY EQUATION FOR THE IDMS-TRACEABLE CREATININE METHODS. CLIN CHEM 2007;53:766-72 LAB CA(LOINC) 8.6 - 10.6 mg/dL CALCIUM 9.1 LAB PHOS(LOINC) 2.5 - 4.9 mg/dL PHOSPHORUS 4.3 Result Comment: The performance characteristics of phosphorus testing in heparinized plasma have been validated by the individual laboratory site where testing is performed. Testing on heparinized plasma is not approved by the FDA; however, such approval is not necessary. LAB ALB(LOINC) 3.4 - 5.0 g/dL ALBUMIN 3.5 Performed By: #### RENAL #### [facility] [address] [place] [address] FIBRINOGEN Collected: 11/23/2017 Status: F Source: [place] 4:07 [facility] REPOSITORY TYPE CODE TESTS RESULT OUT OF REFERENCE UNITS RANGE LAB FIBRN(LOIN 200 - 400 mg/dL C) FIBRINOGEN 373 Performed By: #### FIB #### [facility] [id number] [place], [place] [id number] COAGULATION SCREEN Collected: 11/23/2017 Status: F Source: [place] 4:07 [facility] REPOSITORY TYPE CODE TESTS RESULT OUT OF REFERENCE UNITS RANGE LAB PT(LOINC) 9.8 - 12.7 sec PROTHROMBIN High TIME 16.7 LAB INR(LOINC) 0.9 - 1.1 PT, INR High 1.5 LAB APTT(LOINC 25 - 36 sec ) APTT 32 Result Comment: THE APTT IS NO LONGER USED FOR MONITORING UNFRACTIONATED HEPARIN THERAPY. FOR MONITORING HEPARIN THERAPY, USE THE HEPARIN ASSAY. Performed By: #### COAGS #### [facility] [address] [place] [address] GLUCOSE-POCT Collected: 11/23/2017 Status: F Source: [place] 4:05 [facility] REPOSITORY TYPE CODE TESTS RESULT OUT OF RANGE REFERENCE UNITS LAB GLUP(LOINC) 74 - 99 mg/dL High 164 GLUCOSE-POCT Performed By: #### GLUPO #### [facility] [id number] [place] [address] COOX PANEL, ARTERIAL Collected: 11/23/2017 Status: F Source: [place] 3:29 [facility] REPOSITORY TYPE CODE TESTS RESULT OUT OF RANGE REFERENCE UNITS LAB HGBXC(LOINC 13.5 - 17.5 g/dL ) Low HGB 9.4 LAB O2CX1(LOINC 94.0 - 98.0 % ) OXY 95.9 HGB LAB COHG1(LOINC % ) Abnormal CO 1.9 HGB Result Comment: REF VALUES NONSMOKERS 0.5-1.5% SMOKERS 0.5-10.0% LAB METC1(LOINC) 0.0 - 1.5 % MET HGB 1.2 LAB DOXHG(LOINC) 0.0 - 5.0 % DEOXY HGB 0.9 Performed By: #### COOXA #### [facility] [address] [place] [address] ARTERIAL FULL PANEL Collected: 11/23/2017 Status: F Source: [place] 3:29 [facility] REPOSITORY TYPE CODE TESTS RESULT OUT OF REFERENCE UNITS RANGE LAB PHART(LOIN 7.38 - 7.42 C) pH 7.39 LAB PCO2A(LOIN 38 - 42 mmHg C) PCO2 42 LAB PO2A(LOINC 85 - 95 mmHg ) PO2 High 133 LAB TEMP(LOINC degrees C ) PATIENT TEMPERATURE 37.0 Result Comment: NOTE: PATIENT RESULTS ARE NOT CORRECTED FOR TEMPERATURE. LAB FIO2(LOINC) % FIO2 76 LAB SO2%A(LOINC) 94 - 100 % SO2 99 LAB HCTN(LOINC) 41.0 - % Low 52.0 HCT 26.0 LAB SODN(LOINC) 136 - 145 mmol/L Low SODIUM 135 LAB POTN(LOINC) 3.5 - 5.3 mmol/L POTASSIUM 4.3 LAB CHLN(LOINC) 98 - 107 mmol/L CHLORIDE 104 LAB IONCA(LOINC) 1.10 - mmol/L 1.33 CALCIUM,IONIZED 1.30 LAB GLUN(LOINC) 74 - 99 mg/dL GLUCOSE High 177 LAB LACTN(LOINC) 0.4 - 2.0 mmol/L LACTATE High 2.1 LAB BSEXB(LOINC) -2.0 - 3.0 mmol/L BASE EXCESS-BLOOD 0.3 LAB BICAR(LOINC) 22.0 - mmol/L 26.0 BICARB, CALCULATED 25.4 LAB HGBNC(LOINC) 13.5 - g/dL Low 17.5 HGB,CALCULATED 8.8 LAB ANGPN(LOINC) 10 - 25 mmol/L ANION GAP 10 Performed By: #### AFPA3 #### [facility] [address] [place] [address] COOX PANEL, ARTERIAL Collected: 11/23/2017 Status: F Source: [place] 3:04 [facility] REPOSITORY TYPE CODE TESTS RESULT OUT OF RANGE REFERENCE UNITS LAB HGBXC(LOINC 13.5 - 17.5 g/dL ) Low HGB 8.7 LAB O2CX1(LOINC 94.0 - 98.0 % ) OXY 96.2 HGB LAB COHG1(LOINC % ) Abnormal CO 1.9 HGB Result Comment: REF VALUES NONSMOKERS 0.5-1.5% SMOKERS 0.5-10.0% LAB METC1(LOINC) 0.0 - 1.5 % MET HGB 1.2 LAB DOXHG(LOINC) 0.0 - 5.0 % DEOXY HGB 0.6 Performed By: #### COOXA #### [facility] [address] [place] [address] ARTERIAL FULL PANEL Collected: 11/23/2017 Status: F Source: [place] 3:04 [facility] REPOSITORY TYPE CODE TESTS RESULT OUT OF REFERENCE UNITS RANGE LAB PHART(LOIN 7.38 - 7.42 C) pH 7.39 LAB PCO2A(LOIN 38 - 42 mmHg C) PCO2 41 LAB PO2A(LOINC 85 - 95 mmHg ) PO2 High 171 LAB TEMP(LOINC degrees C ) PATIENT TEMPERATURE 37.0 Result Comment: NOTE: PATIENT RESULTS ARE NOT CORRECTED FOR TEMPERATURE. LAB FIO2(LOINC) % FIO2 75 LAB SO2%A(LOINC) 94 - 100 % SO2 99 LAB HCTN(LOINC) 41.0 - % Low 52.0 HCT 24.0 LAB SODN(LOINC) 136 - 145 mmol/L SODIUM 136 LAB POTN(LOINC) 3.5 - 5.3 mmol/L POTASSIUM 4.1 LAB CHLN(LOINC) 98 - 107 mmol/L CHLORIDE 105 LAB IONCA(LOINC) 1.10 - mmol/L 1.33 CALCIUM,IONIZED 1.13 LAB GLUN(LOINC) 74 - 99 mg/dL GLUCOSE High 188 LAB LACTN(LOINC) 0.4 - 2.0 mmol/L LACTATE High 2.3 LAB BSEXB(LOINC) -2.0 - 3.0 mmol/L BASE EXCESS-BLOOD -0.2 LAB BICAR(LOINC) 22.0 - mmol/L 26.0 BICARB, CALCULATED 24.8 LAB HGBNC(LOINC) 13.5 - g/dL Low 17.5 HGB,CALCULATED 8.2 LAB ANGPN(LOINC) 10 - 25 mmol/L ANION GAP 10 Performed By: #### [email or web address] #### [facility] [address] [place] [address] ARTERIAL FULL PANEL Collected: 11/23/2017 Status: F Source: [place] 2:31 [facility] REPOSITORY TYPE CODE TESTS RESULT OUT OF REFERENCE UNITS RANGE LAB PHART(LOIN 7.38 - 7.42 C) pH Low 7.36 LAB PCO2A(LOIN 38 - 42 mmHg C) PCO2 High 43 LAB PO2A(LOINC 85 - 95 mmHg ) PO2 High 96 LAB TEMP(LOINC degrees C ) PATIENT TEMPERATURE 37.0 Result Comment: NOTE: PATIENT RESULTS ARE NOT CORRECTED FOR TEMPERATURE. LAB FIO2(LOINC) % FIO2 75 LAB SO2%A(LOINC) 94 - 100 % SO2 98 LAB HCTN(LOINC) 41.0 - % Low 52.0 HCT 30.0 LAB SODN(LOINC) 136 - 145 mmol/L Low SODIUM 135 LAB POTN(LOINC) 3.5 - 5.3 mmol/L POTASSIUM 4.3 LAB CHLN(LOINC) 98 - 107 mmol/L CHLORIDE 106 LAB IONCA(LOINC) 1.10 - mmol/L Low 1.33 CALCIUM,IONIZED 1.07 LAB GLUN(LOINC) 74 - 99 mg/dL GLUCOSE High 162 LAB LACTN(LOINC) 0.4 - 2.0 mmol/L LACTATE 1.8 LAB BSEXB(LOINC) -2.0 - 3.0 mmol/L BASE EXCESS-BLOOD -1.2 LAB BICAR(LOINC) 22.0 - mmol/L 26.0 BICARB, CALCULATED 24.3 LAB HGBNC(LOINC) 13.5 - g/dL Low 17.5 HGB,CALCULATED 10.2 LAB ANGPN(LOINC) 10 - 25 mmol/L Low ANION GAP 9 Performed By: #### [email or web address] #### [facility] [id number] [place] [address] COOX PANEL, ARTERIAL Collected: 11/23/2017 Status: F Source: [place] 2:[address] [place] [address] REPOSITORY TYPE CODE TESTS RESULT OUT OF RANGE REFERENCE UNITS LAB HGBXC(LOINC 13.5 - 17.5 g/dL ) Low HGB 10.4 LAB O2CX1(LOINC 94.0 - 98.0 % ) OXY 94.9 HGB LAB COHG1(LOINC % ) Abnormal CO 2.0 HGB Result Comment: REF VALUES NONSMOKERS 0.5-1.5% SMOKERS 0.5-10.0% LAB METC1(LOINC) 0.0 - 1.5 % MET HGB 1.3 LAB DOXHG(LOINC) 0.0 - 5.0 % DEOXY HGB 1.7 Performed By: #### COOXA #### [facility] [address] [place] [address] PLASMA Collected: 11/23/2017 Status: F Source: [place] [facility] REPOSITORY TYPE CODE TESTS RESULT OUT OF RANGE REFERENCE UNITS LAB FFP(LOINC) Abnormal PLASMA ORDER RECD Performed By: #### FFP #### [facility] [address] [place] [address] REQUEST-LEUKOREDUCED RED CELLS Collected: Status: F Source: [place] 11/23/2017 2:06 [facility] REPOSITORY TYPE CODE TESTS RESULT OUT OF RANGE REFERENCE UNITS LAB OLPC(LOINC) ORDER RECD REQUEST-LEUK OREDUCED RED CELLS Performed By: #### OLPC #### [facility] [address] [place] [address] TYPE + SCREEN Collected: 11/23/2017 Status: F Source: [place] 2:03 [facility] REPOSITORY TYPE CODE TESTS RESULT OUT OF REFERENCE UNITS RANGE LAB ABORH(LOINC ) ABO TYPE O LAB RH(LOINC) RH TYPE POS LAB ABSC(LOINC) ANTIBODY NEG SCREEN Performed By: #### T+S #### [facility] [id number] [place] [address] COOX PANEL, ARTERIAL Collected: 11/23/2017 Status: F Source: [place] 1:33 PM [facility] REPOSITORY TYPE CODE TESTS RESULT OUT OF RANGE REFERENCE UNITS LAB HGBXC(LOINC 13.5 - 17.5 g/dL ) Low HGB 11.1 LAB O2CX1(LOINC 94.0 - 98.0 % ) OXY 94.0 HGB LAB COHG1(LOINC % ) Abnormal CO 2.3 HGB Result Comment: REF VALUES NONSMOKERS 0.5-1.5% SMOKERS 0.5-10.0% LAB METC1(LOINC) 0.0 - 1.5 % MET HGB 1.1 LAB DOXHG(LOINC) 0.0 - 5.0 % DEOXY HGB 2.6 Performed By: #### COOXA #### [facility] [address] [place] [address] ARTERIAL FULL PANEL Collected: 11/23/2017 Status: F Source: [place] 1:[facility] REPOSITORY TYPE CODE TESTS RESULT OUT OF REFERENCE UNITS RANGE LAB PHART(LOIN 7.38 - 7.42 C) pH Low 7.34 LAB PCO2A(LOIN 38 - 42 mmHg C) PCO2 High 43 LAB PO2A(LOINC 85 - 95 mmHg ) PO2 Low 79 LAB TEMP(LOINC degrees C ) PATIENT TEMPERATURE 37.0 Result Comment: NOTE: PATIENT RESULTS ARE NOT CORRECTED FOR TEMPERATURE. LAB FIO2(LOINC) % FIO2 69 LAB SO2%A(LOINC) 94 - 100 % SO2 97 LAB HCTN(LOINC) 41.0 - % Low 52.0 HCT 33.0 LAB SODN(LOINC) 136 - 145 mmol/L Low SODIUM 134 LAB POTN(LOINC) 3.5 - 5.3 mmol/L POTASSIUM 4.6 LAB CHLN(LOINC) 98 - 107 mmol/L CHLORIDE 104 LAB IONCA(LOINC) 1.10 - mmol/L 1.33 CALCIUM,IONIZED 1.13 LAB GLUN(LOINC) 74 - 99 mg/dL GLUCOSE High 175 LAB LACTN(LOINC) 0.4 - 2.0 mmol/L LACTATE High 2.2 LAB BSEXB(LOINC) -2.0 - 3.0 mmol/L Low BASE EXCESS-BLOOD -2.5 LAB BICAR(LOINC) 22.0 - mmol/L 26.0 BICARB, CALCULATED 23.2 LAB HGBNC(LOINC) 13.5 - g/dL Low 17.5 HGB,CALCULATED 11.2 LAB ANGPN(LOINC) 10 - 25 mmol/L ANION GAP 11 Performed By: #### [email or web address] #### [facility] [address] [place] [address] ACT-HIGH RANGE Collected: 11/23/2017 Status: F Source: [place] 12:54 PM [facility] REPOSITORY TYPE CODE TESTS RESULT OUT OF REFERENCE UNITS RANGE LAB ACTPO(LOINC 91 - 152 SECONDS ) ACT-HIGH 113 RANGE Performed By: #### ACTP #### [facility] [address] [place] [address] ARTERIAL FULL PANEL Collected: 11/23/2017 Status: F Source: [place] 12:53 PM [facility] REPOSITORY TYPE CODE TESTS RESULT OUT OF REFERENCE UNITS RANGE LAB PHART(LOIN 7.38 - 7.42 C) pH Low 7.35 LAB PCO2A(LOIN 38 - 42 mmHg C) PCO2 40 LAB PO2A(LOINC 85 - 95 mmHg ) PO2 High 116 LAB TEMP(LOINC degrees C ) PATIENT TEMPERATURE 37.0 Result Comment: NOTE: PATIENT RESULTS ARE NOT CORRECTED FOR TEMPERATURE. LAB FIO2(LOINC) % FIO2 75 LAB SO2%A(LOINC) 94 - 100 % SO2 99 LAB HCTN(LOINC) 41.0 - % Low 52.0 HCT 27.0 LAB SODN(LOINC) 136 - 145 mmol/L Low SODIUM 132 LAB POTN(LOINC) 3.5 - 5.3 mmol/L POTASSIUM 5.3 LAB CHLN(LOINC) 98 - 107 mmol/L CHLORIDE 103 LAB IONCA(LOINC) 1.10 - mmol/L 1.33 CALCIUM,IONIZED 1.22 LAB GLUN(LOINC) 74 - 99 mg/dL GLUCOSE High 214 LAB LACTN(LOINC) 0.4 - 2.0 mmol/L LACTATE High 2.8 LAB BSEXB(LOINC) -2.0 - 3.0 mmol/L Low BASE EXCESS-BLOOD -3.3 LAB BICAR(LOINC) 22.0 - mmol/L 26.0 BICARB, CALCULATED 22.1 LAB HGBNC(LOINC) 13.5 - g/dL Low 17.5 HGB,CALCULATED 9.2 LAB ANGPN(LOINC) 10 - 25 mmol/L ANION GAP 12 Performed By: #### [email or web address] #### [facility] [address] [place] [address] COOX PANEL, ARTERIAL Collected: 11/23/2017 Status: F Source: [place] 12:53 [facility] REPOSITORY TYPE CODE TESTS RESULT OUT OF RANGE REFERENCE UNITS LAB HGBXC(LOINC 13.5 - 17.5 g/dL ) Low HGB 9.8 LAB O2CX1(LOINC 94.0 - 98.0 % ) OXY 95.4 HGB LAB COHG1(LOINC % ) Abnormal CO 2.4 HGB Result Comment: REF VALUES NONSMOKERS 0.5-1.5% SMOKERS 0.5-10.0% LAB METC1(LOINC) 0.0 - 1.5 % MET HGB 1.2 LAB DOXHG(LOINC) 0.0 - 5.0 % DEOXY HGB 1.0 Performed By: #### COOXA #### [facility] [address] [place] [address] CBC Collected: 11/23/2017 Status: F Source: [place] 12:[address] [place] [address] REPOSITORY TYPE CODE TESTS RESULT OUT OF RANGE REFERENCE UNITS LAB WBCR(LOINC 4.4 - 11.3 x10E9/L ) High WBC 15.7 LAB NRBC(LOINC 0.0-0.0 /100 WBC ) Abnormal NUCLEATED RBC 0.1 LAB RBCCT(LOIN 4.50 - 5.90 x10E12/L C) Low RBC 4.25 LAB HGB(LOINC) 13.5 - 17.5 g/dL Low HGB 9.6 LAB HCT(LOINC) 41.0 - 52.0 % Low HCT 30.9 LAB MCV(LOINC) 80 - 100 fL Low MCV 73 LAB MCHC2(LOIN 32.0 - 36.0 g/dL C) Low MCHC 31.1 LAB PLTCT(LOIN 150 - 450 x10E9/L C) PLT 302 LAB RDWCV(LOIN 11.5 - 14.5 % C) High RDW-CV 26.2 Performed By: #### CBC #### [facility] [address] [place] [address] COAGULATION SCREEN Collected: 11/23/2017 Status: F Source: [address] REPOSITORY TYPE CODE TESTS RESULT OUT OF REFERENCE UNITS RANGE LAB PT(LOINC) 9.8 - 12.7 sec PROTHROMBIN High TIME 19.6 LAB INR(LOINC) 0.9 - 1.1 PT, INR High 1.8 LAB APTT(LOINC 25 - 36 sec ) APTT 32 Result Comment: THE APTT IS NO LONGER USED FOR MONITORING UNFRACTIONATED HEPARIN THERAPY. FOR MONITORING HEPARIN THERAPY, USE THE HEPARIN ASSAY. Performed By: #### COAGS #### [facility] [address] [place] [address] FIBRINOGEN Collected: 11/23/2017 Status: F Source: [place] [id number] [place] [address] REPOSITORY TYPE CODE TESTS RESULT OUT OF REFERENCE UNITS RANGE LAB FIBRN(LOIN 200 - 400 mg/dL C) High FIBRINOGEN 498 Performed By: #### FIB #### [facility] [address] [place] [address] COOX PANEL, ARTERIAL Collected: 11/23/2017 Status: F Source: [place] 12:[address] [place] [address] REPOSITORY TYPE CODE TESTS RESULT OUT OF RANGE REFERENCE UNITS LAB HGBXC(LOINC 13.5 - 17.5 g/dL ) Low HGB 10.6 LAB O2CX1(LOINC 94.0 - 98.0 % ) OXY 96.6 HGB LAB COHG1(LOINC % ) Abnormal CO 2.4 HGB Result Comment: REF VALUES NONSMOKERS 0.5-1.5% SMOKERS 0.5-10.0% LAB METC1(LOINC) 0.0 - 1.5 % MET HGB 0.8 LAB DOXHG(LOINC) 0.0 - 5.0 % DEOXY HGB 0.2 Performed By: #### COOXA #### [facility] [address] [place] [address] ARTERIAL FULL PANEL Collected: 11/23/2017 Status: F Source: [place] [address] REPOSITORY TYPE CODE TESTS RESULT OUT OF REFERENCE UNITS RANGE LAB PHART(LOIN 7.38 - 7.42 C) pH Low 7.31 LAB PCO2A(LOIN 38 - 42 mmHg C) PCO2 High 43 LAB PO2A(LOINC 85 - 95 mmHg ) PO2 High 334 LAB TEMP(LOINC degrees C ) PATIENT TEMPERATURE 37.0 Result Comment: NOTE: PATIENT RESULTS ARE NOT CORRECTED FOR TEMPERATURE. LAB FIO2(LOINC) % FIO2 90 LAB SO2%A(LOINC) 94 - 100 % SO2 100 LAB HCTN(LOINC) 41.0 - % Low 52.0 HCT 31.0 LAB SODN(LOINC) 136 - 145 mmol/L Low SODIUM 130 LAB POTN(LOINC) 3.5 - 5.3 mmol/L High POTASSIUM alert 6.4 LAB CHLN(LOINC) 98 - 107 mmol/L CHLORIDE 102 LAB IONCA(LOINC) 1.10 - mmol/L Low 1.33 CALCIUM,IONIZED 0.98 LAB GLUN(LOINC) 74 - 99 mg/dL High GLUCOSE 223 LAB LACTN(LOINC) 0.4 - 2.0 mmol/L High LACTATE 2.4 LAB BSEXB(LOINC) -2.0 - 3.0 mmol/L Low BASE EXCESS-BLOOD -4.4 LAB BICAR(LOINC) 22.0 - mmol/L Low 26.0 BICARB, CALCULATED 21.7 LAB HGBNC(LOINC) 13.5 - g/dL Low 17.5 HGB,CALCULATED 10.5 LAB ANGPN(LOINC) 10 - 25 mmol/L ANION GAP 13 Performed By: #### [email or web address] #### [facility] [address] [place] [address] ACT-HIGH RANGE Collected: 11/23/2017 Status: F Source: [place] 12:28 PM [facility] REPOSITORY TYPE CODE TESTS RESULT OUT OF REFERENCE UNITS RANGE LAB ACTPO(LOINC 91 - 152 SECONDS ) High ACT-HIGH 352 RANGE Performed By: #### ACTP #### [facility] [address] [place] [address] COOX PANEL, ARTERIAL Collected: 11/23/2017 Status: F Source: [place] 12:[address] [place] [address] REPOSITORY TYPE CODE TESTS RESULT OUT OF RANGE REFERENCE UNITS LAB HGBXC(LOINC 13.5 - 17.5 g/dL ) Low HGB 11.2 LAB O2CX1(LOINC 94.0 - 98.0 % ) OXY 96.6 HGB LAB COHG1(LOINC % ) Abnormal CO 2.2 HGB Result Comment: REF VALUES NONSMOKERS 0.5-1.5% SMOKERS 0.5-10.0% LAB METC1(LOINC) 0.0 - 1.5 % MET HGB 0.8 LAB DOXHG(LOINC) 0.0 - 5.0 % DEOXY HGB 0.3 Performed By: #### COOXA #### [facility] [address] [place] [address] ARTERIAL FULL PANEL Collected: 11/23/2017 Status: F Source: [place] 12:[address] [place] [address] REPOSITORY TYPE CODE TESTS RESULT OUT OF REFERENCE UNITS RANGE LAB PHART(LOIN 7.38 - 7.42 C) pH Low 7.37 LAB PCO2A(LOIN 38 - 42 mmHg C) PCO2 42 LAB PO2A(LOINC 85 - 95 mmHg ) PO2 High 329 LAB TEMP(LOINC degrees C ) PATIENT TEMPERATURE 37.0 Result Comment: NOTE: PATIENT RESULTS ARE NOT CORRECTED FOR TEMPERATURE. LAB FIO2(LOINC) % FIO2 80 LAB SO2%A(LOINC) 94 - 100 % SO2 100 LAB HCTN(LOINC) 41.0 - % Low 52.0 HCT 34.0 LAB SODN(LOINC) 136 - 145 mmol/L Low SODIUM 130 LAB POTN(LOINC) 3.5 - 5.3 mmol/L High POTASSIUM alert 6.6 LAB CHLN(LOINC) 98 - 107 mmol/L CHLORIDE 100 LAB IONCA(LOINC) 1.10 - mmol/L Low 1.33 CALCIUM,IONIZED 1.02 LAB GLUN(LOINC) 74 - 99 mg/dL High GLUCOSE 228 LAB LACTN(LOINC) 0.4 - 2.0 mmol/L High LACTATE 2.5 LAB BSEXB(LOINC) -2.0 - 3.0 mmol/L BASE EXCESS-BLOOD -1.0 LAB BICAR(LOINC) 22.0 - mmol/L 26.0 BICARB, CALCULATED 24.3 LAB HGBNC(LOINC) 13.5 - g/dL Low 17.5 HGB,CALCULATED 11.6 LAB ANGPN(LOINC) 10 - 25 mmol/L ANION GAP 12 Performed By: #### [email or web address] #### [facility] [address] [place] [address] ACT-HIGH RANGE Collected: 11/23/2017 Status: F Source: [place] 12:04 PM [facility] REPOSITORY TYPE CODE TESTS RESULT OUT OF REFERENCE UNITS RANGE LAB ACTPO(LOINC 91 - 152 SECONDS ) High ACT-HIGH 441 RANGE Performed By: #### ACTP #### [facility] [address] [place] [address] COOX PANEL, ARTERIAL Collected: 11/23/2017 Status: F Source: [place] 11:45 AM [facility] REPOSITORY TYPE CODE TESTS RESULT OUT OF RANGE REFERENCE UNITS LAB HGBXC(LOINC 13.5 - 17.5 g/dL ) Low HGB 10.3 LAB O2CX1(LOINC 94.0 - 98.0 % ) OXY 96.5 HGB LAB COHG1(LOINC % ) Abnormal CO 2.0 HGB Result Comment: REF VALUES NONSMOKERS 0.5-1.5% SMOKERS 0.5-10.0% LAB METC1(LOINC) 0.0 - 1.5 % MET HGB 0.9 LAB DOXHG(LOINC) 0.0 - 5.0 % DEOXY HGB 0.6 Performed By: #### COOXA #### [facility] [address] [place] [address] ARTERIAL FULL PANEL Collected: 11/23/2017 Status: F Source: [place] 11:45 AM [facility] REPOSITORY TYPE CODE TESTS RESULT OUT OF REFERENCE UNITS RANGE LAB PHART(LOIN 7.38 - 7.42 C) pH 7.38 LAB PCO2A(LOIN 38 - 42 mmHg C) PCO2 High 45 LAB PO2A(LOINC 85 - 95 mmHg ) PO2 High 350 LAB TEMP(LOINC degrees C ) PATIENT TEMPERATURE 37.0 Result Comment: NOTE: PATIENT RESULTS ARE NOT CORRECTED FOR TEMPERATURE. LAB FIO2(LOINC) % FIO2 80 LAB SO2%A(LOINC) 94 - 100 % SO2 99 LAB HCTN(LOINC) 41.0 - % Low 52.0 HCT 28.0 LAB SODN(LOINC) 136 - 145 mmol/L Low SODIUM 124 LAB POTN(LOINC) 3.5 - 5.3 mmol/L POTASSIUM High 5.7 LAB CHLN(LOINC) 98 - 107 mmol/L Low CHLORIDE 94 LAB IONCA(LOINC) 1.10 - mmol/L Low 1.33 CALCIUM,IONIZED 0.94 LAB GLUN(LOINC) 74 - 99 mg/dL GLUCOSE High 203 LAB LACTN(LOINC) 0.4 - 2.0 mmol/L LACTATE 1.8 LAB BSEXB(LOINC) -2.0 - 3.0 mmol/L BASE EXCESS-BLOOD 1.2 LAB BICAR(LOINC) 22.0 - mmol/L 26.0 BICARB, High CALCULATED 26.6 LAB HGBNC(LOINC) 13.5 - g/dL Low 17.5 HGB,CALCULATED 9.5 LAB ANGPN(LOINC) 10 - 25 mmol/L Low ANION GAP 9 Performed By: #### [email or web address] #### [facility] [address] [place] [address] ACT-HIGH RANGE Collected: 11/23/2017 Status: F Source: [place] 11:45 AM [facility] REPOSITORY TYPE CODE TESTS RESULT OUT OF REFERENCE UNITS RANGE LAB ACTPO(LOINC 91 - 152 SECONDS ) High ACT-HIGH 434 RANGE Performed By: #### ACTP #### [facility] [address] [place] [address] COOX PANEL, ARTERIAL Collected: 11/23/2017 Status: F Source: [place] 11:[address] [place] [address] REPOSITORY TYPE CODE TESTS RESULT OUT OF RANGE REFERENCE UNITS LAB HGBXC(LOINC 13.5 - 17.5 g/dL ) Low HGB 11.0 LAB O2CX1(LOINC 94.0 - 98.0 % ) OXY 96.1 HGB LAB COHG1(LOINC % ) Abnormal CO 2.1 HGB Result Comment: REF VALUES NONSMOKERS 0.5-1.5% SMOKERS 0.5-10.0% LAB METC1(LOINC) 0.0 - 1.5 % MET HGB 1.4 LAB DOXHG(LOINC) 0.0 - 5.0 % DEOXY HGB 0.4 Performed By: #### COOXA #### [facility] [address] [place] [address] ARTERIAL FULL PANEL Collected: 11/23/2017 Status: F Source: [place] 11:[address] [place] [address] REPOSITORY TYPE CODE TESTS RESULT OUT OF REFERENCE UNITS RANGE LAB PHART(LOIN 7.38 - 7.42 C) pH Low 7.27 LAB PCO2A(LOIN 38 - 42 mmHg C) PCO2 High 47 LAB PO2A(LOINC 85 - 95 mmHg ) PO2 High 362 LAB TEMP(LOINC degrees C ) PATIENT TEMPERATURE 37.0 Result Comment: NOTE: PATIENT RESULTS ARE NOT CORRECTED FOR TEMPERATURE. LAB FIO2(LOINC) % FIO2 80 LAB SO2%A(LOINC) 94 - 100 % SO2 100 LAB HCTN(LOINC) 41.0 - % Low 52.0 HCT 33.0 LAB SODN(LOINC) 136 - 145 mmol/L Low SODIUM 129 LAB POTN(LOINC) 3.5 - 5.3 mmol/L High POTASSIUM alert 6.1 LAB CHLN(LOINC) 98 - 107 mmol/L CHLORIDE 102 LAB IONCA(LOINC) 1.10 - mmol/L Low 1.33 CALCIUM,IONIZED 1.07 LAB GLUN(LOINC) 74 - 99 mg/dL High GLUCOSE 197 LAB LACTN(LOINC) 0.4 - 2.0 mmol/L LACTATE 1.7 LAB BSEXB(LOINC) -2.0 - 3.0 mmol/L Low BASE EXCESS-BLOOD -5.3 LAB BICAR(LOINC) 22.0 - mmol/L Low 26.0 BICARB, CALCULATED 21.6 LAB HGBNC(LOINC) 13.5 - g/dL Low 17.5 HGB,CALCULATED 11.2 LAB ANGPN(LOINC) 10 - 25 mmol/L ANION GAP 12 Performed By: #### [email or web address] #### [facility] [address] [place] [address] ACT-HIGH RANGE Collected: 11/23/2017 Status: F Source: [place] 11:28 AM [facility] REPOSITORY TYPE CODE TESTS RESULT OUT OF REFERENCE UNITS RANGE LAB ACTPO(LOINC 91 - 152 SECONDS ) High ACT-HIGH 403 RANGE Performed By: #### ACTP #### [facility] [address] [facility] [place] [address] COOX PANEL,VENOUS Collected: 11/23/2017 Status: F Source: [place] 11:11 AM [facility] REPOSITORY TYPE CODE TESTS RESULT OUT OF RANGE REFERENCE UNITS LAB COHGV(LOINC % ) Abnormal CO 2.5 HGB Result Comment: REF VALUES NONSMOKERS 0.5-1.5% SMOKERS 0.5-10.0% LAB METCV(LOINC) 0.0 - 1.5 % MET HGB 1.3 Performed By: #### COOXV #### [facility] [address] [facility] [place] [address] VENOUS FULL PANEL Collected: 11/23/2017 Status: F Source: [place] 11:11 AM [facility] REPOSITORY TYPE CODE TESTS RESULT OUT OF REFERENCE UNITS RANGE LAB PHVEN(LOIN 7.33 - 7.43 C) pH Low 7.26 LAB PCO2V(LOIN 41 - 51 mmHg C) PCO2 High 54 LAB PO2V(LOINC 35 - 45 mmHg ) PO2 High 50 LAB TEMP(LOINC degrees C ) PATIENT TEMPERATURE 37.0 Result Comment: NOTE: PATIENT RESULTS ARE NOT CORRECTED FOR TEMPERATURE. LAB FIO2(LOINC) % FIO2 100 LAB SO2%V(LOINC) 45 - 75 % SO2 High 87 LAB HCTN(LOINC) 41.0 - % Low 52.0 HCT 29.0 LAB SODN(LOINC) 136 - 145 mmol/L Low SODIUM 131 LAB POTN(LOINC) 3.5 - 5.3 mmol/L POTASSIUM High 6.0 LAB CHLN(LOINC) 98 - 107 mmol/L CHLORIDE 103 LAB IONCA(LOINC) 1.10 - mmol/L Low 1.33 CALCIUM,IONIZED 1.09 LAB GLUN(LOINC) 74 - 99 mg/dL GLUCOSE High 182 LAB LACTN(LOINC) 0.4 - 2.0 mmol/L LACTATE 1.2 LAB BSEXB(LOINC) -2.0 - 3.0 mmol/L Low BASE EXCESS-BLOOD -3.2 LAB BICVN(LOINC) 22.0 - mmol/L 26.0 BICARB, CALCULATED 24.2 LAB HGBNC(LOINC) 13.5 - g/dL Low 17.5 HGB,CALCULATED 9.9 LAB ANGPN(LOINC) 10 - 25 mmol/L ANION GAP 10 Performed By: #### [email or web address] #### [facility] [address] [place] [address] COOX PANEL, ARTERIAL Collected: 11/23/2017 Status: F Source: [place] 10:59 AM [facility] REPOSITORY TYPE CODE TESTS RESULT OUT OF RANGE REFERENCE UNITS LAB HGBXC(LOINC 13.5 - 17.5 g/dL ) Low HGB 10.2 LAB O2CX1(LOINC 94.0 - 98.0 % ) OXY 96.8 HGB LAB COHG1(LOINC % ) Abnormal CO 2.3 HGB Result Comment: REF VALUES NONSMOKERS 0.5-1.5% SMOKERS 0.5-10.0% LAB METC1(LOINC) 0.0 - 1.5 % MET HGB 0.9 LAB DOXHG(LOINC) 0.0 - 5.0 % DEOXY HGB 0.0 Performed By: #### COOXA #### [facility] [address] [place] [address] ARTERIAL FULL PANEL Collected: 11/23/2017 Status: F Source: [place] 10:59 AM [facility] REPOSITORY TYPE CODE TESTS RESULT OUT OF REFERENCE UNITS RANGE LAB PHART(LOIN 7.38 - 7.42 C) pH Low 7.29 LAB PCO2A(LOIN 38 - 42 mmHg C) PCO2 High 53 LAB PO2A(LOINC 85 - 95 mmHg ) PO2 High 458 LAB TEMP(LOINC degrees C ) PATIENT TEMPERATURE 37.0 Result Comment: NOTE: PATIENT RESULTS ARE NOT CORRECTED FOR TEMPERATURE. LAB FIO2(LOINC) % FIO2 100 LAB SO2%A(LOINC) 94 - 100 % SO2 100 LAB HCTN(LOINC) 41.0 - % Low 52.0 HCT 29.0 LAB SODN(LOINC) 136 - 145 mmol/L Low SODIUM 131 LAB POTN(LOINC) 3.5 - 5.3 mmol/L POTASSIUM High 5.4 LAB CHLN(LOINC) 98 - 107 mmol/L CHLORIDE 102 LAB IONCA(LOINC) 1.10 - mmol/L Low 1.33 CALCIUM,IONIZED 0.92 LAB GLUN(LOINC) 74 - 99 mg/dL GLUCOSE High 168 LAB LACTN(LOINC) 0.4 - 2.0 mmol/L LACTATE 1.6 LAB BSEXB(LOINC) -2.0 - 3.0 mmol/L BASE EXCESS-BLOOD -1.5 LAB BICAR(LOINC) 22.0 - mmol/L 26.0 BICARB, CALCULATED 25.5 LAB HGBNC(LOINC) 13.5 - g/dL Low 17.5 HGB,CALCULATED 9.9 LAB ANGPN(LOINC) 10 - 25 mmol/L Low ANION GAP 9 Performed By: #### [email or web address] #### [facility] [address] [place] [address] ACT-HIGH RANGE Collected: 11/23/2017 Status: F Source: [place] 10:59 AM [facility] REPOSITORY TYPE CODE TESTS RESULT OUT OF REFERENCE UNITS RANGE LAB ACTPO(LOINC 91 - 152 SECONDS ) High ACT-HIGH 421 RANGE Performed By: #### ACTP #### [facility] [address] [place] [address] COOX PANEL, ARTERIAL Collected: 11/23/2017 Status: F Source: [place] 10:45 AM [facility] REPOSITORY TYPE CODE TESTS RESULT OUT OF RANGE REFERENCE UNITS LAB HGBXC(LOINC 13.5 - 17.5 g/dL ) Low HGB 11.0 LAB O2CX1(LOINC 94.0 - 98.0 % ) OXY 94.9 HGB LAB COHG1(LOINC % ) Abnormal CO 2.1 HGB Result Comment: REF VALUES NONSMOKERS 0.5-1.5% SMOKERS 0.5-10.0% LAB METC1(LOINC) 0.0 - 1.5 % MET HGB 1.4 LAB DOXHG(LOINC) 0.0 - 5.0 % DEOXY HGB 1.6 Performed By: #### COOXA #### [facility] [address] [place] [address] ARTERIAL FULL PANEL Collected: 11/23/2017 Status: F Source: [place] 10:45 AM [facility] REPOSITORY TYPE CODE TESTS RESULT OUT OF REFERENCE UNITS RANGE LAB PHART(LOIN 7.38 - 7.42 C) pH Low 7.31 LAB PCO2A(LOIN 38 - 42 mmHg C) PCO2 High 43 LAB PO2A(LOINC 85 - 95 mmHg ) PO2 High 104 LAB TEMP(LOINC degrees C ) PATIENT TEMPERATURE 37.0 Result Comment: NOTE: PATIENT RESULTS ARE NOT CORRECTED FOR TEMPERATURE. LAB FIO2(LOINC) % FIO2 57 LAB SO2%A(LOINC) 94 - 100 % SO2 98 LAB HCTN(LOINC) 41.0 - % Low 52.0 HCT 34.0 LAB SODN(LOINC) 136 - 145 mmol/L Low SODIUM 131 LAB POTN(LOINC) 3.5 - 5.3 mmol/L POTASSIUM 4.8 LAB CHLN(LOINC) 98 - 107 mmol/L CHLORIDE 104 LAB IONCA(LOINC) 1.10 - mmol/L 1.33 CALCIUM,IONIZED 1.19 LAB GLUN(LOINC) 74 - 99 mg/dL GLUCOSE High 139 LAB LACTN(LOINC) 0.4 - 2.0 mmol/L LACTATE 0.7 LAB BSEXB(LOINC) -2.0 - 3.0 mmol/L Low BASE EXCESS-BLOOD -4.4 LAB BICAR(LOINC) 22.0 - mmol/L Low 26.0 BICARB, CALCULATED 21.7 LAB HGBNC(LOINC) 13.5 - g/dL Low 17.5 HGB,CALCULATED 11.6 LAB ANGPN(LOINC) 10 - 25 mmol/L ANION GAP 10 Performed By: #### [email or web address] #### [facility] [address] [place] [address] ACT-HIGH RANGE Collected: 11/23/2017 Status: F Source: [place] 10:45 AM [facility] REPOSITORY TYPE CODE TESTS RESULT OUT OF REFERENCE UNITS RANGE LAB ACTPO(LOINC 91 - 152 SECONDS ) High ACT-HIGH 418 RANGE Performed By: #### ACTP #### [facility] [address] [facility] [place] [address] CBC Collected: 11/23/2017 Status: F Source: [place] 9:00 [facility] REPOSITORY TYPE CODE TESTS RESULT OUT OF REFERENCE UNITS RANGE LAB WBCR(LOINC 4.4 - 11.3 x10E9/L ) WBC 9.3 LAB NRBC(LOINC 0.0-0.0 /100 WBC ) NUCLEATED RBC 0.0 LAB RBCCT(LOIN 4.50 - 5.90 x10E12/L C) RBC 5.27 LAB HGB(LOINC) 13.5 - 17.5 g/dL Low HGB 11.3 LAB HCT(LOINC) 41.0 - 52.0 % Low HCT 36.7 LAB MCV(LOINC) 80 - 100 fL Low MCV 70 LAB MCHC2(LOIN 32.0 - 36.0 g/dL C) Low MCHC 30.8 LAB PLTCT(LOIN 150 - 450 x10E9/L C) PLT 293 LAB RDWCV(LOIN 11.5 - 14.5 % C) High RDW-CV 26.4 Performed By: #### CBC #### [facility] [address] [place] [address] COAGULATION SCREEN Collected: 11/23/2017 Status: F Source: [place] [id number] [place] [address] REPOSITORY TYPE CODE TESTS RESULT OUT OF REFERENCE UNITS RANGE LAB PT(LOINC) 9.8 - 12.7 sec PROTHROMBIN High TIME 15.4 LAB INR(LOINC) 0.9 - 1.1 PT, INR High 1.4 LAB APTT(LOINC 25 - 36 sec ) APTT 29 Result Comment: THE APTT IS NO LONGER USED FOR MONITORING UNFRACTIONATED HEPARIN THERAPY. FOR MONITORING HEPARIN THERAPY, USE THE HEPARIN ASSAY. Performed By: #### COAGS #### [facility] [address] [facility] [address] FIBRINOGEN Collected: 11/23/2017 Status: F Source: [place] 9:[address] [place] [address] REPOSITORY TYPE CODE TESTS RESULT OUT OF REFERENCE UNITS RANGE LAB FIBRN(LOIN 200 - 400 mg/dL C) High FIBRINOGEN 699 Performed By: #### FIB #### [facility] [address] [facility] [place] [address] ACT-HIGH RANGE Collected: 11/23/2017 Status: F Source: [place] [facility] REPOSITORY TYPE CODE TESTS RESULT OUT OF REFERENCE UNITS RANGE LAB ACTPO(LOINC 91 - 152 SECONDS ) ACT-HIGH 114 RANGE Performed By: #### ACTP #### [facility] [address] [place] [id number] COOX PANEL, ARTERIAL Collected: 11/23/2017 Status: F Source: [place] [facility] REPOSITORY TYPE CODE TESTS RESULT OUT OF RANGE REFERENCE UNITS LAB HGBXC(LOINC 13.5 - 17.5 g/dL ) Low HGB 11.1 LAB O2CX1(LOINC 94.0 - 98.0 % ) OXY 96.0 HGB LAB COHG1(LOINC % ) Abnormal CO 2.0 HGB Result Comment: REF VALUES NONSMOKERS 0.5-1.5% SMOKERS 0.5-10.0% LAB METC1(LOINC) 0.0 - 1.5 % MET HGB 1.0 LAB DOXHG(LOINC) 0.0 - 5.0 % DEOXY HGB 1.1 Performed By: #### COOXA #### [facility] [address] [place] [id number] ARTERIAL FULL PANEL Collected: 11/23/2017 Status: F Source: [place] [facility] REPOSITORY TYPE CODE TESTS RESULT OUT OF REFERENCE UNITS RANGE LAB PHART(LOIN 7.38 - 7.42 C) pH Low 7.37 LAB PCO2A(LOIN 38 - 42 mmHg C) PCO2 Low 37 LAB PO2A(LOINC 85 - 95 mmHg ) PO2 High 140 LAB TEMP(LOINC degrees C ) PATIENT TEMPERATURE 37.0 Result Comment: NOTE: PATIENT RESULTS ARE NOT CORRECTED FOR TEMPERATURE. LAB FIO2(LOINC) % FIO2 57 LAB SO2%A(LOINC) 94 - 100 % SO2 99 LAB HCTN(LOINC) 41.0 - % Low 52.0 HCT 35.0 LAB SODN(LOINC) 136 - 145 mmol/L Low SODIUM 133 LAB POTN(LOINC) 3.5 - 5.3 mmol/L POTASSIUM 4.1 LAB CHLN(LOINC) 98 - 107 mmol/L CHLORIDE 105 LAB IONCA(LOINC) 1.10 - mmol/L 1.33 CALCIUM,IONIZED 1.18 LAB GLUN(LOINC) 74 - 99 mg/dL GLUCOSE High 116 LAB LACTN(LOINC) 0.4 - 2.0 mmol/L LACTATE 0.6 LAB BSEXB(LOINC) -2.0 - 3.0 mmol/L Low BASE EXCESS-BLOOD -3.5 LAB BICAR(LOINC) 22.0 - mmol/L Low 26.0 BICARB, CALCULATED 21.4 LAB HGBNC(LOINC) 13.5 - g/dL Low 17.5 HGB,CALCULATED 11.9 LAB ANGPN(LOINC) 10 - 25 mmol/L ANION GAP 11 Performed By: #### AFPA3 #### [place] [address] INTRAOPERATIVE Observed: 11/23/2017 Status: F Source: [place] TRANSESOPHAGEAL ECHO 8:51 AM [facility] Dept of Anesthesiology, [address] [place] [address] and TRANSESOPHAGEAL ECHOCARDIOGRAM REPORT Patient Name: ANDREI RODRIGUEZ Reading Physician: [id number] Sky Dickey MD Study Date: 11/23/2017 Referring Physician: Darci Yuan MD MRN/PID: [id number] PCP: Accession/Order#: [id number] Department Location: Date of : 1955 Fellow: Gender: M Nurse: Weight: Study Type: Intraoperative Transesophageal Echo Diagnosis/ICD: I21.09 ST elevation (STEMI) myocardial infarction involving other coronary artery of anterior wall Indication: Acute Coronary Syndrome: STEMI Procedure/CPT: MALGORZATA w/ Limited Doppler ([id number], [id number], [id number]) PHYSICIAN INTERPRETATION: Left Ventricle: The left ventricular systolic function is low normal, with an estimated ejection fraction of 45-50%. The left ventricular cavity size is normal. Spectral Doppler shows an impaired relaxa tion pattern of left ventricular diastolic filling. Left Atrium: The left atrium is normal in size. There is no definite left atrial thrombus present. There is no evidence of a patent foramen ovale. There is no atrial septal defect present. There is no d efinite left atrial mass present. Right Ventricle: The right ventricle is mildly enlarged. There is normal right ventricular global systolic function. Right Atrium: The right atrium is normal in size. Aortic Valve: The aortic valve appears structurally normal. There is no evidence of aortic valve regurgitation. Mitral Valve: The mitral valve is normal in structure. There is trace mitral valve regurgitation. Tricuspid Valve: The tricuspid valve is structurally normal. There is trace tricuspid regurgitation. Pulmonic Valve: The pulmonic valve is structurally normal. There is trace pulmonic valve regurgitation. Pericardium: There is no pericardial effusion noted. Aorta: The aortic root is normal. There is mild dilatation of the aortic root. - IABP visualized in proximal descending thoracic aorta distal to left subclavian artery. CONCLUSIONS: 1. The left ventricular systolic function is low normal with a 45-50% estimated ejection fraction. 2. Spectral Doppler shows an impaired relaxation pattern of left ventricular diastolic filling. 3. No left atrial mass. 4. No left atrial thrombus. 5. There is no evidence of a patent foramen ovale. POST CARDIOPULMONARY BYPASS REPORT: - S/P multivessel CABG. - Unchanged valvular and biventricular systolic function from prebypass. - Aorta intact s/p decannulation. - Findings discussed with surgeon. QUANTITATIVE DATA SUMMARY: AORTA MEASUREMENTS: Normal Ranges: AoV Deidre,s: 2.66 cm (1.4-2.6cm) Ao Sinus, d: 4.00 cm (2.1-3.5cm) Ao STJ, d: 3.40 cm (1.7-3.4cm) Asc Ao, d: 3.80 cm (2.1-3.4cm) [id number] Sky Dickey MD Electronically signed on 11/23/2017 at 1:54:03 PM Final ABO/RH GROUP TEST Collected: 11/23/2017 Status: F Source: [place] 3:29 AM [facility] REPOSITORY TYPE CODE TESTS RESULT OUT OF RANGE REFERENCE UNITS LAB ABORH(LOINC ) ABO TYPE O LAB RH(LOINC) RH TYPE POS Performed By: #### ABORG #### [facility] [address] [place] [address] COAGULATION SCREEN Collected: 11/23/2017 Status: F Source: [place] 3:21 AM [facility] REPOSITORY TYPE CODE TESTS RESULT OUT OF REFERENCE UNITS RANGE LAB PT(LOINC) 9.8 - 12.7 sec PROTHROMBIN High TIME 14.8 LAB INR(LOINC) 0.9 - 1.1 PT, INR High 1.3 LAB APTT(LOINC 25 - 36 sec ) APTT High 45 Result Comment: THE APTT IS NO LONGER USED FOR MONITORING UNFRACTIONATED HEPARIN THERAPY. FOR MONITORING HEPARIN THERAPY, USE THE HEPARIN ASSAY. Performed By: #### COAGS #### [facility] [address] [place] [address] HEPARIN ASSAY,UFH Collected: 11/23/2017 Status: F Source: [place] 3:21 AM [facility] REPOSITORY TYPE CODE TESTS RESULT OUT OF REFERENCE UNITS RANGE LAB HAUF(LOINC) IU/mL HEPARIN 0.2 ASSAY,UFH Result Comment: The therapeutic reference range for UFH may be either 0.3-0.6 IU/mL or 0.3-0.7 IU/mL based on the clinical setting for anticoagulant therapy and the associated nomogram used. For heparin dosing guidelines based on clinical scenario and Heparin Assay results, please refer to local Pharmacy and the [facility] Guidelines for Anticoagulation therapy available on the [facility] intranet at: [email or web address] [email or web address] Performed By: #### HAUF #### [facility] [address] [place] [address] RENAL FUNCTION PANEL Collected: 11/23/2017 Status: F Source: [place] 3:20 AM [facility] REPOSITORY TYPE CODE TESTS RESULT OUT OF REFERENCE UNITS RANGE LAB GLU(LOINC) 74 - 99 mg/dL GLUCOSE High 110 LAB SOD(LOINC) 136 - 145 mmol/L Low SODIUM 134 LAB K(LOINC) 3.5 - 5.3 mmol/L POTASSIUM 4.0 LAB CHLOR(LOIN 98 - 107 mmol/L C) CHLORIDE 103 LAB BIC(LOINC) 21 - 32 mmol/L BICARBONATE 22 LAB ANGAP(LOIN 10 - 20 mmol/L C) ANION GAP 13 LAB UREA(LOINC 6 - 23 mg/dL ) UREA NITROGEN 9 LAB CREA(LOINC 0.50 - 1.30 mg/dL ) CREATININE 0.93 LAB GFRFN(LOIN >60 mL/min/1.7 C) 3m2 GFR-NON AM. >60 LAB GFRAA(LOIN >60 mL/min/1.7 C) 3m2 GFR- AM. >60 Result Comment: CALCULATIONS OF ESTIMATED GFR ARE PERFORMED USING THE MDRD STUDY EQUATION FOR THE IDMS-TRACEABLE CREATININE METHODS. CLIN CHEM 2007;53:766-72 LAB CA(LOINC) 8.6 - 10.6 mg/dL CALCIUM 8.6 LAB PHOS(LOINC) 2.5 - 4.9 mg/dL PHOSPHORUS 3.8 Result Comment: The performance characteristics of phosphorus testing in heparinized plasma have been validated by the individual laboratory site where testing is performed. Testing on heparinized plasma is not approved by the FDA; however, such approval is not necessary. LAB ALB(LOINC) 3.4 - 5.0 g/dL ALBUMIN 3.4 Performed By: #### RENAL #### [facility] [address] [place] [address] CBC AND DIFFERENTIAL Collected: 11/23/2017 Status: F Source: [place] 3:20 [facility] REPOSITORY TYPE CODE TESTS RESULT OUT OF REFERENCE UNITS RANGE LAB WBCR(LOINC 4.4 - 11.3 x10E9/L ) WBC 9.2 LAB NRBC(LOINC 0.0-0.0 /100 WBC ) NUCLEATED RBC 0.0 LAB RBCCT(LOIN 4.50 - 5.90 x10E12/L C) RBC 5.11 LAB HGB(LOINC) 13.5 - 17.5 g/dL Low HGB 11.0 LAB HCT(LOINC) 41.0 - 52.0 % Low HCT 34.9 LAB MCV(LOINC) 80 - 100 fL Low MCV 68 LAB MCHC2(LOIN 32.0 - 36.0 g/dL C) Low MCHC 31.5 LAB PLTCT(LOIN 150 - 450 x10E9/L C) PLT 276 LAB RDWCV(LOIN 11.5 - 14.5 % C) High RDW-CV 26.6 LAB IG(LOINC) 0.0 - 0.9 % % High AUTOMATED 1.4 IMMATURE GRAN Result Comment: Percent differential counts (%) should be interpreted in the context of the absolute cell counts (cells/L). LAB MDIF(LOINC) DIFFERENTIAL SEE MANUAL DIFF Performed By: #### CBCDF #### [facility] [address] [place] [address] MANUAL DIFFERENTIAL Collected: 11/23/2017 Status: F Source: [place] 3:20 [facility] REPOSITORY TYPE CODE TESTS RESULT OUT OF REFERENCE UNITS RANGE LAB SEG(LOINC) 40.0 - 80.0 % % SEG NEUTROPHIL 73.0 Result Comment: Percent differential counts (%) should be interpreted in the context of the absolute cell counts (cells/L). LAB BAND(LOINC) 0.0 - 5.0 % % BAND NEUTROPHIL 2.0 LAB LYMP2(LOINC) 13.0 - % 44.0 % LYMPHOCYTE 16.0 LAB MONO2(LOINC) 2.0 - % 10.0 % MONOCYTE 8.0 LAB EOS2(LOINC) 0.0 - 6.0 % % EOSINOPHIL 0.0 LAB BASO2(LOINC) 0.0 - 2.0 % % BASOPHIL 0.0 LAB MYEL(LOINC) 0.0 - 0.0 % Abnormal % MYELOCYTE 1.0 LAB ANC(LOINC) X10E9/L ANC 6.90 LAB #SEG(LOINC) 1.20 - X10E9/L 7.00 SEG NEUTROPHIL 6.72 LAB #BAND(LOINC) 0.00 - X10E9/L 0.70 BAND NEUTROPHIL 0.18 LAB #LYM2(LOINC) 1.20 - x10E9/L 4.80 LYMPHOCYTE 1.47 LAB #MON2(LOINC) 0.10 - X10E9/L 1.00 MONOCYTE 0.74 LAB #EOS2(LOINC) 0.00 - x10E9/L 0.70 EOSINOPHIL 0.00 LAB #BAS2(LOINC) 0.00 - x10E9/L 0.10 BASOPHIL 0.00 LAB #MYEL(LOINC) 0.00 - x10E9/L Abnormal 0.00 MYELOCYTE 0.09 Performed By: #### MDIFF #### [facility] [address] [place] [address] RED CELL MORPHOLOGY Collected: 11/23/2017 Status: F Source: [place] 3:20 AM [facility] REPOSITORY TYPE CODE TESTS RESULT OUT OF REFERENCE UNITS RANGE LAB RBCMO(LOIN C) RBC MORPHOLOGY See Below LAB POLY(LOINC ) POLYCHROMASIA Mild LAB OVALO(LOIN C) OVALOCYTES Few Performed By: #### MORP2 #### [facility] [address] [place] [address] HEPARIN ASSAY,UFH Collected: 11/23/2017 Status: F Source: [place] 12:42 AM [facility] REPOSITORY Order Comment: DELFINO Called- RB to WINTER LAO, 11/23/2017 01:34 TYPE CODE TESTS RESULT OUT OF RANGE REFERENCE UNITS LAB HAUF(LOINC IU/mL ) Abnormal HEPARIN >2.0 ASSAY,UFH Result Comment: The therapeutic reference range for UFH may be either 0.3-0.6 IU/mL or 0.3-0.7 IU/mL based on the clinical setting for anticoagulant therapy and the associated nomogram used. For heparin dosing guidelines based on clinical scenario and Heparin Assay results, please refer to local Pharmacy and the [facility] Guidelines for Anticoagulation therapy available on the [facility] intranet at: [email or web address]_[email or web address] DELFINO Called- RB to WINTER EDWARDS, 11/23/2017 01:34 Performed By: #### HAUF #### [facility] [address] [place] [id number] CBC Collected: 11/22/2017 Status: F Source: [place] 11:00 PM [facility] REPOSITORY TYPE CODE TESTS RESULT OUT OF REFERENCE UNITS RANGE LAB WBCR(LOINC 4.4 - 11.3 x10E9/L ) WBC 9.0 LAB NRBC(LOINC 0.0-0.0 /100 WBC ) NUCLEATED RBC 0.0 LAB RBCCT(LOIN 4.50 - 5.90 x10E12/L C) RBC 4.87 LAB HGB(LOINC) 13.5 - 17.5 g/dL Low HGB 10.3 LAB HCT(LOINC) 41.0 - 52.0 % Low HCT 33.8 LAB MCV(LOINC) 80 - 100 fL Low MCV 69 LAB MCHC2(LOIN 32.0 - 36.0 g/dL C) Low MCHC 30.5 LAB PLTCT(LOIN 150 - 450 x10E9/L C) PLT 252 LAB RDWCV(LOIN 11.5 - 14.5 % C) High RDW-CV 26.5 Performed By: #### CBC #### [facility] [address] [place] [address] CBC AND DIFFERENTIAL Collected: 11/22/2017 Status: CANCELLED Source: [place] 9:04 PM [facility] REPOSITORY Order Comment: TEST CBC AND DIFFERENTIAL WAS CANCELLED, 11/23/2017 00:47 DUPLICATE ORDER. TYPE CODE TESTS RESULT OUT OF REFERENCE UNITS RANGE LAB WBCR(LOINC ) WBC Canceled LAB NRBC(LOINC ) NUCLEATED RBC Canceled LAB RBCCT(LOIN C) RBC Canceled LAB HGB(LOINC) HGB Canceled LAB HCT(LOINC) HCT Canceled LAB MCV(LOINC) MCV Canceled LAB MCHC2(LOIN C) MCHC Canceled LAB PLTCT(LOIN C) PLT Canceled LAB RDWCV(LOIN C) RDW-CV Canceled LAB NEUT(LOINC ) % NEUTROPHIL Canceled LAB IG(LOINC) % AUTOMATED Canceled IMMATURE GRAN Result Comment: Percent differential counts (%) should be interpreted in the context of the absolute cell counts (cells/L). LAB LYMPH(LOINC) % LYMPHOCYTE Canceled LAB MONO(LOINC) % MONOCYTE Canceled LAB EOS(LOINC) % EOSINOPHIL Canceled LAB BASO(LOINC) % BASOPHIL Canceled LAB #NEUT(LOINC) NEUTROPHIL Canceled LAB #LYMP(LOINC) LYMPHOCYTE Canceled LAB #MONO(LOINC) MONOCYTE Canceled LAB #EOS(LOINC) EOSINOPHIL Canceled LAB #BASO(LOINC) BASOPHIL Canceled LAB MDIF(LOINC) DIFFERENTIAL Canceled Performed By: #### CBCDF #### [facility] [address] [place] [address] Observed: 11/22/2017 Status: F Source: [place] STAPH/MRSA SCREEN 6:10 PM [facility]OS[facility]ITALS REPOSITORY PATIENT: ANDREI RODRIGUEZ LOCATION: [facility] BILL#: [id number] : 59 AGE: SEX: M ORDERED BY: MONICA UDFF SOURCE: ANTERIOR NARES COLLECTED: 11/22/17 18:10 ANTIBIOTICS AT [place].: RECEIVED : 11/22/17 19:06 SITE: NARES R E S U L T S STAPH/MRSA SCREEN FINAL 11/24/17 08:21 NO Staphylococcus aureus ISOLATED. Performed By: #### STAPH #### [facility] [address] [place] [address] URINE Observed: 11/22/2017 Status: F Source: [place] CULTURE,BACTERIAL 6:09 PM HOSPITALS REPOSITORY PATIENT: ANDREI RODRIGUEZ LOCATION: [facility]#: [id number] : 59 AGE: SEX: M ORDERED BY: MONICA DUFF SOURCE: URINE COLLECTED: 11/22/17 18:09 ANTIBIOTICS AT [place].: RECEIVED : 11/22/17 21:30 SITE: [facility] Cath R E S U L T S URINE CULTURE,BACTERIAL FINAL 11/23/17 14:33 NO GROWTH Performed By: #### URINC #### [facility] [address] [place] [address] HEPARIN ASSAY,UFH Collected: 11/22/2017 Status: F Source: [place] 5:56 [facility] REPOSITORY TYPE CODE TESTS RESULT OUT OF REFERENCE UNITS RANGE LAB HAUF(LOINC) IU/mL HEPARIN <0.1 ASSAY,UFH Result Comment: The therapeutic reference range for UFH may be either 0.3-0.6 IU/mL or 0.3-0.7 IU/mL based on the clinical setting for anticoagulant therapy and the associated nomogram used. For heparin dosing guidelines based on clinical scenario and Heparin Assay results, please refer to local Pharmacy and the [facility] Guidelines for Anticoagulation therapy available on the [facility] intranet at: [email or web address]_for_Anticoagu.aspx Performed By: #### HAUF #### [facility] [address] [place] [address] ABO/RH GROUP TEST Collected: 11/22/2017 Status: CANCELLED Source: [place] 5:50 PM [facility] REPOSITORY Order Comment: TEST ABO/RH GROUP TEST WAS CANCELLED, 11/22/2017 19:03 DUPLICATE ORDER. TYPE CODE TESTS RESULT OUT OF REFERENCE UNITS RANGE LAB ABORH(LOINC ) ABO TYPE Canceled LAB RH(LOINC) RH TYPE Canceled Performed By: #### ABORG #### [facility] [address] [place] [address] HEPARIN ASSAY,UFH Collected: 11/22/2017 Status: CANCELLED Source: [place] 5:45 PM [facility] REPOSITORY Order Comment: TEST HEPARIN ASSAY,UFH WAS CANCELLED, 11/23/2017 02:29 NO SPECIMEN RECEIVED IN LAB. TYPE CODE TESTS RESULT OUT OF REFERENCE UNITS RANGE LAB HAUF(LOINC ) HEPARIN Canceled ASSAY,UFH Result Comment: The therapeutic reference range for UFH may be either 0.3-0.6 IU/mL or 0.3-0.7 IU/mL based on the clinical setting for anticoagulant therapy and the associated nomogram used. For heparin dosing guidelines based on clinical scenario and Heparin Assay results, please refer to local Pharmacy and the [facility] Guidelines for Anticoagulation therapy available on the [facility] intranet at: [email or web address]_for_Anticoagu.aspx Performed By: #### HAUF #### [facility] [address] [place] [address] PLATELETS Collected: 11/22/2017 Status: F Source: [place] 3:11 PM [facility] REPOSITORY TYPE CODE TESTS RESULT OUT OF REFERENCE UNITS RANGE LAB PLT(LOINC) PLATELETS ORDER RECD Result Comment: If this patient is Rh Negative and if the Platelet product transfused is Rh Positive, review the use of WinRho Prophylaxis for this patient. Performed By: #### PLT #### [facility] [address] [place] [address] REQUEST-LEUKOREDUCED RED CELLS Collected: Status: F Source: [place] 11/22/2017 3:11 PM [facility]OSPITALS REPOSITORY TYPE CODE TESTS RESULT OUT OF RANGE REFERENCE UNITS LAB OLPC(LOINC) ORDER RECD REQUEST-LEUK OREDUCED RED CELLS Performed By: #### OLPC #### [facility] [address] [place] [address] PLASMA Collected: 11/22/2017 Status: F Source: [place] 3:11 PM [facility] REPOSITORY TYPE CODE TESTS RESULT OUT OF RANGE REFERENCE UNITS LAB FFP(LOINC) Abnormal PLASMA ORDER RECD Performed By: #### FFP #### [facility] [address] [place] [address] CBC AND DIFFERENTIAL Collected: 11/22/2017 Status: F Source: [place] 2:41 PM [facility] REPOSITORY TYPE CODE TESTS RESULT OUT OF REFERENCE UNITS RANGE LAB WBCR(LOINC 4.4 - 11.3 x10E9/L ) WBC 8.9 LAB NRBC(LOINC 0.0-0.0 /100 WBC ) NUCLEATED RBC 0.0 LAB RBCCT(LOIN 4.50 - 5.90 x10E12/L C) RBC 4.72 LAB HGB(LOINC) 13.5 - 17.5 g/dL Low HGB 9.9 LAB HCT(LOINC) 41.0 - 52.0 % Low HCT 32.1 LAB MCV(LOINC) 80 - 100 fL Low MCV 68 LAB MCHC2(LOIN 32.0 - 36.0 g/dL C) Low MCHC 30.8 LAB PLTCT(LOIN 150 - 450 x10E9/L C) PLT 248 LAB RDWCV(LOIN 11.5 - 14.5 % C) RDW-CV High 26.0 LAB NEUT(LOINC 40.0 - 80.0 % ) % NEUTROPHIL 68.4 LAB IG(LOINC) 0.0 - 0.9 % % High AUTOMATED 1.2 IMMATURE GRAN Result Comment: Percent differential counts (%) should be interpreted in the context of the absolute cell counts (cells/L). LAB LYMPH(LOINC) 13.0 - % Low 44.0 % LYMPHOCYTE 10.0 LAB MONO(LOINC) 2.0 - 10.0 % % MONOCYTE High 18.4 LAB EOS(LOINC) 0.0 - 6.0 % % EOSINOPHIL 1.8 LAB BASO(LOINC) 0.0 - 2.0 % % BASOPHIL 0.2 LAB #NEUT(LOINC) 1.20 - x10E9/L 7.70 NEUTROPHIL 6.08 LAB #LYMP(LOINC) 1.20 - x10E9/L Low 4.80 LYMPHOCYTE 0.89 LAB #MONO(LOINC) 0.10 - x10E9/L 1.00 MONOCYTE High 1.64 LAB #EOS(LOINC) 0.00 - x10E9/L 0.70 EOSINOPHIL 0.16 LAB #BASO(LOINC) 0.00 - x10E9/L 0.10 BASOPHIL 0.02 Result Comment: Automated WBC differential has been confirmed by manual smear. Performed By: #### CBCDF #### [facility] [address] [place] [id number] RED CELL MORPHOLOGY Collected: 11/22/2017 Status: F Source: [place] 2:41 PM [facility] REPOSITORY TYPE CODE TESTS RESULT OUT OF REFERENCE UNITS RANGE LAB RBCMO(LOIN C) RBC MORPHOLOGY See Below LAB POLY(LOINC ) POLYCHROMASIA Mild LAB RBCFR(LOIN C) RBC FRAGMENTS Few LAB OVALO(LOIN C) OVALOCYTES Few LAB TEAR(LOINC ) TEARDROP CELLS Few Performed By: #### MORP2 #### [facility] [address] [place] [id number] EMR ADDON Collected: 11/22/2017 Status: F Source: [place] 1:35 PM [facility] REPOSITORY TYPE CODE TESTS RESULT OUT OF REFERENCE UNITS RANGE LAB EMRAC(LOIN C) ADDON CONFIRMATION REQUEST REC'D Performed By: #### EMRAD #### NO LOCATION NEEDED CBC Collected: 11/22/2017 Status: F Source: [place] 10:20 AM [facility] REPOSITORY TYPE CODE TESTS RESULT OUT OF REFERENCE UNITS RANGE LAB WBCR(LOINC 4.4 - 11.3 x10E9/L ) WBC 9.5 LAB NRBC(LOINC 0.0-0.0 /100 WBC ) NUCLEATED RBC 0.0 LAB RBCCT(LOIN 4.50 - 5.90 x10E12/L C) RBC 4.87 LAB HGB(LOINC) 13.5 - 17.5 g/dL Low HGB 10.4 LAB HCT(LOINC) 41.0 - 52.0 % Low HCT 32.9 LAB MCV(LOINC) 80 - 100 fL Low MCV 68 LAB MCHC2(LOIN 32.0 - 36.0 g/dL C) Low MCHC 31.6 LAB PLTCT(LOIN 150 - 450 x10E9/L C) PLT 263 LAB RDWCV(LOIN 11.5 - 14.5 % C) High RDW-CV 25.8 Performed By: #### CBC #### [facility] [address] [place] [id number] ABO/RH GROUP TEST Collected: 11/22/2017 Status: F Source: [place] 5:45 AM [facility] REPOSITORY TYPE CODE TESTS RESULT OUT OF RANGE REFERENCE UNITS LAB ABORH(LOINC ) ABO TYPE O LAB RH(LOINC) RH TYPE POS Performed By: #### VERAB #### [facility] [address] [facility] [place] [address] COAGULATION SCREEN Collected: 11/22/2017 Status: F Source: [place] 1:59 AM [facility] REPOSITORY TYPE CODE TESTS RESULT OUT OF REFERENCE UNITS RANGE LAB PT(LOINC) 9.8 - 12.7 sec PROTHROMBIN High TIME 15.0 LAB INR(LOINC) 0.9 - 1.1 PT, INR High 1.4 LAB APTT(LOINC 25 - 36 sec ) APTT 27 Result Comment: THE APTT IS NO LONGER USED FOR MONITORING UNFRACTIONATED HEPARIN THERAPY. FOR MONITORING HEPARIN THERAPY, USE THE HEPARIN ASSAY. Performed By: #### COAGS #### [facility] [address] [place] [address] CBC Collected: 11/22/2017 Status: F Source: [place] 1:59 [facility] REPOSITORY TYPE CODE TESTS RESULT OUT OF RANGE REFERENCE UNITS LAB WBCR(LOINC 4.4 - 11.3 x10E9/L ) WBC 9.6 LAB NRBC(LOINC 0.0-0.0 /100 WBC ) Abnormal NUCLEATED RBC 0.2 LAB RBCCT(LOIN 4.50 - 5.90 x10E12/L C) RBC 4.51 LAB HGB(LOINC) 13.5 - 17.5 g/dL Low HGB 9.6 LAB HCT(LOINC) 41.0 - 52.0 % Low HCT 30.9 LAB MCV(LOINC) 80 - 100 fL Low MCV 69 LAB MCHC2(LOIN 32.0 - 36.0 g/dL C) Low MCHC 31.1 LAB PLTCT(LOIN 150 - 450 x10E9/L C) PLT 230 LAB RDWCV(LOIN 11.5 - 14.5 % C) High RDW-CV 26.0 Performed By: #### CBC #### [facility] [address] [place] [address] RENAL FUNCTION PANEL Collected: 11/22/2017 Status: F Source: [place] 1:59 AM [facility] REPOSITORY TYPE CODE TESTS RESULT OUT OF REFERENCE UNITS RANGE LAB GLU(LOINC) 74 - 99 mg/dL GLUCOSE High 113 LAB SOD(LOINC) 136 - 145 mmol/L Low SODIUM 133 LAB K(LOINC) 3.5 - 5.3 mmol/L POTASSIUM 4.0 LAB CHLOR(LOIN 98 - 107 mmol/L C) CHLORIDE 103 LAB BIC(LOINC) 21 - 32 mmol/L BICARBONATE 23 LAB ANGAP(LOIN 10 - 20 mmol/L C) ANION GAP 11 LAB UREA(LOINC 6 - 23 mg/dL ) UREA NITROGEN 11 LAB CREA(LOINC 0.50 - 1.30 mg/dL ) CREATININE 0.98 LAB GFRFN(LOIN >60 mL/min/1.7 C) 3m2 GFR-NON AM. >60 LAB GFRAA(LOIN >60 mL/min/1.7 C) 3m2 GFR- AM. >60 Result Comment: CALCULATIONS OF ESTIMATED GFR ARE PERFORMED USING THE MDRD STUDY EQUATION FOR THE IDMS-TRACEABLE CREATININE METHODS. CLIN CHEM 2007;53:766-72 LAB CA(LOINC) 8.6 - 10.6 mg/dL CALCIUM Low 8.4 LAB PHOS(LOINC) 2.5 - 4.9 mg/dL PHOSPHORUS 3.5 Result Comment: The performance characteristics of phosphorus testing in heparinized plasma have been validated by the individual laboratory site where testing is performed. Testing on heparinized plasma is not approved by the FDA; however, such approval is not necessary. LAB ALB(LOINC) 3.4 - 5.0 g/dL Low ALBUMIN 3.3 Performed By: #### RENAL #### [facility] [address] [facility] [place] [address] FERRITIN Collected: 11/22/2017 Status: F Source: [place] 1:59 [facility] REPOSITORY TYPE CODE TESTS RESULT OUT OF REFERENCE UNITS RANGE LAB ZAMZAM(LOINC 20 - 300 ug/L ) FERRITIN 34 Performed By: #### ZAMZAM #### [facility] [address] [facility] [place] [address] LDH Collected: 11/22/2017 Status: F Source: [place] 1:59 AM [facility] REPOSITORY TYPE CODE TESTS RESULT OUT OF RANGE REFERENCE UNITS LAB LDH(LOINC) 84 - 246 U/L High LDH 278 Performed By: #### LDH #### [facility] [address] [facility] [place] [address] IRON + TIBC Collected: 11/22/2017 Status: F Source: [place] 1:59 AM [facility]ITALS REPOSITORY TYPE CODE TESTS RESULT OUT OF REFERENCE UNITS RANGE LAB IRON(LOINC 35 - 150 ug/dL ) Low IRON 27 LAB TIBC(LOINC 240 - 445 ug/dL ) TIBC 401 LAB %SAT(LOINC 25 - 45 % ) Low % SATURATION 7 Performed By: #### IRONT #### [facility] [address] [place] [address] HAPTOGLOBIN Collected: 11/22/2017 Status: F Source: [place] 1:59 AM [facility]ITALS REPOSITORY TYPE CODE TESTS RESULT OUT OF REFERENCE UNITS RANGE LAB HAPTO(LOIN 30 - 200 mg/dL C) HAPTOGLOBIN High 240 Performed By: #### HAPTO #### [facility] [address] [place] [address] DIFFERENTIAL Collected: 11/22/2017 Status: F Source: [place] 1:59 [facility] REPOSITORY TYPE CODE TESTS RESULT OUT OF REFERENCE UNITS RANGE LAB NEUT(LOINC 40.0 - 80.0 % ) % NEUTROPHIL 65.4 LAB IG(LOINC) 0.0 - 0.9 % % High AUTOMATED 1.1 IMMATURE GRAN Result Comment: Percent differential counts (%) should be interpreted in the context of the absolute cell counts (cells/L). LAB LYMPH(LOINC) 13.0 - % Low 44.0 % LYMPHOCYTE 11.2 LAB MONO(LOINC) 2.0 - 10.0 % % MONOCYTE High 20.5 LAB EOS(LOINC) 0.0 - 6.0 % % EOSINOPHIL 1.6 LAB BASO(LOINC) 0.0 - 2.0 % % BASOPHIL 0.2 LAB #NEUT(LOINC) 1.20 - x10E9/L 7.70 NEUTROPHIL 6.09 LAB #LYMP(LOINC) 1.20 - x10E9/L Low 4.80 LYMPHOCYTE 1.04 LAB #MONO(LOINC) 0.10 - x10E9/L 1.00 MONOCYTE High 1.91 LAB #EOS(LOINC) 0.00 - x10E9/L 0.70 EOSINOPHIL 0.15 LAB #BASO(LOINC) 0.00 - x10E9/L 0.10 BASOPHIL 0.02 Result Comment: Automated WBC differential has been confirmed by manual smear. Performed By: #### ADIFF #### [facility] [id number] [place] [address] RED CELL MORPHOLOGY Collected: 11/22/2017 Status: F Source: [place] 1:59 AM [facility] REPOSITORY TYPE CODE TESTS RESULT OUT OF REFERENCE UNITS RANGE LAB RBCMO(LOIN C) RBC MORPHOLOGY See Below LAB POLY(LOINC ) POLYCHROMASIA Mild LAB RBCFR(LOIN C) RBC FRAGMENTS Few LAB OVALO(LOIN C) OVALOCYTES Few LAB TEAR(LOINC ) TEARDROP CELLS Few Performed By: #### MORP2 #### [facility] [address] [place] [address] REQUEST-LEUKOREDUCED RED CELLS Collected: Status: F Source: [place] 11/21/2017 7:58 PM [facility]PITALS REPOSITORY TYPE CODE TESTS RESULT OUT OF RANGE REFERENCE UNITS LAB OLPC(LOINC) ORDER RECD REQUEST-[place] OREDUCED RED CELLS Performed By: #### OLPC #### [facility] [address] [place] [address] REQUEST-LEUKOREDUCED RED CELLS Collected: Status: F Source: [place] 11/21/2017 7:44 PM [facility]ITALS REPOSITORY TYPE CODE TESTS RESULT OUT OF RANGE REFERENCE UNITS LAB OLPC(LOINC) ORDER RECD REQUEST-LEUK OREDUCED RED CELLS Performed By: #### OLPC #### [facility] [address] [place] [address] CBC Collected: 11/21/2017 Status: F Source: [place] 5:39 PM [facility]IT[facility] REPOSITORY TYPE CODE TESTS RESULT OUT OF RANGE REFERENCE UNITS LAB WBCR(LOINC 4.4 - 11.3 x10E9/L ) WBC 10.1 LAB NRBC(LOINC 0.0-0.0 /100 WBC ) Abnormal NUCLEATED RBC 0.2 LAB RBCCT(LOIN 4.50 - 5.90 x10E12/L C) Low RBC 4.28 LAB HGB(LOINC) 13.5 - 17.5 g/dL Low HGB 8.8 LAB HCT(LOINC) 41.0 - 52.0 % Low HCT 28.4 LAB MCV(LOINC) 80 - 100 fL Low MCV 66 LAB MCHC2(LOIN 32.0 - 36.0 g/dL C) Low MCHC 31.0 LAB PLTCT(LOIN 150 - 450 x10E9/L C) PLT 242 LAB RDWCV(LOIN 11.5 - 14.5 % C) High RDW-CV 25.1 Performed By: #### CBC #### [facility] [address] [place] [address] Observed: 11/21/2017 Status: F Source: [place] STAPH/MRSA SCREEN 5:39 PM [facility]OSPITALS REPOSITORY PATIENT: ANDREI RODRIGUEZ LOCATION: [facility] BILL#: [id number] : 59 AGE: SEX: M ORDERED BY: VERONICA MELENDEZ SOURCE: ANTERIOR NARES COLLECTED: 11/21/17 17:39 ANTIBIOTICS AT [place].: RECEIVED : 11/21/17 22:22 SITE: NARES R E S U L T S STAPH/MRSA SCREEN FINAL 11/23/17 13:13 NO Staphylococcus aureus ISOLATED. Performed By: #### STAPH #### [facility] [address] [place] [address] DISCHARGE PLANNING Observed: 11/21/2017 Status: UNK Source: UNIVERSITY NOTE 3:58 PM HOSPITALS REPOSITORY Discharge Needs Assessment: ? Discharge Planning Assessment Date 29-Nov-2017 ? Discharge Planning Assessment Completed by Loren Dickey RN CC Patient Learning: ? Factors that Impact Ability to Learn acuteness of illness(1) Other Factors: ? Functional Screen: In the recent/past 2-4 weeks, patient or family have noticed no issues that require a rehabilitation consult at this time(2) Discharge Needs: ? Anticipated Discharge Facility/Level of Care Needs Home Health Care - New Discharge Planning: Discharge Planning: late entry: 1738-11/20/17- [facility] [place] Note - ICU called to the room by the family to ask about medicaid application. did referral them to apply online , also i will notify perinatal social worker in the AM. did call HRS to see the patient to see patient. transfer from [place] with STEMI; patient loaded with ASA, ticagrelor, started on heparin ggt, nitro ggt, and balloon pump, discharge plan: patient not medically ready, S/p 2 u pRBC. Pending EGD this am. CT surgery consult also pending. ADOD: to be determine given the acuity of acute illness perinatal social worker and [place] to continue to follow for discharge planning. Blanca Jett RN,BSN [id number] update 11/21/17- 5-[facility] Note - ICU family not at the bedside this AM application from [employer]. H placed in the chart for the family when they get here. perinatal social worker and [place] to continue to follow for discharge planning. Blanca Jett RN,BSN [id number] [place] Note: 11/27/2016. Met with patient to discuss discharge planning. Patient is 62 year old male from home s/p a Cabgx5. Patient will be staying with his daughter at discharge. Independent in all ADL's. Requires no assist devices for ambulation. Patient feels safe at home and denies any issues with making follow up appointments. Patient denies being a diabetic. No forms of dialysis. Patient denies prior home care. No home oxygen or CPAP machine. Patient provided a Moving Right Along after Heart Surgery booklet [facility] [place] [place] Local pharmacy [place], [place]. Will continue to monitor patient for all home going needs. Loren Dickey RN CC SOCIAL WORK NOTE 11/27/17 11:12AM HRS/ [facility] screened pt and accepted. Team alerted pt does not have insurance. No further SW needs at this time. Nani Lema, [facility] [place] Note: 11/30/2017. Patient will discharge home when medically stable with home care. Patient had some AFIB RVR started on an Amio drip. Will continue to monitor patient for all home going needs. Loren Dickey RN CC Discharge Note 12/03/17 1116: RN received Pt to be discharged orders. Medication reconciliation reviewed. Discharge orders reviewed at bedside with Pt; verbalized understanding. VSS. Tele monitor d/c'd, cath intact. Pt has script and all belongings. Pt taken down by transport. Dolly Galo RN Final Disposition/Discharge: Disposition/Discharge Information: Discharge/Transfer Information: ? Discharge/Transfer Date/Time 03-Dec-2017 10:52 ? Discharged Accompanied By family member ? Discharge Mode ambulatory ? Transportation Method private car ? Final Disposition Home Health Care - New Electronic Signatures: Blanca eJtt (PORCELAIN WAXER) (Signed 21-Nov-2017 16:28) Authored: Discharge Planning Note Mirza Dickey (CLIN COOR) (Signed 30-Nov-2017 13:12) Authored: Discharge Planning Note, Final Disposition/Discharge Monique Lema (SW) (Signed 27-Nov-2017 11:13) Authored: Discharge Planning Note Jumana Galo (HEATHER) (Signed 03-Dec-2017 11:18) Authored: Discharge Planning Note, Final Disposition/Discharge Last Updated: 03-Dec-2017 11:18 by Jumana Galo (HEATHER) References: 1. Data Referenced From 3. Plan of Care - Adult 11/20/2017 3:10 PM 2. Data Referenced From Admission Risk Screen - Adult 11/20/2017 1:31 PM VASC LAB CAROTID Observed: 11/21/2017 Status: F Source: UNIVERSITY ARTERY DUPLEX 2:00 PM [facility], [address] [place] [address] and Vascular Lab Report Carotid Artery Duplex Ultrasound Patient Name: ANDREI Pruitt ISABEL Hernandez Physician: [id number] Avtar So MD Study Date: 11/21/2017 Referring Physician: Dane Anderson MD MRN/PID: [id number] PCP: Accession/Order#: [id number] CC Report to: Date of : 1955 Technologist: Remy Crawley RVT Gender: M Technologist 2: Admission Status: Inpatient Location Performed: [facility] Diagnosis/ICD: I24.8; ;Z01.818-Encounter for other preprocedural examination Procedure/CPT: 00722 Cerebrovacular Carotid Duplex scan complete CONCLUSIONS: Right Carotid: Findings are consistent with less than 50% stenosis of the right ICA. Pt. is on balloon-pump machine therefore waveforms appear to be irregular and some velocities might be falsely elevat ed. Right external carotid artery appears patent with no evidence of stenosis. The right vertebral artery is patent with antegrade flow. No evidence of hemodynamically significant stenosis in the right subclavian. Left Carotid: Findings are consistent with less than 50% stenosis of the left ICA. Left external carotid artery appears patent with no evidence of stenosis. The left vertebral artery is patent with antegrade flow. No evidence of hemodynamically significant stenosis in the left subclavian. Imaging AND Doppler Findings: Right Plaque Morph: No plaque identified in the right carotid artery. Left Plaque Morph: The proximal left internal carotid artery demonstrates smooth and homogenous plaque. The proximal left external carotid artery demonstrates smooth and homogenous plaque. The distal le ft common carotid artery demonstrates smooth and homogenous plaque. Right Left PSV EDV PSV EDV 96 cm/s CCA P 112 cm/s 88 cm/s CCA D 105 cm/s 70 cm/s 14 cm/s ICA P 80 cm/s 24 cm/s 66 cm/s 17 cm/s ICA D 83 cm/s 22 cm/s 125 cm/s ECA 341 cm/s 32 cm/s Vertebral 70 cm/s 203 cm/s Subclavian 240 cm/s Right Left ICA/CCA Ratio 0.8 0.8 [id number] Avtar So MD Final TROPONIN I Collected: 11/21/2017 Status: F Source: [place] 10:43 AM HOSPITALS REPOSITORY TYPE CODE TESTS RESULT OUT OF REFERENCE UNITS RANGE LAB TROP2(LOINC 0.00 - 0.03 ng/mL ) High TROPONIN I 14.56 Result Comment: LESS THAN 0.04 NG/ML: NEGATIVE REPEAT TESTING IN FOUR TO SIX HOURS IF CLINICALLY INDICATED. 0.04 - 0.5 NG/ML: CONSISTENT WITH POSSIBLE CARDIAC DAMAGE AND POSSIBLE INCREASED CLINICAL RISK. SERIAL MEASUREMENTS MAY HELP ASSESS EXTENT OF MYOCARDIAL DAMAGE. >0.5 NG/ML: CONSISTENT WITH CARDIAC DAMAGE, INCREASED CLINICAL RISK AND MYOCARDIAL INFARCTION. SERIAL MEASUREMENTS MAY HELP ASSESS EXTENT OF MYOCARDIAL DAMAGE. . Note: Troponin I testing is performed using different testing methodology at [facility] than at other [facility]. Direct result comparisons should only be made within the same method. . Patients receiving more than 5 mg/day of biotin may have interference in test results. A sample should be taken no sooner than eight hours after previous dose. Contact [phone] for additional information. Performed By: #### TROP2 #### [facility] [address] [place] [address] REQUEST-LEUKOREDUCED RED CELLS Collected: Status: F Source: [place] 11/21/2017 9:01 AM HOSPITALS REPOSITORY TYPE CODE TESTS RESULT OUT OF RANGE REFERENCE UNITS LAB OLPC(LOINC) ORDER RECD REQUEST-LEUK OREDUCED RED CELLS Performed By: #### OLPC #### [facility] [address] [place] [address] HEPATIC FUNCTION Collected: 11/21/2017 Status: F Source: UNIVERSITY PANEL 2:12 AM HOSPITALS REPOSITORY TYPE CODE TESTS RESULT OUT OF REFERENCE UNITS RANGE LAB ALB(LOINC) 3.4 - 5.0 g/dL ALBUMIN 3.4 LAB TBILI(LOIN 0.0 - 1.2 mg/dL C) High BILIRUBIN,TOTAL 1.5 LAB DBILI(LOIN 0.0 - 0.3 mg/dL C) BILIRUBIN,DIRECT 0.3 LAB AP(LOINC) 33 - 136 U/L Low ALKALINE PHOSPHATASE 28 LAB ALT(LOINC) 10 - 52 U/L ALT 12 Result Comment: Patients treated with Sulfasalazine may generate falsely decreased results for ALT. LAB AST(LOINC) 9 - 39 U/L AST 36 LAB TP(LOINC) 6.4 - 8.2 g/dL Low TOTAL PROTEIN 5.7 Performed By: #### HEPFP #### [facility] [address] [place] [address] LIPID PANEL (CORONARY Collected: 11/21/2017 Status: F Source: UNIVERSITY RISK 2) 2:12 AM HOSPITALS REPOSITORY TYPE CODE TESTS RESULT OUT OF REFERENCE UNITS RANGE LAB CHOL(LOINC 0 - 199 mg/dL ) CHOLESTEROL 116 Result Comment: . AGE DESIRABLE BORDERLINE HIGH HIGH 0-19 Y 0 - 169 170 - 199 >/= 200 20-24 Y 0 - 189 190 - 224 >/= 225 >24 Y 0 - 199 200 - 239 >/= 240 All ranges are based on fasting samples. Specific therapeutic targets will vary based on patient-specific cardiac risk. . Pediatric guidelines reference:Pediatrics 2011, 128(S5). Adult guidelines reference: NCEP ATPIII Guidelines, BRIGETTE 2001, 258:2486-97 . Venipuncture immediately after or during the administration of Metamizole may lead to falsely low results. Testing should be performed immediately prior to Metamizole dosing. LAB HDL(LOINC) mg/dL Abnormal HDL-CHOLESTEROL 28.7 Result Comment: . AGE VERY LOW LOW NORMAL HIGH 0-19 Y < 35 < 40 40-45 ---- 20-24 Y ---- < 40 >45 ---- >24 Y ---- < 40 40-60 >60 . LAB CHHDL(LOINC) CHOLESTEROL/HDL RATIO 4.0 Result Comment: REF VALUES DESIRABLE < 3.4 HIGH RISK > 5.0 LAB LDLF(LOINC) 0 - 99 mg/dL LDL 69 Result Comment: . NEAR BORD AGE DESIRABLE OPTIMAL HIGH HIGH VERY HIGH 0-19 Y 0 - 109 --- 110-129 >/= 130 ---- 20-24 Y 0 - 119 --- 120-159 >/= 160 ---- >24 Y 0 - 99 100-129 130-159 160-189 >/=190 . LAB VLDL(LOINC) 0 - 40 mg/dL VLDL 19 LAB TRIG(LOINC) 0 - 149 mg/dL TRIGLYCERIDES 94 Result Comment: . AGE DESIRABLE BORDERLINE HIGH HIGH VERY HIGH 0 D-90 D 19 - 174 ---- ---- ---- 91 D- 9 Y 0 - 74 75 - 99 >/= 100 ---- 10-19 Y 0 - 89 90 - 129 >/= 130 ---- 20-24 Y 0 - 114 115 - 149 >/= 150 ---- >24 Y 0 - 149 150 - 199 200- 499 >/= 500 . Venipuncture immediately after or during the administration of Metamizole may lead to falsely low results. Testing should be performed immediately prior to Metamizole dosing. Performed By: #### LIPID #### [facility] [address] [place] [address] RENAL FUNCTION PANEL Collected: 11/21/2017 Status: F Source: [place] 2:12 AM HOSPITALS REPOSITORY TYPE CODE TESTS RESULT OUT OF REFERENCE UNITS RANGE LAB GLU(LOINC) 74 - 99 mg/dL GLUCOSE 94 LAB SOD(LOINC) 136 - 145 mmol/L Low SODIUM 133 LAB K(LOINC) 3.5 - 5.3 mmol/L POTASSIUM 4.2 LAB CHLOR(LOIN 98 - 107 mmol/L C) CHLORIDE 104 LAB BIC(LOINC) 21 - 32 mmol/L BICARBONATE 22 LAB ANGAP(LOIN 10 - 20 mmol/L C) ANION GAP 11 LAB UREA(LOINC 6 - 23 mg/dL ) UREA NITROGEN 12 LAB CREA(LOINC 0.50 - 1.30 mg/dL ) CREATININE 0.96 LAB GFRFN(LOIN >60 mL/min/1.7 C) 3m2 GFR-NON AM. >60 LAB GFRAA(LOIN >60 mL/min/1.7 C) 3m2 GFR- AM. >60 Result Comment: CALCULATIONS OF ESTIMATED GFR ARE PERFORMED USING THE MDRD STUDY EQUATION FOR THE IDMS-TRACEABLE CREATININE METHODS. CLIN CHEM 2007;53:766-72 LAB CA(LOINC) 8.6 - 10.6 mg/dL CALCIUM Low 8.5 LAB PHOS(LOINC) 2.5 - 4.9 mg/dL PHOSPHORUS 3.6 Result Comment: The performance characteristics of phosphorus testing in heparinized plasma have been validated by the individual laboratory site where testing is performed. Testing on heparinized plasma is not approved by the FDA; however, such approval is not necessary. LAB ALB(LOINC) 3.4 - 5.0 g/dL ALBUMIN 3.4 Performed By: #### RENAL #### [facility] [address] [place] [address] TSH Collected: 11/21/2017 Status: F Source: [place] 2:12 [facility] REPOSITORY TYPE CODE TESTS RESULT OUT OF RANGE REFERENCE UNITS LAB TSH2(LOINC) 0.44 - 3.98 mIU/L TSH 0.86 Result Comment: TSH testing is performed using different testing methodology at [facility] than at other [facility]. Direct result comparisons should only be made within the same method. . Patients receiving more than 5 mg/day of biotin may have interference in test results. A sample should be taken no sooner than eight hours after previous dose. Contact [phone] for additional information. Performed By: #### TSH2 #### [facility] [address] [place] [id number] TROPONIN I Collected: 11/21/2017 Status: F Source: [place] 2:12 [facility] REPOSITORY TYPE CODE TESTS RESULT OUT OF REFERENCE UNITS RANGE LAB TROP2(LOINC 0.00 - 0.03 ng/mL ) High TROPONIN I 19.80 Result Comment: LESS THAN 0.04 NG/ML: NEGATIVE REPEAT TESTING IN FOUR TO SIX HOURS IF CLINICALLY INDICATED. 0.04 - 0.5 NG/ML: CONSISTENT WITH POSSIBLE CARDIAC DAMAGE AND POSSIBLE INCREASED CLINICAL RISK. SERIAL MEASUREMENTS MAY HELP ASSESS EXTENT OF MYOCARDIAL DAMAGE. >0.5 NG/ML: CONSISTENT WITH CARDIAC DAMAGE, INCREASED CLINICAL RISK AND MYOCARDIAL INFARCTION. SERIAL MEASUREMENTS MAY HELP ASSESS EXTENT OF MYOCARDIAL DAMAGE. . Note: Troponin I testing is performed using different testing methodology at [facility] than at other [facility]. Direct result comparisons should only be made within the same method. . Patients receiving more than 5 mg/day of biotin may have interference in test results. A sample should be taken no sooner than eight hours after previous dose. Contact [phone] for additional information. Performed By: #### TROP2 #### [facility] [address] [place] [address] COAGULATION SCREEN Collected: 11/21/2017 Status: F Source: [place] 2:12 AM [facility] REPOSITORY TYPE CODE TESTS RESULT OUT OF REFERENCE UNITS RANGE LAB PT(LOINC) 9.8 - 12.7 sec PROTHROMBIN High TIME 14.8 LAB INR(LOINC) 0.9 - 1.1 PT, INR High 1.3 LAB APTT(LOINC 25 - 36 sec ) APTT 27 Result Comment: THE APTT IS NO LONGER USED FOR MONITORING UNFRACTIONATED HEPARIN THERAPY. FOR MONITORING HEPARIN THERAPY, USE THE HEPARIN ASSAY. Performed By: #### COAGS #### [facility] [address] [place] [address] CBC AND DIFFERENTIAL Collected: 11/21/2017 Status: F Source: [place] 2:12 AM [facility] REPOSITORY TYPE CODE TESTS RESULT OUT OF REFERENCE UNITS RANGE LAB WBCR(LOINC 4.4 - 11.3 x10E9/L ) WBC 8.8 LAB NRBC(LOINC 0.0-0.0 /100 WBC ) NUCLEATED RBC 0.0 LAB RBCCT(LOIN 4.50 - 5.90 x10E12/L C) Low RBC 4.07 LAB HGB(LOINC) 13.5 - 17.5 g/dL Low HGB 7.8 LAB HCT(LOINC) 41.0 - 52.0 % Low HCT 25.5 LAB MCV(LOINC) 80 - 100 fL Low MCV 63 LAB MCHC2(LOIN 32.0 - 36.0 g/dL C) Low MCHC 30.6 LAB PLTCT(LOIN 150 - 450 x10E9/L C) PLT 304 LAB RDWCV(LOIN 11.5 - 14.5 % C) RDW-CV High 21.4 LAB NEUT(LOINC 40.0 - 80.0 % ) % NEUTROPHIL 70.4 LAB IG(LOINC) 0.0 - 0.9 % % AUTOMATED 0.8 IMMATURE GRAN Result Comment: Percent differential counts (%) should be interpreted in the context of the absolute cell counts (cells/L). LAB LYMPH(LOINC) 13.0 - % Low 44.0 % LYMPHOCYTE 12.0 LAB MONO(LOINC) 2.0 - 10.0 % % MONOCYTE High 15.4 LAB EOS(LOINC) 0.0 - 6.0 % % EOSINOPHIL 1.1 LAB BASO(LOINC) 0.0 - 2.0 % % BASOPHIL 0.3 LAB #NEUT(LOINC) 1.20 - x10E9/L 7.70 NEUTROPHIL 6.20 LAB #LYMP(LOINC) 1.20 - x10E9/L Low 4.80 LYMPHOCYTE 1.06 LAB #MONO(LOINC) 0.10 - x10E9/L 1.00 MONOCYTE High 1.36 LAB #EOS(LOINC) 0.00 - x10E9/L 0.70 EOSINOPHIL 0.10 LAB #BASO(LOINC) 0.00 - x10E9/L 0.10 BASOPHIL 0.03 Performed By: #### CBCDF #### [facility] [address] [place] [id number] RED CELL MORPHOLOGY Collected: 11/21/2017 Status: F Source: [place] 2:12 AM HOSPITALS REPOSITORY TYPE CODE TESTS RESULT OUT OF REFERENCE UNITS RANGE LAB RBCMO(LOIN C) RBC MORPHOLOGY See Below LAB POLY(LOINC ) POLYCHROMASIA Mild LAB RBCFR(LOIN C) RBC FRAGMENTS Few LAB OVALO(LOIN C) OVALOCYTES Few Performed By: #### MORP2 #### [facility] [address] [place] [address] HEMOGLOBIN A1C Collected: 11/21/2017 Status: F Source: [place] 2:12 AM HOSPITALS REPOSITORY TYPE CODE TESTS RESULT OUT OF RANGE REFERENCE UNITS LAB HBA1C(LOINC % ) HGB A1C 5.5 Result Comment: Diagnosis of Diabetes-Adults Non-Diabetic: < or = 5.6% Increased risk for developing diabetes: 5.7-6.4% Diagnostic of diabetes: > or = 6.5% . Monitoring of Diabetes Age (y) Therapeutic Goal (%) Adults: >18 <7.0 Pediatrics: 13-18 <7.5 7-12 <8.0 0- 6 7.5-8.5 [employer]. Diabetes Care 33(S1), Sep 2009. LAB ESAVG(LOINC) MG/DL EST.AVG.GLUCOSE 111 Performed By: #### HBA1E #### [facility] [address] [place] [address] TROPONIN I Collected: 11/20/2017 Status: F Source: [place] 9:10 PM HOSPITALS REPOSITORY TYPE CODE TESTS RESULT OUT OF REFERENCE UNITS RANGE LAB TROP2(LOINC 0.00 - 0.03 ng/mL ) High TROPONIN I 21.18 Result Comment: LESS THAN 0.04 NG/ML: NEGATIVE REPEAT TESTING IN FOUR TO SIX HOURS IF CLINICALLY INDICATED. 0.04 - 0.5 NG/ML: CONSISTENT WITH POSSIBLE CARDIAC DAMAGE AND POSSIBLE INCREASED CLINICAL RISK. SERIAL MEASUREMENTS MAY HELP ASSESS EXTENT OF MYOCARDIAL DAMAGE. >0.5 NG/ML: CONSISTENT WITH CARDIAC DAMAGE, INCREASED CLINICAL RISK AND MYOCARDIAL INFARCTION. SERIAL MEASUREMENTS MAY HELP ASSESS EXTENT OF MYOCARDIAL DAMAGE. . Note: Troponin I testing is performed using different testing methodology at [facility] than at other [facility]. Direct result comparisons should only be made within the same method. . Patients receiving more than 5 mg/day of biotin may have interference in test results. A sample should be taken no sooner than eight hours after previous dose. Contact [phone] for additional information. Performed By: #### TROP2 #### [facility] [address] [place] [address] PLATELETS Collected: 11/20/2017 Status: F Source: [place] 7:04 PM HOSPITALS REPOSITORY TYPE CODE TESTS RESULT OUT OF REFERENCE UNITS RANGE LAB PLT(LOINC) PLATELETS ORDER RECD Result Comment: If this patient is Rh Negative and if the Platelet product transfused is Rh Positive, review the use of WinRho Prophylaxis for this patient. Performed By: #### PLT #### [facility] [address] [place] [address] REQUEST-LEUKOREDUCED RED CELLS Collected: Status: F Source: [place] 11/20/2017 7:04 PM HOSPITALS REPOSITORY TYPE CODE TESTS RESULT OUT OF RANGE REFERENCE UNITS LAB OLPC([facility]) ORDER RECD REQUEST-LEUK OREDUCED RED CELLS Performed By: #### OLPC #### [facility] [address] [place] [address] CHEST FOR PE Observed: 11/20/2017 Status: F Source: [place] 6:29 PM HOSPITALS REPOSITORY Patient Name: ANDREI RODRIGUEZ STUDY: TH CT CHEST FOR PE; 11/20/2017 6:29 pm INDICATION: Signs/Symptoms: hemopytsis. COMPARISON: None. ACCESSION NUMBER(S): [id number] ORDERING CLINICIAN: ROBY HEBERT TECHNIQUE: Helical data acquisition of the chest was obtained following intravenous administration of 78 mL of Optiray 350 contrast.. Images were reformatted in axial, coronal, and sagittal planes. FINDINGS: POTENTIAL LIMITATIONS OF THE STUDY:None HEART AND VESSELS: No discrete filling defects within the main pulmonary artery or its branches. Main pulmonary artery and its branches are normal in caliber. The thoracic aorta is of normal course and caliber without vascular calcifications. There is an intra-aortic balloon pump in satisfactory position, with superior tip within proximal descending thoracic aorta.. Severe coronary artery calcifications are seen.The study is not optimized for evaluation of coronary arteries. The cardiac chambers are not enlarged. No evidence of pericardial effusion. MEDIASTINUM AND REEMA, LOWER NECK AND AXILLA: The visualized thyroid gland is within normal limits. There are few scattered prominent mediastinal lymph nodes not enlarged by CT criteria. Esophagus appears within normal limits as seen. LUNGS AND AIRWAYS: The trachea and central airways are patent. No endobronchial lesion. There is a trace left pleural effusion with mild bibasilar atelectasis. No evidence of focal consolidation or pneumothorax. There are few scattered bilateral small calcified pulmonary granulomas. UPPER ABDOMEN: The visualized subdiaphragmatic structures demonstrate no remarkable findings. CHEST WALL AND OSSEOUS STRUCTURES: There are remote trauma deformities of the right clavicle and posterior right ribs. Mild multilevel degenerative changes are present IMPRESSION: 1. No evidence of acute pulmonary embolism. 2. Severe coronary artery atherosclerotic calcifications. 3. Trace left pleural effusion with mild bibasilar atelectasis. No definite focal consolidation. 4. Intra-aortic balloon pump in place. I personally reviewed the images/study and I agree with the findings as stated. This study was interpreted at [facility], [place], [place]. Electronically signed by: PITER DANIELS MD REQUEST-LEUKOREDUCED RED CELLS Collected: Status: F Source: [place] 11/20/2017 4:03 PM HOSPITALS REPOSITORY TYPE CODE TESTS RESULT OUT OF RANGE REFERENCE UNITS LAB OLPC(LOINC) ORDER RECD REQUEST-LEUK OREDUCED RED CELLS Performed By: #### OLPC #### [facility] [address] [place] [address] EMR ADDON Collected: 11/20/2017 Status: F Source: [place] 3:52 PM HOSPITALS REPOSITORY TYPE CODE TESTS RESULT OUT OF REFERENCE UNITS RANGE LAB EMRAC(LOIN C) ADDON CONFIRMATION REQUEST REC'D Performed By: #### EMRAD #### NO LOCATION NEEDED URINALYSIS Collected: 11/20/2017 Status: F Source: [place] 3:03 PM [facility] REPOSITORY TYPE CODE TESTS RESULT OUT OF REFERENCE UNITS RANGE LAB COLU(LOINC STRAW,YELLOW ) COLOR YELLOW LAB APPRU(LOIN CLEAR C) APPEARANCE HAZY LAB SPGRU(LOIN 1.005 - 1.035 C) SPECIFIC GRAVITY 1.029 LAB PAULETTE(LOINC) 5.0 - 8.0 pH 5.0 LAB PROTU(LOIN NEGATIVE mg/dL C) PROTEIN NEGATIVE LAB GLUCU(LOIN NEGATIVE mg/dL C) GLUCOSE NEGATIVE LAB BLDU(LOINC NEGATIVE ) BLOOD NEGATIVE LAB KETU(LOINC NEGATIVE mg/dL ) KETONES NEGATIVE LAB BILIU(LOIN NEGATIVE C) BILIRUBIN NEGATIVE LAB UROU2(LOIN 0.0 - 1.9 mg/dL C) UROBILINOGEN High 2.0 Result Comment: SOME PIGMENTS AND MEDICATIONS MAY CAUSE A FALSE POSITIVE UROBILINOGEN LAB NITRU(LOINC) NEGATIVE NITRITE NEGATIVE LAB LEUKU(LOINC) NEGATIVE Abnormal LEUKOCYTE LARGE (3+) ESTERASE Performed By: #### UA #### [facility] [address] [place] [address] UA MICROSCOPIC Collected: 11/20/2017 Status: F Source: [place] 3:03 PM [facility] REPOSITORY TYPE CODE TESTS RESULT OUT OF RANGE REFERENCE UNITS LAB WBCUR(LOINC 0-5 /HPF ) Abnormal WBC 50 LAB RBCUR(LOINC 0-5 /HPF ) Abnormal RBC 9 LAB MUCOU(LOINC /LPF ) MUCUS 1+ Performed By: #### UAMIC #### [facility] [address] [place] [id number] URINE Observed: 11/20/2017 Status: F Source: [place] CULTURE,BACTERIAL 3:02 PM HOSPITALS REPOSITORY PATIENT: ANDREI RODRIGUEZ LOCATION: [facility] BILL#: [id number] : 59 AGE: SEX: M ORDERED BY: ROBY HEBERT SOURCE: URINE COLLECTED: 11/20/17 15:02 ANTIBIOTICS AT [place].: RECEIVED : 11/20/17 18:42 SITE: [facility] T S URINE CULTURE,BACTERIAL FINAL 11/21/17 11:28 NO GROWTH Performed By: #### URINC #### [facility] [address] [place] [id number] Observed: 11/20/2017 Status: F Source: [place] BLOOD CULTURE, 3:02 HOSPITALS REPOSITORY BACTERIAL PATIENT: ANDREI RODRIGUEZ LOCATION: [facility] BILL#: [id number] : 59 AGE: SEX: M ORDERED BY: ROBY HEBERT SOURCE: Blood COLLECTED: 11/20/17 15:02 ANTIBIOTICS AT [place].: RECEIVED : 11/20/17 17:40 SITE: ANTECUBITAL R E S U L T S BLOOD CULTURE, BACTERIAL FINAL 11/25/17 17:42 No Growth at 1 days No Growth at 2 days No Growth at 3 days No Growth at 4 days NO GROWTH - FINAL REPORT Performed By: #### BLDC #### [facility] [address] [place] [id number] HEPATIC FUNCTION Collected: 11/20/2017 Status: F Source: [place] PANEL 2:44 PM HOSPITALS REPOSITORY TYPE CODE TESTS RESULT OUT OF REFERENCE UNITS RANGE LAB ALB(LOINC) 3.4 - 5.0 g/dL ALBUMIN 3.6 LAB TBILI(LOIN 0.0 - 1.2 mg/dL C) BILIRUBIN,TOTAL 1.1 LAB DBILI(LOIN 0.0 - 0.3 mg/dL C) BILIRUBIN,DIRECT 0.2 LAB AP(LOINC) 33 - 136 U/L Low ALKALINE PHOSPHATASE 29 LAB ALT(LOINC) 10 - 52 U/L ALT 13 Result Comment: Patients treated with Sulfasalazine may generate falsely decreased results for ALT. LAB AST(LOINC) 9 - 39 U/L High AST 47 LAB TP(LOINC) 6.4 - 8.2 g/dL Low TOTAL PROTEIN 5.9 Performed By: #### HEPFP #### [facility] [address] [place] [address] RENAL FUNCTION PANEL Collected: 11/20/2017 Status: F Source: [place] 2:44 [facility] REPOSITORY TYPE CODE TESTS RESULT OUT OF REFERENCE UNITS RANGE LAB GLU(LOINC) 74 - 99 mg/dL GLUCOSE 94 LAB SOD(LOINC) 136 - 145 mmol/L SODIUM 136 LAB K(LOINC) 3.5 - 5.3 mmol/L POTASSIUM 3.8 LAB CHLOR(LOIN 98 - 107 mmol/L C) CHLORIDE 106 LAB BIC(LOINC) 21 - 32 mmol/L BICARBONATE 22 LAB ANGAP(LOIN 10 - 20 mmol/L C) ANION GAP 12 LAB UREA(LOINC 6 - 23 mg/dL ) UREA NITROGEN 14 LAB CREA(LOINC 0.50 - 1.30 mg/dL ) CREATININE 0.96 LAB GFRFN(LOIN >60 mL/min/1.7 C) 3m2 GFR-NON AM. >60 LAB GFRAA(LOIN >60 mL/min/1.7 C) 3m2 GFR- AM. >60 Result Comment: CALCULATIONS OF ESTIMATED GFR ARE PERFORMED USING THE MDRD STUDY EQUATION FOR THE IDMS-TRACEABLE CREATININE METHODS. CLIN CHEM 2007;53:766-72 LAB CA(LOINC) 8.6 - 10.6 mg/dL CALCIUM Low 8.5 LAB PHOS(LOINC) 2.5 - 4.9 mg/dL PHOSPHORUS 3.5 Result Comment: The performance characteristics of phosphorus testing in heparinized plasma have been validated by the individual laboratory site where testing is performed. Testing on heparinized plasma is not approved by the FDA; however, such approval is not necessary. LAB ALB(LOINC) 3.4 - 5.0 g/dL ALBUMIN 3.6 Performed By: #### RENAL #### [facility] [address] [place] [address] LACTATE Collected: 11/20/2017 Status: F Source: [place] 2:44 [facility]PITALS REPOSITORY TYPE CODE TESTS RESULT OUT OF REFERENCE UNITS RANGE LAB LACT(LOINC) 0.4 - 2.0 mmol/L LACTATE 1.1 Result Comment: Venipuncture immediately after or during the administration of Metamizole may lead to falsely low results. Testing should be performed immediately prior to Metamizole dosing. Performed By: #### LACT #### [facility] [address] [place] [address] CBC AND DIFFERENTIAL Collected: 11/20/2017 Status: F Source: [place] 2:44 [facility] REPOSITORY TYPE CODE TESTS RESULT OUT OF REFERENCE UNITS RANGE LAB WBCR(LOINC 4.4 - 11.3 x10E9/L ) WBC 8.2 LAB NRBC(LOINC 0.0-0.0 /100 WBC ) NUCLEATED RBC 0.0 LAB RBCCT(LOIN 4.50 - 5.90 x10E12/L C) Low RBC 3.78 LAB HGB(LOINC) 13.5 - 17.5 g/dL Low HGB 6.8 LAB HCT(LOINC) 41.0 - 52.0 % Low HCT 23.3 LAB MCV(LOINC) 80 - 100 fL Low MCV 62 LAB MCHC2(LOIN 32.0 - 36.0 g/dL C) Low MCHC 29.2 LAB PLTCT(LOIN 150 - 450 x10E9/L C) PLT 300 LAB RDWCV(LOIN 11.5 - 14.5 % C) RDW-CV High 20.2 LAB NEUT(LOINC 40.0 - 80.0 % ) % NEUTROPHIL 69.7 LAB IG(LOINC) 0.0 - 0.9 % % High AUTOMATED 1.0 IMMATURE GRAN Result Comment: Percent differential counts (%) should be interpreted in the context of the absolute cell counts (cells/L). LAB LYMPH(LOINC) 13.0 - % 44.0 % LYMPHOCYTE 13.0 LAB MONO(LOINC) 2.0 - 10.0 % % MONOCYTE High 14.9 LAB EOS(LOINC) 0.0 - 6.0 % % EOSINOPHIL 1.3 LAB BASO(LOINC) 0.0 - 2.0 % % BASOPHIL 0.1 LAB #NEUT(LOINC) 1.20 - x10E9/L 7.70 NEUTROPHIL 5.71 LAB #LYMP(LOINC) 1.20 - x10E9/L Low 4.80 LYMPHOCYTE 1.07 LAB #MONO(LOINC) 0.10 - x10E9/L 1.00 MONOCYTE High 1.22 LAB #EOS(LOINC) 0.00 - x10E9/L 0.70 EOSINOPHIL 0.11 LAB #BASO(LOINC) 0.00 - x10E9/L 0.10 BASOPHIL 0.01 Result Comment: Automated WBC differential has been confirmed by manual smear. Performed By: #### CBCDF #### [facility] [address] [facility] [place] [address] RED CELL MORPHOLOGY Collected: 11/20/2017 Status: F Source: [address] REPOSITORY TYPE CODE TESTS RESULT OUT OF REFERENCE UNITS RANGE LAB RBCMO(LOIN C) RBC MORPHOLOGY See Below LAB POLY(LOINC ) POLYCHROMASIA Mild LAB RBCFR(LOIN C) RBC FRAGMENTS Few LAB OVALO(LOIN C) OVALOCYTES Many LAB TEAR(LOINC ) TEARDROP CELLS Few Performed By: #### [id number] #### [facility] [address] [facility] [place] [address] COAGULATION SCREEN Collected: 11/20/2017 Status: F Source: [address] REPOSITORY TYPE CODE TESTS RESULT OUT OF REFERENCE UNITS RANGE LAB PT(LOINC) 9.8 - 12.7 sec PROTHROMBIN High TIME 14.1 LAB INR(LOINC) 0.9 - 1.1 PT, INR High 1.3 LAB APTT(LOINC 25 - 36 sec ) APTT 27 Result Comment: THE APTT IS NO LONGER USED FOR MONITORING UNFRACTIONATED HEPARIN THERAPY. FOR MONITORING HEPARIN THERAPY, USE THE HEPARIN ASSAY. Performed By: #### COAGS #### [facility] [address] [facility] [place] [address] TYPE + SCREEN Collected: 11/20/2017 Status: F Source: [address] REPOSITORY TYPE CODE TESTS RESULT OUT OF REFERENCE UNITS RANGE LAB ABORH(LOINC ) ABO TYPE O LAB RH(LOINC) RH TYPE POS LAB ABSC(LOINC) ANTIBODY NEG SCREEN Performed By: #### T+S #### [facility] [address] [place] [address] TROPONIN I Collected: 11/20/2017 Status: F Source: [place] 2:44 [facility] REPOSITORY TYPE CODE TESTS RESULT OUT OF REFERENCE UNITS RANGE LAB TROP2(LOINC 0.00 - 0.03 ng/mL ) High TROPONIN I 18.74 Result Comment: LESS THAN 0.04 NG/ML: NEGATIVE REPEAT TESTING IN FOUR TO SIX HOURS IF CLINICALLY INDICATED. 0.04 - 0.5 NG/ML: CONSISTENT WITH POSSIBLE CARDIAC DAMAGE AND POSSIBLE INCREASED CLINICAL RISK. SERIAL MEASUREMENTS MAY HELP ASSESS EXTENT OF MYOCARDIAL DAMAGE. >0.5 NG/ML: CONSISTENT WITH CARDIAC DAMAGE, INCREASED CLINICAL RISK AND MYOCARDIAL INFARCTION. SERIAL MEASUREMENTS MAY HELP ASSESS EXTENT OF MYOCARDIAL DAMAGE. . Note: Troponin I testing is performed using different testing methodology at [facility] than at other [facility]. Direct result comparisons should only be made within the same method. . Patients receiving more than 5 mg/day of biotin may have interference in test results. A sample should be taken no sooner than eight hours after previous dose. Contact [phone] for additional information. Performed By: #### TROP2 #### [facility] [address] [place] [address] ADMISSION RISK SCREEN Observed: 11/20/2017 Status: UNK Source: [facility] - [facility] 1:31 PM [facility] REPOSITORY Allergies: Allergies: ? Allergy Status Unknown: Patient Verification: ? New W ID Band Applied in my Department yes ? Patient Identity Verified By patient ? ID Band FULL Name, include Middle, spelling matches patient's ID used for verification yes ? ID Band Matches Patient ID used for Verfication yes ? ID Band MRN Matches EMR MRN yes Advance Directive: ? Advance Directive Medical no ? Advance Directive Information Given information requested from Social Work ? Advance Directive Mental Health not applicable Falls Screen: Type of Assessment admission Moderate Risk Factors patient care equipment (scds, iv?s, chest tubes, telles, etc) High Risk Factors symptoms due to meds (sedatives, hypnotics, new diuretics and new laxatives) Fall Injury Risk coagulation ? blood thinners (Coumadin, heparin gtt), coagulopathy Fall Injury Risk Conclusion high falls risk with risk of injury [place] Safety Interventions WDL *orient to call system *instruct to call for assistance before getting out of bed *non-slip footwear when patient is out of bed *call [place] in reach *personal items and telephone in reach *physically safe environment (no spills or clutter) *bed in lowest position with wheels locked *appropriate side rails in place *room/bathroom lighting operational, light cord in reach *appropriate signage on door *yellow arm band in place Fall and Injury Risk Interventions supervised toileting (mandatory for all high risk patients), educate pt/family, monitor med side effects, consult Pharmacy, CAMS assessment/delirium interventions, individualized toileting schedule, educate patient/family for risk for injury (fractures and bleeding), do not leave patient unattended while in the bathroom, evaluate use of anticoagulation Family Violence Screen: ? Are you or have you been threatened or abused physically, emotionally, or sexually by anyone? no ? Do you feel UNSAFE going back to the place where you are living? no ? Clinical assessment: Are there any apparent signs of injuries/behaviors that could be related to abuse/neglect no ? Social Service Consult for abuse/neglect needed this visit? no Functional screen: ? Functional Screen: In the recent/past 2-4 weeks, patient or family have noticed no issues that require a rehabilitation consult at this time Learning Assessment (Patient): ? Patient is Able to be Assessed for Learning yes ? Factors Influencing Readiness to Learn acuteness of illness ? Factors that Impact Ability to Learn acuteness of illness ? Devices/Methods Used to Communicate none ? Learning Preferences individual instruction; verbal instruction ? Cultural Considerations none ? Developmental Considerations none ? Faith Considerations none Learning Assessment (Other Learner): ? Other learner available no Suicide/Depression Screen: ? During the past month, have you often been bothered by feeling down, depressed or hopeless? no ? During the past month, have you often had little interest or pleasure in doing things? no ? Have you had any thoughts of harming yourself? no ? Have you had any thoughts of harming anyone else? no Adult Nutrition Screen: ? Have you recently lost weight without trying no ? Have you been eating poorly because of a decreased appetite no ? MST Score 0 ? Risk MST = 0 or 1 Not at risk. Eating well with little or no weight loss ? Nutrition Consult needed this visit? no ? Can Patient Participate in Room Service? yes, with assistance ? Patient requires Paper Dishes/Plastic Utensils no Pain Screen: ? Pain Scale numerical 0-10 ? Pain Scale Education teaching provided ? Current Pain Level 2 = Mild ? Acceptable Pain Level 4 = Moderate ? Expression of Pain (nonverbal) verbalization ? Chronic Pain yes ? Chronic Back pain location lower ? Factors that Aggravate Pain activity ? Factors that Relieve Pain medications..., rest ? Medications that Relieve Pain Tramadol Spiritual Screen: ? Are there any cultural, spiritual, mandaeism practices/values/needs that are important for us to know? no CAGE: Is [place] an [place] [place] [facility] no Vaccinations: Vaccination - Influenza Vaccination Screen: ? Is it flu season? (between and ) Yes ? Screening for identified contraindications to influenza vaccination no contraindications identified ? Influenza vaccine indicated? yes Vaccination - Pneumonia Vaccination Screen: ? Patient has received a previous pneumonia vaccine: no/unknown... ? Immunocompetent persons with underlying chronic conditions or reside in residential care facilities none of these conditions ? Persons with Functional or Anatomic Asplenia none of these conditions ? Immunocompromised Persons none of these conditions ? Pneumonia vaccine NOT indicated due to: patient DOES NOT have a condition that indicates vaccination Kevin: Skin - Kevin Scale: ? Kevin: Sensory Perception (response to environment) (4) no impairment ? Kevin: Moisture (degree skin exposed to moisture) (4) rarely moist ? Kevin: Activity (ability to walk) (1) bedfast ? Kevin: Mobility (amount/control of body movement) (3) slightly limited ? Kevin: Nutrition (quality of food intake) (3) adequate ? Kevin: Friction and Shear (3) no apparent problem ? Kevin: Score 18 ? Skin Intervention Orders (Nursing orders will be generated) elevate heels, up in chair < 1 hr intervals, turn side to side every 2 hrs, assess for therapeutic equipment, assess pressure points, hygiene care, toilet/ADL every 2 hrs awake, toilet/ADL every 4 hrs asleep, educate prevent/treat pressure ulcer Significant Indicatiors: Significant Indicators: Complete Pressure Injury: Pressure Injury Present on Admission no Electronic Signatures: Latonia Hernandez (ZIA) (Signed 20-Nov-2017 15:07) Authored: Admission Risk Screens, Vaccinations, Kevin Jumana Galo) (Signed 03-Dec-2017 10:14) Authored: Pressure Injury Last Updated: 03-Dec-2017 10:14 by Jumana Galo (CN) HEMOGLOBIN AND Collected: 11/20/2017 Status: F Source: [facility] HEMATOCRIT 10:16 AM REPOSITORY TYPE CODE TESTS RESULT OUT OF RANGE REFERENCE UNITS LAB HGB(LOINC) 12.8-17.7 g/dL Low HGB 6.1 LAB HCT(LOINC) 38.4-54.9 % Low HCT 21.8 Performed By: #### [id number] #### [facility] [address] [place] [address] ABORH (RETYPE) Collected: 11/20/2017 Status: F Source: [facility] 10:15 AM REPOSITORY TYPE CODE TESTS RESULT OUT OF RANGE REFERENCE UNITS LAB GRPX2(LOINC ) ABORH O POS (RETYPE) Performed By: #### [id number] #### [facility] [address] [place] [address] TYPE AND SCREEN Collected: 11/20/2017 Status: F Source: [facility] 9:17 AM REPOSITORY TYPE CODE TESTS RESULT OUT OF RANGE REFERENCE UNITS LAB GROUP(LOINC ) Group and O POS Rh Result Comment: @11/20/17 10:13 by JESSICA: No previous history found to confirm this result. If transfusion of RBC's or FFP is requested, a second sample must be collected at a separate phlebotomy to confirm the ABORH. LAB SCRN3(LOINC) Antibody Screen NEG Performed By: #### TS3 #### [facility] [address] [place] [id number] RED BLOOD CELLS Collected: 11/20/2017 Status: F Source: [facility] 9:17 AM REPOSITORY TYPE CODE TESTS RESULT OUT OF RANGE REFERENCE UNITS LAB RC(LOINC) Red Blood Cells Result Comment: [id number] released [id number] transfused Performed By: #### RC #### [facility] (UNKNOWN) [address] [address] RED BLOOD CELLS Collected: 11/20/2017 Status: F Source: [facility] 9:17 AM REPOSITORY TYPE CODE TESTS RESULT OUT OF RANGE REFERENCE UNITS LAB RC(LOINC) Red Blood N/A Cells Performed By: #### RC #### [facility] (UNKNOWN) [place] [address] [place], [place] [address] CBC WITH DIFFERENTIAL Collected: 11/20/2017 Status: F Source: [facility] 8:18 AM HEALTHCARE REPOSITORY TYPE CODE TESTS RESULT OUT OF REFERENCE UNITS RANGE LAB WBCIR(LOIN 4.2-11.0 10*3/uL C) WBC 8.9 LAB RBC(LOINC) 4.08-6.37 10*6/uL Low RBC 3.67 LAB HGB(LOINC) 12.8-17.7 g/dL Low HGB 6.4 LAB HCT(LOINC) 38.4-54.9 % Low HCT 23.2 LAB MCV(LOINC) 83.3-98.2 fL Low MCV 63.2 LAB MCH(LOINC) 27.5-32.9 pg Low MCH 17.4 LAB MCHC(LOINC 30.5-35.4 g/dL ) Low MCHC 27.6 LAB RDWCV(LOIN 12.0-15.4 % C) RDW CV High 18.7 LAB RDWSD(LOIN 39.3-48.6 fL C) RDW SD 42.0 LAB PLTC(LOINC 155-404 10*3/uL ) Platelet Count 287 LAB MPV(LOINC) 9.9-12.1 fL Low MPV 8.8 LAB NRBCR(LOIN /100{WBCs} C) NRBC Automated 0.0 LAB NRBCA(LOIN 10*3/uL C) NRBC Absolute 0.00 LAB ASEGR(LOIN 2.22-7.53 10*3/uL C) Neutrophils Absolute 6.42 LAB ALYMR(LOIN 0.40-2.84 10*3/uL C) Lymphocytes Absolute 0.93 LAB AMONR(LOIN 0.25-1.33 10*3/uL C) Monocytes High Absolute 1.34 LAB AEOSR(LOIN 0.01-0.46 10*3/uL C) Eosinophils Absolute 0.15 LAB ABASR(LOIN 0.01-0.09 10*3/uL C) Basophils Absolute 0.01 LAB IGRA(LOINC % ) Immature Granulocytes 0.7 LAB IGR(LOINC) 0.00-0.21 10*3/uL Imm Grans Absolute 0.06 LAB SEGC(LOINC 46.2-79.1 % ) Neutrophils 72.1 LAB LYMPC(LOIN 9.4-41.1 % C) Lymphocytes 10.4 LAB MONOC(LOIN 3.0-16.2 % C) Monocytes 15.0 LAB EOSC(LOINC 0.0-6.7 % ) Eosinophils 1.7 LAB BASOC(LOIN 0.0-1.3 % C) Basophils 0.1 Performed By: #### [id number] #### [facility] [address] [place] [address] COMPREHENSIVE METABOLIC Collected: 11/20/2017 Status: F Source: [facility] 8:18 AM HEALTHCARE REPOSITORY TYPE CODE TESTS RESULT OUT OF REFERENCE UNITS RANGE LAB GLU(LOINC) 70-100 mg/dL Glucose High 120 LAB UREA(LOINC 6-23 mg/dL ) Urea Nitrogen 17 LAB CREAT(LOIN 0.50-1.30 mg/dL C) Creatinine 1.07 LAB GFR(LOINC) Glomerular >60 Filtration Rate Result Comment: Interpretation for Chronic Kidney Disease: Stages 1&2 >60 Healthy or potential kidney damage. Mild decrease of GFR. Stage 3 30-59 Moderate decrease of GFR. Stage 4 15-29 Severe decrease of GFR. Stage 5 <15 Kidney failure or on dialysis. LAB CA(LOINC) 8.6-10.3 mg/dL Calcium Low 8.4 LAB SOD(LOINC) 136-145 mmol/L Sodium 137 LAB POT(LOINC) 3.5-5.1 mmol/L Potassium 3.8 LAB CHLOR(LOINC) 98-107 mmol/L Chloride High 108 LAB BICAR(LOINC) 21-32 mmol/L Bicarbonate 21 LAB ALB(LOINC) 3.4-5.0 g/dL Albumin 3.5 LAB BILIT(LOINC) 0.0-1.2 mg/dL Bilirubin, Total 0.6 LAB ALP(LOINC) 45-117 U/L Alkaline Low Phosphatase 29 LAB TP(LOINC) 6.4-8.2 g/dL Total Low Protein 6.3 LAB ALT(LOINC) 10-52 U/L ALT (SGPT) 14 LAB AST(LOINC) 13-39 U/L AST (SGOT) High 58 LAB ANGAP(LOINC) 10-20 mmol/L Anion Gap 12 LAB AGRAT(LOINC) 0.9-2.4 A/G Ratio 1.2 LAB BCRAT(LOINC) 5-25 Urea/Creatinine Ratio 16 Performed By: #### [id number] #### [facility] [address] [place] [address] LIPID PANEL Collected: 11/20/2017 Status: F Source: [facility] 8:18 AM REPOSITORY TYPE CODE TESTS RESULT OUT OF REFERENCE UNITS RANGE LAB CHOL(LOINC <200 mg/dL ) Cholesterol 118 LAB TRIG(LOINC <150 mg/dL ) Triglycerides 99 Result Comment: 150-199 Borderline High 200-499 High >500 Very High LAB HDL(LOINC) mg/dL Abnormal HDL Cholesterol 29 Result Comment: Normal Mod Risk High Risk 5-9 >48 42-48 <42 10-14 >45 40-45 <40 15-19 >38 34-38 <34 Adult >39 LAB LDLC(LOINC) <130 mg/dL LDL Cholesterol (Calculated) 69 LAB VLDL(LOINC) <30 mg/dL VLDL Cholesterol (Calculated) 20 LAB CHRAT(LOINC) Cholesterol/HDL Ratio 4.1 Performed By: #### [id number] #### [facility] [address] [place] [address] PARTIAL THROMBOPLASTIN Collected: 11/20/2017 Status: F Source: [facility] TIME 6:11 AM HEALTHCARE REPOSITORY TYPE CODE TESTS RESULT OUT OF REFERENCE UNITS RANGE LAB PTT(LOINC) 22.1-35.3 sec Partial High Thromboplastin Time 47.1 Result Comment: Heparin Therapeutic Range: 71 - 97 sec Performed By: #### [id number] #### [facility] [address] [place] [address] CHEST SINGLE VIEW Observed: 11/20/2017 Status: F Source: [facility] PORT PA OR AP 5:54 AM REPOSITORY DATE OF EXAM: Nov 20 2017 5:54AM CLINICAL HISTORY/ Patient Name: ANDREI RODRIGUEZ STUDY: CHEST SINGLE VIEW PORT PA OR AP; 11/20/2017 5:54 am INDICATION: Chest Pain. COMPARISON: 11/19/2017 ACCESSION NUMBER(S): [id number] ORDERING CLINICIAN: LALITA SULLIVAN TECHNIQUE: A single portable image of the chest was obtained. An image for line placement was also obtained. FINDINGS: The heart is normal in size. The lung markings are coarse. There is no discrete consolidation or pleural fluid. There are atherosclerotic changes of the aorta. There is no gross bony destruction. A single clip is noted in the left upper chest. COMPARISON OF FINDING: The heart and lungs are similar. CONCLUSION: IMPRESSION: Coarse interstitial markings. B NATRIURETIC PEPTIDE Collected: 11/20/2017 Status: F Source: [facility] 1:27 AM HEALTHCARE REPOSITORY TYPE CODE TESTS RESULT OUT OF RANGE REFERENCE UNITS LAB BNP(LOINC) <100 pg/mL B Abnormal Natriuretic 467 Peptide Performed By: #### [id number] #### [facility] [address] [place] [address] ACTIVATED CLOTTING Collected: 11/20/2017 Status: F Source: [facility] TIME LOW RANGE 1:11 AM REPOSITORY TYPE CODE TESTS RESULT OUT OF REFERENCE UNITS RANGE LAB ACTLR(LOIN sec C) Activated 161 Clotting Time Low Range Result Comment: Normal: 96-167 Secs(Unheparinized) Stent Implant Range: >300 Secs Sheath Removal: 150-170 Secs CRRT: 180-220 Secs (Continous Renal Replacement Therapy) Performed By: #### ACTLR #### [facility] [address] [place] [address] ACTIVATED CLOTTING Collected: 11/19/2017 Status: F Source: [facility] TIME LOW RANGE 11:07 PM REPOSITORY TYPE CODE TESTS RESULT OUT OF REFERENCE UNITS RANGE LAB ACTLR(LOIN sec C) Activated 146 Clotting Time Low Range Result Comment: Normal: 96-167 Secs(Unheparinized) Stent Implant Range: >300 Secs Sheath Removal: 150-170 Secs CRRT: 180-220 Secs (Continous Renal Replacement Therapy) Performed By: #### ACTLR #### [facility] [address] [place] [address] XR CHEST AP PORTABLE Observed: 11/19/2017 Status: F Source: [facility] 9:[address] [facility] REPOSITORY Exam Date/Time: 11/19/2017 21:32 EST Reason for Exam: Chest pain Report PORTABLE CHEST REASON FOR STUDY: Chest pain and left arm pain x1 month. COMPARISON: None. REPORT: Trachea is midline. Mediastinum is not widened. Heart size is mildly prominent. No effusion, pneumothorax, or pneumomediastinum is noted. Chronic lung markings are noted mostly off the hilar regions. There is an unfused old fracture of the right clavicle. IMPRESSION: Nonacute portable chest with chronic changes and mild to moderate cardiomegaly. FINAL REPORT Dictated: 11/19/2017 9:47 pm Timothy Bales DO Signed (Electronic Signature): 11/19/2017 9:47 pm Signed by: Timothy Bales DO Technologist: GILDA PT Collected: 11/19/2017 Status: F Source: [place] 9:11 PM [facility] REPOSITORY TYPE CODE TESTS RESULT OUT OF RANGE REFERENCE UNITS LAB [id number](LO 1.0-1.2 INC) High INR 1.3 Result Comment: INR Recommended Therapeuptic Ranges: Prophylaxis/treatment of DVT and PE?2.0-3.0 Prevention of systemic embolism?.2.0-3.0 Mechanical prosthetic values?2.5-3.5 CRITICAL VALUES?.>4.0 LAB [id number](LOINC) 11.6-14.6 second(s) High PT 15.2 Performed By: #### [id number] #### [facility] [employer] [address] [place] [address] CMP Collected: 11/19/2017 Status: F Source: [place] 9:11 PM [facility] REPOSITORY TYPE CODE TESTS RESULT OUT OF RANGE REFERENCE UNITS LAB [id number](L 70-99 mg/dL OINC) High Glucose Lvl 119 LAB [id number](L 8.4-10.2 mg/dL OINC) Calcium Normal Lvl 8.6 LAB [id number](L 136-145 mEq/L OINC) Sodium Normal Lvl 137 LAB [id number](L 3.5-5.1 mEq/L OINC) Normal Potassium Lvl 3.6 LAB [id number](L 98-107 mEq/L OINC) High Chloride 109 LAB [id number](L 24.0-30.0 mEq/L OINC) Low CO2 20.2 LAB [id number](L 7-18 mg/dL OINC) High BUN 20 LAB [id number](LO 0.6-1.3 mg/dL INC) Normal Creatinine 1.2 LAB [id number](L 42-121 Int._Unit/ OINC) Low L Alk Phos 30 LAB 63161094(L 0.2-1.0 mg/dL OINC) Bili Normal Total 0.6 LAB [id number](L 3.2-5.0 G/DL OINC) Albumin Normal Lvl 3.6 LAB [id number](L 6.4-8.3 G/DL OINC) Total Normal Protein 6.6 LAB [id number](L 10-40 Int._Unit/ OINC) L ALT Normal 17 LAB [id number](L 10-42 Int._Unit/ OINC) High L AST 50 LAB [id number](L 5.4-30.0 ratio OINC) Normal BUN/Creat Ratio 16.7 LAB [id number](L 2.0-4.0 G/DL OINC) Globulin Normal 3.0 LAB [id number](L 1.1-1.9 ratio OINC) A/G Normal Ratio 1.2 Performed By: #### [id number] #### [facility] [address] [place] [address] PTT Collected: 11/19/2017 Status: F Source: [place] 9:11 [facility] REPOSITORY TYPE CODE TESTS RESULT OUT OF RANGE REFERENCE UNITS LAB [id number](LO 23.2-36.4 second(s) INC) Normal PTT 34.4 Performed By: #### [id number] #### [facility] [employer] [facility] [place] [address] PTT CONTROL RATIO Collected: 11/19/2017 Status: F Source: [place] 9:[address] [facility] REPOSITORY Order Comment: Order added by Discern Expert. TYPE CODE TESTS RESULT OUT OF RANGE REFERENCE UNITS LAB [id number](LO 0.8-1.2 ratio INC) Normal PTT Ratio 1.2 Performed By: #### [id number] #### [facility] [employer] [facility] [place] [address] EGFR Collected: 11/19/2017 Status: F Source: [place] 9:11 PM [facility] REPOSITORY Order Comment: Order added by Discern Expert. TYPE CODE TESTS RESULT OUT OF RANGE REFERENCE UNITS LAB [id number](LO mL/min/1.73 INC) m2 Normal eGFR >60 LAB [id number](LO mL/min/1.73 INC) m2 Normal eGFR AA >60 Performed By: #### [id number] #### [facility] [employer] [facility] [place] [address] CK Collected: 11/19/2017 Status: F Source: [place] 9:11 PM [facility] REPOSITORY TYPE CODE TESTS RESULT OUT OF RANGE REFERENCE UNITS LAB [id number](LO 26-140 Int._Unit/L INC) High Total CK 424 Performed By: #### [id number] #### [facility] [employer] [facility] [place] [address] MAGNESIUM Collected: 11/19/2017 Status: F Source: CAODAISM 9:11 [facility] REPOSITORY TYPE CODE TESTS RESULT OUT OF RANGE REFERENCE UNITS LAB [id number](L 1.7-2.8 mg/dL OINC) Normal Magnesium 1.8 Performed By: #### [id number] #### BASILIO [employer] [facility] [place] [address] LIPID PROFILE Collected: 11/19/2017 Status: F Source: CAODAISM 9:11 [facility] REPOSITORY TYPE CODE TESTS RESULT OUT OF RANGE REFERENCE UNITS LAB [id number](LO 50-200 mg/dL INC) Normal Chol 140 Result Comment: TOTAL CHOLEESTEROL: <200 NORMAL 200 - 239 BORDERLINE HIGH >240 HIGH LAB [id number](LOINC) >=41 mg/dL Low HDL 29 LAB [id number](LOINC) 0-130 mg/dL Normal LDL 77 Result Comment: <100 OPTIMAL 100-129 NEAR / ABOVE OPTIMAL 130-159 BORDERLINE HIGH 160-189 HIGH >190 VERY HIGH CALC LDL NOT VALID WHEN TRIGLYCERIDE IS >400 MG/DL LAB [id number](LOINC) 35-150 mg/dL High Trig 172 Result Comment: <150 NORMAL 150-199 BORDERLINE HIGH 200-499 HIGH >500 VERY HIGH LAB [id number](LOINC) Normal VLDL 34 Performed By: #### [id number] #### BASILIO [employer] [facility] [place] [address] TSH Collected: 11/19/2017 Status: F Source: CAODAISM 9:[address] [facility] REPOSITORY TYPE CODE TESTS RESULT OUT OF RANGE REFERENCE UNITS LAB [id number](LO 0.30-5.60 mIU/m INC) Normal TSH 0.57 Performed By: #### [id number] #### BASILIO [employer] [address] [place] [address] TROPONIN-I Collected: 11/19/2017 Status: F Source: CAODAISM 9:[address] [facility] REPOSITORY TYPE CODE TESTS RESULT OUT OF RANGE REFERENCE UNITS LAB [id number](LO .00-.03 ng/mL INC) Abnormal Alert 2.76 Troponin-I Result Comment: Critical Result Topponin I: Called to: VICENTE HUNTLEY at: 21:48:21 by:PEDRO Read back by:VICENTE HUNTLEY Performed By: #### [id number] #### BASILIO [employer] [address] [place] [address] CKMB Collected: 11/19/2017 Status: F Source: CAODAISM 9:[address] [facility] REPOSITORY TYPE CODE TESTS RESULT OUT OF RANGE REFERENCE UNITS LAB [id number](LO 0.0-5.0 ng/mL INC) Abnormal Alert CK MB 37.4 Result Comment: Critical Result CKMB: Called to: VICENTE HUNTLEY at: 21:52:02 by:PEDRO Read back by:VICENTE HUNTLEY Performed By: #### [id number] #### BASILIO [employer] [address] [place] [address] XR FINGER(S) MIN 2 Observed: 10/25/2017 Status: F Source: CARMELO RAPP RIGHT 9:[address] [facility] REPOSITORY Exam Date/Time: 10/25/2017 10:00 EST Reason for Exam: Fracture Report RIGHT HAND-THREE VIEWS HISTORY: Followup fracture fourth finger. FINDINGS: There is no change in the appearance of the comminuted fracture through the tuft of the distal phalanx of the fourth finger, with several bone fragments seen. There is no callus formation. The distance between the main fracture fragments is unchanged, being about 9 mm. IMPRESSION: No change in position of the fracture fragments. No callus formation seen. FINAL REPORT Dictated: 10/25/2017 4:40 pm Jordan Villarreal MD Signed (Electronic Signature): 10/25/2017 4:40 pm Signed by: Jordan Villarreal MD Technologist: [facility] ALLERGIES ALLERGIES DATE TYPE / CODE NAME / CODE REACTION SEVERITY SOURCE 10/09/2018 Drug triamterene/F58760 Rash [place] Allergy/416 2315(RXNORM) Community 124868([facility] ED [facility]) Repository Drug/871854 triamterene Itching Scientology 003([facility]) System Repository Drug/014095 No Known Allergies Scientology 003([facility] CT) System Repository Drug/355081 No Known Scientology 003([facility]) Allergies System Repository ENCOUNTERS ENCOUNTERS ADMIT/DISCHARGE ACCOUNT NUMBER ADMITTING ENCOUNTER LOCATION SOURCE CLASS 10/21/[id number] Jordan Camacho Emergency [facility] ing:[facility] EDRoom: Repository 10/16/2018 [id number] Marie, Ambulatory BMSBuilding:Tamika Schroeder MS.[facility] Repository 10/16/2018 [id number] Marie, Ambulatory BMSBuilding:Tamika Schroeder MS.[facility] Repository 10/16/2018/ [id number] [place], Inpatient Jacek Jacek Schroeder [facility] ing:OX3Vecu: Repository GC046Eyo: 1 10/15/2018/ [id number] Farnaz Viera [address] ing:[facility] System Repository 10/15/2018 [id number] Ambulatory [address] [place] [address] Repository 10/09/2018/ [id number] Ambulatory BMSBuilding:B Jacek 019 [facility] Repository 10/09/2018 [id number] Ambulatory BMSBuilding:[facility] Repository 09/15/2018 [id number] [facility] ing:CT Repository 09/12/2018/ [id number] Ambulatory BMSBuilding:B Jacek 018 [facility] Repository 08/15/2018 [id number] [facility] Ricco D [facility] Regional ing:[facility] est Repository 08/13/2018/ [id number] Ambulatory BMSBuilding:B Jacek 018 [facility] Repository 08/10/2018/ [id number] Ghazala Cifuentes Ambulatory [place] [address] HospitalBuild Regional ing:[facility] System Repository 08/10/2018 [id number] Ambulatory [facility] System ing:[facility] Repository c 08/10/2018/ [id number] Ghazala Cifuentes Ambulatory [address] ing:[facility] Repository Alice: Room 2 08/10/2018 [id number] Ambulatory [address] [place] [address] Repository 07/30/2018 [id number] Ambulatory [facility] Repository 07/24/2018 [id number] Farnaz Viera Ambulatory [facility] HospitalBuild Regional ing:[facility] System Repository 07/23/2018/ [id number] KimberlyPatrice Inpatient [facility] 018 Jawwad Encounter HospitalBuild Regional ing:[facility] oom: 0315Bed: Repository 01 07/23/2018 [id number] Ambulatory [address] [place] [address] Repository 07/20/2018 [id number] [facility]ulatory [facility] lding:[facility] Repository 07/20/2018/ [id number] Ambulatory [place] [address] CardiologyBui Regional lding:[facility] CardiologyRoo Repository m: Room 2 07/18/2018 [id number] Ambulatory [facility] System ing:[facility] Repository c 06/26/2018/ [id number] Ghazala Cifuentes Ambulatory [address] System ing:[facility] Repository Alice: Room 3 06/25/2018/ [id number] Ambulatory [address] System ing:[facility] Repository c 05/24/2018/ [id number] [facility]ulatory [facility]18 [facility] ing:[facility] Repository c 05/11/2018/ [id number] [facility]ulatory [facility] 018 [facility] System ing:[facility] Repository c 04/09/2018/ [id number] [facility]ulatory [facility] 018 [facility] System ing:[facility] Repository Alice: Room 2 02/28/2018/ [id number] Farnaz Viera [facility] 018 Hospital[facility] Regional ing:[facility] Cardiac Rehab Repository 02/28/2018 [id number] Ambulatory [address] [place] [address] Repository 02/15/2018/ [id number] [facility] 018 Hospital[facility] Regional ing:[facility] Health System Repository 02/12/2018/ [id number] Ghazala Cifuentes [facility]ulatory [facility] 018 HospitalBuild Regional ing:[facility] Health System Repository 02/09/2018/ [id number] Ghazala Cifuentes [facility]ulatory [facility] 018 HospitalBuild Regional ing:[facility] Health System Repository 02/09/2018/ [id number] Ghazala Cifuentes Ambulatory [facility] 018 [facility] System ing:[facility] Repository Alice: Room 3 02/02/2018/ [id number] Ambulatory [facility] Scientology 018 CardiologyBui Regional lding:[facility] CardiologyRoo Repository m: Room 3 01/19/2018/ [id number] Farnaz Viera Ambulatory [facility] Scientology 018 HospitalBuild Regional ing:[facility] Repository 01/17/2018/ [id number] [facility] 018 CardiologyBui Regional lding:[facility] CardiologyRoo Repository m: Room 2 01/15/2018/ [id number] Ambulatory [facility] 018 [facility] System ing:[facility] Repository c 01/10/2018/ [id number] Ambulatory [facility] Scientology 018 CardiologyBui Regional lding:[facility]iology Repository 12/27/2017/ [id number] Fredo, Ambulatory [place] Scientology 018 [facility] System ing:[facility] Repository Alice: Room 2 12/18/2017 [id number] [facility] CardiologyBui Regional lding:[facility] Repository 12/12/2017/ [id number] Ghazala Cifuentes Ambulatory [place] Scientology 018 [facility] System ing:[facility] Repository Alice: Room 1 11/20/2017/ [id number] Dr. Monica Inpatient CBuilding:T [place] 018 Dane Sibley Encounter G24Nnwi: [facility] E3073Bgz: Repository [id number] 11/20/2017 [id number] Ambulatory [address] [place] [address] Repository 11/19/2017/ [id number] LALITA SULLIVAN Inpatient [facility] 018 Encounter [facility] Repository nSRoom: 806Bed: 806-01 11/19/2017/ [id number] Vicente Arellano Emergency Scientology Scientology 018 HospitalBuild Regional ing:[facility] EDRoom: Repository 11/19/2017/ [id number] Unknown [facility] 018 [facility]in [facility] Repository 11/19/2017 [id number] Ambulatory [address] [place] [address] Repository 10/25/2017/ [id number] Nimo Lomeli Ambulatory [facility]ology 018 L Orthapedics [facility] MedicineBuild Repository ing[facility] oom: Room 1 10/25/2017/ [id number] Nimo Lomeli Ambulatory Scientology Scientology 018 L HospitalBuild Regional ing:[facility] Repository PAYERS PAYERS ENCOUNTER GUARANTOR PAYER SUBSCRIBER SOURCE 10/21/2018 ANDREI Pruitt Primary ANDREI [place]: Insurance:SCOUT [place]: [facility] ARRON Flores [id number] System Repository [facility] Number: Effective [address] [facility] [address] [place] [address] Date:2018-10-[address] [place] [address]Ewt: 7916-16-17Abyg [address]Oka: Name:CD:[id number] (HP) N [facility] ()Tel: 000 [place], [place] 000[address] (WP) 01886RS: 10/16/2018 ANDREI W Primary ANDREI W [facility] [id number] TR Insurance:MOLINAPolic CURRYDOB: Hospital [address] [place] [address] y Number: [id number] Repository 35864Kfq: ([phone]) [id number] [phone] () Date:0239-69-07IB [address] [address]KI: 10/16/2018 Secondary NOT GIVENUNK [facility] Insurance:SELF PAY Hospital INSURANCEPolicy Repository Number: Effective Date:2018-10-16 10/16/[address] [facility] [id number] TR Insurance:MOLINAPolic CURRYDOB: [address] y Number: [id number] Repository 43509Mqn: [phone] [id number] [phone] () Date:1719-12-59TN [address] [address]JR: 10/16/2018 Secondary NOT GIVENUNK [facility] Insurance:SELF PAY Hospital INSURANCEPolicy Repository Number: Effective Date:2018-10-16 10/16/[address] [facility] [id number] TR Insurance:MOLINAPolic CURRYDOB: [address] y Number: [id number] Repository 90163Wuv: [phone]) [id number] [phone] () Date:5130-59-52BJ [address] [place] [address] 58179QY: 10/16/2018 Secondary NOT GIVENUNK [place] [facility] Insurance:SELF PAY Hospital INSURANCEPolicy Repository Number: Effective Date:2018-08-13 10/15/2018 ANDREI Primary [facility] Scientology CURRYDOB: Insurance:CHRISTENSEN CURRYDOB: [facility] ARRON Flores [id number] System Repository [facility] Number: Effective [address] Date:2018-10-[address] [place] [address]Xlv: [id number] [address]Wub: Name:CD:[id number] () N [facility] ()Tel: (984) [facility] [place] [place] 000-0000 () 64495AP: 10/15/2018 ANDREI [facility] CURRYDOB: Insurance:Christensen CURRYDOB: [facility] [id number] Repository [facility] IncPolicy Number: [address] [id number] [address] [place] [address] [id number]: Date:Plan [id number]: Name:[facility] Box () [address] [place] [address] () 50708BV: 10/09/2018 ANDREI [facility] [id number] Insurance:ANTHEMPolic CURRYDOB: Hospital [address] [place] [address] y Number: [id number] Repository 86763Trk: [phone] [id number] [phone] () Date:7180-77-61BC [address] [place] [address] 85494EC: 10/09/[address] [facility] Insurance:CHRISTENSEN CURRYDOB: Hospital MCDPolicy Number: [id number] Repository [id number] Date:0907-21-58EJ [address] [place] [address] 71934YQ: 10/09/2018 Tertiary NOT GIVENUNK [facility] Insurance:SELF PAY Hospital INSURANCEPolicy Repository Number: Effective Date:2018-10-05 10/09/2018 ANDREI W Primary [facility] [place] [facility] [id number] TR Insurance:MOLINAPolic CURRYDOB: Hospital [address] [place] [address] y Number: [id number] Repository 33967Tyg: [phone] [id number] [phone] (HP) Date:4212-68-56FM [address] [place] [address] 62454DJ: 10/09/2018 Secondary NOT GIVENUNK J[facility] Insurance:SELF PAY Hospital INSURANCEPolicy Repository Number: Effective Date:2018-10-09 09/15/2018 ANDREI W Primary ANDREI Read [facility] [id number] TR Insurance:ANTHEMPolic CURRYDOB: [address] y Number: [id number] Repository 53720Ryi: [phone]) [id number] [phone] (HP) Date:4067-81-68ET [address] [place] [address] 04261GL: 09/15/2018 Secondary ANDREI W [facility] Insurance:CHRISTENSEN [facility] Number: [id number] Repository [id number] Date:9309-88-77CY [address] [place] [address] 69814KU: 09/15/2018 Tertiary NOT GIVENUNK [facility] Insurance:SELF PAY Hospital INSURANCEPolicy Repository Number: Effective Date:2018-09-12 09/12/[address] [facility] [id number] TR Insurance:MOLINAPolic CURRYDOB: Hospital [address] [place] [address] y Number: [id number] Repository 69905Jtm: [phone] [id number] [phone] (HP) Date:8506-69-33ZP [address] [place] [address] 21344GS: 09/12/2018 Secondary [facility]K [facility]SELF PAY Hospital INSURANCEPolicy Repository Number: Effective Date:2018-09-12 08/15/2018 ANDREI Pruitt Primary ANDREI Mendoza CURRYDOB: Insurance:CHRISTENSEN CURRYDOB: [facility] ARRON Flores [id number] System Repository [facility] Number: Effective [address] [facility] [address] [place] [address] Date:2018-08-15 - [address] [place] [address]Udq: 5982-88-26Rktx [address]Apq: Name:CD:[id number] (HP) N [address] (HP)Tel: (000) [place], [place] 000[address] (WP) 11664ZJ: 08/13/2018 [id number] Insurance:MOLINAPolic CURRYDOB: Hospital [address] [place] [address] y Number: [id number] Repository 48[address]Wry: ([phone]) [id number] [phone] () Date:4376-23-69AU[address] [address]QP: 08/13/2018 Secondary NOT [facility]UNK [facility] Insurance:SELF PAY Hospital INSURANCEPolicy Repository Number: Effective Date:2018-08-13 08/10/2018 ANDREI Pruitt Primary ANDREIJESSE Mendoza CURRYDOB: Insurance:CHRISTENSEN CURRYDOB: [facility] SWAPNAAK Mark [id number] System Repository [facility] Number: Effective [address] [facility] [place] [address] Date:2018-08-10 - [address] [place] [address]Agw: 1989-97-78Pflv [address]Kla: Name:CD:[id number] (HP) N [address] STSU[address] (HP)Tel: (000) [address], [place] 000[address] (WP) 849[address]UC: 08/10/2018 ANDREI Pruitt Primary ANDREI Mendoza CURRYDOB: Insurance:1500 CHRISTENSEN CURRYDOB: [facility] HEALTH CARE PLAN OF [id number] System Repository [facility], [place] Number: [address] [place] [address]Vag: Date:2018-08-1061513-4574Ori: 1739-07-92Mcqx (HP) Name:CD:[id number] (HP)Tel: (000) [address] [place] [address], 000[address] (WP) [place] [address]SI: 08/10/2018 ANDREI W Primary ANDREI Mendoza CURRYDOB: Insurance:1500 CHRISTENSEN CURRYDOB: [facility] HEALTH CARE PLAN OF [id number] System Repository [facility], [place] Number: [address] Effective [place] [address]Tly: Date:2018-08-1098081-2696Oal: 0341-92-99Diaa (HP) Name:CD:[id number] (HP)Tel: (000) [address] [place] [address], 000-0000 (WP) [place] [address]GF: 08/10/2018 [facility] [place] CURRYDOB: Insurance:Christensen [id number] Hospitals [facility] 0 [facility] Repository [facility] IncPolicy Number: [place] [address] [id number] [id number]: [id number]: Date:Plan Name:HealthP O Box (HP) (HP) [address] [place] [address] 14165LR: 07/30/2018 [facility] CURRYDOB: Insurance:[facility] JANEOB: [facility] [id number] Repository [facility] IncPolicy Number: [address] [facility] [address] [place] [address] [id number] [place] [address] [id number]: Date:Plan [id number]: Name:HealthP O Box (HP) [address] [place] [address] () 06140BJ: 07/24/2018 [facility] CURRYDOB: Insurance:SCOUT THOMASYDOB: [facility] [id number] System Repository [facility] Number: Effective [address] [facility] [address] [place] [address] Date:2018-07-[address] [place] [address] [id number]: 6738-44-61Sibv [id number]: Name:CD:[id number] (HP) N [address]SU[address] (HP)Tel: (000) [address], [place] 000[address] (WP) 94[address]WE: 07/23/2018 [facility] CURRYDOB: Insurance:CHRISTENSEN CURRYDOB: [facility] [id number] System Repository [facility] Number: Effective [address] [facility] [address] [place] [address] Date:2018-07-233[place] [address]Ezj: 8977-68-39Qqtm [address]Vci: Name:CD:[id number] (HP) N [address] STSU[address] (HP)Tel: (000) [address], [place] 000[address] (WP) [address]VA: 07/23/2018 ANDREI MORALESOB: [place] CURRYDOB: Insurance:Christensen [id number] Hospitals [facility] [address] [facility] Repository [facility] IncPolicy Number: [place] [id number] [id number]: [id number]: Date:Plan Name:HealthP O Box (HP) (HP) [address] [place] [address] 29412TS: 07/20/2018 ANDREI Pruitt [facility] ANDREI THOMASYDOB: Insurance:1500 CHRISTENSEN CURRYDOB: [facility] HEALTH CARE PLAN OF [id number] System Repository [facility], INCPolicy Number: 0 [facility] [address] [place] [address] Effective [facility] [place] [id number]: Date:2018-07-20 - [id number]: 2100-12-31Plan (HP) Name:CD:[id number] (HP)Tel: (000) [address] [place] [address], 000-0000 (WP) [place] [address]WW: 07/20/2018 ANDREI Pruitt [facility] NADREI Mendoza CURRYDOB: Insurance:1500 CHRISTENSEN CURRYDOB: [facility] HEALTH CARE PLAN OF [id number] System Repository [facility], INCPolicy Number: 0 [facility] [address] [place] [address] Effective [facility] [place] [phone]: Date:2018-01-17 - [id number]: 2100-12-31plan (HP) Name:CD:[id number] (HP)Tel: (000) [address] [place] [address], 000-0000 (WP) [place] [address]HO: 07/18/2018 ANDREI Pruitt Primary ANDREI Mendoza CURRYDOB: Insurance:1500 CHRISTENSEN CURRYDOB: [facility] HEALTH CARE PLAN OF [id number] System Repository [facility], INCPolicy Number: [address] [facility] [address] [place] [address] Effective [place] [id number]: Date:2018-07-18 [id number]: 6027-17-21Jpoe (HP) Name:CD:[id number] (HP)Tel: (000) [address], 000[address]0000 (WP) [place] [address]EB: 06/26/2018 ANDREI Pruitt Primary ANDREI Mendoza CURRYDOB: Insurance:1500 CHRISTENSEN CURRYDOB: [facility] HEALTH CARE PLAN OF [id number] System Repository [facility], [place]CPolicy Number: [address] Effective [facility], [place] [phone]: Date:2018-06-25 - [id number]: 6692-76-15Lfrd (HP) Name:CD:[id number] (HP)Tel: (000) [address], 000[address]0000 (WP) [place] [address]FS: 06/25/2018 ANDREI Pruitt Primary ANDREI Mendoza CURRYDOB: Insurance:1500 CHRISTENSEN CURRYDOB: [facility] HEALTH CARE PLAN OF [id number] System Repository [facility], [place]CPolicy Number: 0 [facility] [address] [place] [address], [place] Effective [facility], [place] [id number]: Date:2018-06-20 - [id number]: 4737-45-91Lywy (HP) Name:CD:[id number] (HP)Tel: (000) [address] [address], 000[address]0000 (WP) [place] [address]CH: 05/24/2018 ANDREI Pruitt Primary ANDREI Mendoza CURRYDOB: Insurance:1500 CHRISTENSEN CURRYDOB: [facility] HEALTH CARE PLAN OF [id number] System Repository [facility], [place]CPolicy Number: 0 [facility] [address] [place] [address], [place] Effective [place], [place] [id number]: Date:2018-05-11 [id number]: 1293-53-26Swwt (HP) Name:CD:[id number] (HP)Tel: (000) [address] [place] [address], 000-0000 (WP) [place] [address]AP: 05/11/2018 ANDREI Pruitt Primary ANDREI Mendoza CURRYDOB: Insurance:1500 CHRISTENSEN CURRYDOB: [facility] HEALTH CARE PLAN OF [id number] System Repository [facility], [place]olicy Number: 0 [facility] [address] [place] [address], [place] Effective [place], [place] [phone]: Date:2018-02-09 [id number]: 0395-18-66Tvhxlan (HP) Name:CD:[id number] (HP)Tel: (000) [address] [address], 000[address]0000 (WP) [place] [address]DK: 04/09/2018 ANDREI Pruitt Primary ANDREI Mendoza CURRYDOB: Insurance:1500 CHRISTENSEN CURRYDOB: [facility] HEALTH CARE PLAN OF [id number] System Repository [facility], [place]olicy Number: 0 [facility] [address] [place] [address], [place] Effective [place], [place] [phone]: Date:2018-04-09 - [id number]: 9510-73-74Crdn (HP) Name:CD:[id number] (HP)Tel: (000) [address] [place] [address], 000-0000 (WP) [place] [address]CQ: 02/28/2018 ANDREI W Primary ANDREIJESSE Mendoza MARTHAYDOB: Insurance:CHRISTENSEN CURRYDOB: [facility] [id number] System Repository [facility] [address] Number: Effective [address] [facility] [place] [address] Date:2018-02-27 - [address] [place] [address] [id number]: [id number]: Name:[id number] (HP) [address] (HP)Tel: (000) [place] [address] (WP) [id number]: 02/28/2018 [facility] [place] CURRYDOB: Insurance:Christensen [id number] Hospitals [facility] [address] [facility] [facility] Repository [facility] IncPolicy Number: [address] [place], [place] [address] [id number] [id number]: [phone]: Date:Plan ([phone]) [phone] Name:HealthP O Box (HP) (HP) [address] [place] [address] 83048OV: 02/15/2018 ANDREI W Primary ANDREIJESSE Mendoza MARTHAYDOB: Insurance:CHRISTENSEN CURRYDOB: [facility] [id number] System Repository [facility] [address] Number: Effective [address] [facility] [address] [place] [address] Date:2018-02-09 - [place] [id number]: [id number] [id number]: Name:CD:[id number] (HP) N [address] (HP)Tel: (000) [place], [place] 000[address] (WP) [address]FP: 02/12/2018 ANDREI Pruitt [facility] ANDRIE Mendoza CURRYDOB: Insurance:CHRISTENSEN CURRYDOB: [facility] [id number] System Repository [facility] Number: Effective [address] [facility] [address] [place] [address], [place] Date:2018-02-12 - [address] [place] [address], [place] [id number]: [id number] [id number]: Name:CD:[id number] (HP) N [address] (HP)Tel: (000) [place], [place] 000[address] (WP) [address]JT: 02/09/2018 ANDREI Pruitt [facility] ANDREI Mendoza CURRYDOB: Insurance:CHRISTENSEN CURRYDOB: [facility] [id number] System Repository [facility] Number: Effective [address] [facility] [address] [place] [address], [place] Date:2018-02-09 - [address] [place] [address], [place] [id number]: [id number] [id number]: Name:CD:[id number] (HP) N [address] (HP)Tel: (000) [place], [place] 000[address] (WP) [address]CW: 02/09/[address] [facility] CURRYDOB: Insurance:1500 CHRISTENSEN CURRYDOB: [facility] HEALTH CARE PLAN OF [id number] System Rep[facility] Number: [address] [facility] [address] [place] [address], [place] Effective [facility], [place] [id number]: Date:2018-02-09 - [id number]: [id number] (HP) Name:CD:[id number] (HP)Tel: (000) [address] [place] [address], 000-0000 (WP) [place] [address]GS: 02/02/2018 ANDREI Pruitt Primary ANDREI Mendoza CURRYDOB: Insurance:1500 CHRISTENSEN CURRYDOB: [facility] HEALTH CARE PLAN OF [id number] System Repository [facility] [place] Number: [address] [facility] [address] [place] [address], [place] Effective [facility] [place] [id number]: Date:2018-01-10 [id number]: [id number] (HP) Name:CD:[id number] (HP)Tel: (000) [address], [address] (WP) [place] [address]MU: 01/19/2018 ANDREI Pruitt Primary ANDREI Mendoza CURRYDOB: Insurance:CHRISTENSEN CURRYDOB: [facility] MCAID MCOPolicy [id number] System Repository [facility] Number: Effective [address] [facility] [address] [place] [address] Date:2018-01-10 - [place] [id number]: [id number] [phone]: Name:CD:[id number] (HP) N [facility] (HP)Tel: (000) [place], [place] 000-[address] (WP) [address]AH: 01/17/2018 ANDREI Pruitt Primary ANDREI Mendoza CURRYDOB: Insurance:1500 CHRISTENSEN CURRYDOB: [facility] HEALTH CARE PLAN OF [id number] System Repository [facility], [place] Number: [address] [facility] [address] [place] [address], [place] Effective [facility], [place] [id number]: Date:2018-01-17 [id number]: [id number] (HP) Name:CD:[id number] (HP)Tel: (000) [address], 000[address]0000 (WP) [place] [address]RZ: 01/15/2018 ANDREI Pruitt Primary ANDREI Mendoza CURRYDOB: Insurance:1500 Self CURRYDOB: [facility] PayPolicy Number: [id number] System Repository [facility] Effective [address] Date:2017-12-12 - [address] [place] [address] [id number]: 2242-56-69Yyck [id number]: Name:CD:[id number] (HP) (HP) (WP) 01/10/2018 ANDREI Pruitt Primary ANDREI Mendoza CURRYDOB: Insurance:1500 CHRISTENSEN CURRYDOB: [facility] HEALTH CARE PLAN OF [id number] System Repository [facility] [place], [place] Number: [address] Effective [address] [place] [phone]: Date:2018-01-10 - [id number]: 5509-57-04Dldk (HP) Name:CD:[id number] (HP)Tel: (000) [address] [place] [address], 000-[address] (WP) [place] [address]NA: 12/27/2017 ANDREI Pruitt Primary ANDREI Mendoza CURRYDOB: Insurance:1500 Self CURRYDOB: [facility] PayPolicy Number: [id number] System Repository [facility] Effective [address] Date:2017-12-25 - [address] [place] [address] [id number]: 3046-06-14Qjej [id number]: Name:CD:[id number] (HP) (HP) (WP) 12/18/2017 [facility] CURRYDOB: Insurance:1500 Self CURRYDOB: [facility] PayPolicy Number: [id number] System Repository [facility] Effective [address] [facility] [address] [place] [address], [place] Date:2017-12-[address] [place] [address] [id number]: [id number] [id number]: Name:CD:[id number] (HP) (HP) (WP) 12/12/2017 [facility] CURRYDOB: Insurance:1500 Self CURRYDOB: [facility] PayPolicy Number: [id number] System Repository [facility] Effective [address] [facility] [address] [place] [address], [place] Date:2017-12-[address] [place] [address] [id number]: 9925-24-55Fkdw [id number]: Name:CD:[id number] (HP) (HP) (WP) 11/20/2017 [facility] CURRYDOB: Insurance:MedicaidPol CURRYDOB: Hospitals icy Number: [id number] [address] [place] [address], [place] Date:2724-16-97Jybw [address] [place] [address] 49471Kwn: (027) Name:[facility] [address]Mhh: (HP) [place], [place] [phone] (HP) [address]JR: 11/20/2017 [facility] CURRYDOB: Insurance:Self CURRYDOB: Hospitals PayPolicy Number: [id number] [address] [place] [address] Date:Plan Name:Health [address] [place] [address] 96222Dre: (854) 23309Wdj: (HP) [phone] (HP) 11/19/2017 ANDREI Primary [facility] CURRYDOB: Insurance:CHRISTENSEN CURRYDOB: Repository HEALTHCARE^L^2232^^^9 [id number] [facility] [address] [address]^XXPolicy [address] [facility] [address] [place] [address] [place] [address] [id number] Date:Plan Name:[address] [address]DK: 11/19/2017 ANDREI [facility] CURRYDOB: Insurance:Self CURRYDOB: [facility] PayPolicy Number: [id number] System Repository [facility] [address] Effective [address] [facility] [address] [place] [address] Date:2017-11-[address] [place] [address] [id number]: 7545-36-37Loby [id number]: Name:Self Pay (HP) (HP) (WP) 11/19/2017 [facility] CURRYDOB: Insurance:MIGUEL RODRIGUEZ [id number] System Repository DPolicy Number: [address] [facility] [facility] [address] [facility] [address] Effective [address] [place] [address] [place] [address], [place] Date:2017-11-1964150Hxb: [phone]: (621) 2017-12-19 [phone] (HP) [phone] (HP) 11/19/2017 ANDREI [facility] CURRYDOB: Insurance:Self CURRYDOB: Hospitals PayPolicy Number: [id number] [id number] [address] [place] [address] Date:Plan Name:[address] [address]Qxr: [phone]: (HP) [phone] (HP) 10/25/2017 [facility] CURRYDOB: Insurance:1500 CURRYDOB: [facility] [employer] [id number] System Repository [facility] Number: [address] Effective [address] [place] [address] [id number]: Date:2017-10-25 - [id number]: [id number] (HP) Name:CD:[id number] (HP) (WP) 10/25/2017 ANDREI Pruitt [facility] CURRYDOB: Insurance:BWCPolicy CURRYDOB: [facility] Number: Effective [id number] System Repository [facility] Date:2017-10-25 - [address] [id number] [address] [place] [address] [id number]: Name:Worker's [id number]: Compensation (HP) (HP) (WP)
== END 2018-10-18 12:30 | disposition home or self-care (01) | DRG 231 ==
LOC: ACINP 10:15 → MS3 12:44
PROVIDERS: Anesthesiology; Physician Assistant; Admitting Provider Surgery; Family Provider Family Medicine; PCP Family Medicine; Referring Provider Surgery; Visit Provider Surgery
PROC: 0DTF4ZZ Resection of Right Large Intestine, Percutaneous Endoscopic Approach (ICD-10-PCS; CPT 44205; principal; 2018-10-16 11:40)
DX: C18.2 Malignant neoplasm of ascending colon (principal); K42.9 Umbilical hernia without obstruction or gangrene; Z95.1 Presence of aortocoronary bypass graft; I25.2 Old myocardial infarction; I10 Essential (primary) hypertension
CPT/HCPCS: 36415; 80048; 82378; 82962; 85027; 85610; 85730; 88309; 88341; 88342; 93005; 94762; 97802; J7040; J7050; J7120; A4216; C1760; J2405

== ENCOUNTER 2018-10-21 17:59 | Inpatient (IN) | payer MEDICAID, SELFPAY ==
[2018-10-16 17:38] VITALS: BMI 30.7
[2018-10-21] VITALS (7 sets, daily range): BP systolic 152–178; BP diastolic 98–107; PULSE 96–109; RESP 16–22; TEMP 36.4–37.5; O2SAT 93–96; BMI 30.5; BMI 29.2
--- NOTE | 2018-10-21 18:17 | NURSING ---
dr cat bales
--- NOTE | 2018-10-21 18:44 | ED.RN ---
CALLED DR CHRISTIAN, SPOKE TO HIM AND ADVISED THAT THIS PT IS HERE
--- NOTE | 2018-10-21 18:56 | ED.RN ---
Dr Valles here to deloris pt.
--- NOTE | 2018-10-21 19:20 | RAD_ITS ---
STUDY: X-RAY - ABDOMEN/PELVIS REASON FOR EXAM: Male, 63 years old. NG tube placement, dysphagia, history of colon cancer TECHNIQUE: Single AP view of the abdomen / pelvis. Image centered over the upper and midabdomen. COMPARISON: None. FINDINGS: Enteric tube is seen extending to the left upper abdomen/stomach. Mildly dilated loops of small small bowel are air-filled in the left abdomen measuring up to 4.9 cm. There is no demonstrated free abdominal air. There is excreted contrast in the bilateral kidneys with mild fullness of the bilateral collecting systems. Normal soft tissue structures. Normal visualized osseous structures. RAD/Abdomen Single View (Portable) IMPRESSION: 1. Enteric tube extends to the stomach/left upper quadrant. 2. Possible mild hydronephrosis (contrast in collecting systems from prior contrast injection). 3. Small bowel ileus versus partial small bowel obstruction. Limited evaluation of the abdomen. Electronically Signed: Sang Marmolejo MD at 19:45 EST , Service support ,
--- NOTE | 2018-10-21 19:31 | HP.PCM_ITS ---
Problem List (1) Ileus following gastrointestinal surgery Status: Acute History of Present Illness Date of Admission: 10/21/18 Chief Complaint: Nausea The patient is a 63 year old M had a right hemicolectomy by Dr. Salazar earlier this week. He says that he was getting better and then he began to have a fever. He reports that he has been passing gas. He reports a lot of belching and acid reflux and fevers. He is not having much increase in abdominal pain. He says that he passed gas earlier today. He has not vomited at all. He is also reporting frequency of urination and feeling like he always has to urinate. He is also reporting some incontinence. He denies any coughing. He does state his left maxillary sinus feels like it is hurting and it has been since surgery. He is complaining of mucus drainage he believes he has a sinus infection. Past Medical History Medical History: Medical History (Last Reviewed 10/09/18 @ 08:28 by Irina Lema) Anemia Onset Date: ~06/2018 D64.9 Back pain M54.9 Colon cancer Onset Date: ~07/2018 C18.9 Hyperlipidemia E78.5 Myocardial infarction Onset Date: ~10/2017 I21.9 Osteoarthritis M19.90 HTN (hypertension) I10 Allergies triamterene Allergy (Mild, Verified 10/09/18 09:19) rash Home Medications: Ambulatory Orders Medication Instructions Recorded amoxicillin 875 mg-potassium 1 tab PO BID 08/13/18 clavulanate 125 mg tablet atorvastatin 40 mg tablet 40 mg PO DAILY 08/13/18 ferrous sulfate 325 mg (65 mg 325 mg PO DAILY tab 08/13/18 iron) tablet,delayed release losartan 50 mg tablet 50 mg PO DAILY 08/13/18 metoprolol tartrate 100 mg tablet 100 mg PO 1600,2200 08/13/18 Hydroxyzine HCl 25 mg PO TID PRN PRN 10/16/18 traMADol [Ultram] 50 mg PO Q6H PRN PRN 7 Days #20 10/18/18 tablet Surgical History: Surgical History (Last Reviewed 10/09/18 @ 08:28 by Irina Lema) History of colonoscopy Onset Date: ~07/2018 Z98.890 History of coronary artery bypass graft x 6 Onset Date: ~10/2017 Z95.1 Surgical History: colectomy - Hemicolectomy last week Smoking Status: Never smoker Review of Systems Constitutional: Reports: Fever HEENT: Reports: Nasal Congestion, Sinus Congestion, Sinus Drainage. Denies: Difficulty Hearing Cardiovascular: Denies: Chest Pain Respiratory: Denies: Cough, Shortness of Breath Gastrointestinal: Reports: Abdominal Pain, Nausea. Denies: Diarrhea, Vomiting Genitourinary: Reports: Frequency, Incontinence. Denies: Dysuria Musculoskeletal: Denies: Joint Tenderness Skin: Denies: Dryness Neurological: Denies: Balance problems Psychiatric: Denies: Depression Hematologic/ Lymphatic: Denies: Adenopathy VTE Information - Inpt Only VTE Present on Admission: No VTE Mechan Device Prophylaxis: SCD's Patient Problems: Active and Suspected Problems (Last Reviewed 10/09/18 @ 08:28 by Irina Lema) Ileus following gastrointestinal surgery (Acute) - Physical Exam General: Alert, Oriented x3, Cooperative HEENT: Atraumatic Neck: No JVD Lungs: Normal air movement Cardiovascular: Regular rate, Regular Rhythm Abdomen: Soft, Distended, Tender - He is tender at his incision sites. The rest of the abdomen is distended but nontender. He has no guarding or rebound. There are no peritoneal signs. Extremities: No clubbing Skin: No rashes Musculoskeletal: No Muscle Wasting Neurological: Cranial nerves II-XII grossly intact Psych/Mental Status: Normal Affect Vital Signs Temp Pulse Resp BP Pulse Ox 98.9 F 97 16 178/102 H 93 10/21/18 18:51 10/21/18 18:56 10/21/18 18:56 10/21/18 18:56 10/21/18 18:56 Oxygen Delivery Method Room Air Weight: 244 lb 7.882 oz Body Mass Index (BMI) 30.5 Assessment/Plan All Active Problems (Last Reviewed 10/09/18 @ 08:28 by Irina Lema) Colon cancer (Acute) Umbilical hernia (Acute) Ileus following gastrointestinal surgery (Acute) 63-year-old male with postoperative ileus. 1. The patient presented to [facility] in [place]. The outside hospital performed a CT scan which showed dilated loops of small bowel. There is also thickening of the distal ileum. There were 2 fluid collections in the abdomen. 1 of them was posterior to the liver any other one was in the mesentery posterior to the anastomosis. I reviewed the CAT scan and these fluid collections appear quite small and non-encapsulated. There is no free air. The distal small bowel does appear thickened but the patient is having no peritoneal signs. 2. At the outside ER the patient had labs done. There is no sign of urinary tract infection. White count was upper limit normal at 10.1 but he does have a left shift. Patient's hemoglobin was normal as well. The patient had a lactate of 1.2 with normal creatinine. 3. On physical exam the patient has a distended abdomen with no peritoneal signs. On CT as a very distended stomach and bladder. He reports he has urinated a large amount since the CAT scan. After his first void I will perform a postvoid residual and if his bladder is still retaining and he is having overflow incontinence I will place a Telles. The patient will have an NG placed. I will keep him n.p.o. and start him on IV fluids. I will closely monitor his vital signs as well as urine output and physical exam. If there is any change the patient will require exploration. At this time the patient will have observation on the floor. 4. The patient has no signs of urinary tract infection or pneumonia. He does feel like he is having drainage out of his left maxillary sinus. He will be started on antibiotics. By the patient's CAT scan that he does have a postoperative ileus. Andi Serna MD Pager: [facility] [address] [place] [address], [address] [place] [address] Office:
[2018-10-21] MEDS: Dextrose 5%-Lactated Ringers 1,000 ML 125 ML IV (20:38)
[2018-10-21] MEDS: Piperacil/Tazobactam 3.375 GM/50 ML ML IV (20:39)
[2018-10-21] MEDS: Oxymetazoline 0.05% 1 SPRAY SPRAY.BTL NASAL (23:13)
[2018-10-21] MEDS: Metoprolol Tartrate 100 MG Tablet PO (23:21)
[2018-10-21] MEDS: Tamsulosin HCl 0.4 MG Capsule PO (23:23)
[2018-10-21] MEDS: Atorvastatin Calcium 40 MG Tablet PO (23:23)
[2018-10-21] MEDS: 0.9% NaCl Peripheral Flush Adult/Peds IV (23:40)
[2018-10-22] VITALS (8 sets, daily range): BP systolic 132–161; BP diastolic 66–90; PULSE 72–97; RESP 18–20; TEMP 36.7–37.7; O2SAT 94–98
[2018-10-22] MEDS: Dextrose 5%-Lactated Ringers 1,000 ML 125 ML IV ×3 (04:33→22:56)
[2018-10-22] MEDS: Piperacil/Tazobactam 3.375 GM/50 ML ML IV ×3 (05:36→21:00)
--- NOTE | 2018-10-22 05:55 | RAD_ITS ---
HISTORY: ileus EXAM/TECHNIQUE: XR Abdomen W/ Decub and/or Erect Views: COMPARISON: 10/21/18 abdominal radiographs. FINDINGS: # of images incl. paperwork: 5 Enteric tube tip in the proximal stomach. Side-port near the GE junction. No apparent free air. Dilated small bowel loops with air-fluid levels. Transverse colon also distended with air. RAD/Abd Inc Decub and/or Erect IMPRESSION: Pattern of bowel dilation most likely represents ileus. Partial small bowel obstruction possible but less likely. Enteric tube tip in the proximal stomach. Consider advancing 10 cm and repeating upper abdominal film to confirm placement in the more distal stomach. at 0810 Reported and signed by: Jose Glasgow MD Electronically Signed: Jose Glasgow, at 8:09 EST Tel , Service support ,
[2018-10-22 06:18] LABS: Absolute Lymphocyte Count 0.73 X10^3/ul (0.83-4.51); Absolute Neutrophil Count 6.4 X10^3/uL (2.0-7.7); Basophil# 0.01 X10^3/uL; Basophil% 0.1 % (0-1); Eosinophil# 0.03 X10^3/uL; Eosinophils% 0.3 % (0-5); Hematocrit 34.5 % (40-54); Lymphocyte # 0.73 X10^3/ul (4.0); Lymphocyte % 8.3 % (19-41); Mean Corp Hgb Conc 31.9 g/gl (32-36); Mean Corpuscular Hgb 26.8 pg (27.0-32.0); Mean Corpuscular Volume 83.9 fL (80-94); Mean Platelet Vol. 8.1 fl (6.2-12.0); Monocyte# 1.46 X10^3/uL; Monocyte% 16.7 % (0-10); Neutrophil # 6.44 X10^3/uL (2.7-7.7); Neutrophil % 73.7 % (47-70); Platelet Count 339 K/mm3 (150-450); RBC Distribution Width SD 56.6 fl (35.1-43.9); Red Blood Count 4.11 M/mm3 (4.6-6.2); White Blood Count 8.8 K/mm3 (4.4-11.0)
[2018-10-22 06:20] LABS: POSITIVE COUNT NO; POSITIVE DIFFERENTIAL NO; POSITIVE MORPHOLOGY NO
[2018-10-22 06:37] LABS: Anion Gap 11 (5-15); BUN 17 mg/dL (7-18); BUN/Creat Ratio 15.5 RATIO (10-20); Calcium,Total 8.2 mg/dL (8.5-10.1); Chloride 107 mmol/L (98-107); EST Glomerular Filtration Rate 72 mL/min (>60); Est Glom Filt Rate - Afr Amer 88 mL/min (>60); Estimated Creatinine Clearance 84.29 ml/min; Glucose 135 mg/dL (74-106); Phosphorus 3.8 mg/dL (2.5-4.9); Potassium 3.7 mmol/L (3.5-5.1); Sodium Level 141 mmol/L (136-145)
--- NOTE | 2018-10-22 07:01 | PCM.PN.SRG ---
Patient Problems: Active and Suspected Problems (Last Reviewed 10/09/18 @ 08:28 by Irina Lema) Ileus following gastrointestinal surgery (Acute) Subjective: Patient evaluated resting comfortably in bed. He notes discomfort at the NG site. He denies nausea, vomiting, flatus. He notes the pressure in the abdomen has resolved. Patient mostly notes sinus discomfort. - Physical Exam General: Alert, Oriented x3, Cooperative, - - NG tube intact. No drainage noted Escoto intact with clear/light yellowish urine in the escoto Abdomen: Hypoactive Bowel Sounds, Distended, - - Incisions c/d/i. No erythema or infection noted Vital Signs Temp Pulse Resp BP Pulse Ox 98.8 F 85 20 H 146/80 H 94 10/22/18 04:00 10/22/18 04:00 10/22/18 04:00 10/22/18 04:00 10/22/18 04:00 Oxygen Delivery Method Room Air Weight: 233 lb 11.04 oz Body Mass Index (BMI) 29.2 Intake and Output for Last 24 Hours 10/20/18 10/21/18 10/22/18 23:59 23:59 23:59 Intake Total 474 / 474 1006 / 1006 Output Total 325 / 325 400 / 400 Balance 149 / 149 606 / 606 Laboratory Tests Past 24 Hrs 10/22/18 10/22/18 06:01 06:01 WBC 8.8 RBC 4.11 L Hgb 11.0 L Hct 34.5 L MCV 83.9 MCH 26.8 L MCHC 31.9 L RDW 19.0 H RDW Differential 56.6 H Plt Count 339 MPV 8.1 Immature Gran % (Auto) 0.900 Neut % (Auto) 73.7 H Lymph % (Auto) 8.3 L [place] % (Auto) 16.7 H Eos % (Auto) 0.3 Baso % (Auto) 0.1 Absolute Neuts (auto) 6.4 Absolute Lymphs (auto) 0.73 L Total Counted Not Reportable Sodium 141 Potassium 3.7 Chloride 107 Carbon Dioxide 23.0 Anion Gap 11 BUN 17 Creatinine 1.10 Estim Creat Clear Calc 84.29 Est GFR (MDRD) Af Amer 88 Est GFR (MDRD) Non-Af 72 BUN/Creatinine Ratio 15.5 Glucose 135 H Calcium 8.2 L Phosphorus 3.8 Magnesium 2.0 Medical Necessity - Tobacco Use Smoking Status: Never smoker Assessment/Plan All Active Problems (Last Reviewed 10/09/18 @ 08:28 by Irina Lema) Colon cancer (Acute) Umbilical hernia (Acute) Ileus following gastrointestinal surgery (Acute) I am following this patient in conjunction with Dr. Serna and Dr. Salazar Continue NG tube Await bowel function May have gum or hard candy Encourage ambulation, sitting in the chair, I.S. Keep Escoto Continue antibiotic We will continue to monitor this patient Code Visit Inpatient E&M: 86302 Subs Hosp L1 - POST-OP
--- NOTE | 2018-10-22 07:56 | PN.SURG_ITS ---
Patient Problems: Active and Suspected Problems (Last Reviewed 10/09/18 @ 08:28 by Irina Lema) Ileus following gastrointestinal surgery (Acute) Subjective: Patient reports feeling like he needs to have a bowel movement. He had no output from his NG overnight. - Physical Exam General: Alert, Oriented x3, Cooperative Lungs: Normal air movement Abdomen: Soft, Non Tender, Distended Vital Signs Temp Pulse Resp BP Pulse Ox 98.8 F 85 20 H 146/80 H 94 10/22/18 04:00 10/22/18 04:00 10/22/18 04:00 10/22/18 04:00 10/22/18 04:00 Oxygen Delivery Method Room Air Weight: 233 lb 11.04 oz Body Mass Index (BMI) 29.2 Intake and Output for Last 24 Hours 10/20/18 10/21/18 10/22/18 23:59 23:59 23:59 Intake Total 474 / 474 1006 / 1006 Output Total 325 / 325 400 / 400 Balance 149 / 149 606 / 606 Laboratory Tests Past 24 Hrs 10/22/18 10/22/18 06:01 06:01 WBC 8.8 RBC 4.11 L Hgb 11.0 L Hct 34.5 L MCV 83.9 MCH 26.8 L MCHC 31.9 L RDW 19.0 H RDW Differential 56.6 H Plt Count 339 MPV 8.1 Immature Gran % (Auto) 0.900 Neut % (Auto) 73.7 H Lymph % (Auto) 8.3 L [place] % (Auto) 16.7 H Eos % (Auto) 0.3 Baso % (Auto) 0.1 Absolute Neuts (auto) 6.4 Absolute Lymphs (auto) 0.73 L Total Counted Not Reportable Sodium 141 Potassium 3.7 Chloride 107 Carbon Dioxide 23.0 Anion Gap 11 BUN 17 Creatinine 1.10 Estim Creat Clear Calc 84.29 Est GFR (MDRD) Af Amer 88 Est GFR (MDRD) Non-Af 72 BUN/Creatinine Ratio 15.5 Glucose 135 H Calcium 8.2 L Phosphorus 3.8 Magnesium 2.0 Medical Necessity - Tobacco Use Smoking Status: Never smoker Assessment/Plan All Active Problems (Last Reviewed 10/09/18 @ 08:28 by Irina Lema) Colon cancer (Acute) Umbilical hernia (Acute) Ileus following gastrointestinal surgery (Acute) 63-year-old male with urinary retention and ileus 1. Patient was having urinary retention. He had 2 L immediately out of his Telles once it was placed. I have started him on Flomax. Continue Telles. 2. I am getting a KUB this morning to see if his distention is improving. The patient reports he feels like he needs to have a bowel movement. He had no NG output overnight. If there is no significant distention of the small bowel will take the NG out and continue n.p.o. until he is having significant bowel function. Continue IV fluids. Andi Serna MD Pager: [facility] [address] [place] [address], [address] [place] [address] Office:
[2018-10-22] MEDS: Losartan Potassium 50 MG Tablet PO (08:11)
[2018-10-22] MEDS: Enoxaparin 40 MG/0.4 ML Syringe SC (08:11)
[2018-10-22] MEDS: 0.9% NaCl Peripheral Flush Adult/Peds IV (08:11)
[2018-10-22] MEDS: Oxymetazoline 0.05% 1 SPRAY SPRAY.BTL NASAL ×2 (08:11→21:00)
--- NOTE | 2018-10-22 11:17 | CASEMGMT ---
ZIA CM Readmission Note Last Admission: 10/16/18-10/18/18 Hospitalization course: Lap R hemicolectomy and repair of umbilical hernia. DC Dispositon on 10/18/18: Home Current Admit: 10/21/18 Presentation: Ileus following gastrointestinal surgery. NPO. Urinary retention, 2L output with escoto placement. Lives alone in 1 story home, independent. Pt or daughter drives. DC PLAN: anticipate home on discharge. Jimmie AVENDAÑO RN ACM
[2018-10-22] MEDS: Acetaminophen 325 MG Tablet 650 MG PO ×2 (12:39→19:57)
[2018-10-22] MEDS: Tamsulosin HCl 0.4 MG Capsule PO (16:27)
[2018-10-22] MEDS: Metoprolol Tartrate 100 MG Tablet PO ×2 (16:27→21:00)
[2018-10-22] MEDS: Atorvastatin Calcium 40 MG Tablet PO (21:00)
[2018-10-23] VITALS (16 sets, daily range): BP systolic 116–168; BP diastolic 67–94; PULSE 76–118; RESP 16–24; TEMP 36.6–39.5; O2SAT 93–98
[2018-10-23] MEDS: Piperacil/Tazobactam 3.375 GM/50 ML ML IV ×2 (05:09→21:20)
--- NOTE | 2018-10-23 05:55 | RAD_ITS ---
STUDY: X-RAY - ABDOMEN/PELVIS REASON FOR EXAM: Male, 63 years old. Ileus. TECHNIQUE: Two AP portable supine views of the abdomen and pelvis. COMPARISON: Comparison is made with prior examination dated October 22, 2018. FINDINGS: Mildly distended central small bowel loops. Gas is seen throughout the colon. This may represent a pattern of ileus versus small bowel obstruction. There has been improvement as compared to prior study. The enteric tube is not seen at this time. The visualized liver, spleen and kidneys are grossly normal in size and morphology. There are calcified phleboliths in the pelvis. Normal visualized osseous structures. RAD/Abdomen Single View (Portable) IMPRESSION: Residual mildly distended small bowel loops. Gas is seen in the colon. There is been improvement as compared to prior study. Electronically Signed: Michael Alex MD at 9:35 EST , Service support ,
[2018-10-23] MEDS: Dextrose 5%-Lactated Ringers 1,000 ML 125 ML IV (06:58)
--- NOTE | 2018-10-23 07:15 | PCM.PN.SRG ---
Patient Problems: Active and Suspected Problems (Last Reviewed 10/09/18 @ 08:28 by Irina Lema) Ileus following gastrointestinal surgery (Acute) Subjective: Patient evaluated resting comfortably in bed. He denies nausea, vomiting, fever. He is passing flatus and has had three loose bowel movements. He denies abdominal pain/pressure. He is concerned about leaking stool when he has to return to work. He notes sore throat - Physical Exam General: Alert, Oriented x3, Cooperative Abdomen: Bowel Sounds Present, Soft, Distended - slightly, Tender - mild tenderness with palpation near incision, - - Incisions c/d/i. No erythema or infection noted. Vital Signs Temp Pulse Resp BP Pulse Ox 98.4 F 79 18 158/94 H 94 10/23/18 05:13 10/23/18 05:13 10/23/18 05:13 10/23/18 05:13 10/23/18 05:13 Oxygen Delivery Method Room Air Weight: 233 lb 11.04 oz Body Mass Index (BMI) 29.2 Intake and Output for Last 24 Hours 10/21/18 10/22/18 10/23/18 23:59 23:59 23:59 Intake Total 474 / 474 3295 / 3295 735 / 735 Output Total 325 / 325 1300 / 1300 600 / 600 Balance 149 / 149 1994 / 1994 135 / 135 Medical Necessity - Tobacco Use Smoking Status: Never smoker Assessment/Plan All Active Problems (Last Reviewed 10/09/18 @ 08:28 by Irina Lema) Colon cancer (Acute) Umbilical hernia (Acute) Ileus following gastrointestinal surgery (Acute) I am following this patient in conjunction with Dr. Serna and Dr. Marie CARIAS reviewed with improvement May have gum or hard candy Encourage ambulation, sitting in the chair, I.S. Discontinue Telles Continue Flomax Continue antibiotic Patient would like throat spray for sore throat. This medication has been ordered. Start clears We will continue to monitor this patient Code Visit Inpatient E&M: 94158 Subs Hosp L1 - POST-OP
--- NOTE | 2018-10-23 08:11 | PCM.PN.SRG ---
Patient Problems: Active and Suspected Problems (Last Reviewed 10/09/18 @ 08:28 by Irina Lema) Ileus following gastrointestinal surgery (Acute) Subjective: Patient is doing well and passing flatus. He did have 2 bowel movements. He is having no nausea or vomiting. He is not having any abdominal pain. - Physical Exam General: Alert, Oriented x3 Cardiovascular: Regular rate, Regular Rhythm Abdomen: Soft, Non Tender, Non-Distended Neurological: Cranial nerves II-XII grossly intact Vital Signs Temp Pulse Resp BP Pulse Ox 98.4 F 80 18 158/94 H 94 10/23/18 05:13 10/23/18 07:30 10/23/18 05:13 10/23/18 05:13 10/23/18 05:13 Oxygen Delivery Method Room Air Weight: 233 lb 11.04 oz Body Mass Index (BMI) 29.2 Intake and Output for Last 24 Hours 10/21/18 10/22/18 10/23/18 23:59 23:59 23:59 Intake Total 474 / 474 3295 / 3295 735 / 735 Output Total 325 / 325 1300 / 1300 600 / 600 Balance 149 / 149 1994 / 1994 135 / 135 Microbiology Past 72 Hours 10/21/18 21:10 Urine Culture - Final Urine Catheter - Telles Culture exhibits no growth. Medical Necessity - Tobacco Use Smoking Status: Never smoker Assessment/Plan All Active Problems (Last Reviewed 10/09/18 @ 08:28 by Irina Lema) Colon cancer (Acute) Umbilical hernia (Acute) Ileus following gastrointestinal surgery (Acute) 63-year-old male with ileus and urinary retention 1. The patient is doing well and passing flatus. I will start him on clear liquids. I will not advance his diet until tomorrow as he still looks a little dilated on his x-ray today. Repeat KUB in the morning. 2. Patient's Telles was removed today and he is on Flomax. I will check a postvoid residual to see if the Telles needs to go back in. Andi Serna MD Pager: [facility] [address] [place] [address], [address] [place] [address] Office:
[2018-10-23] MEDS: Enoxaparin 40 MG/0.4 ML Syringe SC (09:30)
[2018-10-23] MEDS: Losartan Potassium 50 MG Tablet PO (09:31)
[2018-10-23] MEDS: Phenol/Sodium Phenolate 180ML 3 SPRAY MM (10:35)
[2018-10-23] MEDS: Acetaminophen 325 MG Tablet 650 MG PO ×2 (11:51→16:01)
--- NOTE | 2018-10-23 13:02 | NURSING ---
pt has not voided after escoto was dcd states he is starting to feel like he needs to go but wants to rest first. C/o feeling cold, temp is 99.7, had tylenol earlier, warm blanket was applied to abd about 2 hours ago for comfort and now one placed around his shoulders. blinds pulled down and pt wants to sleep now.
--- NOTE | 2018-10-23 15:59 | CT_ITS ---
STUDY: CTA CHEST REASON FOR EXAM: Male, 63 years old. Fever, hypoxia. History of colon CA. Status post right hemicolectomy. RADIATION DOSAGE (If Supplied By Facility): CTDIvol = ( 22.70 ) mGy, DLP = ( 2217.00 ) mGycm TECHNIQUE: The examination was performed with the intravenous administration of 100CC ml of Isovue 370 contrast material. Post-processing of the angiographic images was performed, with multiplanar reformation and 3D reconstruction. Individualized dose optimization techniques were used for this CT. COMPARISON: None. FINDINGS: The heart and pericardium are normal. The aorta is normal in caliber, with no aneurysm or dissection. There is no mediastinal mass or adenopathy. There is no hilar or axillary adenopathy. Pulmonary arterial opacification is suboptimal for evaluation of pulmonary embolus. There are no demonstrated central pulmonary emboli. Segmental and subsegmental emboli could be missed. There is no pleural effusion. Bibasilar atelectasis is noted. Visualized abdomen is unremarkable. There is a chronic, ununited fracture of the right clavicle. CT/CTA Chest W/WO Contrast IMPRESSION: 1. Suboptimal opacification for evaluation of PE. No demonstrated emboli. 2. Bibasilar atelectasis. 3. Chronic right clavicle fracture. Electronically Signed: Martha Castellanos MD at 17:14 EST Tel , Service support ,
--- NOTE | 2018-10-23 15:59 | CT_ITS ---
STUDY: CT ABDOMEN AND PELVIS WITH CONTRAST REASON FOR EXAM: Male, 63 years old. Fever, hypoxia. History of colon CA. Status post right hemicolectomy. RADIATION DOSAGE (If Supplied By Facility): CTDIvol = ( 22.70 ) mGy, DLP = ( 2217.00 ) mGycm TECHNIQUE: Transaxial images were obtained from the dome of the diaphragm to the symphysis pubis without oral contrast. 100CC ml of Isovue 370 contrast was administered. Sagittal and coronal images were reconstructed. Individualized dose optimization techniques were used for this CT. COMPARISON: 09/15/2018. FINDINGS: Bibasilar atelectasis is noted. The liver is unremarkable. There is a small dependent stone in the gallbladder. The spleen and pancreas are unremarkable. The adrenal glands are normal. There is a 4 mm nonobstructing stone in the right kidney. The kidneys are otherwise unremarkable. The aorta is normal in caliber. The patient is status post right hemicolectomy. Anastomotic suture is noted at the ileocolic junction. There is mild free gas at the anastomosis which is consistent with recent surgery; in the appropriate clinical setting, anastomotic leak cannot be excluded. The distal colon is largely decompressed. Diverticulosis is noted, with no evidence of acute diverticulitis. A short segment of the sigmoid colon is identified within a left inguinal hernia. There is no proximal obstruction. There is mild interloop fluid in the region of the ileocolic anastomosis. Early organizing collections cannot be excluded. There is moderate haziness and infiltration of the mesentery in the right lower quadrant consistent with recent surgery or infection. There are multiple loops of thick walled ileum, consistent with infectious ileitis or ischemia. There are multiple loops of dilated, fluid-filled small bowel proximally. Findings are consistent with obstruction. There is mild free fluid in the pelvis. The bladder is catheterized and decompressed. There is no osseous abnormality. There is trace gas in the right abdominal wall consistent with recent surgery. CT/Abdomen/Pelvis W IV Cont ONLY IMPRESSION: 1. Trace extraluminal gas and mild fluid in the surgical bed is consistent with recent surgery versus anastomotic leak. Follow-up is advised. 2. Thick walled loops of ileum consistent with infection or ischemia, with proximal SBO. 3. Mild free interloop fluid versus early organizing collections in the surgical bed. 4. Hazy infiltration in the right abdomen right lower quadrant is consistent with postsurgical changes versus infection. 5. Left inguinal hernia containing a segment of sigmoid colon. No proximal obstruction. 6. Nonobstructing right renal stone. 7. Cholelithiasis. Dr. Serna was unable to take the report at the time of dictation, 5:40 PM. Floor nurse not available. The patient was reportedly taken to surgery. N.B. : Dr. Kareem MD, confirmed on 10/23/2018 18:55:32 (ET) that the referring physician received the results and did not require a verbal consultation. Electronically Signed: Martha Castellanos MD at 18:55 EST Tel , Service support ,
[2018-10-23] MEDS: Metoprolol Tartrate 100 MG Tablet PO (16:00)
--- NOTE | 2018-10-23 16:59 | NURSING ---
Report called to Barron LIZARRAGA, including elevated rr, tachy hr, elevated bp.
--- NOTE | 2018-10-23 17:13 | PCM.PN.SRG ---
Patient Problems: Active and Suspected Problems (Last Reviewed 10/09/18 @ 08:28 by Irina Lema) Ileus following gastrointestinal surgery (Acute) Subjective: The patient became more tender on the right side this afternoon in the early afternoon. At the same time the patient became more short of breath and started having a fever. He also became tachycardic. - Physical Exam General: Alert, Oriented x3, Cooperative Lungs: Normal air movement Abdomen: Soft, Non-Distended, Tender Vital Signs Temp Pulse Resp BP Pulse Ox 102.5 F H 114 H 22 H 168/93 H 93 10/23/18 15:55 10/23/18 16:00 10/23/18 15:55 10/23/18 15:55 10/23/18 15:55 Oxygen Delivery Method Room Air Weight: 233 lb 11.04 oz Body Mass Index (BMI) 29.2 Intake and Output for Last 24 Hours 10/21/18 10/22/18 10/23/18 23:59 23:59 23:59 Intake Total 474 / 474 3295 / 3295 1951 / 1951 Output Total 325 / 325 1300 / 1300 1150 / 1150 Balance 149 / 149 1994 / 1994 801 / 801 Microbiology Past 72 Hours 10/21/18 21:10 Urine Culture - Final Urine Catheter - Telles Culture exhibits no growth. Laboratory Tests Past 24 Hrs 10/23/18 10/23/18 10/23/18 17:00 17:00 17:00 WBC Pending RBC Pending Hgb Pending Hct Pending MCV Pending MCH Pending MCHC Pending RDW Pending RDW Differential Pending Plt Count Pending Neut % (Auto) Pending Absolute Neuts (auto) Pending Total Counted Pending D-Dimer Quant (PE/DVT) Sodium Pending Potassium Pending Chloride Pending Carbon Dioxide Pending Anion Gap Pending BUN Pending Creatinine Pending Est GFR (MDRD) Af Amer Pending Est GFR (MDRD) Non-Af Pending BUN/Creatinine Ratio Pending Glucose Pending Lactic Acid Pending Calcium Pending 10/23/18 17:00 WBC RBC Hgb Hct MCV MCH MCHC RDW RDW Differential Plt Count Neut % (Auto) Absolute Neuts (auto) Total Counted D-Dimer Quant (PE/DVT) Pending Sodium Potassium Chloride Carbon Dioxide Anion Gap BUN Creatinine Est GFR (MDRD) Af Amer Est GFR (MDRD) Non-Af BUN/Creatinine Ratio Glucose Lactic Acid Calcium Medical Necessity - Tobacco Use Smoking Status: Never smoker Assessment/Plan All Active Problems (Last Reviewed 10/09/18 @ 08:28 by Irina Lema) Colon cancer (Acute) Umbilical hernia (Acute) Ileus following gastrointestinal surgery (Acute) 63-year-old male with history of colon cancer and right sera-colectomy 1. I was called to the bedside early afternoon as the patient was having a fever of 102 and tachycardia. I saw the patient and replace his Telles and 900 cc of urine was returned. The patient describes worsening pain in the right mid abdomen. The patient also said that he was having fevers and chills. After Telles was placed he was still tachycardic with a rate of 115 and had a fever of 103. 2. The patient then had a stat CTA of the chest as well as a CT of the abdomen and pelvis. These are being read now but I see increased fluid in the abdomen as well as bubbles of free air adjacent to the staple line. I believe the patient is having an anastomotic leak which explains his tachycardia and fever. This would also explain his increased abdominal pain. The patient reports no chest pain and is only short of breath with moving. 3. I believe the patient's fever and tachycardia as well as increasing pain in that area along with the new bubbles on the CAT scan warrant exploration. I explained to the patient that I would taken back to surgery and reopened his incision and check the anastomosis. I would likely have to resect the anastomosis and repeat the anastomosis. I will also perform a washout of the abdomen. I will order antibiotics. I explained the surgery in detail with the patient including the risks of bleeding, infection, injury to surrounding organs. The patient understands all the risks and is willing to proceed with surgery. Andi Serna MD Pager: [facility] [address] [place] [address], [address] [place] [address] Office:
--- NOTE | 2018-10-23 17:16 | PN.SURG_ITS ---
Patient Problems: Active and Suspected Problems (Last Reviewed 10/09/18 @ 08:28 by Irina Lema) Ileus following gastrointestinal surgery (Acute) Subjective: The patient became more tender on the right side this afternoon in the early afternoon. At the same time the patient became more short of breath and started having a fever. He also became tachycardic. - Physical Exam General: Alert, Oriented x3, Cooperative Lungs: Normal air movement Abdomen: Soft, Non-Distended, Tender Vital Signs Temp Pulse Resp BP Pulse Ox 102.5 F H 114 H 22 H 168/93 H 93 10/23/18 15:55 10/23/18 16:00 10/23/18 15:55 10/23/18 15:55 10/23/18 15:55 Oxygen Delivery Method Room Air Weight: 233 lb 11.04 oz Body Mass Index (BMI) 29.2 Intake and Output for Last 24 Hours 10/21/18 10/22/18 10/23/18 23:59 23:59 23:59 Intake Total 474 / 474 3295 / 3295 1951 / 1951 Output Total 325 / 325 1300 / 1300 1150 / 1150 Balance 149 / 149 1994 / 1994 801 / 801 Microbiology Past 72 Hours 10/21/18 21:10 Urine Culture - Final Urine Catheter - Telles Culture exhibits no growth. Laboratory Tests Past 24 Hrs 10/23/18 10/23/18 10/23/18 17:00 17:00 17:00 WBC Pending RBC Pending Hgb Pending Hct Pending MCV Pending MCH Pending MCHC Pending RDW Pending RDW Differential Pending Plt Count Pending Neut % (Auto) Pending Absolute Neuts (auto) Pending Total Counted Pending D-Dimer Quant (PE/DVT) Sodium Pending Potassium Pending Chloride Pending Carbon Dioxide Pending Anion Gap Pending BUN Pending Creatinine Pending Est GFR (MDRD) Af Amer Pending Est GFR (MDRD) Non-Af Pending BUN/Creatinine Ratio Pending Glucose Pending Lactic Acid Pending Calcium Pending 10/23/18 17:00 WBC RBC Hgb Hct MCV MCH MCHC RDW RDW Differential Plt Count Neut % (Auto) Absolute Neuts (auto) Total Counted D-Dimer Quant (PE/DVT) Pending Sodium Potassium Chloride Carbon Dioxide Anion Gap BUN Creatinine Est GFR (MDRD) Af Amer Est GFR (MDRD) Non-Af BUN/Creatinine Ratio Glucose Lactic Acid Calcium Medical Necessity - Tobacco Use Smoking Status: Never smoker Assessment/Plan All Active Problems (Last Reviewed 10/09/18 @ 08:28 by Irina Lema) Colon cancer (Acute) Umbilical hernia (Acute) Ileus following gastrointestinal surgery (Acute) 63-year-old male with history of colon cancer and right sera-colectomy 1. I was called to the bedside early afternoon as the patient was having a fever of 102 and tachycardia. I saw the patient and replace his Telles and 900 cc of urine was returned. The patient describes worsening pain in the right mid abdomen. The patient also said that he was having fevers and chills. After Telles was placed he was still tachycardic with a rate of 115 and had a fever of 103. 2. The patient then had a stat CTA of the chest as well as a CT of the abdomen and pelvis. These are being read now but I see increased fluid in the abdomen as well as bubbles of free air adjacent to the staple line. I believe the patient is having an anastomotic leak which explains his tachycardia and fever. This would also explain his increased abdominal pain. The patient reports no chest pain and is only short of breath with moving. 3. I believe the patient's fever and tachycardia as well as increasing pain in that area along with the new bubbles on the CAT scan warrant exploration. I explained to the patient that I would taken back to surgery and reopened his incision and check the anastomosis. I would likely have to resect the anastomosis and repeat the anastomosis. I will also perform a washout of the abdomen. I will order antibiotics. I explained the surgery in detail with the patient including the risks of bleeding, infection, injury to surrounding organs. The patient understands all the risks and is willing to proceed with surgery. Andi Serna MD Pager: [facility] [address] [place] [address], [address] [place] [address] Office:
[2018-10-23 17:19] LABS: Absolute Lymphocyte Count 1.03 X10^3/ul (0.83-4.51); Absolute Neutrophil Count 8.9 X10^3/uL (2.0-7.7); Basophil# 0.01 X10^3/uL; Basophil% 0.1 % (0-1); Eosinophil# 0.03 X10^3/uL; Eosinophils% 0.3 % (0-5); Hematocrit 33.2 % (40-54); Hemoglobin 10.5 g/dl (13.0-16.5); Lymphocyte # 1.03 X10^3/ul (4.0); Lymphocyte % 9.8 % (19-41); Mean Corp Hgb Conc 31.6 g/gl (32-36); Mean Corpuscular Hgb 26.5 pg (27.0-32.0); Mean Corpuscular Volume 83.8 fL (80-94); Mean Platelet Vol. 8.1 fl (6.2-12.0); Monocyte# 0.53 X10^3/uL; Neutrophil # 8.87 X10^3/uL (2.7-7.7); Neutrophil % 84.3 % (47-70); POSITIVE COUNT NO; POSITIVE DIFFERENTIAL NO; POSITIVE MORPHOLOGY NO; Platelet Count 285 K/mm3 (150-450); RBC Distribution Width CV 18.7 % (11.6-14.6); RBC Distribution Width SD 56.1 fl (35.1-43.9); Red Blood Count 3.96 M/mm3 (4.6-6.2); White Blood Count 10.5 K/mm3 (4.4-11.0)
[2018-10-23 17:30] LABS: Anion Gap 9 (5-15); BUN 11 mg/dL (7-18); BUN/Creat Ratio 10.7 RATIO (10-20); Calcium,Total 7.9 mg/dL (8.5-10.1); Chloride 104 mmol/L (98-107); Creatinine, Serum 1.03 mg/dL (0.70-1.30); EST Glomerular Filtration Rate 78 mL/min (>60); Est Glom Filt Rate - Afr Amer 94 mL/min (>60); Estimated Creatinine Clearance 90.01 ml/min; Glucose 111 mg/dL (74-106); Potassium 3.4 mmol/L (3.5-5.1); Sodium Level 136 mmol/L (136-145)
--- NOTE | 2018-10-23 17:30 | COL_PTH ---
PATIENT: NESTOR HALL LOC: MS3 U#:[id number] AGE/SX: 63/M ROOM: MS319 RE10/21/[address]: Dr. Andi Serna MD : 1955 BED: 1 DIS: 10/28/2018 SPEC #: [id number] RECD: 10/24/18 07:29 STATUS: FERCHO REMagda #: [id number] HENRIETTA: 10/23/18 17:[address]: Andi Serna DEPT: SURGICAL PATHOLOGY RECD BY: Ted Holguin ENTERED: 10/24/18 09:51 SP TYPE: COLON OTHR DR: Dr. Lito Farrell MD Tissues: A - Omentum, NOS B - Right colon Procedures: Surgery Specimen Level V HEADER OPERATION: Exploratory laparotomy, resection of anastomotic leak PRE-OP DIAGNOSIS: Anastomotic leak TISSUE SUBMITTED: A - Omentum, B - Right colon MICROSCOPIC DIAGNOSIS A. Omentum, excision: Acute inflammation, fibrosis and microabscesses. B. Right colon, colectomy: Perforation at anastomotic site (approximately 1 mm in diameter) with associated fibrosis, acute inflammation and benign histiocytic reaction of adjacent fibrofatty tissue. Two out of two lymph nodes with no pathologic change. Attached omentum with fibrosis, fat necrosis and microabscess formation. No evidence of malignancy. 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 This case was reviewed and diagnosis discussed with Dr. Serna on 10/26/18. MICROSCOPIC DESCRIPTION Slides are reviewed. GROSS DESCRIPTION A - Received in fixative is one container labeled with the patient's name and designated omentum. The specimen consists of an irregular fragment of yellow fatty tissue measuring 15 x 14 x 4 cm. Serial sections do not reveal mass lesions. The cut surfaces are perez-yellow. No cysts or areas of obvious hemorrhage are identified. Licensed Midwife sections are submitted in four cassettes. / AM:kirsten 10/24/18 B - Received in fixative is one container labeled with the patient's name and designated right colon. The specimen consists of two bowel segments, anastomosed end-to-side and surrounded by yellow irregular fibrofatty tissue with significant induration and perez-brown discoloration. The larger segment of bowel to point of anastomosis measures 15 cm. The smallest segment of bowel measures 6 cm in length. The anastomotic line at one point is disrupted. A small hole measuring 1 to 2 mm is present. This hole is probe-patent and extends to a distance of 1 cm into the adjacent fibrofatty tissue. The bowel mucosa from both fragments of bowel is perez-yellow and thrown into normal folds. No mucosal mass lesions are identified. The fibrofatty tissue in area adjacent to the mucosal defect in the stapled area of anastomosis is inked in black ink. Adherent to the bowel segments is what appears to be a portion of omentum that measures 21 x 10 x 3 cm. Dissection of this tissue does not reveal mass lesions. Licensed Midwife sections are submitted as follows: 1 - small bowel at staple line, 2 - large bowel margin, 3 & 4 - area of mucosal defect and anastomosis, 5 & 6 - fibrofatty tissue adjacent to anastomosis, 7 - inbound sales representative lymph node, 8 - omentum attached to bowel. / AM:kirsten 10/25/18 TC:2 CPT: 88677, 76052
[2018-10-23 17:54] LABS: D-Dimer Quantitative (DVT/PE) 11.14 FEU/ug/m (0.27-0.49)
[2018-10-23 18:06] LABS: Lactic Acid 1.2 mmol/L (0.4-2.0)
--- NOTE | 2018-10-23 19:57 | OP.PCM_ITS ---
Problem List (1) Ileus following gastrointestinal surgery Status: Acute Report of Operation Date of Procedure: 10/23/18 Pre-Operative Diagnosis: Anastomotic leak Post-Operative Diagnosis: Same Surgery/Procedure Performed:: Exploratory laparotomy with resection of prior anastomosis and new primary small bowel to colon anastomosis Special Medications: Zosyn Specimen's removed: Ileocolic anastomosis Description of Procedure: The patient was brought back to the operating room and general anesthesia was induced. The abdomen was prepped and draped in usual sterile fashion. The incision was reopened at the skin level. This was opened down to the fascia. The fascia appeared inflamed and partially dehisced. The prior suture was remov ed and the abdomen was entered. The falciform ligament was ligated and divided. A wound protector was then placed. The omentum was very inflamed and thickened. It was very adherent and there was a lot of inflammation in the abdomen. It was bluntly freed up and the anastomosis was delivered into the incision. The small bowel was identified and run proximally until it was normal. The transverse colon appeared normal as well. At the anastomosis there was a lot of inflammation and adhesions to the omentum but no gross spillage. The NG position was confirmed in the stomach. There is also a long tongue of omentum which was twisted and necrotic. First the necrotic omentum was removed with the impact LigaSure. Next the anastomosis was inspected. The decision was made to resect the anastomosis. A CIERRA stapler was used to come across the transverse colon just distal to the prior anastomosis. The CIERRA stapler was also used on the small bowel more proximally. The impact LigaSure was used to remove the specimen. Next the small bowel was brought adjacent to the transverse colon and there appeared to be no tension. A small opening was made in each of the staple lines and a CIERRA stapler was used to staple the antimesenteric side of the small bowel to the tenia of the transverse colon. Next the stapler removed and there appeared to be good hemostasis of the staple line. A 60 TL stapler was used to close the anastomosis. A 3-0 silk suture was used as a crotch stitch. Next the abdomen was inspected and there appeared to be no other abnormalities. The abdomen was irrigated copiously and suctioned. Next because the fascia was already starting to dehisce retention sutures were placed. 4 retention sutures were placed evenly across the incision. These were placed through the skin and fascia and in the preperitoneal space and back to the other side in the same fashion. These were placed and rubber shod bolsters. Next the fascia was closed with running looped 0 PDS suture starting at the upper and lower borders and meeting in the middle. The incision was then irrigated and suctioned. Telfa tristin were created and soaked in Betadine and placed into the incision. In between the Telfa tristin the incision was closed with sarahi. The retention sutures were then slightly tightened and tied. Dressings were then applied. The patient went to PACU in stable condition with an NG and Telles in place. - Admit VTE Documentation VTE Mechan Device Prophylaxis: SCD's
[2018-10-23] MEDS: Morphine 4 MG/ML Syringe IV ×2 (21:09→23:04)
[2018-10-23] MEDS: Dextrose 5%-Lactated Ringers 1,000 ML 100 ML IV (21:14)
[2018-10-23] MEDS: Potassium Chloride 10mEq/100mL 10 MEQ/100 ML IV.SOLN. 100 MEQ IV BOLUS (23:02)
[2018-10-24] VITALS (9 sets, daily range): BP systolic 147–157; BP diastolic 77–89; PULSE 88–103; RESP 16–20; TEMP 36.6–37.4; O2SAT 93–95
[2018-10-24] MEDS: Potassium Chloride 10mEq/100mL 10 MEQ/100 ML IV.SOLN. 100 MEQ IV BOLUS ×2 (00:05→01:03)
[2018-10-24] MEDS: Morphine 4 MG/ML Syringe IV ×3 (01:09→15:26)
--- NOTE | 2018-10-24 05:55 | RAD_ITS ---
STUDY: X-RAY - ABDOMEN/PELVIS REASON FOR EXAM: Male, 63 years old. . TECHNIQUE: 2 views COMPARISON: None. FINDINGS: The tip of the nasogastric tube is in the stomach. There is no evidence of intestinal obstruction. There is no free intraperitoneal air. Midline sarahi in the mid abdomen. There are no abnormal calcifications in the kidneys RAD/Abdomen Single View (Portable) IMPRESSION: No evidence of any significant bowel distention Electronically Signed: Orestes Mckay MD at 5:42 EST Tel , Service support ,
[2018-10-24] MEDS: Piperacil/Tazobactam 3.375 GM/50 ML ML IV ×3 (06:14→22:32)
[2018-10-24] MEDS: Dextrose 5%-Lactated Ringers 1,000 ML 100 ML IV ×2 (06:15→17:29)
[2018-10-24 06:50] LABS: Anion Gap 12 (5-15); BUN 12 mg/dL (7-18); BUN/Creat Ratio 11.7 RATIO (10-20); Calcium,Total 8.1 mg/dL (8.5-10.1); Chloride 106 mmol/L (98-107); Creatinine, Serum 1.03 mg/dL (0.70-1.30); EST Glomerular Filtration Rate 78 mL/min (>60); Est Glom Filt Rate - Afr Amer 94 mL/min (>60); Estimated Creatinine Clearance 90.01 ml/min; Glucose 160 mg/dL (74-106); Potassium 3.7 mmol/L (3.5-5.1); Sodium Level 139 mmol/L (136-145)
[2018-10-24 06:56] LABS: Absolute Lymphocyte Count 0.44 X10^3/ul (0.83-4.51); Absolute Neutrophil Count 11.3 X10^3/uL (2.0-7.7); Basophil# 0.01 X10^3/uL; Basophil% 0.1 % (0-1); Hematocrit 31.8 % (40-54); Lymphocyte # 0.44 X10^3/ul (4.0); Lymphocyte % 3.5 % (19-41); Mean Corp Hgb Conc 31.4 g/gl (32-36); Mean Corpuscular Hgb 26.7 pg (27.0-32.0); Mean Platelet Vol. 8.1 fl (6.2-12.0); Monocyte# 0.95 X10^3/uL; Monocyte% 7.5 % (0-10); Neutrophil # 11.25 X10^3/uL (2.7-7.7); Neutrophil % 88.4 % (47-70); Platelet Count 340 K/mm3 (150-450); RBC Distribution Width CV 18.6 % (11.6-14.6); RBC Distribution Width SD 55.6 fl (35.1-43.9); Red Blood Count 3.74 M/mm3 (4.6-6.2); White Blood Count 12.7 K/mm3 (4.4-11.0)
[2018-10-24 07:00] LABS: Differential Indicated SCAN CRITERIA MET; POSITIVE COUNT NO; POSITIVE DIFFERENTIAL YES; POSITIVE MORPHOLOGY NO
--- NOTE | 2018-10-24 07:43 | PN.SURG_ITS ---
Patient Problems: Active and Suspected Problems (Last Reviewed 10/09/18 @ 08:28 by Irina Lema) Ileus following gastrointestinal surgery (Acute) Subjective: Patient evaluated resting comfortably in bed. He notes incisional pain. He denies nausea, vomiting. He is concerned that he has a swollen lymph node/tonsil on the left side. Denies flatus. Denies chest pain and shortness of breath. - Physical Exam General: Alert, Oriented x3, Cooperative, - - NG tube intact with clear to slight bloody fluid. Output was 400 cc over night. Telles intact with concentrated urine noted. Lungs: Diminished - bilateral bases Cardiovascular: Tachycardic Abdomen: Soft, Hypoactive Bowel Sounds, Tender - Generalized, - - Incision- with retention sutures, betadine packing, and sarahi intact. No erythema. Minimal amount of bloody/serous drainage on the ABD pad. Remaining incisions intact. Psych/Mental Status: Appropriate Vital Signs Temp Pulse Resp BP Pulse Ox 98 F 103 H 16 151/77 H 95 10/24/18 06:13 10/24/18 06:13 10/24/18 06:13 10/24/18 06:13 10/24/18 06:13 Oxygen Flow Rate (L/min) 2 Oxygen Delivery Method Nasal Cannula Weight: 233 lb 11.04 oz Body Mass Index (BMI) 29.2 Intake and Output for Last 24 Hours 10/22/18 10/23/18 10/24/18 23:59 23:59 23:59 Intake Total 3295 / 3295 3491 / 3491 1478 / 1478 Output Total 1300 / 1300 1520 / 1520 1100 / 1100 Balance 1994 / 1994 1970 / 1970 378 / 378 Microbiology Past 72 Hours 10/21/18 21:10 Urine Culture - Final Urine Catheter - Telles Culture exhibits no growth. Laboratory Tests Past 24 Hrs 10/23/18 10/23/18 10/23/18 17:00 17:00 17:00 WBC 10.5 RBC 3.96 L Hgb 10.5 L Hct 33.2 L MCV 83.8 MCH 26.5 L MCHC 31.6 L RDW 18.7 H RDW Differential 56.1 H Plt Count 285 MPV 8.1 Immature Gran % (Auto) 0.500 Neut % (Auto) 84.3 H Lymph % (Auto) 9.8 L [place] % (Auto) 5.0 Eos % (Auto) 0.3 Baso % (Auto) 0.1 Absolute Neuts (auto) 8.9 H Absolute Lymphs (auto) 1.03 Total Counted Not Reportable D-Dimer Quant (PE/DVT) Sodium 136 Potassium 3.4 L Chloride 104 Carbon Dioxide 23.0 Anion Gap 9 BUN 11 Creatinine 1.03 Estim Creat Clear Calc 90.01 Est GFR (MDRD) Af Amer 94 Est GFR (MDRD) Non-Af 78 BUN/Creatinine Ratio 10.7 Glucose 111 H Lactic Acid 1.2 Calcium 7.9 L 10/23/18 10/24/18 10/24/18 17:00 05:40 05:40 WBC 12.7 H RBC 3.74 L Hgb 10.0 L Hct 31.8 L MCV 85.0 MCH 26.7 L MCHC 31.4 L RDW 18.6 H RDW Differential 55.6 H Plt Count 340 MPV 8.1 Immature Gran % (Auto) 0.500 Neut % (Auto) 88.4 H Lymph % (Auto) 3.5 L [place] % (Auto) 7.5 Eos % (Auto) 0.0 Baso % (Auto) 0.1 Absolute Neuts (auto) 11.3 H Absolute Lymphs (auto) 0.44 L Total Counted Not Reportable D-Dimer Quant (PE/DVT) 11.14 H* Sodium 139 Potassium 3.7 Chloride 106 Carbon Dioxide 21.0 Anion Gap 12 BUN 12 Creatinine 1.03 Estim Creat Clear Calc 90.01 Est GFR (MDRD) Af Amer 94 Est GFR (MDRD) Non-Af 78 BUN/Creatinine Ratio 11.7 Glucose 160 H Lactic Acid Calcium 8.1 L Medical Necessity - Tobacco Use Smoking Status: Never smoker Assessment/Plan All Active Problems (Last Reviewed 10/09/18 @ 08:28 by Irina Lema) Colon cancer (Acute) Umbilical hernia (Acute) Ileus following gastrointestinal surgery (Acute) I am following this patient in conjunction with Dr. Serna and Dr. Salazar S/p emergent diagnostic laparotomy with resection of the anastomosis and new primary small bowel anastomosis secondary to anastomotic leak. KUB reviewed with improvement May have gum or hard candy Encourage ambulation, sitting in the chair, I.S. Keep NG tube Continue Flomax Continue antibiotic Continue IV fluids Labs reviewed We will continue to monitor this patient Code Visit Inpatient E&M: 95039 Subs Hosp L1 - POST-OP
[2018-10-24] MEDS: Enoxaparin 40 MG/0.4 ML Syringe SC (09:10)
[2018-10-24] MEDS: Losartan Potassium 50 MG Tablet PO (09:34)
--- NOTE | 2018-10-24 09:35 | NURSING ---
NG suction off now, po med administered with sip of water.
--- NOTE | 2018-10-24 10:29 | NURSING ---
NG turned on to LIASHLEY. PT sleeping in recliner.
[2018-10-24] MEDS: Phenol/Sodium Phenolate 180ML 3 SPRAY MM (10:48)
[2018-10-24] MEDS: Morphine 2 MG/ML Syringe IV (10:52)
[2018-10-24] MEDS: 0.9% NaCl Peripheral Flush Adult/Peds IV (15:26)
[2018-10-24] MEDS: Metoprolol Tartrate 100 MG Tablet PO ×2 (15:27→21:44)
--- NOTE | 2018-10-24 15:30 | NURSING ---
ng turned off, lopressor po given.
--- NOTE | 2018-10-24 16:14 | NURSING ---
Ng suction resumed at LIWS.
[2018-10-24] MEDS: Tamsulosin HCl 0.4 MG Capsule PO (17:30)
--- NOTE | 2018-10-24 18:39 | NURSING ---
Ng unclamped, and patent. resting quietly in bed.
[2018-10-24] MEDS: Atorvastatin Calcium 40 MG Tablet PO (21:44)
--- NOTE | 2018-10-24 21:52 | NURSING ---
LIWS ON NG TUBE TURNED OFF @ 9508 TO ADMINISTER PO MEDS WITH SMALL SIP OF WATER.
--- NOTE | 2018-10-24 22:57 | NURSING ---
PT'S NG TUBE RESUMED BACK TO INT WALL SUCTION
[2018-10-25 02:37] VITALS: BP 158/91; PULSE 92; RESP 16; TEMP 37.1; O2SAT 93
[2018-10-25] MEDS: Dextrose 5%-Lactated Ringers 1,000 ML 100 ML IV ×2 (03:08→13:24)
[2018-10-25] MEDS: Piperacil/Tazobactam 3.375 GM/50 ML ML IV ×3 (05:36→22:08)
[2018-10-25 06:03] LABS: Absolute Lymphocyte Count 0.62 X10^3/ul (0.83-4.51); Absolute Neutrophil Count 8.5 X10^3/uL (2.0-7.7); Basophil# 0.01 X10^3/uL; Basophil% 0.1 % (0-1); Eosinophil# 0.02 X10^3/uL; Eosinophils% 0.2 % (0-5); Hematocrit 30.1 % (40-54); Hemoglobin 9.5 g/dl (13.0-16.5); Lymphocyte # 0.62 X10^3/ul (4.0); Mean Corp Hgb Conc 31.6 g/gl (32-36); Mean Corpuscular Hgb 26.8 pg (27.0-32.0); Mean Platelet Vol. 8.1 fl (6.2-12.0); Monocyte# 1.07 X10^3/uL; Monocyte% 10.4 % (0-10); Neutrophil # 8.49 X10^3/uL (2.7-7.7); Neutrophil % 82.5 % (47-70); Platelet Count 355 K/mm3 (150-450); RBC Distribution Width CV 18.3 % (11.6-14.6); RBC Distribution Width SD 54.7 fl (35.1-43.9); Red Blood Count 3.54 M/mm3 (4.6-6.2); White Blood Count 10.3 K/mm3 (4.4-11.0)
[2018-10-25 06:06] LABS: POSITIVE COUNT NO; POSITIVE DIFFERENTIAL NO; POSITIVE MORPHOLOGY NO
[2018-10-25 06:14] LABS: Anion Gap 10 (5-15); BUN 13 mg/dL (7-18); BUN/Creat Ratio 13.2 RATIO (10-20); Calcium,Total 7.9 mg/dL (8.5-10.1); Chloride 106 mmol/L (98-107); Creatinine, Serum 0.98 mg/dL (0.70-1.30); EST Glomerular Filtration Rate 82 mL/min (>60); Est Glom Filt Rate - Afr Amer 100 mL/min (>60); Estimated Creatinine Clearance 94.61 ml/min; Glucose 108 mg/dL (74-106); Potassium 3.3 mmol/L (3.5-5.1); Sodium Level 139 mmol/L (136-145)
[2018-10-25 08:31] LABS: Magnesium 1.7 mg/dL (1.6-2.6); Phosphorus 2.3 mg/dL (2.5-4.9)
[2018-10-25 08:40] VITALS: BP 163/89; PULSE 90; RESP 18; TEMP 36.7; O2SAT 93
[2018-10-25] MEDS: Losartan Potassium 50 MG Tablet PO (08:43)
[2018-10-25] MEDS: Enoxaparin 40 MG/0.4 ML Syringe SC (08:43)
[2018-10-25] MEDS: 0.9% NaCl IVPB Med Flush (250 mL) 15 ML IV (09:50)
[2018-10-25] MEDS: Potassium Chloride 10mEq/100mL 10 MEQ/100 ML IV.SOLN. 100 MEQ IV BOLUS ×3 (09:50→13:23)
--- NOTE | 2018-10-25 10:10 | PN.SURG_ITS ---
Patient Problems: Active and Suspected Problems (Last Reviewed 10/09/18 @ 08:28 by Irina Lema) Ileus following gastrointestinal surgery (Acute) Subjective: Patient evaluated resting comfortably in a chair. He notes minimal amount of abdominal discomfort. He denies nausea, vomiting, fever. Negative flatus and BM. Continues to have Escoto and NG tube intact. - Physical Exam General: Alert, Oriented x3, Cooperative, - - NG tube intact with bloody/brown fluid in the canister. Escoto intact with yellowish to clear urine. Lungs: Diminished - bilateral bases Cardiovascular: Regular rate, Regular Rhythm Abdomen: Soft, Hypoactive Bowel Sounds, Distended, Tender - generalized, - - Incision- with bolster sutures, sarahi and multiple tristin intact Previous laparoscopic incisions intact Vital Signs Temp Pulse Resp BP Pulse Ox 98.7 F 92 16 158/91 H 93 10/25/18 02:37 10/25/18 02:37 10/25/18 02:37 10/25/18 02:37 10/25/18 02:37 Oxygen Flow Rate (L/min) 2 Oxygen Delivery Method Room Air Weight: 233 lb 11.04 oz Body Mass Index (BMI) 29.2 Intake and Output for Last 24 Hours 10/23/18 10/24/18 10/25/18 23:59 23:59 23:59 Intake Total 3491 / 3491 3018 / 3018 1823 / 1823 Output Total 1520 / 1520 2450 / 2450 1625 / 1625 Balance 1970 / 1971 568 / 568 198 / 198 Microbiology Past 72 Hours 10/21/18 21:10 Urine Culture - Final Urine Catheter - [place] Culture exhibits no growth. Laboratory Tests Past 24 Hrs 10/25/18 10/25/18 10/25/18 05:30 05:30 05:30 WBC 10.3 RBC 3.54 L Hgb 9.5 L Hct 30.1 L MCV 85.0 MCH 26.8 L MCHC 31.6 L RDW 18.3 H RDW Differential 54.7 H Plt Count 355 MPV 8.1 Immature Gran % (Auto) 0.800 Neut % (Auto) 82.5 H Lymph % (Auto) 6.0 L [place] % (Auto) 10.4 H Eos % (Auto) 0.2 Baso % (Auto) 0.1 Absolute Neuts (auto) 8.5 H Absolute Lymphs (auto) 0.62 L Total Counted Not Reportable Sodium 139 Potassium 3.3 L Chloride 106 Carbon Dioxide 23.0 Anion Gap 10 BUN 13 Creatinine 0.98 Estim Creat Clear Calc 94.61 Est GFR (MDRD) Af Amer 100 Est GFR (MDRD) Non-Af 82 BUN/Creatinine Ratio 13.2 Glucose 108 H Calcium 7.9 L Phosphorus 2.3 L Magnesium 1.7 Medical Necessity - Tobacco Use Smoking Status: Never smoker Assessment/Plan All Active Problems (Last Reviewed 10/09/18 @ 08:28 by Irina Lema) Colon cancer (Acute) Umbilical hernia (Acute) Ileus following gastrointestinal surgery (Acute) I am following this patient in conjunction with Dr. Serna and Dr. Salazar S/p emergent diagnostic laparotomy with resection of the anastomosis and new primary small bowel anastomosis secondary to anastomotic leak. May have gum or hard candy Encourage ambulation, sitting in the chair, I.S. Keep NG tube until flatus Continue Flomax Continue antibiotic Continue IV fluids Keep escoto intact due to urinary retention Labs reviewed. Potassium being given We will continue to monitor this patient Code Visit Inpatient E&M: 40275 Subs Hosp L1 - POST-OP
[2018-10-25 14:50] VITALS: BP 152/86; PULSE 94; RESP 18; TEMP 37.4; O2SAT 94
[2018-10-25] MEDS: Acetaminophen 325 MG Tablet 650 MG PO (14:52)
[2018-10-25 14:58] VITALS: PULSE 94
[2018-10-25] MEDS: Metoprolol Tartrate 100 MG Tablet PO ×2 (14:58→21:08)
[2018-10-25] MEDS: Tamsulosin HCl 0.4 MG Capsule PO (14:58)
[2018-10-25] MEDS: Dextrose 5%/0.9% NaCl 1,000 ML 100 ML IV (16:12)
[2018-10-25 20:50] VITALS: BP 146/75; PULSE 84; RESP 16; TEMP 37.5; O2SAT 95
[2018-10-25 21:08] VITALS: PULSE 84
[2018-10-25] MEDS: Oxymetazoline 0.05% 1 SPRAY SPRAY.BTL NASAL (21:08)
[2018-10-25] MEDS: Atorvastatin Calcium 40 MG Tablet PO (21:08)
--- NOTE | 2018-10-25 21:12 | NURSING ---
NG SUCTION TURNED OFF TO ADMINISTER PO MEDS.
--- NOTE | 2018-10-25 22:15 | NURSING ---
NG SUCTION RESUMED TO IWS POST PO MEDICATION ADMINISTRATION
[2018-10-26 02:14] VITALS: BP 169/89; PULSE 86; RESP 16; TEMP 37.2; O2SAT 96
[2018-10-26] MEDS: Dextrose 5%/0.9% NaCl 1,000 ML 100 ML IV (02:19)
[2018-10-26] MEDS: Piperacil/Tazobactam 3.375 GM/50 ML ML IV ×3 (05:53→23:12)
[2018-10-26 06:23] LABS: Absolute Lymphocyte Count 0.52 X10^3/ul (0.83-4.51); Absolute Neutrophil Count 8.8 X10^3/uL (2.0-7.7); Basophil# 0.01 X10^3/uL; Basophil% 0.1 % (0-1); Eosinophil# 0.06 X10^3/uL; Eosinophils% 0.6 % (0-5); Hematocrit 33.1 % (40-54); Hemoglobin 10.4 g/dl (13.0-16.5); Lymphocyte # 0.52 X10^3/ul (4.0); Lymphocyte % 4.9 % (19-41); Mean Corp Hgb Conc 31.4 g/gl (32-36); Mean Corpuscular Hgb 26.3 pg (27.0-32.0); Mean Corpuscular Volume 83.6 fL (80-94); Monocyte% 11.3 % (0-10); Neutrophil # 8.77 X10^3/uL (2.7-7.7); Neutrophil % 82.6 % (47-70); Platelet Count 345 K/mm3 (150-450); RBC Distribution Width CV 18.1 % (11.6-14.6); RBC Distribution Width SD 53.7 fl (35.1-43.9); Red Blood Count 3.96 M/mm3 (4.6-6.2); White Blood Count 10.6 K/mm3 (4.4-11.0)
[2018-10-26 06:26] LABS: Differential Indicated SCAN CRITERIA MET; POSITIVE COUNT NO; POSITIVE DIFFERENTIAL YES; POSITIVE MORPHOLOGY NO
--- NOTE | 2018-10-26 06:32 | NURSING ---
PT PASSING FLATUS, HAD SMALL LIQUID BM.
[2018-10-26 06:33] LABS: Anion Gap 11 (5-15); BUN 11 mg/dL (7-18); BUN/Creat Ratio 12.4 RATIO (10-20); Calcium,Total 8.2 mg/dL (8.5-10.1); Chloride 107 mmol/L (98-107); Creatinine, Serum 0.89 mg/dL (0.70-1.30); EST Glomerular Filtration Rate 93 mL/min (>60); Est Glom Filt Rate - Afr Amer 112 mL/min (>60); Estimated Creatinine Clearance 104.17 ml/min; Glucose 110 mg/dL (74-106); Potassium 3.6 mmol/L (3.5-5.1); Sodium Level 137 mmol/L (136-145)
[2018-10-26 08:25] VITALS: BP 132/93; PULSE 91; RESP 16; TEMP 36.8; O2SAT 96
[2018-10-26] MEDS: Losartan Potassium 50 MG Tablet PO (08:26)
[2018-10-26] MEDS: Enoxaparin 40 MG/0.4 ML Syringe SC (08:26)
--- NOTE | 2018-10-26 09:42 | PCM.PN.SRG ---
Patient Problems: Active and Suspected Problems (Last Reviewed 10/09/18 @ 08:28 by Irina Lema) Ileus following gastrointestinal surgery (Acute) Subjective: Patient reports he started passing flatus this morning. He also had a bowel movement. He is having no nausea or vomiting. His abdominal pain is very well controlled. - Physical Exam General: Alert, Oriented x3, Cooperative Neck: No JVD Lungs: Normal air movement Cardiovascular: Regular rate, Regular Rhythm Abdomen: Soft, Non Tender, Non-Distended Vital Signs Temp Pulse Resp BP Pulse Ox 99.0 F 86 16 169/89 H 96 10/26/18 02:14 10/26/18 02:14 10/26/18 02:14 10/26/18 02:14 10/26/18 02:14 Oxygen Flow Rate (L/min) 2 Oxygen Delivery Method Room Air Weight: 233 lb 11.04 oz Body Mass Index (BMI) 29.2 Intake and Output for Last 24 Hours 10/24/18 10/25/18 10/26/18 23:59 23:59 23:59 Intake Total 3018 / 3018 3646 / 3646 1652 / 1652 Output Total 2450 / 2450 3750 / 3750 2500 / 2500 Balance 568 / 568 -104 / -104 -848 / -848 Microbiology Past 72 Hours 10/21/18 21:10 Urine Culture - Final Urine Catheter - Telles Culture exhibits no growth. Laboratory Tests Past 24 Hrs 10/26/18 10/26/18 06:00 06:00 WBC 10.6 RBC 3.96 L Hgb 10.4 L Hct 33.1 L MCV 83.6 MCH 26.3 L MCHC 31.4 L RDW 18.1 H RDW Differential 53.7 H Plt Count 345 MPV 8.0 Immature Gran % (Auto) 0.500 Neut % (Auto) 82.6 H Lymph % (Auto) 4.9 L [place] % (Auto) 11.3 H Eos % (Auto) 0.6 Baso % (Auto) 0.1 Absolute Neuts (auto) 8.8 H Absolute Lymphs (auto) 0.52 L Total Counted Not Reportable Sodium 137 Potassium 3.6 Chloride 107 Carbon Dioxide 19.0 L Anion Gap 11 BUN 11 Creatinine 0.89 Estim Creat Clear Calc 104.17 Est GFR (MDRD) Af Amer 112 Est GFR (MDRD) Non-Af 93 BUN/Creatinine Ratio 12.4 Glucose 110 H Calcium 8.2 L Medical Necessity - Tobacco Use Smoking Status: Never smoker Assessment/Plan All Active Problems (Last Reviewed 10/09/18 @ 08:28 by Irina Lema) Colon cancer (Acute) Umbilical hernia (Acute) Ileus following gastrointestinal surgery (Acute) 63-year-old male status post anastomotic resection and reanastomosis 1. I remove the patient's weeks today. The inferior most week did have a little bit of purulent material in it. I am unsure if this is still from the initial surgery because there is no erythema. I repacked the inferior opening with a 2 x 2. The rest of the openings appeared clear with no drainage. Continue Zosyn. 2. Patient reports flatus. I will remove his NG and start clears very slowly. If he is tolerating clears and still passing gas tomorrow he can advance his diet and hopeful DC soon. Retention sutures will stay in until patient follows up. 3. Continue SCDs, PPI, Lovenox. 4. Patient was having urinary retention and needed Telles replaced. Once he is tolerating a diet a another trial of voiding can be attempted. Continue Flomax. Andi Serna MD Pager: [facility] [address] [place] [address], [address] [place] [address] Office:
[2018-10-26 15:00] VITALS: BP 124/85; PULSE 113; RESP 18; TEMP 36.8; O2SAT 99
--- NOTE | 2018-10-26 15:00 | CASEMGMT ---
ZIA ALMONTE received call from Cristina ALMONTE at [facility] that she has setup HHC for fpc and [employer] for at discharge per patient's request. Cristina ALMONTE requested this ZIA ALMONTE to fax clinical information to [facility]. ZIA ALMONTE faxed clinical information to [facility]. SUZY will continue to follow this patient and plan for a safe discharge.
[2018-10-26 15:06] VITALS: PULSE 113
[2018-10-26] MEDS: Metoprolol Tartrate 100 MG Tablet PO ×2 (15:06→22:09)
[2018-10-26] MEDS: Tamsulosin HCl 0.4 MG Capsule PO (17:38)
[2018-10-26] MEDS: Dextrose 5%/0.9% NaCl 1,000 ML 40 ML IV (17:38)
[2018-10-26 20:10] VITALS: BP 149/91; PULSE 87; RESP 16; TEMP 37.3; O2SAT 95
[2018-10-26 22:09] VITALS: BP 149/91; PULSE 87
[2018-10-26] MEDS: Atorvastatin Calcium 40 MG Tablet PO (22:10)
[2018-10-27 02:23] VITALS: BP 163/87; PULSE 83; RESP 18; TEMP 36.9; O2SAT 96
--- NOTE | 2018-10-27 05:30 | DCINST_ITS ---
Discharge Diet: Light diet - advance as tolerated Discharge Activity: May Shower Lifting Restrictions: 10 pounds for 4 weeks Call your doctor if your incision/area has: Continuous Slow Oozing, Sudden Increased Bleeding, Increased Pain/ Swelling, Increased Redness, Foul Smelling Discharge, Swelling at the incision site Call your doctor if you observe: Fever of 101 or Higher Suture Line Care: Avoid Pulling/Pushing, Avoid Pinching/Bending Change Dressing in (Days):: 1 - Change dressing as needed Allergies/Adverse Reactions: Allergies triamterene Allergy (Mild, Verified 10/09/18 09:19) rash Medications to take at Discharge amoxicillin 875 mg-potassium clavulanate 125 mg tablet 1 tab PO BID 08/13/18 atorvastatin 40 mg tablet 40 mg PO DAILY 08/13/18 ferrous sulfate 325 mg (65 mg iron) tablet,delayed release 325 mg PO QHS tab 08/13/18 losartan 50 mg tablet 50 mg PO DAILY 08/13/18 metoprolol tartrate 100 mg tablet 100 mg PO 1600,2200 08/13/18 Hydroxyzine HCl 25 mg PO TID PRN PRN 10/16/18 Loratadine/Pseudo 240/10 [Claritin-D 24 Hr] 1 tab PO DAILY 10/21/18 Amoxicillin/Potassium Clav [Augmentin 875-125 Tablet] 1 each PO BID 7 Days #14 tablet 10/27/18 Tamsulosin HCl [Flomax] 0.4 mg PO DAILY@1730 #10 capsule 10/27/18 The following prescriptions were given: Tamsulosin HCl [Flomax] 0.4 mg PO DAILY@1730 #10 capsule Amoxicillin/Potassium Clav [Augmentin 875-125 Tablet] 1 each PO BID 7 Days #14 tablet Primary Care Physician: Lito Farrell MD [Primary Care Provider] - Test Results: Test results from this visit will be discussed in further detail at your follow- up appointment, if applicable. Please Follow Up With: Andi Serna MD When: Call Monday to make appt for mid to late week this week [phone]
--- NOTE | 2018-10-27 05:31 | PCM.DC.SUM ---
Discharge Date and Diagnosis Date of Admission: 10/21/18 Date of Discharge: 10/27/18 - Primary Discharge Diagnosis Active and Suspected Problems (Last Reviewed 10/09/18 @ 08:28 by Irina Lema) Ileus following gastrointestinal surgery (Acute) Anastomotic leak of ileocolic anastomosis Urinary retention Hospital Course and Treatment Imaging Results: Clinical Impression(s) from Imaging Studies KUB X-Ray 10/21/18 19:20 IMPRESSION: 1. Enteric tube extends to the stomach/left upper quadrant. 2. Possible mild hydronephrosis (contrast in collecting systems from prior contrast injection). 3. Small bowel ileus versus partial small bowel obstruction. Limited evaluation of the abdomen. Electronically Signed: Sang Marmolejo MD at 19:45 EST , Service support , Abdomen X-Ray 10/22/18 05:55 IMPRESSION: Pattern of bowel dilation most likely represents ileus. Partial small bowel obstruction possible but less likely. Enteric tube tip in the proximal stomach. Consider advancing 10 cm and repeating upper abdominal film to confirm placement in the more distal stomach. at 0810 Reported and signed by: Jose Glasgow MD Electronically Signed: Jose Glasgow, at 8:09 EST Tel , Service support , KUB X-Ray 10/23/18 05:55 IMPRESSION: Residual mildly distended small bowel loops. Gas is seen in the colon. There is been improvement as compared to prior study. Electronically Signed: Michael Alex MD at 9:35 EST , Service support , Abdomen/Pelvis CT 10/23/18 15:59 IMPRESSION: 1. Trace extraluminal gas and mild fluid in the surgical bed is consistent with recent surgery versus anastomotic leak. Follow-up is advised. 2. Thick walled loops of ileum consistent with infection or ischemia, with proximal SBO. 3. Mild free interloop fluid versus early organizing collections in the surgical bed. 4. Hazy infiltration in the right abdomen right lower quadrant is consistent with postsurgical changes versus infection. 5. Left inguinal hernia containing a segment of sigmoid colon. No proximal obstruction. 6. Nonobstructing right renal stone. 7. Cholelithiasis. Dr. Serna was unable to take the report at the time of dictation, 5:40 PM. Floor nurse not available. The patient was reportedly taken to surgery. N.B. : Dr. Kareem MD, confirmed on 10/23/2018 18:55:32 (ET) that the referring physician received the results and did not require a verbal consultation. Electronically Signed: Martha Castellanos MD at 18:55 EST Tel , Service support , ADDENDUM: 10/23/18 1902 IMPRESSION: 1. Trace extraluminal gas and mild fluid in the surgical bed is consistent with recent surgery versus anastomotic leak. Follow-up is advised. 2. Thick walled loops of ileum consistent with infection or ischemia, with proximal SBO. 3. Mild free interloop fluid versus early organizing collections in the surgical bed. 4. Hazy infiltration in the right abdomen right lower quadrant is consistent with postsurgical changes versus infection. 5. Left inguinal hernia containing a segment of sigmoid colon. No proximal obstruction. 6. Nonobstructing right renal stone. 7. Cholelithiasis. Dr. Serna was unable to take the report at the time of dictation, 5:40 PM. Floor nurse not available. The patient was reportedly taken to surgery. N.B. : Dr. Kareem MD, confirmed on 10/23/2018 18:55:32 (ET) that the referring physician received the results and did not require a verbal consultation. Electronically Signed: Martha Castellanos MD at 18:55 EST Tel , Service support , Chest CTA 10/23/18 15:59 IMPRESSION: 1. Suboptimal opacification for evaluation of PE. No demonstrated emboli. 2. Bibasilar atelectasis. 3. Chronic right clavicle fracture. Electronically Signed: Martha Castellanos MD at 17:14 EST Tel , Service support , KUB X-Ray 10/24/18 05:55 IMPRESSION: No evidence of any significant bowel distention Electronically Signed: Orestes Mckay MD at 5:42 EST Tel , Service support , Operations: colectomy Procedures: None Summary of Care Provided: The patient is a 63 year old M who had a right hemicolectomy the week prior to admission by Dr. Salazar. The patient represented to an outside hospital and a CT scan showed a mild amount of fluid in his abdomen. The patient was admitted to the hospital and a Telles was placed. 2 L came out of the Telles and the patient was having urinary retention. The patient was started on Flomax. The patient also had an NG placed. The patient was doing well and was passing flatus with no abdominal pain and a normal white count. A diet was started and his Telles was removed. The patient was still having urinary retention and it was replaced. The patient then started to have fevers and a repeat CT showed air bubbles around the anastomosis patient was immediately taken for laparotomy and resection of the prior anastomosis with reanastomosis. The patient continued to have a Telles in place. Postoperative day 2 the patient's NG was removed and he was started on clear liquids. On the day of discharge she was advanced to a transitional diet and was tolerating this well. A voiding trial was completed but the patient was unable to void and still retain 550 cc of urine. The patient was discharged home with a Telles in place and I will refer him to urology as he has failed 3 voiding trials despite Flomax. The patient will follow-up with me next week to ensure that he is still tolerating a diet and having no signs of sepsis. The patient still has retention sutures in place which will be removed in office. - Physical Exam Vital Signs Temp Pulse Resp BP Pulse Ox 98.5 F 83 18 163/87 H 96 10/27/18 02:23 10/27/18 02:23 10/27/18 02:23 10/27/18 02:23 10/27/18 02:23 Oxygen Flow Rate (L/min) 2 Oxygen Delivery Method Room Air Weight: 233 lb 11.04 oz Body Mass Index (BMI) 29.2 Intake and Output for Last 24 Hours 10/25/18 10/26/18 10/27/18 23:59 23:59 23:59 Intake Total 3646 / 3646 3293 / 3293 540 / 540 Output Total 3750 / 3750 3150 / 3150 Balance -104 / -104 143 / 143 540 / 540 Laboratory Tests Past 24 Hrs 10/26/18 10/26/18 06:00 06:00 WBC 10.6 RBC 3.96 L Hgb 10.4 L Hct 33.1 L MCV 83.6 MCH 26.3 L MCHC 31.4 L RDW 18.1 H RDW Differential 53.7 H Plt Count 345 MPV 8.0 Immature Gran % (Auto) 0.500 Neut % (Auto) 82.6 H Lymph % (Auto) 4.9 L [place] % (Auto) 11.3 H Eos % (Auto) 0.6 Baso % (Auto) 0.1 Absolute Neuts (auto) 8.8 H Absolute Lymphs (auto) 0.52 L Total Counted Not Reportable Sodium 137 Potassium 3.6 Chloride 107 Carbon Dioxide 19.0 L Anion Gap 11 BUN 11 Creatinine 0.89 Estim Creat Clear Calc 104.17 Est GFR (MDRD) Af Amer 112 Est GFR (MDRD) Non-Af 93 BUN/Creatinine Ratio 12.4 Glucose 110 H Calcium 8.2 L Discharge Diet: Light diet - advance as tolerated Discharge Activity: May Shower Call your doctor if your incision/area has: Continuous Slow Oozing, Sudden Increased Bleeding, Increased Pain/ Swelling, Increased Redness, Foul Smelling Discharge, Swelling at the incision site Call your doctor if you observe: Fever of 101 or Higher Suture Line Care: Avoid Pulling/Pushing, Avoid Pinching/Bending Change Dressing in (Days):: 1 - Change dressing as needed Catheter: Telles to leg bag Home Medications: Medications to take at Discharge amoxicillin 875 mg-potassium clavulanate 125 mg tablet 1 tab PO BID 08/13/18 atorvastatin 40 mg tablet 40 mg PO DAILY 08/13/18 ferrous sulfate 325 mg (65 mg iron) tablet,delayed release 325 mg PO QHS tab 08/13/18 losartan 50 mg tablet 50 mg PO DAILY 08/13/18 metoprolol tartrate 100 mg tablet 100 mg PO 1600,2200 08/13/18 RX: Hydroxyzine HCl 25 mg PO TID PRN PRN 10/16/18 RX: Loratadine/Pseudo 240/10 [Claritin-D 24 Hr] 1 tab PO DAILY 10/21/18 Amoxicillin/Potassium Clav [Augmentin 875-125 Tablet] 1 each PO BID 7 Days #14 tablet 10/27/18 RX: Tamsulosin HCl [Flomax] 0.4 mg PO DAILY@1730 #10 capsule 10/27/18 Following Prescrptions Were Given to Patient: RX: Tamsulosin HCl [Flomax] 0.4 mg PO DAILY@1730 #10 capsule Amoxicillin/Potassium Clav [Augmentin 875-125 Tablet] 1 each PO BID 7 Days #14 tablet Primary Care Physician: Lito Farrell MD [Primary Care Provider] - Please Follow Up With: Andi Serna MD When: Call Monday to make appt for mid to late week this week [phone] Medical Necessity - Tobacco Use Smoking Status: Never smoker Meaningful Use Info Meaningful Use Diagnoses (Choose all that apply): None applicable
[2018-10-27] MEDS: Piperacil/Tazobactam 3.375 GM/50 ML ML IV ×3 (05:55→21:07)
[2018-10-27 08:10] VITALS: BP 152/95; PULSE 83; RESP 16; TEMP 36.4; O2SAT 95
--- NOTE | 2018-10-27 08:10 | PCM.PN.SRG ---
Patient Problems: Active and Suspected Problems (Last Reviewed 10/09/18 @ 08:28 by Irina Lema) Ileus following gastrointestinal surgery (Acute) Subjective: Patient doing well, tolerating clears, positive flatus/diarrhea, pain controlled, ambulating - Physical Exam General: Alert, Oriented x3, Cooperative, No apparent distress HEENT: Atraumatic Lungs: Normal air movement Cardiovascular: Regular rate Abdomen: Soft, Non-Distended, Tender - Probably tender near incision, incision clean dry and intact with sarahi and retention sutures, packing in the lower inferior wound with very minimal may be purulent drainage, repacked Extremities: No clubbing, No cyanosis, No edema Vital Signs Temp Pulse Resp BP Pulse Ox 98.5 F 83 18 163/87 H 96 10/27/18 02:23 10/27/18 02:23 10/27/18 02:23 10/27/18 02:23 10/27/18 02:23 Oxygen Flow Rate (L/min) 2 Oxygen Delivery Method Room Air Weight: 233 lb 11.04 oz Body Mass Index (BMI) 29.2 Intake and Output for Last 24 Hours 10/25/18 10/26/18 10/27/18 23:59 23:59 23:59 Intake Total 3646 / 3646 3293 / 3293 1040 / 1040 Output Total 3750 / 3750 3150 / 3150 975 / 975 Balance -104 / -104 143 / 143 65 / 65 Medical Necessity - Tobacco Use Smoking Status: Never smoker Assessment/Plan All Active Problems (Last Reviewed 10/09/18 @ 08:28 by Iirna Lema) Colon cancer (Acute) Umbilical hernia (Acute) Ileus following gastrointestinal surgery (Acute) Advanced to transitional diet if tolerates may be a would be DC'd today Voiding trial, continue Flomax on DC Continue antibiotics, continue antibiotics on DC Follow-up with Dr. Serna mid this upcoming week if DC'd Margareth Ross M.D. Pager: [phone] [facility] [address] [place] [address], [address] [place] [address] Office: [phone]
[2018-10-27] MEDS: Losartan Potassium 50 MG Tablet PO (08:16)
[2018-10-27] MEDS: Enoxaparin 40 MG/0.4 ML Syringe SC (08:16)
[2018-10-27] MEDS: 0.9% NaCl Peripheral Flush Adult/Peds IV ×2 (14:55→21:15)
[2018-10-27] MEDS: Acetaminophen 325 MG Tablet 650 MG PO (15:03)
[2018-10-27 16:28] VITALS: BP 158/85; PULSE 114; RESP 18; TEMP 37.1; O2SAT 97
[2018-10-27 16:29] VITALS: PULSE 114
[2018-10-27] MEDS: Metoprolol Tartrate 100 MG Tablet PO ×2 (16:29→21:15)
[2018-10-27] MEDS: Tamsulosin HCl 0.4 MG Capsule PO (16:29)
--- NOTE | 2018-10-27 21:02 | NURSING ---
Patient bladder scanned; results 468ml
[2018-10-27] MEDS: Atorvastatin Calcium 40 MG Tablet PO (21:07)
[2018-10-27 21:10] VITALS: BP 117/71; PULSE 82; RESP 16; TEMP 36.8; O2SAT 95
[2018-10-27 21:15] VITALS: PULSE 82
[2018-10-28 03:10] VITALS: BP 133/83; PULSE 85; RESP 16; TEMP 36.9; O2SAT 95
[2018-10-28] MEDS: Piperacil/Tazobactam 3.375 GM/50 ML ML IV (05:18)
[2018-10-28] MEDS: Acetaminophen 325 MG Tablet 650 MG PO (05:31)
[2018-10-28 08:17] VITALS: BP 115/74; PULSE 106; RESP 16; TEMP 36.8; O2SAT 96
--- NOTE | 2018-10-28 08:17 | PN.SURG_ITS ---
Patient Problems: Active and Suspected Problems (Last Reviewed 10/09/18 @ 08:28 by Irina Lema) Ileus following gastrointestinal surgery (Acute) Subjective: Patient tolerated transitional diet, patient was and able to void and a Telles was placed for 550 cc - Physical Exam General: Alert, Oriented x3, Cooperative, No apparent distress HEENT: Atraumatic Lungs: Normal air movement Cardiovascular: Regular rate Abdomen: Soft, Non-Distended, Tender - Appropriately tender near incision, incision closed with sarahi and retention sutures, inferior wound packed with gauze no obvious purulent material seen Vital Signs Temp Pulse Resp BP Pulse Ox 98.5 F 85 16 133/83 H 95 10/28/18 03:10 10/28/18 03:10 10/28/18 03:10 10/28/18 03:10 10/28/18 03:10 Oxygen Flow Rate (L/min) 2 Oxygen Delivery Method Room Air Weight: 233 lb 11.04 oz Body Mass Index (BMI) 29.2 Intake and Output for Last 24 Hours 10/26/18 10/27/18 10/28/18 23:59 23:59 23:59 Intake Total 3293 / 3293 1750 / 1750 905 / 905 Output Total 3150 / 3150 1525 / 1525 500 / 500 Balance 143 / 143 225 / 225 405 / 405 Medical Necessity - Tobacco Use Smoking Status: Never smoker Assessment/Plan All Active Problems (Last Reviewed 10/09/18 @ 08:28 by Irina Lema) Colon cancer (Acute) Umbilical hernia (Acute) Ileus following gastrointestinal surgery (Acute) Continue transitional diet plan to DC home today Failed voiding trial, continue Flomax and Telles on DC Continue antibiotics, continue antibiotics on DC Follow-up with Dr. Serna mid this upcoming week -call office for appointment Margareth Ross M.D. Pager: [phone] [facility] [address] [place] [address], [facility], [address] [place] [address] Office: [phone]
[2018-10-28] MEDS: Losartan Potassium 50 MG Tablet PO (09:41)
--- NOTE | 2018-10-29 14:17 | CASEMGMT ---
RN SUZY DC PHONE CALL DC DATE: 10/28/18 DC DISPOSITION: Home with [facility]: 05/01 Intro role of CM to patient via phone. Reviewed prescriptions, pt is taking antibiotics as prescribed. F/U appointment monday with Dr. Salazar. No other questions. No care improvement suggestions given. Jimmie MORALESN RN AC
== END 2018-10-28 10:00 | disposition home or self-care (01) | DRG 230 ==
LOC: ED 18:25 → MS3 19:17
PROVIDERS: Admitting Provider Surgery; Emergency Provider Surgery; Family Provider Family Medicine; PCP Family Medicine; Referring Provider Surgery; Visit Provider Surgery
PROC: 0DTL0ZZ Resection of Transverse Colon, Open Approach (ICD-10-PCS; CPT 49000; principal; 2018-10-23 17:30)
DX: K91.89 Other postprocedural complications and disorders of digestive system (principal); K56.7 Ileus, unspecified; Y83.2 Surgical operation with anastomosis, bypass or graft as the cause of abnormal reaction of the patient, or of later complication, without mention of misadventure at the time of the procedure; R33.9 Retention of urine, unspecified; Z85.038 Personal history of other malignant neoplasm of large intestine; Z90.49 Acquired absence of other specified parts of digestive tract; E78.5 Hyperlipidemia, unspecified; I10 Essential (primary) hypertension; D64.9 Anemia, unspecified
CPT/HCPCS: 36415; 71275; 74018; 74019; 74177; 80048; 83605; 83735; 84100; 85025; 85379; 87086; 88307; 97802; 99283; J7050; Q9967; A4216; J2405

== ENCOUNTER 2018-11-01 11:07 | Inpatient (IN) | payer MEDICAID, SELFPAY ==
[2018-11-01 10:55] VITALS: BMI 30.5
[2018-11-01 11:28] VITALS: BP 135/87; PULSE 98; RESP 16; TEMP 36.4; O2SAT 99; BMI 27.0
--- NOTE | 2018-11-01 11:35 | CT_ITS ---
STUDY: CT ABDOMEN AND PELVIS WITH CONTRAST REASON FOR EXAM: Male, 63 years old. Abdominal pain. Status post partial colectomy. Incisional dehiscence. RADIATION DOSAGE (If Supplied By Facility): CTDIvol = ( 18.68 ) mGy, DLP = ( 1338.21 ) mGycm TECHNIQUE: Transaxial images were obtained from the dome of the diaphragm to the symphysis pubis with oral contrast. 100mL ml of Isovue 300 contrast was administered. Sagittal and coronal images were reconstructed. Individualized dose optimization techniques were used for this CT. COMPARISON: Comparison is made with prior study dated April 22, 2019. FINDINGS: Mild degree of increased markings at the lung bases suggestive of atelectasis. The coronary calcification. Normal liver. There is a solitary gallstone. Normal spleen. Normal pancreas. Normal bilateral adrenal glands. Stable 4 mm nonobstructive calculus in the midportion of the right kidney. Normal left kidney. Stable mild degree of bilateral perinephric stranding. The previously seen mesenteric stranding in the right midabdomen and right lower quadrant has improved. Minimal residual changes persist. Normal visualized stomach. Surgical anastomotic site is seen in the small bowel loop in the left mid abdomen. Mild increased markings are seen in the surrounding mesenteric fat. There is also evidence of several tiny air bubbles within the mesentery suggestive of a either postoperative change or persistent anastomotic leak. There is evidence of prior right hemicolectomy. The appendix is visualized and appears normal. There is scattered atherosclerotic calcification of the abdominal aorta, without a demonstrated aneurysm. Normal inferior vena cava. Normal retroperitoneum. A small amount of air is seen within the anterior bladder most likely secondary to Telles catheter manipulation. There is evidence of anterior abdominal wall dehiscence. Air is seen within the soft tissues. Normal osseous structures. CT/Abdomen/Pelvis WITH Contrast IMPRESSION: Focal collection of a tiny air bubbles in the mesentery in the left anterior mid abdomen at the site of the small bowel surgical anastomosis. This may represent either postoperative change versus persistent leak at that site. Anterior abdominal wall dehiscence. Decreased inflammatory changes in the right midabdomen and right lower quadrant. The remainder of the examination is unchanged. Electronically Signed: Michael Alex MD at 15:24 EST , Service support ,
--- NOTE | 2018-11-01 11:57 | HP.PCM_ITS ---
Problem List (1) Incisional infection Status: Acute History of Present Illness Date of Admission: 11/01/18 Chief Complaint: Fever. Incisional infection. The patient is a 63 year old M who presented to the office as an outpatient with complaints of fever of 100 degrees F, increased abdominal incisional drainage. Patient recently had a right hemicolectomy by Dr. Salazar on 10/16/18. He was readmitted on 10/21/18 for an anastomotic leak. Patient was evaluated in the office yesterday and had every other staple removed. Patient called the on-call physician last night, Dr. Han, stating he had increased drainage at the abdominal incision, a foul odor and fever. It was recommended the patient come to the ED. Patient refused and wanted to be seen in the office tomorrow morning. Patient was evaluated by Dr. Salazar this morning. Remaining of the sarahi were removed. Patient continues to have his Escoto catheter in place. He was scheduled to be evaluated by Dr. Peña, urology in [place] tomorrow. Patient notes minimal amount of abdominal pain. He noted murky drainage since yesterday from the abdominal wound. Patient denies nausea, vomiting. He notes tolerating a transitional diet. Past Medical History Past Medical History (Chronic Problems): Chronic Problems (Last Reviewed 11/01/18 @ 10:52 by Irina Lema) HTN (hypertension) (Chronic) Medical History: Medical History (Last Reviewed 11/01/18 @ 10:52 by Irina Lema) Postoperative urinary retention (Acute) N99.89, R33.8 Ileocolic anastomotic leak (Acute) K91.89 Hyperlipidemia (Acute) E78.5 Colon cancer (Acute) Onset Date: ~07/2018 C18.9 Anemia (Acute) Onset Date: ~06/2018 D64.9 Osteoarthritis (Acute) M19.90 Back pain (Acute) M54.9 HTN (hypertension) (Chronic) I10 Myocardial infarction (Acute) Onset Date: ~10/2017 I21.9 Allergies triamterene Allergy (Mild, Verified 11/01/18 10:53) rash Home Medications: Ambulatory Orders Medication Instructions Recorded amoxicillin 875 mg-potassium 1 tab PO BID 08/13/18 clavulanate 125 mg tablet atorvastatin 40 mg tablet 40 mg PO DAILY 08/13/18 ferrous sulfate 325 mg (65 mg 325 mg PO QHS tab 08/13/18 iron) tablet,delayed release losartan 50 mg tablet 50 mg PO DAILY 08/13/18 metoprolol tartrate 100 mg tablet 100 mg PO 1600,2200 08/13/18 Hydroxyzine HCl 25 mg PO TID PRN PRN 10/16/18 Loratadine/Pseudo 240/10 1 tab PO DAILY 10/21/18 [Claritin-D 24 Hr] Amoxicillin/Potassium Clav 1 ea PO BID 7 Days #14 tab 10/27/18 [Augmentin 875-125 Tablet] Tamsulosin HCl [Flomax] 0.4 mg PO DAILY@1730 #10 cap 10/27/18 Surgical History: Surgical History (Last Reviewed 11/01/18 @ 10:52 by Irina Lema) Hx of exploratory laparotomy (Acute) Z98.890 10/23/2018 Ileocolic anastomosis Hx of umbilical hernia repair (Acute) Z98.890, Z87.19 10/16/18 Hx of right hemicolectomy (Acute) Z90.49 10/16/18 History of colonoscopy (Acute) Onset Date: ~07/2018 Z98.890 History of coronary artery bypass graft x 6 (Acute) Onset Date: ~10/2017 Z95.1 Surgical History: colectomy - Hemicolectomy last week Smoking Status: Never smoker - *Family History Maternal Family History: Family History (Last Reviewed 11/01/18 @ 10:52 by Irina Lema) Mother Hypertension Alzheimer disease Brother Colon cancer, Onset Age: 42 Review of Systems Constitutional: Reports: Weakness, Fatigue HEENT: Denies: Head Aches, Sinus Congestion, Sinus Drainage Cardiovascular: Denies: Chest Pain, Palpitations Respiratory: Denies: Cough, Shortness of breath at rest, Sputum production Gastrointestinal: Reports: Abdominal Pain, Diarrhea. Denies: Nausea, Vomiting Genitourinary: Reports: - - Escoto catheter intact. Denies: Dysuria Musculoskeletal: Denies: Joint Pain, Joint Tenderness Skin: Reports: Wounds. Denies: Rash Neurological: Denies: Numbness, Tingling, Focal weakness Psychiatric: Denies: Anxiety, Depression, Homicidal Ideations, Suicidal Ideations Hematologic/ Lymphatic: Reports: Anemia, Easy Bruising. Denies: Hx of blood clot, Hx of blood transfusion VTE Information - Inpt Only VTE Present on Admission: Yes VTE Mechan Device Prophylaxis: SCD's VTE Pharm Prophylaxis ordered?: Yes Patient Problems: Active and Suspected Problems (Last Reviewed 11/01/18 @ 10:52 by Irina Lema) Incisional infection (Acute) - Physical Exam General: Alert, Oriented x3, Cooperative HEENT: Atraumatic, PERRLA, EOMI, Normocephalic Neck: Supple, No JVD, Negative Carotid Bruits Lungs: Clear to auscultation, Normal air movement Cardiovascular: Regular rate, No murmurs Abdomen: Bowel Sounds Present, Tender - Surrounding abdominal incision site, - - Incision with bloody, purulent fluid draining. Packing was placed and remaining sarahi were removed. ABD pad over top of the incision. Retention sutures in place. Extremities: No edema, Capillary Refill Less than 3 Seconds Skin: No rashes, No breakdown, Incision Musculoskeletal: No Tenderness to Palpation of Joints or Extremities Neurological: Neuro grossly intact Psych/Mental Status: Normal Affect, Appropriate Vital Signs Temp Pulse Resp BP Pulse Ox 97.5 F L 98 16 135/87 H 99 11/01/18 11:28 11/01/18 11:28 11/01/18 11:28 11/01/18 11:28 11/01/18 11:28 Oxygen Delivery Method Room Air Body Mass Index (BMI) 30.5 Assessment/Plan All Active Problems (Last Reviewed 11/01/18 @ 10:52 by Irina Lema) Incisional infection (Acute) Postoperative urinary retention (Acute) Ileocolic anastomotic leak (Acute) Hx of exploratory laparotomy (Acute) Hx of umbilical hernia repair (Acute) Hx of right hemicolectomy (Acute) Colon cancer (Acute) Umbilical hernia (Acute) Ileus following gastrointestinal surgery (Acute) Hyperlipidemia (Acute) History of colonoscopy (Acute ~07/2018) History of coronary artery bypass graft x 6 (Acute ~10/2017) Colon cancer (Acute ~07/2018) Anemia (Acute ~06/2018) Osteoarthritis (Acute) Back pain (Acute) Myocardial infarction (Acute ~10/2017) I am following this patient in conjunction with Dr. Salazar. Impression: Abdominal incisional infection Plan: Patient was also evaluated by Dr. Salazar. Recommend CBC and CMP. Order CT scan of the abdomen/pelvis. Keep patient NPO until after CT scan. May remove escoto. Patient continues to be on Flomax. Patient was directly admitted from the office to the hospital. Patient and caregiver had the opportunity to ask and have questions answered. We will see the results of the CT scan and determine further plans at that time. Code Visit OBSV E&M: [id number] Initial observation care L2
[2018-11-01 12:44] LABS: ALB/GLOB Ratio 0.5 RATIO (0.9-2.4); AST(SGOT) 44 U/L (15-37); Alanine Aminotransfer ALT/SGPT 90 U/L (16-61); Albumin, Serum 2.5 g/dL (3.2-5.0); Alkaline Phosphatase 69 U/L (45-117); Anion Gap 14 (5-15); BUN 16 mg/dL (7-18); BUN/Creat Ratio 18.3 RATIO (10-20); Calcium,Total 8.9 mg/dL (8.5-10.1); Chloride 108 mmol/L (98-107); Creatinine, Serum 0.87 mg/dL (0.70-1.30); EST Glomerular Filtration Rate 95 mL/min (>60); Est Glom Filt Rate - Afr Amer 114 mL/min (>60); Estimated Creatinine Clearance 106.57 ml/min; Globulin 4.6 g/dL (2.2-4.2); Glucose 104 mg/dL (74-106); Potassium 3.4 mmol/L (3.5-5.1); Protein, Total 7.1 g/dL (6.4-8.2); Sodium Level 143 mmol/L (136-145)
[2018-11-01 12:49] LABS: Absolute Lymphocyte Count 0.75 X10^3/ul (0.83-4.51); Absolute Neutrophil Count 4.7 X10^3/uL (2.0-7.7); Basophil# 0.02 X10^3/uL; Basophil% 0.3 % (0-1); Eosinophil# 0.05 X10^3/uL; Eosinophils% 0.7 % (0-5); Hematocrit 33.2 % (40-54); Hemoglobin 10.3 g/dl (13.0-16.5); Lymphocyte # 0.75 X10^3/ul (4.0); Lymphocyte % 10.9 % (19-41); Mean Corpuscular Hgb 25.9 pg (27.0-32.0); Mean Corpuscular Volume 83.6 fL (80-94); Mean Platelet Vol. 8.2 fl (6.2-12.0); Monocyte# 1.26 X10^3/uL; Monocyte% 18.4 % (0-10); Neutrophil # 4.73 X10^3/uL (2.7-7.7); POSITIVE COUNT NO; POSITIVE DIFFERENTIAL NO; POSITIVE MORPHOLOGY NO; Platelet Count 421 K/mm3 (150-450); RBC Distribution Width CV 17.3 % (11.6-14.6); RBC Distribution Width SD 51.8 fl (35.1-43.9); Red Blood Count 3.97 M/mm3 (4.6-6.2); White Blood Count 6.9 K/mm3 (4.4-11.0)
[2018-11-01] MEDS: 0.9% Normal Saline 1,000 ML 50 ML IV (13:00)
[2018-11-01 13:06] VITALS: BMI 27.0
[2018-11-01 15:26] VITALS: BP 145/85; PULSE 100; RESP 16; TEMP 36.6; O2SAT 99
[2018-11-01 15:34] VITALS: PULSE 100
[2018-11-01] MEDS: Metoprolol Tartrate 100 MG Tablet PO ×2 (15:34→21:49)
[2018-11-01] MEDS: Loratadine 10 MG Tablet PO (15:39)
[2018-11-01] MEDS: Tamsulosin HCl 0.4 MG Capsule PO (18:51)
[2018-11-01 21:49] VITALS: PULSE 83
[2018-11-01] MEDS: Atorvastatin Calcium 40 MG Tablet PO (21:49)
[2018-11-01 21:50] VITALS: BP 134/87; PULSE 83; RESP 18; TEMP 36.6; O2SAT 97
[2018-11-02] VITALS (7 sets, daily range): BP systolic 118–141; BP diastolic 68–80; PULSE 95–107; RESP 16–18; TEMP 36.7–37; O2SAT 94–97
[2018-11-02] MEDS: Enoxaparin 40 MG/0.4 ML Syringe SC (09:19)
[2018-11-02] MEDS: Losartan Potassium 50 MG Tablet PO (09:19)
[2018-11-02] MEDS: Loratadine 10 MG Tablet PO (09:19)
[2018-11-02 09:23] LABS: Absolute Lymphocyte Count 0.68 X10^3/ul (0.83-4.51); Absolute Neutrophil Count 6.6 X10^3/uL (2.0-7.7); Basophil# 0.02 X10^3/uL; Basophil% 0.2 % (0-1); Eosinophil# 0.12 X10^3/uL; Eosinophils% 1.4 % (0-5); Hematocrit 32.7 % (40-54); Hemoglobin 10.2 g/dl (13.0-16.5); Lymphocyte # 0.68 X10^3/ul (4.0); Lymphocyte % 8.2 % (19-41); Mean Corp Hgb Conc 31.2 g/gl (32-36); Mean Corpuscular Hgb 26.1 pg (27.0-32.0); Mean Corpuscular Volume 83.6 fL (80-94); Mean Platelet Vol. 8.2 fl (6.2-12.0); Monocyte# 0.84 X10^3/uL; Monocyte% 10.1 % (0-10); Neutrophil # 6.59 X10^3/uL (2.7-7.7); Neutrophil % 79.6 % (47-70); POSITIVE COUNT NO; POSITIVE DIFFERENTIAL NO; POSITIVE MORPHOLOGY NO; Platelet Count 371 K/mm3 (150-450); RBC Distribution Width CV 17.2 % (11.6-14.6); RBC Distribution Width SD 51.5 fl (35.1-43.9); Red Blood Count 3.91 M/mm3 (4.6-6.2); White Blood Count 8.3 K/mm3 (4.4-11.0)
--- NOTE | 2018-11-02 09:28 | NURSING ---
In to reassess abdomen with Dr Salazar. the small drainage appliance had remained in place throughout the night that was placed by this nurse yesterday afternoon. there has been a moderate amount of perez drainage out. drainage is foul smelling. there is a gas odor noted. patient denies much discomfort. retention sutures remain in place. there is no periwound erythema noted. will leave the small drainage pouch around opening to assist in containing the fluid. the amount of drainage can be better measured as well. cultures and fluid sent to lab as ordered.
--- NOTE | 2018-11-02 09:39 | CASEMGMT ---
ZIA ALMONTE Re-admission note: Admission: 10/16/18-10/18/18: Lap R hemicolectomy and repair of umbilical hernia Re-admission: 10/21/18-10/28/18: Ileus following GI surgery. Discharged home with HHC through [facility] set up for prison and aide. Current Admit: 11/01/18: Direct admit from Dr Salazar's office for Abdominal Incision Infection. ZIA ALMONTE to room to talk with pt. Intro self and role to ZIA ALMONTE. Pt states he cancelled [facility] [place] [facility] aide before they came out to admit him to their services after his last hospital admission. Pt states he has a private aide, Bernie, that comes to his home twice a day to do dressing changes/wound care, house cleaning, makes meals for him if he needs/wants, and also helps provide transportation. Pt states, she'll do whatever I ask her. Pt states he has enough dressing supplies for now and states Bernie can purchase them if he needs more. Pt made aware that insurance may cover for some wound supplies with a Script. Pt stated, Bernie can just get them at [employer] or [employer] if I need more. It usually doesn't cost very much. Pt states he will notify staff if he decides he does decide he wants a script for supplies. Pt wishes to return home with private aide and states does not want HHC through insurance for [place] [facility] or for aide services. D/C Plan: Anticipate home on discharge with private aide to assist with wound care and household mgmt tasks. May need Script for Wound care/dressing change supplies. CM to follow for safe discharge. Daniel AVENDAÑO RN, CM
[2018-11-02] MEDS: Activated Charcoal 50 GM/240 ML BOT PO (11:14)
--- NOTE | 2018-11-02 11:16 | NURSING ---
Patient just finished activated charcoal.
[2018-11-02 11:43] LABS: M R Staph aureus DNA By PCR Negative (Negative); Probe Check PASS; Specimen Processing Control PASS; Staph aureus DNA By PCR NEGATIVE (Negative)
--- NOTE | 2018-11-02 12:09 | PCM.PN.SRG ---
Patient Problems: Active and Suspected Problems (Last Reviewed 11/01/18 @ 13:35 by Alexandre Salazar MD) Incisional infection (Acute) Subjective: Patient's trial with his Telles out did not and did not success. We had to replace it last night. He still has discharge coming from the lower aspect of his wound. He really is not complaining of much of any pain. And he really has had no fevers since being in the hospital. Objective: Abdomen is soft. 30 cc of foul-smelling fluid out from his lower pouched opening. - Physical Exam Vital Signs Temp Pulse Resp BP Pulse Ox 98.1 F 96 16 134/80 H 97 11/02/18 09:14 11/02/18 09:14 11/02/18 09:14 11/02/18 09:14 11/02/18 09:14 Oxygen Delivery Method Room Air Weight: 216 lb 3 oz Body Mass Index (BMI) 27.0 Intake and Output for Last 24 Hours 10/31/18 11/01/18 11/02/18 23:59 23:59 23:59 Intake Total 700 / 700 1761 / 1761 Output Total 1010 / 1010 Balance 680 / 680 751 / 751 Laboratory Tests Past 24 Hrs 11/01/18 11/01/18 11/01/18 09:00 12:15 12:15 WBC 6.9 RBC 3.97 L Hgb 10.3 L Hct 33.2 L MCV 83.6 MCH 25.9 L MCHC 31.0 L RDW 17.3 H RDW Differential 51.8 H Plt Count 421 MPV 8.2 Immature Gran % (Auto) 0.700 Neut % (Auto) 69.0 Lymph % (Auto) 10.9 L [place] % (Auto) 18.4 H Eos % (Auto) 0.7 Baso % (Auto) 0.3 Absolute Neuts (auto) 4.7 Absolute Lymphs (auto) 0.75 L Total Counted Not Reportable Sodium 143 Potassium 3.4 L Chloride 108 H Carbon Dioxide 21.0 Anion Gap 14 BUN 16 Creatinine 0.87 Estim Creat Clear Calc 106.57 Est GFR (MDRD) Af Amer 114 Est GFR (MDRD) Non-Af 95 BUN/Creatinine Ratio 18.3 Glucose 104 Calcium 8.9 Total Bilirubin 0.30 AST 44 H ALT 90 H Alkaline Phosphatase 69 Total Protein 7.1 Albumin 2.5 L Globulin 4.6 H Albumin/Globulin Ratio 0.5 L S.aureus Protein A PCR NEGATIVE MRSA (PCR) Negative 11/02/18 09:00 WBC 8.3 RBC 3.91 L Hgb 10.2 L Hct 32.7 L MCV 83.6 MCH 26.1 L MCHC 31.2 L RDW 17.2 H RDW Differential 51.5 H Plt Count 371 MPV 8.2 Immature Gran % (Auto) 0.500 Neut % (Auto) 79.6 H Lymph % (Auto) 8.2 L [place] % (Auto) 10.1 H Eos % (Auto) 1.4 Baso % (Auto) 0.2 Absolute Neuts (auto) 6.6 Absolute Lymphs (auto) 0.68 L Total Counted Not Reportable Sodium Potassium Chloride Carbon Dioxide Anion Gap BUN Creatinine Estim Creat Clear Calc Est GFR (MDRD) Af Amer Est GFR (MDRD) Non-Af BUN/Creatinine Ratio Glucose Calcium Total Bilirubin AST ALT Alkaline Phosphatase Total Protein Albumin Globulin Albumin/Globulin Ratio S.aureus Protein A PCR MRSA (PCR) Medical Necessity - Tobacco Use Smoking Status: Never smoker Tobacco Use: Non-smoker Assessment/Plan All Active Problems (Last Reviewed 11/01/18 @ 13:35 by Alexandre Salazar MD) Incisional infection (Acute) Postoperative urinary retention (Acute) Ileocolic anastomotic leak (Acute) Hx of exploratory laparotomy (Acute) Hx of umbilical hernia repair (Acute) Hx of right hemicolectomy (Acute) Colon cancer (Acute) Umbilical hernia (Acute) Ileus following gastrointestinal surgery (Acute) Hyperlipidemia (Acute) History of colonoscopy (Acute ~07/2018) History of coronary artery bypass graft x 6 (Acute ~10/2017) Colon cancer (Acute ~07/2018) Anemia (Acute ~06/2018) Osteoarthritis (Acute) Back pain (Acute) Myocardial infarction (Acute ~10/2017) Assessment: Abdominal wall evisceration with wound infection Plan: At this point I am going to try to give him some activated charcoal to see if this comes out of his incision. If this happens then this is an extremely complicated picture with a fistula wound abscess any evisceration with his abdomen only being kept together with his retention sutures. Retention sutures are remarkably under no tension I am hoping that right now I am only dealing with a wound infection. I am not sure when a good time is going to be to be able to get him home. Still gathering a lot of information to make a plan on his future and I do not think he can be done in an outpatient setting.
[2018-11-02] MEDS: Metoprolol Tartrate 100 MG Tablet PO ×2 (15:38→21:48)
[2018-11-02] MEDS: Tamsulosin HCl 0.4 MG Capsule PO (16:44)
--- NOTE | 2018-11-02 17:15 | CHAPLAIN ---
Type of Pastoral Visit _x__ Initial Visit ___ Follow-up Visit ___ On-call Visit ___ General Patient Visit ___ Spiritual Assessment ___ Family Conference ___ Bereavement ___ Rapid Response ___ Code Blue ___ Other (describe below) Pastoral Care Referral From _x__ Patient ___ Family ___ Nurse ___ Physician ___ [employer] Supervisor ___ House Nurse ___ Other (describe below) Sacrament/Intervention _x__ Active listening ___ Anointing ___ Jewish ___ Bereavement ___ Communion _x__ Luh exploration ___ _x__ Life review _x__ Prayer ___ Reconciliation ___ Sacrament of Sick _x__ Supportive presence ___ Wedding ___ Other (describe below) Pastoral Comments patient reports a good luh support and belief system; pt is concerned about major health issues over last year and the financial burden; pt is anxious about being able to work again
[2018-11-02] MEDS: Atorvastatin Calcium 40 MG Tablet PO (21:48)
[2018-11-03] VITALS (9 sets, daily range): BP systolic 131–143; BP diastolic 78–88; PULSE 77–99; RESP 16–18; TEMP 36.6–36.8; O2SAT 96–98
[2018-11-03] MEDS: 0.9% Normal Saline 1,000 ML 50 ML IV (00:19)
[2018-11-03 07:29] LABS: Absolute Lymphocyte Count 0.77 X10^3/ul (0.83-4.51); Absolute Neutrophil Count 4.8 X10^3/uL (2.0-7.7); Basophil# 0.02 X10^3/uL; Basophil% 0.3 % (0-1); Eosinophil# 0.08 X10^3/uL; Eosinophils% 1.2 % (0-5); Hematocrit 33.5 % (40-54); Hemoglobin 10.6 g/dl (13.0-16.5); Lymphocyte # 0.77 X10^3/ul (4.0); Lymphocyte % 11.4 % (19-41); Mean Corp Hgb Conc 31.6 g/gl (32-36); Mean Corpuscular Hgb 26.3 pg (27.0-32.0); Mean Corpuscular Volume 83.1 fL (80-94); Mean Platelet Vol. 7.8 fl (6.2-12.0); Monocyte# 1.09 X10^3/uL; Monocyte% 16.1 % (0-10); Neutrophil # 4.76 X10^3/uL (2.7-7.7); Neutrophil % 70.3 % (47-70); Platelet Count 408 K/mm3 (150-450); RBC Distribution Width CV 16.8 % (11.6-14.6); RBC Distribution Width SD 50.1 fl (35.1-43.9); Red Blood Count 4.03 M/mm3 (4.6-6.2); White Blood Count 6.8 K/mm3 (4.4-11.0)
[2018-11-03 07:31] LABS: POSITIVE COUNT NO; POSITIVE DIFFERENTIAL NO; POSITIVE MORPHOLOGY NO
[2018-11-03 07:49] LABS: Anion Gap 10 (5-15); BUN 9 mg/dL (7-18); BUN/Creat Ratio 9.3 RATIO (10-20); Calcium,Total 8.6 mg/dL (8.5-10.1); Chloride 107 mmol/L (98-107); Creatinine, Serum 0.97 mg/dL (0.70-1.30); EST Glomerular Filtration Rate 84 mL/min (>60); Est Glom Filt Rate - Afr Amer 101 mL/min (>60); Estimated Creatinine Clearance 95.58 ml/min; Glucose 93 mg/dL (74-106); Potassium 3.9 mmol/L (3.5-5.1); Sodium Level 141 mmol/L (136-145)
--- NOTE | 2018-11-03 09:23 | PCM.PN.SRG ---
Patient Problems: Active and Suspected Problems (Last Reviewed 11/01/18 @ 13:35 by Alexandre Salazar MD) Incisional infection (Acute) Subjective: Patient is tolerating full liquids and has had several bowel movements. - Physical Exam General: Alert, Oriented x3, Cooperative Neck: No JVD Lungs: Normal air movement Cardiovascular: Regular rate, Normal S1 Abdomen: Soft, Non Tender, Non-Distended, - - Incision is draining liquid brown colored material from the inferior aspect. Skin: No rashes Neurological: Cranial nerves II-XII grossly intact Vital Signs Temp Pulse Resp BP Pulse Ox 98.3 F 98 18 131/78 H 96 11/03/18 04:00 11/03/18 04:00 11/03/18 04:00 11/03/18 04:00 11/03/18 07:26 Oxygen Delivery Method Room Air Weight: 216 lb 3 oz Body Mass Index (BMI) 27.0 Intake and Output for Last 24 Hours 11/01/18 11/02/18 11/03/18 23:59 23:59 23:59 Intake Total 700 / 700 2936 / 2936 1053 / 1053 Output Total 1900 / 1900 1964 / 1964 Balance 680 / 680 1036 / 1036 -912 / -912 Microbiology Past 72 Hours 11/02/18 09:00 Enteric Bacteriology - Final Stool 11/02/18 09:00 Gram Stain - Final Wound - Abdominal 11/02/18 09:00 Gram Stain - Final Wound Drainage - Aerobic & Anaerobic Swabs Laboratory Tests Past 24 Hrs 11/01/18 11/02/18 11/03/18 09:00 09:00 07:03 WBC 8.3 6.8 RBC 3.91 L 4.03 L Hgb 10.2 L 10.6 L Hct 32.7 L 33.5 L MCV 83.6 83.1 MCH 26.1 L 26.3 L MCHC 31.2 L 31.6 L RDW 17.2 H 16.8 H RDW Differential 51.5 H 50.1 H Plt Count 371 408 MPV 8.2 7.8 Immature Gran % (Auto) 0.500 0.700 Neut % (Auto) 79.6 H 70.3 H Lymph % (Auto) 8.2 L 11.4 L [place] % (Auto) 10.1 H 16.1 H Eos % (Auto) 1.4 1.2 Baso % (Auto) 0.2 0.3 Absolute Neuts (auto) 6.6 4.8 Absolute Lymphs (auto) 0.68 L 0.77 L Total Counted Not Reportable Not Reportable Sodium Potassium Chloride Carbon Dioxide Anion Gap BUN Creatinine Estim Creat Clear Calc Est GFR (MDRD) Af Amer Est GFR (MDRD) Non-Af BUN/Creatinine Ratio Glucose Calcium S.aureus Protein A PCR NEGATIVE MRSA (PCR) Negative 11/03/18 07:03 WBC RBC Hgb Hct MCV MCH MCHC RDW RDW Differential Plt Count MPV Immature Gran % (Auto) Neut % (Auto) Lymph % (Auto) [place] % (Auto) Eos % (Auto) Baso % (Auto) Absolute Neuts (auto) Absolute Lymphs (auto) Total Counted Sodium 141 Potassium 3.9 Chloride 107 Carbon Dioxide 24.0 Anion Gap 10 BUN 9 Creatinine 0.97 Estim Creat Clear Calc 95.58 Est GFR (MDRD) Af Amer 101 Est GFR (MDRD) Non-Af 84 BUN/Creatinine Ratio 9.3 L Glucose 93 Calcium 8.6 S.aureus Protein A PCR MRSA (PCR) Medical Necessity - Tobacco Use Smoking Status: Never smoker Tobacco Use: Non-smoker Assessment/Plan All Active Problems (Last Reviewed 11/01/18 @ 13:35 by Alexandre Salazar MD) Incisional infection (Acute) Postoperative urinary retention (Acute) Ileocolic anastomotic leak (Acute) Hx of exploratory laparotomy (Acute) Hx of umbilical hernia repair (Acute) Hx of right hemicolectomy (Acute) Colon cancer (Acute) Umbilical hernia (Acute) Ileus following gastrointestinal surgery (Acute) Hyperlipidemia (Acute) History of colonoscopy (Acute ~07/2018) History of coronary artery bypass graft x 6 (Acute ~10/2017) Colon cancer (Acute ~07/2018) Anemia (Acute ~06/2018) Osteoarthritis (Acute) Back pain (Acute) Myocardial infarction (Acute ~10/2017) 63-year-old male with 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 The patient appears to have brown colored material draining from his inferior aspect of his wound. The patient was placed on full liquid diet and he has had several bowel movements. The output from the bag was called in overnight as turning black once the charcoal was starting to come out of his bowel movements but it has now returned back to brown. 2. Plan from Dr. Salazar was to obtain a Gastrografin enema on Monday. Continue full liquid diet and antibiotics. No plan for surgery unless the patient becomes septic as he is already had one reoperation and 2 fascial dehiscences. Currently the skin is intact and his retention sutures are preventing any evisceration and his skin is intact except for the inferior aspect. Patient's vital signs are stable with no signs of sepsis. White count is normal. Andi Serna MD Pager: [facility] [address] [place] [address] [address] [place] [address] Office:
[2018-11-03] MEDS: Losartan Potassium 50 MG Tablet PO (09:47)
[2018-11-03] MEDS: Enoxaparin 40 MG/0.4 ML Syringe SC (09:47)
[2018-11-03] MEDS: Loratadine 10 MG Tablet PO (09:47)
[2018-11-03] MEDS: Tamsulosin HCl 0.4 MG Capsule PO (17:37)
[2018-11-03] MEDS: Metoprolol Tartrate 100 MG Tablet PO ×2 (17:37→22:33)
[2018-11-03] MEDS: Atorvastatin Calcium 40 MG Tablet PO (22:33)
[2018-11-04] VITALS (7 sets, daily range): BP systolic 118–152; BP diastolic 78–90; PULSE 74–97; RESP 16–18; TEMP 36.6–36.8; O2SAT 94–100
[2018-11-04] MEDS: 0.9% Normal Saline 1,000 ML 50 ML IV (02:56)
--- NOTE | 2018-11-04 07:50 | PN.SURG_ITS ---
Patient Problems: Active and Suspected Problems (Last Reviewed 11/01/18 @ 13:35 by Alexandre Salazar MD) Incisional infection (Acute) Subjective: Patient had no complaints overnight. No abdominal pain. - Physical Exam General: Alert, Oriented x3, Cooperative Lungs: Normal air movement Abdomen: Soft, Non Tender, Non-Distended Vital Signs Temp Pulse Resp BP Pulse Ox 98.1 F 87 16 126/78 H 95 11/04/18 02:55 11/04/18 02:55 11/04/18 02:55 11/04/18 02:55 11/04/18 02:55 Oxygen Delivery Method Room Air Weight: 216 lb 3 oz Body Mass Index (BMI) 27.0 Intake and Output for Last 24 Hours 11/02/18 11/03/18 11/04/18 23:59 23:59 23:59 Intake Total 2936 / 2936 2640 / 2640 1242 / 1242 Output Total 1900 / 1900 3675 / 3675 1085 / 1085 Balance 1036 / 1036 -1035 / -1035 157 / 157 Microbiology Past 72 Hours 11/02/18 09:00 Gram Stain - Final Wound - Abdominal Wound Culture - Preliminary Pseudomonas aeroginosa 11/02/18 09:00 Gram Stain - Final Wound Drainage - Aerobic & Anaerobic Swabs Wound Culture - Preliminary Pseudomonas aeroginosa 11/02/18 09:00 Enteric Bacteriology - Final Stool Laboratory Tests Past 24 Hrs 11/03/18 07:03 Sodium 141 Potassium 3.9 Chloride 107 Carbon Dioxide 24.0 Anion Gap 10 BUN 9 Creatinine 0.97 Estim Creat Clear Calc 95.58 Est GFR (MDRD) Af Amer 101 Est GFR (MDRD) Non-Af 84 BUN/Creatinine Ratio 9.3 L Glucose 93 Calcium 8.6 Medical Necessity - Tobacco Use Smoking Status: Never smoker Tobacco Use: Non-smoker Assessment/Plan All Active Problems (Last Reviewed 11/01/18 @ 13:35 by Alexandre Salazar MD) Incisional infection (Acute) Postoperative urinary retention (Acute) Ileocolic anastomotic leak (Acute) Hx of exploratory laparotomy (Acute) Hx of umbilical hernia repair (Acute) Hx of right hemicolectomy (Acute) Colon cancer (Acute) Umbilical hernia (Acute) Ileus following gastrointestinal surgery (Acute) Hyperlipidemia (Acute) History of colonoscopy (Acute ~07/2018) History of coronary artery bypass graft x 6 (Acute ~10/2017) Colon cancer (Acute ~07/2018) Anemia (Acute ~06/2018) Osteoarthritis (Acute) Back pain (Acute) Myocardial infarction (Acute ~10/2017) 63-year-old male status post revision of ileocolic anastomosis for anastomotic leak 1. Patient currently likely has repeat anastomotic leak with wound dehiscence. The patient's incision is draining brown liquid and now it has started draining increased gas. Cultures are growing Pseudomonas. I have increased his dosage of Zosyn to cover the Pseudomonas. Dr. Salazar may be getting a Gastrografin enema tomorrow to characterize the possible fistula. 2. Continue liquid diet. Continue antibiotics. Andi Serna MD Pager: [facility] [address] [place] [address], [address] [place] [address] Office:
--- NOTE | 2018-11-04 09:30 | NURSING ---
pt C/O drain leaking. Dressing removed, cleaned, and replaced drain and dressing. While assisting pt with a bath more drainage noted on dressing and not in collection bag. Upon reassessment second area of dark green/black with some purulent drainage noted on midline incision. ABD dressing applied and Dr. Serna notified.
--- NOTE | 2018-11-04 10:44 | NURSING ---
holding medication and making pt NPO for possible surgery.
--- NOTE | 2018-11-04 11:35 | PCM.PN.BLA ---
Progress Note I was called back to the bedside for copious drainage from more superior in the wound. A more superior opening appeared and is draining copious brown fluid. This is foul-smelling. I suspect that the anastomotic leak is no longer controlled and is draining openly into the wound. The patient will need repair. I discussed this case with Dr. Salazar and he came in also to inspect the wound. The consensus is the safest plan would be a laparotomy tomorrow with takedown of anastomosis and end ileostomy and mucous fistula creation. The fascia will try to be reapproximated and buttressed with biologic mesh and a wound VAC will be used for the subcutaneous tissue. Retention sutures may be applied. This will divert the stool and allow the wound to heal as well as get the patient started on chemotherapy sooner. The procedure was discussed in detail with the patient including the risks and benefits. I explained the risks including but not limited to bleeding, infection, injury to other organs and nonhealing of this wound as well as future hernia formation. I explained to the patient will be getting an end ileostomy. This may or may not be able to be reversed in the future. The patient understands and all questions were answered and the patient will be taken for surgery tomorrow. Until then the patient will have every 2 hours dressing changes and containment of the spillage as much as possible. Currently the patient has no signs of sepsis. There is no tachycardia or fever. The patient's white count was normal. I believe this is openly draining and can be taken urgently tomorrow instead of the emergently today with shortstaffed OR. Andi Serna MD Pager: [facility] [address] [place] [address] [address] [place] [address] Office:
--- NOTE | 2018-11-04 11:38 | PN_ITS ---
Progress Note I was called back to the bedside for copious drainage from more superior in the wound. A more superior opening appeared and is draining copious brown fluid. This is foul-smelling. I suspect that the anastomotic leak is no longer controlled and is draining openly into the wound. The patient will need repair. I discussed this case with Dr. Salazar and he came in also to inspect the wound. The consensus is the safest plan would be a laparotomy tomorrow with takedown of anastomosis and end ileostomy and mucous fistula creation. The fascia will try to be reapproximated and buttressed with biologic mesh and a wound VAC will be used for the subcutaneous tissue. Retention sutures may be applied. This will divert the stool and allow the wound to heal as well as get the patient started on chemotherapy sooner. The procedure was discussed in detail with the patient including the risks and benefits. I explained the risks including but not limited to bleeding, infection, injury to other organs and nonhealing of this wound as well as future hernia formation. I explained to the patient will be getting an end ileostomy. This may or may not be able to be reversed in the future. The patient understands and all questions were answered and the patient will be taken for surgery tomorrow. Until then the patient will have every 2 hours dressing changes and containment of the spillage as much as possible. Currently the patient has no signs of sepsis. There is no tachycardia or fever. The patient's white count was normal. I believe this is openly draining and can be taken urgently tomorrow instead of the emergently today with shortstaffed OR. Andi Serna MD Pager: [facility] [address] [place] [address] [address] [place] [address] Office:
[2018-11-04] MEDS: Losartan Potassium 50 MG Tablet PO (11:52)
[2018-11-04] MEDS: Loratadine 10 MG Tablet PO (11:52)
[2018-11-04] MEDS: Enoxaparin 40 MG/0.4 ML Syringe SC (12:11)
[2018-11-04] MEDS: Metoprolol Tartrate 100 MG Tablet PO ×2 (15:32→22:17)
[2018-11-04] MEDS: 0.9% Normal Saline 1,000 ML 125 ML IV (17:17)
[2018-11-04] MEDS: Tamsulosin HCl 0.4 MG Capsule PO (17:19)
[2018-11-04] MEDS: Atorvastatin Calcium 40 MG Tablet PO (22:17)
[2018-11-05] VITALS (18 sets, daily range): BP systolic 89–133; BP diastolic 63–85; PULSE 76–118; RESP 16–28; TEMP 36.5–37.4; O2SAT 92–98; BMI 27.0
[2018-11-05] MEDS: 0.9% Normal Saline 1,000 ML 125 ML IV ×2 (02:07→19:45)
--- NOTE | 2018-11-05 06:00 | EKG12_ITS ---
Test Reason : PRE OP Blood Pressure : / mmHG Vent. Rate : 087 BPM Atrial Rate : 087 BPM P-R Int : 138 ms QRS Dur : 086 ms QT Int : 376 ms P-R-T Axes : 041 -06 -03 degrees QTc Int : 452 ms Normal sinus rhythm Voltage criteria for left ventricular hypertrophy Abnormal ECG When compared with ECG of 09-OCT-2018 09:56, Minimal criteria for Inferior infarct are no longer Present Confirmed by USMAN TREVIÑO, JIMMY ([id number]), movie editor MILTON MICHEL ([id number]) on 11/08/2018 12:04:05 PM Referred By: Alexandre Salazar Confirmed By:JIMMY MARY MD
[2018-11-05 06:27] LABS: Absolute Lymphocyte Count 0.81 X10^3/ul (0.83-4.51); Absolute Neutrophil Count 4.7 X10^3/uL (2.0-7.7); Basophil# 0.01 X10^3/uL; Basophil% 0.2 % (0-1); Eosinophil# 0.11 X10^3/uL; Eosinophils% 1.7 % (0-5); Hematocrit 36.7 % (40-54); Hemoglobin 11.3 g/dl (13.0-16.5); Lymphocyte # 0.81 X10^3/ul (4.0); Lymphocyte % 12.2 % (19-41); Mean Corp Hgb Conc 30.8 g/gl (32-36); Mean Corpuscular Hgb 25.9 pg (27.0-32.0); Mean Corpuscular Volume 84.2 fL (80-94); Mean Platelet Vol. 8.1 fl (6.2-12.0); Monocyte# 0.97 X10^3/uL; Monocyte% 14.6 % (0-10); Neutrophil % 70.8 % (47-70); Platelet Count 440 K/mm3 (150-450); RBC Distribution Width CV 16.5 % (11.6-14.6); RBC Distribution Width SD 48.7 fl (35.1-43.9); Red Blood Count 4.36 M/mm3 (4.6-6.2); White Blood Count 6.6 K/mm3 (4.4-11.0)
[2018-11-05 06:29] LABS: POSITIVE COUNT NO; POSITIVE DIFFERENTIAL NO; POSITIVE MORPHOLOGY NO
[2018-11-05 06:35] LABS: Anion Gap 7 (5-15); BUN 10 mg/dL (7-18); BUN/Creat Ratio 10.2 RATIO (10-20); Chloride 106 mmol/L (98-107); Creatinine, Serum 0.98 mg/dL (0.70-1.30); EST Glomerular Filtration Rate 83 mL/min (>60); Est Glom Filt Rate - Afr Amer 100 mL/min (>60); Estimated Creatinine Clearance 94.61 ml/min; Glucose 85 mg/dL (74-106); Potassium 4.4 mmol/L (3.5-5.1); Sodium Level 136 mmol/L (136-145)
--- NOTE | 2018-11-05 08:16 | PCM.PN.SRG ---
Patient Problems: Active and Suspected Problems (Last Reviewed 11/01/18 @ 13:35 by Alexandre Salazar MD) Incisional infection (Acute) Subjective: Patient had copious output from his wound overnight. No other complaints. - Physical Exam General: Alert, Oriented x3, Cooperative Lungs: Normal air movement Cardiovascular: Regular rate, Regular Rhythm Abdomen: Soft, Non Tender, Non-Distended, - - Copious dark output from the incision Vital Signs Temp Pulse Resp BP Pulse Ox 98.1 F 81 16 133/82 H 98 11/05/18 02:00 11/05/18 02:00 11/05/18 02:00 11/05/18 02:00 11/05/18 02:00 Oxygen Delivery Method Room Air Weight: 216 lb 3 oz Body Mass Index (BMI) 27.0 Intake and Output for Last 24 Hours 11/03/18 11/04/18 11/05/18 23:59 23:59 23:59 Intake Total 2640 / 2640 3053 / 3053 1639 / 1639 Output Total 3675 / 3675 2635 / 2635 1875 / 1875 Balance -1035 / -1035 418 / 418 -236 / -236 Microbiology Past 72 Hours 11/02/18 09:00 Gram Stain - Final Wound - Abdominal Wound Culture - Preliminary Pseudomonas aeroginosa 11/02/18 09:00 Gram Stain - Final Wound Drainage - Aerobic & Anaerobic Swabs Wound Culture - Preliminary Pseudomonas aeroginosa 11/02/18 09:00 Enteric Bacteriology - Final Stool Laboratory Tests Past 24 Hrs 11/05/18 11/05/18 05:36 05:36 WBC 6.6 RBC 4.36 L Hgb 11.3 L Hct 36.7 L MCV 84.2 MCH 25.9 L MCHC 30.8 L RDW 16.5 H RDW Differential 48.7 H Plt Count 440 MPV 8.1 Immature Gran % (Auto) 0.500 Neut % (Auto) 70.8 H Lymph % (Auto) 12.2 L [place] % (Auto) 14.6 H Eos % (Auto) 1.7 Baso % (Auto) 0.2 Absolute Neuts (auto) 4.7 Absolute Lymphs (auto) 0.81 L Total Counted Not Reportable Sodium 136 Potassium 4.4 Chloride 106 Carbon Dioxide 23.0 Anion Gap 7 BUN 10 Creatinine 0.98 Estim Creat Clear Calc 94.61 Est GFR (MDRD) Af Amer 100 Est GFR (MDRD) Non-Af 83 BUN/Creatinine Ratio 10.2 Glucose 85 Calcium 9.0 Medical Necessity - Tobacco Use Smoking Status: Never smoker Tobacco Use: Non-smoker Assessment/Plan All Active Problems (Last Reviewed 11/01/18 @ 13:35 by Alexandre Salazar MD) Incisional infection (Acute) Postoperative urinary retention (Acute) Ileocolic anastomotic leak (Acute) Hx of exploratory laparotomy (Acute) Hx of umbilical hernia repair (Acute) Hx of right hemicolectomy (Acute) Colon cancer (Acute) Umbilical hernia (Acute) Ileus following gastrointestinal surgery (Acute) Hyperlipidemia (Acute) History of colonoscopy (Acute ~07/2018) History of coronary artery bypass graft x 6 (Acute ~10/2017) Colon cancer (Acute ~07/2018) Anemia (Acute ~06/2018) Osteoarthritis (Acute) Back pain (Acute) Myocardial infarction (Acute ~10/2017) 63-year-old male status post anastomotic leak with new anastomotic leak and wound infection 1. Patient CT scan showed dehiscence of the fascia. Patient has retention sutures with drainage from his wound which appears to be feculent material. Patient has no sepsis but the fecal material is no longer contained it is increasing in amount and breaking down his skin incision. I plan to take the patient today for laparotomy with terminal ileostomy and colonic mucous fistula with repair of the fascia using biologic mesh and placement of wound VAC and retention sutures. The patient understands the surgery and has no further questions today. 2. Continue antibiotics, Telles for urinary retention, SCDs PPI. Andi Serna MD Pager: [facility] [address] [place] [address], [address] [place] [address] Office:
--- NOTE | 2018-11-05 08:19 | PN.SURG_ITS ---
Patient Problems: Active and Suspected Problems (Last Reviewed 11/01/18 @ 13:35 by Alexandre Salazar MD) Incisional infection (Acute) Subjective: Patient had copious output from his wound overnight. No other complaints. - Physical Exam General: Alert, Oriented x3, Cooperative Lungs: Normal air movement Cardiovascular: Regular rate, Regular Rhythm Abdomen: Soft, Non Tender, Non-Distended, - - Copious dark output from the incision Vital Signs Temp Pulse Resp BP Pulse Ox 98.1 F 81 16 133/82 H 98 11/05/18 02:00 11/05/18 02:00 11/05/18 02:00 11/05/18 02:00 11/05/18 02:00 Oxygen Delivery Method Room Air Weight: 216 lb 3 oz Body Mass Index (BMI) 27.0 Intake and Output for Last 24 Hours 11/03/18 11/04/18 11/05/18 23:59 23:59 23:59 Intake Total 2640 / 2640 3053 / 3053 1639 / 1639 Output Total 3675 / 3675 2635 / 2635 1875 / 1875 Balance -1035 / -1035 418 / 418 -236 / -236 Microbiology Past 72 Hours 11/02/18 09:00 Gram Stain - Final Wound - Abdominal Wound Culture - Preliminary Pseudomonas aeroginosa 11/02/18 09:00 Gram Stain - Final Wound Drainage - Aerobic & Anaerobic Swabs Wound Culture - Preliminary Pseudomonas aeroginosa 11/02/18 09:00 Enteric Bacteriology - Final Stool Laboratory Tests Past 24 Hrs 11/05/18 11/05/18 05:36 05:36 WBC 6.6 RBC 4.36 L Hgb 11.3 L Hct 36.7 L MCV 84.2 MCH 25.9 L MCHC 30.8 L RDW 16.5 H RDW Differential 48.7 H Plt Count 440 MPV 8.1 Immature Gran % (Auto) 0.500 Neut % (Auto) 70.8 H Lymph % (Auto) 12.2 L [place] % (Auto) 14.6 H Eos % (Auto) 1.7 Baso % (Auto) 0.2 Absolute Neuts (auto) 4.7 Absolute Lymphs (auto) 0.81 L Total Counted Not Reportable Sodium 136 Potassium 4.4 Chloride 106 Carbon Dioxide 23.0 Anion Gap 7 BUN 10 Creatinine 0.98 Estim Creat Clear Calc 94.61 Est GFR (MDRD) Af Amer 100 Est GFR (MDRD) Non-Af 83 BUN/Creatinine Ratio 10.2 Glucose 85 Calcium 9.0 Medical Necessity - Tobacco Use Smoking Status: Never smoker Tobacco Use: Non-smoker Assessment/Plan All Active Problems (Last Reviewed 11/01/18 @ 13:35 by Alexandre Salazar MD) Incisional infection (Acute) Postoperative urinary retention (Acute) Ileocolic anastomotic leak (Acute) Hx of exploratory laparotomy (Acute) Hx of umbilical hernia repair (Acute) Hx of right hemicolectomy (Acute) Colon cancer (Acute) Umbilical hernia (Acute) Ileus following gastrointestinal surgery (Acute) Hyperlipidemia (Acute) History of colonoscopy (Acute ~07/2018) History of coronary artery bypass graft x 6 (Acute ~10/2017) Colon cancer (Acute ~07/2018) Anemia (Acute ~06/2018) Osteoarthritis (Acute) Back pain (Acute) Myocardial infarction (Acute ~10/2017) 63-year-old male status post anastomotic leak with new anastomotic leak and wound infection 1. Patient CT scan showed dehiscence of the fascia. Patient has retention sutures with drainage from his wound which appears to be feculent material. Patient has no sepsis but the fecal material is no longer contained it is increasing in amount and breaking down his skin incision. I plan to take the patient today for laparotomy with terminal ileostomy and colonic mucous fistula with repair of the fascia using biologic mesh and placement of wound VAC and retention sutures. The patient understands the surgery and has no further questions today. 2. Continue antibiotics, Telles for urinary retention, SCDs PPI. Andi Serna MD Pager: [facility] [address] [place] [address], [address] [place] [address] Office:
--- NOTE | 2018-11-05 08:24 | NURSING ---
Dr Serna had been in this am to see patient. plan is for surgery later today. patient will have a wound VAC, ileostomy, and a mucous fistula post op. ileostomy teaching packet in room. pt states that his friend plans to assist him at home. will continue to follow patient. no further questions voiced at this time.
[2018-11-05] MEDS: Metoprolol Tartrate 100 MG Tablet PO ×2 (08:33→21:04)
[2018-11-05] MEDS: Losartan Potassium 50 MG Tablet PO (08:34)
[2018-11-05] MEDS: Pantoprazole Sodium 20 MG Tablet PO (10:45)
--- NOTE | 2018-11-05 12:45 | COL_PTH ---
PATIENT: NESTOR HALL LOC: MS3 U#:[id number] AGE/SX: 63/M ROOM: MS318 RE11/01/[address]: Dr. Alexandre Salazar MD : [id number] BED: 1 DIS: 11/13/2018 SPEC #: [id number] RECD: 11/05/18 16:39 STATUS: FERCHO REMagda #: [id number] HENRIETTA: 11/05/18 12:[address]: Alexandre Salazar DEPT: SURGICAL PATHOLOGY RECD BY: Ted Holguin ENTERED: 11/06/18 08:24 SP TYPE: COLON OTHR DR: Dr. Lito Farrell MD Tissues: Colon, NOS Procedures: Surgery Specimen Level V HEADER OPERATION: Exploratory laparotomy, SBO PRE-OP DIAGNOSIS: Abdominal incisional infection TISSUE SUBMITTED: Ileocolic anastomosis with leak MICROSCOPIC DIAGNOSIS Ileocolic anastomosis, segmental resection: Subserosal fatty tissue with microabscesses, fecal debris, fat necrosis, fibrosis, acute serositis and associated reactive change. Margins of excision with no pathologic changes. See comment. AM:kirsten 11/08/18 COMMENT No gross or microscopic perforation is identified in sections taken adjacent to the anastomosis. The changes identified are noted in the subserosal fatty tissue adjacent of this ileocolic anastomotic site. Clinical correlation is suggested. Case has been reviewed in consultation with Dr. Josue who concurs with the above diagnosis. IDC:[email or web address] MICROSCOPIC DESCRIPTION Slides are reviewed. GROSS DESCRIPTION Received in fixative is one container labeled with the patient's name and designated ileocolic anastomosis with leak. The specimen consists of a segment of bowel with attached pericolonic adipose tissue measuring 12 cm in length. 1 cm away from one resection margin there is an anastomotic area. No obvious leak is noted in this area. No mucosal lesion is identified. Serial sections adjacent to the anastomosis area show an extensive area of fibrinopurulent exudate in the underlying pericolonic adipose tissue. Also present in the container is a smaller segment of bowel with attached adipose tissue measuring 5 cm in length. One resection margin is stapled. The other resection margin is opened. No mucosal lesion is identified. Also present in the container are two detached pieces of soft hemorrhagic tissue measuring in aggregate 4 x 3 x 1 cm. Another piece shows multiple sarahi and may represent donut piece. Automotive Brake Specialist sections are submitted in eight cassettes as follows: 1-5 - largest piece of bowel (12 - area adjacent to the anastomosis, 4 - sales and service representative section from other area, 5 - resection margin), 6 & 7 - smaller piece of bowel, 8 - detached pieces of tissue. / YONY:kirsten 11/07/18 TC:2 CPT: 96141
--- NOTE | 2018-11-05 15:05 | PCA ---
pt off floor
--- NOTE | 2018-11-05 16:56 | PCA ---
PT OFF FLOOR
--- NOTE | 2018-11-05 17:10 | RAD_ITS ---
We are attempting to reach Kareem Escamilla to discuss findings. An addendum with communication details will be sent when the communication is complete. STUDY: X-RAY CHEST REASON FOR EXAM: Male, 63 years old. NG tube placement TECHNIQUE: Single AP portable view of the chest. COMPARISON: Abdomen study from earlier today FINDINGS: NG tube has been placed, tip is in the right mainstem bronchus and needs to be retracted immediately. The lungs are clear and expanded. There is no demonstrated pleural abnormality. Sternal cerclage wires and vascular clips are present from a prior sternotomy and coronary artery bypass graft procedure (CABG). Normal mediastinum and ashvin. Normal visualized pulmonary arteries. Normal visualized aortic arch and descending thoracic aorta. Normal visualized thoracic spine. Normal visualized ribs, clavicles, and shoulders. There is no demonstrated abnormality of the visualized soft tissue structures of the upper abdomen. RAD/Chest 1 View (Portable) IMPRESSION: NG tube tip in the right mainstem bronchus Electronically Signed: Juan Taylor MD at 17:41 EST , Service support ,
--- NOTE | 2018-11-05 17:12 | RAD_ITS ---
STUDY: X-RAY - ABDOMEN/PELVIS REASON FOR EXAM: Male, 63 years old. Postop pain TECHNIQUE: Single AP view of the abdomen / pelvis. COMPARISON: None. FINDINGS: No demonstrated NG tube. There is an ostomy noted of the left lower quadrant. There is an unremarkable bowel gas pattern. There is no demonstrated free abdominal air. The visualized liver, spleen and kidneys are grossly normal in size and morphology. Normal soft tissue structures. Normal visualized osseous structures. RAD/Abdomen Single View (Portable) IMPRESSION: No acute findings, NG tube not seen Electronically Signed: Juan Taylor MD at 17:29 EST , Service support ,
--- NOTE | 2018-11-05 18:13 | PCM.OPRPT ---
Problem List (1) Anastomotic leak of intestine Status: Acute Report of Operation Date of Procedure: 11/05/18 Pre-Operative Diagnosis: Anastomotic leak. Wound infection. Fascial dehiscence Post-Operative Diagnosis: Same Surgery/Procedure Performed:: Exploratory laparotomy with resection of prior anastomosis and creation of end ileostomy and mucous fistula. Specimen's removed: Prior anastomosis with leak Description of Procedure: The patient was brought back to the operating room and general anesthesia was induced. The abdomen was prepped with Betadine in the prior retention sutures were removed. The skin incision was opened and the purulent material was suctioned. The fascia appeared to be open and the prior suture was removed. The wound was irrigated and suctioned. The wound was extended inferiorly and the fascia was elevated and incised and the abdomen was entered. Bluntly the abdominal dissection was brought superiorly so that all of the adherent contents were freed up and the abscess cavity was encountered and suctioned dry. The small bowel adhesions and large bowel adhesions were bluntly taken down and the prior anastomosis was delivered into the incision. There appeared to be a perforation at the anastomosis with necrosis. A 75 CIERRA stapler was used to come across the small bowel and another load was used to come across the colon. The anastomosis was taken down from its mesentery and sent for specimen. Next the abdomen was copiously irrigated with several liters of fluid and suction. A mucous fistula was brought up in the left upper quadrant from the distal transverse colon. The skin was incised as was the fascia in a cruciate fashion and the muscle was spared. The colon was delivered through the small opening and sutured to the fascia both anteriorly and exteriorly. Next a terminal ileostomy was brought through the right lower quadrant in the same fashion. The skin was incised and the anterior fascia was incised in a cruciate fashion and the terminal ileum was brought through the right lower quadrant. This was sutured to the fascia. Next the midline incision was reapproximated and the fascia was sutured to itself with interrupted 0 Nurolon sutures. In between these Nurolon sutures several large retention sutures were placed. These were placed full-thickness through the skin and fascia. The skin incision was left open and packed with a Betadine soaked Kerlix. Next the colostomy was matured using interrupted 4-0 Vicryl sutures. The ileostomy was then matured in a [place] fashion using interrupted 3-0 Vicryl sutures. Stoma appliances were applied to both stomas and a dressing was placed over the midline incision. The patient was brought to PACU in stable condition.
[2018-11-05] MEDS: 0.9% NaCl Peripheral Flush Adult/Peds IV ×2 (18:56→19:28)
[2018-11-05] MEDS: Morphine 2 MG/ML Syringe IV ×2 (18:56→19:28)
[2018-11-05] MEDS: BENZOCAINE/MENTHOL 1 LOZENGE MUCOUS MEM (19:43)
[2018-11-05] MEDS: Atorvastatin Calcium 40 MG Tablet PO (21:04)
[2018-11-05] MEDS: Morphine 4 MG/ML Syringe IV ×2 (21:22→23:33)
[2018-11-06] VITALS (16 sets, daily range): BP systolic 90–132; BP diastolic 58–87; PULSE 102–115; RESP 18–20; TEMP 36.6–37.3; O2SAT 94–98
[2018-11-06] MEDS: 0.9% Normal Saline 1,000 ML 125 ML IV ×3 (03:10→17:59)
[2018-11-06] MEDS: Morphine 4 MG/ML Syringe IV (03:10)
[2018-11-06 06:25] LABS: Absolute Lymphocyte Count 0.61 X10^3/ul (0.83-4.51); Absolute Neutrophil Count 14.4 X10^3/uL (2.0-7.7); Basophil# 0.01 X10^3/uL; Basophil% 0.1 % (0-1); Hematocrit 39.5 % (40-54); Hemoglobin 12.4 g/dl (13.0-16.5); Lymphocyte # 0.61 X10^3/ul (4.0); Lymphocyte % 3.5 % (19-41); Mean Corp Hgb Conc 31.4 g/gl (32-36); Mean Corpuscular Hgb 25.9 pg (27.0-32.0); Mean Corpuscular Volume 82.6 fL (80-94); Mean Platelet Vol. 8.1 fl (6.2-12.0); Monocyte# 2.17 X10^3/uL; Monocyte% 12.5 % (0-10); Neutrophil # 14.44 X10^3/uL (2.7-7.7); Neutrophil % 83.5 % (47-70); Platelet Count 509 K/mm3 (150-450); RBC Distribution Width CV 16.7 % (11.6-14.6); RBC Distribution Width SD 48.4 fl (35.1-43.9); Red Blood Count 4.78 M/mm3 (4.6-6.2); White Blood Count 17.3 K/mm3 (4.4-11.0)
[2018-11-06 06:27] LABS: Differential Indicated SCAN CRITERIA MET; POSITIVE COUNT NO; POSITIVE DIFFERENTIAL YES; POSITIVE MORPHOLOGY YES
[2018-11-06] MEDS: 0.9% Normal Saline 1,000 ML 999 ML IV (06:40)
[2018-11-06] MEDS: Morphine 2 MG/ML Syringe IV (06:56)
[2018-11-06] MEDS: BENZOCAINE/MENTHOL 1 LOZENGE MUCOUS MEM (07:00)
--- NOTE | 2018-11-06 07:02 | NURSING ---
Dr. Omer here changed drsg. bolus is going okay to give morphine due to pain. If BP/UO do not come up may move to ICU.
[2018-11-06 07:10] LABS: Anion Gap 12 (5-15); BUN 22 mg/dL (7-18); BUN/Creat Ratio 11.6 RATIO (10-20); Calcium,Total 8.5 mg/dL (8.5-10.1); Chloride 107 mmol/L (98-107); EST Glomerular Filtration Rate 39 mL/min (>60); Est Glom Filt Rate - Afr Amer 47 mL/min (>60); Glucose 136 mg/dL (74-106); Potassium 5.5 mmol/L (3.5-5.1); Sodium Level 137 mmol/L (136-145)
--- NOTE | 2018-11-06 07:17 | PN.SURG_ITS ---
Patient Problems: Active and Suspected Problems (Last Reviewed 11/01/18 @ 13:35 by Alexandre Salazar MD) Incisional infection (Acute) Anastomotic leak of intestine (Acute) Subjective: Patient complaining of abdominal pain - Physical Exam General: Alert, Oriented x3 Lungs: Normal air movement Cardiovascular: Tachycardic Abdomen: Soft, Tender Vital Signs Temp Pulse Resp BP Pulse Ox 98.9 F 114 H 20 H 99/67 96 11/06/18 06:22 11/06/18 06:22 11/06/18 06:22 11/06/18 06:22 11/06/18 06:22 Oxygen Flow Rate (L/min) 2 Oxygen Delivery Method Nasal Cannula Weight: 216 lb 3 oz Body Mass Index (BMI) 27.0 Intake and Output for Last 24 Hours 11/04/18 11/05/18 11/06/18 23:59 23:59 23:59 Intake Total 3053 / 3053 4965 / 4965 775 / 775 Output Total 2635 / 2635 3055 / 3055 110 / 110 Balance 418 / 418 1910 / 1910 665 / 665 Microbiology Past 72 Hours 11/02/18 09:00 Gram Stain - Final Wound - Abdominal Wound Culture - Preliminary Pseudomonas aeroginosa GPC Poss Enterococcus sp Coag Negative Staph Anaerobic Culture - Preliminary Presumptive B. fragilis group 11/02/18 09:00 Gram Stain - Final Wound Drainage - Aerobic & Anaerobic Swabs Wound Culture - Preliminary Pseudomonas aeroginosa GPC Poss Enterococcus sp Coag Negative Staph Laboratory Tests Past 24 Hrs 11/06/18 11/06/18 06:04 06:04 WBC 17.3 H RBC 4.78 Hgb 12.4 L Hct 39.5 L MCV 82.6 MCH 25.9 L MCHC 31.4 L RDW 16.7 H RDW Differential 48.4 H Plt Count 509 H MPV 8.1 Immature Gran % (Auto) 0.400 Neut % (Auto) 83.5 H Lymph % (Auto) 3.5 L [place] % (Auto) 12.5 H Eos % (Auto) 0.0 Baso % (Auto) 0.1 Absolute Neuts (auto) 14.4 H Absolute Lymphs (auto) 0.61 L Total Counted Not Reportable Diff Path Review January Sodium 137 Potassium 5.5 H Chloride 107 Carbon Dioxide 18.0 L Anion Gap 12 BUN 22 H Creatinine 1.90 H Estim Creat Clear Calc 48.80 Est GFR (MDRD) Af Amer 47 L Est GFR (MDRD) Non-Af 39 L BUN/Creatinine Ratio 11.6 Glucose 136 H Calcium 8.5 Medical Necessity - Tobacco Use Smoking Status: Never smoker Tobacco Use: Non-smoker Assessment/Plan All Active Problems (Last Reviewed 11/01/18 @ 13:35 by Alexandre Salazar MD) Incisional infection (Acute) Anastomotic leak of intestine (Acute) Postoperative urinary retention (Acute) Ileocolic anastomotic leak (Acute) Hx of exploratory laparotomy (Acute) Hx of umbilical hernia repair (Acute) Hx of right hemicolectomy (Acute) Colon cancer (Acute) Umbilical hernia (Acute) Ileus following gastrointestinal surgery (Acute) Hyperlipidemia (Acute) History of colonoscopy (Acute ~07/2018) History of coronary artery bypass graft x 6 (Acute ~10/2017) Colon cancer (Acute ~07/2018) Anemia (Acute ~06/2018) Osteoarthritis (Acute) Back pain (Acute) Myocardial infarction (Acute ~10/2017) 63-year-old male status post laparotomy with ileostomy 1. The patient was tachycardic and hypotensive throughout the night. I was not notified until this morning I will give the patient a 1 L bolus. If the patient continues to be hypotensive after bolus I will transfer to the ICU. Patient currently afebrile. 2. I change the patient's dressings and there is no purulence in the packing of the incision. His stomas both appear pink and viable. Andi Serna MD Pager: [facility] [address] [place] [address], [address] [place] [address] Office:
--- NOTE | 2018-11-06 08:22 | NURSING ---
In to see patient. patient states that he had a rough night. states he was diaphoretic and was having quite a bit of abdominal pain. Dr Serna had already been in to see patient this am. midline abdominal dressing had been changed by Dr Serna this am. a wound VAC was not placed post op. dressing is clean and dry at this time. will need to discuss with Dr Serna to see what his plan is for wound care. patient has an ileostomy to the right lower quadrant. stoma is beefy red and edematous. some serosanguineous drainage is noted in the appliance. no flatus noted at this time. there is a mucous fistula noted to the left upper quadrant with an ostomy appliance in place. there is also some serosanguineous drainage noted in that appliance as well. pt is currently getting a bolus. blood pressure has been low and patient has been tachy around 100-114. ZIA Mcdaniel states that the BP is slightly improved now. will continue to follow. patient will need ostomy teaching. have already discussed with patient's friend who will be assisting with care at home. this friend states she also feels that patient will need home health for a while at home. with a new ostomy, would highly recommend home health to assist with further teaching as well.
[2018-11-06 09:30] LABS: Lactic Acid 1.6 mmol/L (0.4-2.0)
[2018-11-06] MEDS: HYDROmorphone 0.5 MG/0.5 ML SYRINGE IV ×2 (10:01→16:08)
--- NOTE | 2018-11-06 10:48 | CON.PCM_ITS ---
Problem List (1) Ileocolic anastomotic leak Status: Acute Reason for Consult: abd infection Consulted by: Dr. Serna History of Present Illness: The patient is a 63 year old M who had a right hemicolectomy by Dr. Salazar on 10/16/18. He was readmitted on 10/21/18 for an anastomotic leak. Discharged 10/27 on 7 days of augmentin. After discharge, had recurrence of foul, thick drainage associated with fever, chills, and severe abd pain. Re-admitted 11/01. Wound cx 11/02 with PsA, MRSE, e faecalis. Has been on zosyn. Taken to OR 11/[address] Serna for ex lap with resection of prior anastomosis and creation of end ileostomy and mucus fistula. Purulent material was suctioned, and fascia was open. Surg cxs not sent. Overnight, some hypotension. AM labs showed ROXANN. Full ROS Performed and neg except as noted above. - Medical History Past Medical History (Chronic Problems): Chronic Problems (Last Reviewed 11/01/18 @ 13:35 by Alexandre Salazar MD) HTN (hypertension) (Chronic) Allergies/Adverse Reactions: Allergies triamterene Allergy (Mild, Verified 11/01/18 10:53) rash Home Medications: Ambulatory Orders Medication Instructions Recorded amoxicillin 875 mg-potassium 1 tab PO BID 08/13/18 clavulanate 125 mg tablet atorvastatin 40 mg tablet 40 mg PO DAILY 08/13/18 ferrous sulfate 325 mg (65 mg 325 mg PO QHS tab 08/13/18 iron) tablet,delayed release losartan 50 mg tablet 50 mg PO DAILY 08/13/18 metoprolol tartrate 100 mg tablet 100 mg PO 1600,2200 08/13/18 Hydroxyzine HCl 25 mg PO TID PRN PRN 10/16/18 Loratadine/Pseudo 240/10 1 tab PO DAILY 10/21/18 [Claritin-D 24 Hr] Tamsulosin HCl [Flomax] 0.4 mg PO DAILY 11/01/18 - Social History Tobacco Use: non-smoker Vital Signs Temp Pulse Resp BP Pulse Ox 98.0 F 113 H 20 H 119/71 98 11/06/18 10:00 11/06/18 10:00 11/06/18 10:00 11/06/18 10:00 11/06/18 10:00 Oxygen Flow Rate (L/min) 2 Oxygen Delivery Method Nasal Cannula Weight: 98.061 kg Body Mass Index (BMI) 27.0 Microbiology Past 72 Hours 11/02/18 09:00 Gram Stain - Final Wound - Abdominal Wound Culture - Final Pseudomonas aeroginosa Enterococcus faecalis Staphylococcus epidermidis Anaerobic Culture - Preliminary Presumptive B. fragilis group 11/02/18 09:00 Gram Stain - Final Wound Drainage - Aerobic & Anaerobic Swabs Wound Culture - Preliminary Pseudomonas aeroginosa GPC Poss Enterococcus sp Coag Negative Staph Laboratory Tests Past 24 Hrs 11/06/18 11/06/18 11/06/18 06:04 06:04 08:55 WBC 17.3 H RBC 4.78 Hgb 12.4 L Hct 39.5 L MCV 82.6 MCH 25.9 L MCHC 31.4 L RDW 16.7 H RDW Differential 48.4 H Plt Count 509 H MPV 8.1 Immature Gran % (Auto) 0.400 Neut % (Auto) 83.5 H Lymph % (Auto) 3.5 L [place] % (Auto) 12.5 H Eos % (Auto) 0.0 Baso % (Auto) 0.1 Absolute Neuts (auto) 14.4 H Absolute Lymphs (auto) 0.61 L Total Counted Not Reportable Diff Path Review May foll Sodium 137 Potassium 5.5 H Chloride 107 Carbon Dioxide 18.0 L Anion Gap 12 BUN 22 H Creatinine 1.90 H Estim Creat Clear Calc 48.80 Est GFR (MDRD) Af Amer 47 L Est GFR (MDRD) Non-Af 39 L BUN/Creatinine Ratio 11.6 Glucose 136 H Lactic Acid 1.6 Calcium 8.5 - Other Studies Radiology: [] reviewed Other Studies: [] Route of nutrition/ use of supplements: [] Nutritional Intake: [] IV Site: [] Telles Catheter: [] - Physical Exam General: Alert, Oriented x3, Cooperative, No apparent distress HEENT: Atraumatic, PERRLA, EOMI Neck: Supple, No Nodes Lungs: Clear to auscultation, Normal air movement Cardiovascular: Regular rate, Regular Rhythm, No murmurs Abdomen: Soft, Tender - mild. Midline incision bandaged, both ostomy sites are pink Extremities: No edema Skin: No rashes IV Site: Peripheral, without redness Musculoskeletal: No Tenderness to Palpation of Joints or Extremities Neurological: Cranial nerves II-XII grossly intact - Assessment/Plan Antibiotics: [] Assessment/Plan: [] Active and Suspected Problems (Last Reviewed 11/01/18 @ 13:35 by Alexandre Salazar MD) Incisional infection (Acute) Anastomotic leak of intestine (Acute) S/p R hemicolectomy complicated by recurrent anastamotic leak. 11/02 wound cx with PsA, e. faecalis, MRSE, and B. frag. Taken to OR 11/[address] Serna for ex lap, resection of prior anastomosis, and creation of end ileostomy and mucus fistula. Now with ROXANN and rising wbc. Continue zosyn, will add linezolid for MRSE coverage. Avoiding vanc due to ROXANN. If Cr worsens, will need to decrease zosyn dose to q12h. Will follow, thank you, d/w nursing.
[2018-11-06] MEDS: Losartan Potassium 50 MG Tablet PO (11:43)
[2018-11-06] MEDS: Loratadine 10 MG Tablet PO (11:43)
[2018-11-06] MEDS: Enoxaparin 40 MG/0.4 ML Syringe SC (11:43)
[2018-11-06] MEDS: Pantoprazole Sodium 20 MG Tablet PO (12:43)
[2018-11-06] MEDS: Linezolid 600 MG 600 MG/300 ML BAG 200 MG IV ×2 (12:43→23:25)
[2018-11-06 13:07] LABS: Absolute Lymphocyte Count 0.56 X10^3/ul (0.83-4.51); Absolute Neutrophil Count 11.8 X10^3/uL (2.0-7.7); Basophil# 0.01 X10^3/uL; Basophil% 0.1 % (0-1); Hematocrit 37.8 % (40-54); Hemoglobin 11.8 g/dl (13.0-16.5); Lymphocyte # 0.56 X10^3/ul (4.0); Lymphocyte % 3.9 % (19-41); Mean Corp Hgb Conc 31.2 g/gl (32-36); Mean Corpuscular Volume 83.3 fL (80-94); Mean Platelet Vol. 8.3 fl (6.2-12.0); Monocyte# 1.96 X10^3/uL; Monocyte% 13.7 % (0-10); Neutrophil # 11.77 X10^3/uL (2.7-7.7); Platelet Count 385 K/mm3 (150-450); RBC Distribution Width SD 51.3 fl (35.1-43.9); Red Blood Count 4.54 M/mm3 (4.6-6.2); White Blood Count 14.4 K/mm3 (4.4-11.0)
[2018-11-06 13:08] LABS: Differential Indicated SCAN CRITERIA MET; POSITIVE COUNT NO; POSITIVE DIFFERENTIAL YES; POSITIVE MORPHOLOGY YES
[2018-11-06 13:57] LABS: Anion Gap 11 (5-15); BUN 23 mg/dL (7-18); BUN/Creat Ratio 11.9 RATIO (10-20); Calcium,Total 8.4 mg/dL (8.5-10.1); Chloride 109 mmol/L (98-107); Creatinine, Serum 1.94 mg/dL (0.70-1.30); EST Glomerular Filtration Rate 38 mL/min (>60); Est Glom Filt Rate - Afr Amer 46 mL/min (>60); Estimated Creatinine Clearance 47.79 ml/min; Glucose 115 mg/dL (74-106); Potassium 4.8 mmol/L (3.5-5.1); Sodium Level 142 mmol/L (136-145)
[2018-11-06 14:09] LABS: Pathologist Review Reviewed
[2018-11-06] MEDS: Metoprolol Tartrate 100 MG Tablet PO ×2 (15:00→22:14)
[2018-11-06] MEDS: Tamsulosin HCl 0.4 MG Capsule PO (17:59)
--- NOTE | 2018-11-06 18:52 | EKG12_ITS ---
Test Reason : TACHYCARDIA Blood Pressure : / mmHG Vent. Rate : 099 BPM Atrial Rate : 099 BPM P-R Int : 122 ms QRS Dur : 098 ms QT Int : 358 ms P-R-T Axes : 036 -09 -20 degrees QTc Int : 459 ms Normal sinus rhythm Left ventricular hypertrophy Nonspecific T wave abnormality Abnormal ECG When compared with ECG of 05-NOV-2018 05:39, MANUAL COMPARISON REQUIRED, DATA IS UNCONFIRMED Confirmed by USMAN TREVIÑO, JIMMY ([id number]), primer expeditor and drier MILTON MICHEL ([id number]) on 11/09/2018 9:29:00 AM Referred By: Alexandre Salazar Confirmed By:JIMMY MARY MD
[2018-11-06] MEDS: 0.9% Normal Saline 1,000 ML 500 ML IV (20:06)
[2018-11-06] MEDS: Albumin Human 25% (100 mL) 25 GM/100 ML BAG IV ×2 (20:09→22:14)
[2018-11-06] MEDS: Atorvastatin Calcium 40 MG Tablet PO (22:14)
[2018-11-06] MEDS: 0.9% NaCl Peripheral Flush Adult/Peds IV ×2 (22:46→22:50)
[2018-11-07] VITALS (9 sets, daily range): BP systolic 129–157; BP diastolic 81–98; PULSE 99–105; RESP 16–18; TEMP 36.3–37.3; O2SAT 93–100
[2018-11-07] MEDS: 0.9% NaCl Peripheral Flush Adult/Peds IV ×3 (04:20→06:42)
[2018-11-07] MEDS: 0.9% Normal Saline 1,000 ML 125 ML IV ×2 (04:20→14:39)
[2018-11-07] MEDS: HYDROmorphone 0.5 MG/0.5 ML SYRINGE IV ×2 (06:37→14:37)
[2018-11-07 06:39] LABS: Absolute Lymphocyte Count 0.53 X10^3/ul (0.83-4.51); Absolute Neutrophil Count 8.7 X10^3/uL (2.0-7.7); Hematocrit 28.4 % (40-54); Hemoglobin 8.8 g/dl (13.0-16.5); Lymphocyte # 0.53 X10^3/ul (4.0); Lymphocyte % 4.9 % (19-41); Mean Platelet Vol. 8.2 fl (6.2-12.0); Monocyte# 1.66 X10^3/uL; Monocyte% 15.2 % (0-10); Neutrophil # 8.67 X10^3/uL (2.7-7.7); Neutrophil % 79.6 % (47-70); Platelet Count 295 K/mm3 (150-450); RBC Distribution Width CV 17.3 % (11.6-14.6); RBC Distribution Width SD 52.6 fl (35.1-43.9); Red Blood Count 3.38 M/mm3 (4.6-6.2); White Blood Count 10.9 K/mm3 (4.4-11.0)
[2018-11-07 06:44] LABS: Differential Indicated SCAN CRITERIA MET; POSITIVE COUNT NO; POSITIVE DIFFERENTIAL YES; POSITIVE MORPHOLOGY NO
[2018-11-07 06:49] LABS: Anion Gap 10 (5-15); BUN 23 mg/dL (7-18); BUN/Creat Ratio 14.6 RATIO (10-20); Calcium,Total 8.3 mg/dL (8.5-10.1); Chloride 111 mmol/L (98-107); Creatinine, Serum 1.57 mg/dL (0.70-1.30); EST Glomerular Filtration Rate 48 mL/min (>60); Est Glom Filt Rate - Afr Amer 58 mL/min (>60); Estimated Creatinine Clearance 59.05 ml/min; Glucose 118 mg/dL (74-106); Potassium 3.9 mmol/L (3.5-5.1); Sodium Level 141 mmol/L (136-145)
--- NOTE | 2018-11-07 07:22 | PCM.PN.SRG ---
Patient Problems: Active and Suspected Problems (Last Reviewed 11/01/18 @ 13:35 by Alexandre Salazar MD) Incisional infection (Acute) Anastomotic leak of intestine (Acute) Subjective: Patient seems to be doing well this morning with no issues. - Physical Exam General: Alert, Oriented x3 HEENT: Atraumatic Neck: No JVD Lungs: Normal air movement Cardiovascular: Tachycardic Abdomen: Soft, Non-Distended, - - Stoma bags of bowel sweat Vital Signs Temp Pulse Resp BP Pulse Ox 99.2 F H 101 H 16 147/93 H 96 11/07/18 06:08 11/07/18 06:08 11/07/18 06:08 11/07/18 06:08 11/07/18 06:08 Oxygen Flow Rate (L/min) 2 Oxygen Delivery Method Nasal Cannula Weight: 216 lb 3 oz Body Mass Index (BMI) 27.0 Intake and Output for Last 24 Hours 11/05/18 11/06/18 11/07/18 23:59 23:59 23:59 Intake Total 4965 / 4965 6083 / 6083 1058 / 1058 Output Total 3055 / 3055 1205 / 1205 748 / 748 Balance 1910 / 1910 4878 / 4878 310 / 310 Microbiology Past 72 Hours 11/02/18 09:00 Gram Stain - Final Wound - Abdominal Wound Culture - Final Pseudomonas aeroginosa Enterococcus faecalis Staphylococcus epidermidis Anaerobic Culture - Preliminary Presumptive B. fragilis group 11/02/18 09:00 Gram Stain - Final Wound Drainage - Aerobic & Anaerobic Swabs Wound Culture - Preliminary Pseudomonas aeroginosa GPC Poss Enterococcus sp Coag Negative Staph Laboratory Tests Past 24 Hrs 11/06/18 11/06/18 11/06/18 06:04 08:55 12:30 WBC 14.4 H RBC 4.54 L Hgb 11.8 L Hct 37.8 L MCV 83.3 MCH 26.0 L MCHC 31.2 L RDW 17.0 H RDW Differential 51.3 H Plt Count 385 MPV 8.3 Immature Gran % (Auto) 0.300 Neut % (Auto) 82.0 H Lymph % (Auto) 3.9 L [place] % (Auto) 13.7 H Eos % (Auto) 0.0 Baso % (Auto) 0.1 Absolute Neuts (auto) 11.8 H Absolute Lymphs (auto) 0.56 L Total Counted Not Reportable Diff Path Review Reviewed Sodium Potassium Chloride Carbon Dioxide Anion Gap BUN Creatinine Estim Creat Clear Calc Est GFR (MDRD) Af Amer Est GFR (MDRD) Non-Af BUN/Creatinine Ratio Glucose Lactic Acid 1.6 Calcium Troponin I 11/06/18 11/06/18 11/07/18 12:30 20:00 06:02 WBC 10.9 RBC 3.38 L Hgb 8.8 L Hct 28.4 L MCV 84.0 MCH 26.0 L MCHC 31.0 L RDW 17.3 H RDW Differential 52.6 H Plt Count 295 MPV 8.2 Immature Gran % (Auto) 0.300 Neut % (Auto) 79.6 H Lymph % (Auto) 4.9 L [place] % (Auto) 15.2 H Eos % (Auto) 0.0 Baso % (Auto) 0.0 Absolute Neuts (auto) 8.7 H Absolute Lymphs (auto) 0.53 L Total Counted Not Reportable Diff Path Review Sodium 142 Potassium 4.8 Chloride 109 H Carbon Dioxide 22.0 Anion Gap 11 BUN 23 H Creatinine 1.94 H Estim Creat Clear Calc 47.79 Est GFR (MDRD) Af Amer 46 L Est GFR (MDRD) Non-Af 38 L BUN/Creatinine Ratio 11.9 Glucose 115 H Lactic Acid Calcium 8.4 L Troponin I < 0.015 11/07/18 06:02 WBC RBC Hgb Hct MCV MCH MCHC RDW RDW Differential Plt Count MPV Immature Gran % (Auto) Neut % (Auto) Lymph % (Auto) [place] % (Auto) Eos % (Auto) Baso % (Auto) Absolute Neuts (auto) Absolute Lymphs (auto) Total Counted Diff Path Review Sodium 141 Potassium 3.9 Chloride 111 H Carbon Dioxide 20.0 L Anion Gap 10 BUN 23 H Creatinine 1.57 H Estim Creat Clear Calc 59.05 Est GFR (MDRD) Af Amer 58 L Est GFR (MDRD) Non-Af 48 L BUN/Creatinine Ratio 14.6 Glucose 118 H Lactic Acid Calcium 8.3 L Troponin I Medical Necessity - Tobacco Use Smoking Status: Never smoker Tobacco Use: Non-smoker Assessment/Plan All Active Problems (Last Reviewed 11/01/18 @ 13:35 by Alexandre Salazar MD) Incisional infection (Acute) Anastomotic leak of intestine (Acute) Postoperative urinary retention (Acute) Ileocolic anastomotic leak (Acute) Hx of exploratory laparotomy (Acute) Hx of umbilical hernia repair (Acute) Hx of right hemicolectomy (Acute) Colon cancer (Acute) Umbilical hernia (Acute) Ileus following gastrointestinal surgery (Acute) Hyperlipidemia (Acute) History of colonoscopy (Acute ~07/2018) History of coronary artery bypass graft x 6 (Acute ~10/2017) Colon cancer (Acute ~07/2018) Anemia (Acute ~06/2018) Osteoarthritis (Acute) Back pain (Acute) Myocardial infarction (Acute ~10/2017) 63-year-old male status post resection of anastomosis and creation of ileostomy 1. The patient was still tachycardic overnight but his blood pressure did respond well to boluses. I gave him a colloid and crystalloid bolus overnight and his urine output was good. Tachycardia may be related to sepsis. I did check a lactate yesterday which was normal and I did check an EKG and troponins which were also both normal. 2. I consulted infectious disease yesterday and they added linezolid. His creatinine did slightly improve I will leave it up to infectious disease if they want to decrease the dose of Zosyn. 3. I will have the ostomy nurse change the patient's packing twice a day. 4. Patient is still not having any considerable output from his ileostomy. At this time I will continue n.p.o. and sips and chips. Once he is having bilious output from his ileostomy he may start a clear liquid diet and advance as tolerated. 5. Patient had urinary retention with several attempts at removing his Telles. Continue Flomax and continue Telles. 6. Lovenox, PPI, SCDs, ambulation, IS Andi Serna MD Pager: [facility] [address] [place] [address], [address] [place] [address] Office:
[2018-11-07] MEDS: Linezolid 600 MG 600 MG/300 ML BAG 200 MG IV ×2 (09:39→22:21)
[2018-11-07] MEDS: Pantoprazole Sodium 20 MG Tablet PO (09:39)
[2018-11-07] MEDS: Enoxaparin 40 MG/0.4 ML Syringe SC (09:39)
[2018-11-07] MEDS: Loratadine 10 MG Tablet PO (09:39)
[2018-11-07] MEDS: Losartan Potassium 50 MG Tablet PO (09:39)
--- NOTE | 2018-11-07 14:35 | NURSING ---
student nurse's charting reviewed for education and learning purposes.
[2018-11-07] MEDS: ChlorproMAZINE 25 MG Tablet PO ×2 (14:37→21:05)
[2018-11-07] MEDS: Metoprolol Tartrate 100 MG Tablet PO ×2 (14:40→21:04)
--- NOTE | 2018-11-07 15:06 | PCM.PN.ID ---
Patient Problems: Active and Suspected Problems (Last Reviewed 11/01/18 @ 13:35 by Alexandre Salazar MD) Incisional infection (Acute) Anastomotic leak of intestine (Acute) Subjective: Feeling ok, abd hurts. No fever. Not taking po. - Physical Exam General: Alert, Cooperative, No apparent distress Lungs: Clear to auscultation, Normal air movement Cardiovascular: Regular rate, Regular Rhythm Abdomen: Soft, Tender - mild., - - Bilateral ostomy in place Vital Signs Temp Pulse Resp BP Pulse Ox 98.9 F 102 H 18 157/98 H 93 11/07/18 14:03 11/07/18 14:40 11/07/18 14:27 11/07/18 14:27 11/07/18 14:27 Oxygen Flow Rate (L/min) 2 Oxygen Delivery Method Room Air Weight: 98.061 kg Body Mass Index (BMI) 27.0 Intake and Output for Last 24 Hours 11/05/18 11/06/18 11/07/18 23:59 23:59 23:59 Intake Total 4965 / 4965 6083 / 6083 1058 / 1058 Output Total 3055 / 3055 1205 / 1205 748 / 748 Balance 1910 / 1910 4878 / 4878 310 / 310 Microbiology Past 72 Hours 11/02/18 09:00 Gram Stain - Final Wound Drainage - Aerobic & Anaerobic Swabs Wound Culture - Final Pseudomonas aeroginosa Enterococcus faecalis Staphylococcus epidermidis Anaerobic Culture - Preliminary Presumptive B. fragilis group Anaerobic cocci Gram positive martha 11/02/18 09:00 Gram Stain - Final Wound - Abdominal Wound Culture - Final Pseudomonas aeroginosa Enterococcus faecalis Staphylococcus epidermidis Anaerobic Culture - Preliminary Presumptive B. fragilis group Laboratory Tests Past 24 Hrs 11/06/18 11/07/18 11/07/18 20:00 06:02 06:02 WBC 10.9 RBC 3.38 L Hgb 8.8 L Hct 28.4 L MCV 84.0 MCH 26.0 L MCHC 31.0 L RDW 17.3 H RDW Differential 52.6 H Plt Count 295 MPV 8.2 Immature Gran % (Auto) 0.300 Neut % (Auto) 79.6 H Lymph % (Auto) 4.9 L [place] % (Auto) 15.2 H Eos % (Auto) 0.0 Baso % (Auto) 0.0 Absolute Neuts (auto) 8.7 H Absolute Lymphs (auto) 0.53 L Total Counted Not Reportable Sodium 141 Potassium 3.9 Chloride 111 H Carbon Dioxide 20.0 L Anion Gap 10 BUN 23 H Creatinine 1.57 H Estim Creat Clear Calc 59.05 Est GFR (MDRD) Af Amer 58 L Est GFR (MDRD) Non-Af 48 L BUN/Creatinine Ratio 14.6 Glucose 118 H Calcium 8.3 L Troponin I < 0.015 Medical Necessity - Tobacco Use Smoking Status: Never smoker Tobacco Use: Non-smoker Route of nutrition/ use of supplements: [] Nutritional Intake: [] IV Site: [] Telles Catheter: [] - Assessment/Plan Antibiotics: [] Assessment/Plan: [] Active and Suspected Problems (Last Reviewed 11/01/18 @ 13:35 by Alexandre Salazar MD) Incisional infection (Acute) Anastomotic leak of intestine (Acute) S/p R hemicolectomy complicated by recurrent anastamotic leak. 11/02 wound cx with PsA, e. faecalis, MRSE, and multiple anaerobes including B. frag. Taken to OR 11/[address] Serna for ex lap, resection of prior anastomosis, and creation of end ileostomy and mucus fistula. Now with ROXANN and rising wbc. Continue zosyn, added linezolid for MRSE coverage. ROXANN improved today with IVF. Discharge plan would be for oral abx once he is able to take po. Will follow, d/w case management director
--- NOTE | 2018-11-07 16:29 | NURSING ---
Called Dr. Tolliver's office and reported positive for Pseudomonas Aeroginosa.
[2018-11-07] MEDS: Tamsulosin HCl 0.4 MG Capsule PO (17:26)
[2018-11-07] MEDS: HYDROmorphone 1 MG/ML Syringe IV ×2 (17:27→22:20)
[2018-11-07] MEDS: Atorvastatin Calcium 40 MG Tablet PO (21:05)
[2018-11-08] VITALS (9 sets, daily range): BP systolic 132–153; BP diastolic 86–92; PULSE 93–100; RESP 16–18; TEMP 37–37.4; O2SAT 92–94
[2018-11-08] MEDS: 0.9% Normal Saline 1,000 ML 125 ML IV ×3 (01:32→20:36)
[2018-11-08] MEDS: HYDROmorphone 1 MG/ML Syringe IV ×4 (03:28→20:37)
[2018-11-08] MEDS: ChlorproMAZINE 25 MG Tablet PO ×2 (03:28→22:26)
[2018-11-08 07:15] LABS: Absolute Lymphocyte Count 0.57 X10^3/ul (0.83-4.51); Absolute Neutrophil Count 8.6 X10^3/uL (2.0-7.7); Basophil# 0.02 X10^3/uL; Basophil% 0.2 % (0-1); Eosinophil# 0.06 X10^3/uL; Eosinophils% 0.6 % (0-5); Hematocrit 30.1 % (40-54); Hemoglobin 8.7 g/dl (13.0-16.5); Lymphocyte # 0.57 X10^3/ul (4.0); Lymphocyte % 5.4 % (19-41); Mean Corp Hgb Conc 28.9 g/gl (32-36); Mean Corpuscular Volume 89.9 fL (80-94); Mean Platelet Vol. 8.2 fl (6.2-12.0); Monocyte# 1.21 X10^3/uL; Monocyte% 11.5 % (0-10); Neutrophil # 8.64 X10^3/uL (2.7-7.7); Neutrophil % 81.8 % (47-70); Platelet Count 244 K/mm3 (150-450); RBC Distribution Width CV 17.5 % (11.6-14.6); RBC Distribution Width SD 56.4 fl (35.1-43.9); Red Blood Count 3.35 M/mm3 (4.6-6.2); White Blood Count 10.6 K/mm3 (4.4-11.0)
[2018-11-08 07:17] LABS: Anion Gap 10 (5-15); BUN 17 mg/dL (7-18); BUN/Creat Ratio 12.2 RATIO (10-20); Chloride 111 mmol/L (98-107); Creatinine, Serum 1.39 mg/dL (0.70-1.30); EST Glomerular Filtration Rate 55 mL/min (>60); Est Glom Filt Rate - Afr Amer 67 mL/min (>60); Glucose 94 mg/dL (74-106); Potassium 3.9 mmol/L (3.5-5.1); Sodium Level 136 mmol/L (136-145)
[2018-11-08 07:49] LABS: Differential Indicated SCAN CRITERIA MET; POSITIVE COUNT YES; POSITIVE DIFFERENTIAL YES; POSITIVE MORPHOLOGY YES
[2018-11-08 07:50] LABS: Hypochromasia 1+; Ovalocyte 2+
[2018-11-08 07:51] LABS: Platelet Estimate ADEQUATE (ADEQ)
--- NOTE | 2018-11-08 08:44 | PCM.PN.SRG ---
Patient Problems: Active and Suspected Problems (Last Reviewed 11/01/18 @ 13:35 by Alexandre Salazar MD) Incisional infection (Acute) Anastomotic leak of intestine (Acute) Subjective: Patient reports that his pain is well controlled. - Physical Exam General: Alert, Oriented x3 Lungs: Normal air movement Abdomen: Soft, Non-Distended Vital Signs Temp Pulse Resp BP Pulse Ox 99.3 F H 98 18 144/88 H 92 11/08/18 03:16 11/08/18 03:16 11/08/18 03:16 11/08/18 03:16 11/08/18 03:16 Oxygen Flow Rate (L/min) 2 Oxygen Delivery Method Room Air Weight: 216 lb 3 oz Body Mass Index (BMI) 27.0 Intake and Output for Last 24 Hours 11/06/18 11/07/18 11/08/18 23:59 23:59 23:59 Intake Total 6083 / 6083 2591 / 2591 1410 / 1410 Output Total 1205 / 1205 1808 / 1808 1100 / 1100 Balance 4878 / 4878 783 / 783 310 / 310 Microbiology Past 72 Hours 11/02/18 09:00 Gram Stain - Final Wound Drainage - Aerobic & Anaerobic Swabs Wound Culture - Final Pseudomonas aeroginosa Enterococcus faecalis Staphylococcus epidermidis Anaerobic Culture - Preliminary Presumptive B. fragilis group Anaerobic cocci Gram positive martha 11/02/18 09:00 Gram Stain - Final Wound - Abdominal Wound Culture - Final Pseudomonas aeroginosa Enterococcus faecalis Staphylococcus epidermidis Anaerobic Culture - Preliminary Presumptive B. fragilis group Laboratory Tests Past 24 Hrs 11/08/18 11/08/18 06:20 06:20 WBC 10.6 RBC 3.35 L Hgb 8.7 L Hct 30.1 L MCV 89.9 MCH 26.0 L MCHC 28.9 L RDW 17.5 H RDW Differential 56.4 H Plt Count 244 MPV 8.2 Immature Gran % (Auto) 0.500 Neut % (Auto) 81.8 H Lymph % (Auto) 5.4 L [place] % (Auto) 11.5 H Eos % (Auto) 0.6 Baso % (Auto) 0.2 Absolute Neuts (auto) 8.6 H Absolute Lymphs (auto) 0.57 L Total Counted Not Reportable Platelet Estimate ADEQUATE Hypochromasia 1+ Ovalocytes 2+ Sodium 136 Potassium 3.9 Chloride 111 H Carbon Dioxide 15.0 L Anion Gap 10 BUN 17 Creatinine 1.39 H Estim Creat Clear Calc 66.70 Est GFR (MDRD) Af Amer 67 Est GFR (MDRD) Non-Af 55 L BUN/Creatinine Ratio 12.2 Glucose 94 Calcium 8.0 L Medical Necessity - Tobacco Use Smoking Status: Never smoker Tobacco Use: Non-smoker Assessment/Plan All Active Problems (Last Reviewed 11/01/18 @ 13:35 by Alexandre Salazar MD) Incisional infection (Acute) Anastomotic leak of intestine (Acute) Postoperative urinary retention (Acute) Ileocolic anastomotic leak (Acute) Hx of exploratory laparotomy (Acute) Hx of umbilical hernia repair (Acute) Hx of right hemicolectomy (Acute) Colon cancer (Acute) Umbilical hernia (Acute) Ileus following gastrointestinal surgery (Acute) Hyperlipidemia (Acute) History of colonoscopy (Acute ~07/2018) History of coronary artery bypass graft x 6 (Acute ~10/2017) Colon cancer (Acute ~07/2018) Anemia (Acute ~06/2018) Osteoarthritis (Acute) Back pain (Acute) Myocardial infarction (Acute ~10/2017) 63-year-old male status post ileostomy for anastomotic leak 1. Patient's vitals and labs appear stable this morning. He is only having bowel sweat out of ileostomy. If he is not having any bilious output from his ileostomy by this afternoon I will order a KUB for tomorrow. I would like to start a diet soon but he may have a prolonged ileus due to the amount of infection from his anastomotic leak. 2. Continue antibiotics per ID 3. PPI, SCDs, n.p.o. IV fluids, Lovenox Andi Serna MD Pager: [facility] [address] [place] [address], [address] [place] [address] Office:
[2018-11-08] MEDS: Enoxaparin 40 MG/0.4 ML Syringe SC (08:46)
[2018-11-08] MEDS: Losartan Potassium 50 MG Tablet PO (08:47)
[2018-11-08] MEDS: Loratadine 10 MG Tablet PO (08:47)
[2018-11-08] MEDS: Linezolid 600 MG 600 MG/300 ML BAG 200 MG IV ×2 (08:48→22:20)
[2018-11-08] MEDS: Pantoprazole Sodium 20 MG Tablet PO (08:51)
--- NOTE | 2018-11-08 09:32 | NURSING ---
Removed the appliances from the ileostomy and the mucous fistula. the peristomal skin is intact. pt had approx 50 cc's of brown liquid stool in the ileostomy appliance. pt denies much abdominal discomfort. states just when I get up and move around. the stoma is well budded and pink. measures approx 1 3/4. cleansed peristomal skin with warm water and pat dry. applied a 2 piece flat [place] appliance with a small amount of stoma paste. applied a 1 piece flat [place] appliance over the mucous fistula. once the drainage slows, can most likely just apply a dry dressing over the mucous fistula rather than a pouching system. pt tolerated well. denies further needs at this time. daughter present in room during dressing and ostomy appliance change. will continue to follow.
--- NOTE | 2018-11-08 09:39 | NURSING ---
stoma photo: mucous fistula left upper abdomen
--- NOTE | 2018-11-08 09:41 | NURSING ---
wound/stoma photo: midline abdominal incision and ileostomy right lower abdomen
--- NOTE | 2018-11-08 10:02 | CASEMGMT ---
Social Work Note ZIA Celaya updated this worker that pt's daughter is requesting information/resources regarding paying utilities/bills. Pt is from [facility]. SW provided pt with list of resources including [place] [address] directory of resources in [facility], [employer]ities, [facility] Agency on Aging, and HEAP program information. Pt thanked this worker, denied additional needs or concerns at this time. Aruna Acosta CHOCOLATE PRODUCTION MACHINE OPERATOR, SHIP CEILER
--- NOTE | 2018-11-08 11:02 | PN.ID_ITS ---
Patient Problems: Active and Suspected Problems (Last Reviewed 11/01/18 @ 13:35 by Alexandre Salazar MD) Incisional infection (Acute) Anastomotic leak of intestine (Acute) Subjective: Feeling about the same, taking some sips. No fever. - Physical Exam General: Alert, Cooperative, No apparent distress Lungs: Clear to auscultation, Normal air movement Cardiovascular: Regular rate, Regular Rhythm Abdomen: Soft, Non Tender, Non-Distended, - - ostomy in place Skin: No rashes Vital Signs Temp Pulse Resp BP Pulse Ox 99.1 F 94 18 144/91 H 92 11/08/18 08:40 11/08/18 09:04 11/08/18 09:04 11/08/18 08:40 11/08/18 09:04 Oxygen Flow Rate (L/min) 2 Oxygen Delivery Method Room Air Weight: 98.061 kg Body Mass Index (BMI) 27.0 Intake and Output for Last 24 Hours 11/06/18 11/07/18 11/08/18 23:59 23:59 23:59 Intake Total 6083 / 6083 2591 / 2591 1410 / 1410 Output Total 1205 / 1205 1808 / 1808 1100 / 1100 Balance 4878 / 4878 783 / 783 310 / 310 Microbiology Past 72 Hours 11/02/18 09:00 Gram Stain - Final Wound - Abdominal Wound Culture - Final Pseudomonas aeroginosa Enterococcus faecalis Staphylococcus epidermidis Anaerobic Culture - Preliminary Presumptive B. fragilis group Prevotella loescheii 11/02/18 09:00 Gram Stain - Final Wound Drainage - Aerobic & Anaerobic Swabs Wound Culture - Final Pseudomonas aeroginosa Enterococcus faecalis Staphylococcus epidermidis Anaerobic Culture - Final Presumptive B. fragilis group Anaerobic cocci Clostridium group Laboratory Tests Past 24 Hrs 11/08/18 11/08/18 06:20 06:20 WBC 10.6 RBC 3.35 L Hgb 8.7 L Hct 30.1 L MCV 89.9 MCH 26.0 L MCHC 28.9 L RDW 17.5 H RDW Differential 56.4 H Plt Count 244 MPV 8.2 Immature Gran % (Auto) 0.500 Neut % (Auto) 81.8 H Lymph % (Auto) 5.4 L [place] % (Auto) 11.5 H Eos % (Auto) 0.6 Baso % (Auto) 0.2 Absolute Neuts (auto) 8.6 H Absolute Lymphs (auto) 0.57 L Total Counted Not Reportable Platelet Estimate ADEQUATE Hypochromasia 1+ Ovalocytes 2+ Sodium 136 Potassium 3.9 Chloride 111 H Carbon Dioxide 15.0 L Anion Gap 10 BUN 17 Creatinine 1.39 H Estim Creat Clear Calc 66.70 Est GFR (MDRD) Af Amer 67 Est GFR (MDRD) Non-Af 55 L BUN/Creatinine Ratio 12.2 Glucose 94 Calcium 8.0 L Medical Necessity - Tobacco Use Smoking Status: Never smoker Tobacco Use: Non-smoker Route of nutrition/ use of supplements: [] Nutritional Intake: [] IV Site: [] Telles Catheter: [] - Assessment/Plan Antibiotics: [] Assessment/Plan: [] Active and Suspected Problems (Last Reviewed 11/01/18 @ 13:35 by Alexandre Salazar MD) Incisional infection (Acute) Anastomotic leak of intestine (Acute) S/p R hemicolectomy complicated by recurrent anastamotic leak. 11/02 wound cx with PsA, e. faecalis, MRSE, and multiple anaerobes including B. frag. Taken to OR 11/[address] Serna for ex lap, resection of prior anastomosis, and creation of end ileostomy and mucus fistula. Continue zosyn, added linezolid for MRSE coverage. ROXANN improved. Discharge plan would be for oral abx once he is able to take po. Will follow
--- NOTE | 2018-11-08 13:01 | NURSING ---
Abdominal dressing is clean and dry at this time. there is a minimal amount of liquid brown stool in the the ileostomy appliance. pt states he has not been out of bed yet today. Encouraged patient again to be up and moving around. Pt states he plans to get up later this afternoon.
[2018-11-08] MEDS: Piperacil/Tazobactam 4.5 GM in NS100 MBP IV ×2 (14:27→21:17)
[2018-11-08] MEDS: Tamsulosin HCl 0.4 MG Capsule PO (17:21)
[2018-11-08] MEDS: Metoprolol Tartrate 100 MG Tablet PO ×2 (17:21→21:21)
[2018-11-08] MEDS: Atorvastatin Calcium 40 MG Tablet PO (21:21)
[2018-11-09] VITALS (8 sets, daily range): BP systolic 118–137; BP diastolic 70–90; PULSE 60–99; RESP 18; TEMP 36.7–37; O2SAT 93–98
[2018-11-09] MEDS: HYDROmorphone 1 MG/ML Syringe IV ×5 (03:14→22:33)
[2018-11-09] MEDS: Piperacil/Tazobactam 4.5 GM in NS100 MBP IV ×3 (06:09→22:24)
[2018-11-09] MEDS: ChlorproMAZINE 25 MG Tablet PO ×2 (06:09→22:40)
--- NOTE | 2018-11-09 07:34 | PN.SURG_ITS ---
Patient Problems: Active and Suspected Problems (Last Reviewed 11/01/18 @ 13:35 by Alexandre Salazar MD) Incisional infection (Acute) Anastomotic leak of intestine (Acute) Subjective: Patient states that his pain is improving. He is ambulating some. Significant more output from ileostomy over the last 12 hours. Objective: Abdomen is soft. Discussed wound care with ostomy nurse everything is starting to heal at this point. - Physical Exam Vital Signs Temp Pulse Resp BP Pulse Ox 98.6 F 92 18 123/90 H 93 11/09/18 02:30 11/09/18 02:30 11/09/18 02:30 11/09/18 02:30 11/09/18 02:30 Oxygen Flow Rate (L/min) 2 Oxygen Delivery Method Room Air Weight: 216 lb 3 oz Body Mass Index (BMI) 27.0 Intake and Output for Last 24 Hours 11/07/18 11/08/18 11/09/18 23:59 23:59 23:59 Intake Total 2591 / 2591 2997 / 2997 1896 / 1896 Output Total 1808 / 1808 1500 / 1500 1425 / 1425 Balance 783 / 783 1497 / 1497 471 / 471 Microbiology Past 72 Hours 11/02/18 09:00 Gram Stain - Final Wound - Abdominal Wound Culture - Final Pseudomonas aeroginosa Enterococcus faecalis Staphylococcus epidermidis Anaerobic Culture - Preliminary Presumptive B. fragilis group Prevotella species Gram negative martha 11/02/18 09:00 Gram Stain - Final Wound Drainage - Aerobic & Anaerobic Swabs Wound Culture - Final Pseudomonas aeroginosa Enterococcus faecalis Staphylococcus epidermidis Anaerobic Culture - Final Presumptive B. fragilis group Anaerobic cocci Clostridium group Laboratory Tests Past 24 Hrs 11/08/18 11/09/18 11/09/18 06:20 07:03 07:03 WBC 10.6 Pending RBC 3.35 L Pending Hgb 8.7 L Pending Hct 30.1 L Pending MCV 89.9 Pending MCH 26.0 L Pending MCHC 28.9 L Pending RDW 17.5 H Pending RDW Differential 56.4 H Pending Plt Count 244 Pending MPV 8.2 Immature Gran % (Auto) 0.500 Neut % (Auto) 81.8 H Pending Lymph % (Auto) 5.4 L [place] % (Auto) 11.5 H Eos % (Auto) 0.6 Baso % (Auto) 0.2 Absolute Neuts (auto) 8.6 H Pending Absolute Lymphs (auto) 0.57 L Total Counted Not Reportable Pending Platelet Estimate ADEQUATE Hypochromasia 1+ Ovalocytes 2+ Sodium Pending Potassium Pending Chloride Pending Carbon Dioxide Pending Anion Gap Pending BUN Pending Creatinine Pending Est GFR (MDRD) Af Amer Pending Est GFR (MDRD) Non-Af Pending BUN/Creatinine Ratio Pending Glucose Pending Calcium Pending Capacity - Capacity Assessment Tool Can the patient make a choice & communicate that choice?: Yes Can the patient understand benefits, risks and alternatives?: Yes Can the patient make a logical, rational choice?: Yes Is the choice the patient makes consistent w/ their values?: Yes Is there an impending, emergent risk to the patient?: Yes Does the patient have an Advance Directive?: Yes Is there a Surrogate Available?: Yes Medical Necessity - Tobacco Use Smoking Status: Never smoker Tobacco Use: Non-smoker Assessment/Plan All Active Problems (Last Reviewed 11/01/18 @ 13:35 by Alexandre Salazar MD) Incisional infection (Acute) Anastomotic leak of intestine (Acute) Postoperative urinary retention (Acute) Ileocolic anastomotic leak (Acute) Hx of exploratory laparotomy (Acute) Hx of umbilical hernia repair (Acute) Hx of right hemicolectomy (Acute) Colon cancer (Acute) Umbilical hernia (Acute) Ileus following gastrointestinal surgery (Acute) Hyperlipidemia (Acute) History of colonoscopy (Acute ~07/2018) History of coronary artery bypass graft x 6 (Acute ~10/2017) Colon cancer (Acute ~07/2018) Anemia (Acute ~06/2018) Osteoarthritis (Acute) Back pain (Acute) Myocardial infarction (Acute ~10/2017) We will advance diet to full's and then advance diet to regular. Laboratory values are pending for this morning. Heart rate is coming down urine output is adequate.
[2018-11-09 07:37] LABS: Absolute Lymphocyte Count 0.53 X10^3/ul (0.83-4.51); Absolute Neutrophil Count 9.5 X10^3/uL (2.0-7.7); Basophil# 0.02 X10^3/uL; Basophil% 0.2 % (0-1); Eosinophil# 0.09 X10^3/uL; Eosinophils% 0.8 % (0-5); Hematocrit 33.4 % (40-54); Hemoglobin 10.6 g/dl (13.0-16.5); Lymphocyte # 0.53 X10^3/ul (4.0); Lymphocyte % 4.6 % (19-41); Mean Corp Hgb Conc 31.7 g/gl (32-36); Mean Corpuscular Hgb 26.5 pg (27.0-32.0); Mean Corpuscular Volume 83.5 fL (80-94); Mean Platelet Vol. 8.1 fl (6.2-12.0); Monocyte# 1.32 X10^3/uL; Monocyte% 11.5 % (0-10); Neutrophil # 9.51 X10^3/uL (2.7-7.7); Neutrophil % 82.5 % (47-70); Platelet Count 414 K/mm3 (150-450); RBC Distribution Width CV 16.3 % (11.6-14.6); RBC Distribution Width SD 47.8 fl (35.1-43.9); White Blood Count 11.5 K/mm3 (4.4-11.0)
[2018-11-09 07:39] LABS: Differential Indicated SCAN CRITERIA MET; POSITIVE COUNT NO; POSITIVE DIFFERENTIAL YES; POSITIVE MORPHOLOGY NO
[2018-11-09 07:51] LABS: Anion Gap 11 (5-15); BUN 19 mg/dL (7-18); BUN/Creat Ratio 16.2 RATIO (10-20); Calcium,Total 8.4 mg/dL (8.5-10.1); Chloride 111 mmol/L (98-107); Creatinine, Serum 1.17 mg/dL (0.70-1.30); EST Glomerular Filtration Rate 67 mL/min (>60); Est Glom Filt Rate - Afr Amer 82 mL/min (>60); Estimated Creatinine Clearance 79.24 ml/min; Glucose 116 mg/dL (74-106); Potassium 3.8 mmol/L (3.5-5.1); Sodium Level 141 mmol/L (136-145)
[2018-11-09] MEDS: 0.9% Normal Saline 1,000 ML 125 ML IV ×2 (08:24→18:28)
[2018-11-09] MEDS: Loratadine 10 MG Tablet PO (10:27)
[2018-11-09] MEDS: Losartan Potassium 50 MG Tablet PO (10:27)
[2018-11-09] MEDS: 0.9% NaCl Peripheral Flush Adult/Peds IV ×2 (10:27→17:34)
[2018-11-09] MEDS: Enoxaparin 40 MG/0.4 ML Syringe SC (10:28)
[2018-11-09] MEDS: Linezolid 600 MG 600 MG/300 ML BAG 200 MG IV ×2 (10:30→22:30)
[2018-11-09] MEDS: Pantoprazole Sodium 20 MG Tablet PO (10:30)
--- NOTE | 2018-11-09 11:17 | NURSING ---
Pt is having large volume of output from the ileostomy this am. output is a watery brown/green. ZIA Rueda will be letting Dr Salazar know the amount of output when she updates him this afternoon. Pt tolerated dressing change well and denies much discomfort. No further needs voiced at this time. will continue to follow.
--- NOTE | 2018-11-09 13:23 | PN.ID_ITS ---
Patient Problems: Active and Suspected Problems (Last Reviewed 11/01/18 @ 13:35 by Alexandre Salazar MD) Incisional infection (Acute) Anastomotic leak of intestine (Acute) Subjective: Feeling about the same, diet advanced a little. Abd pain stable, no fever, now having some ostomy output. - Physical Exam General: Alert, Cooperative, No apparent distress Lungs: Clear to auscultation, Normal air movement Cardiovascular: Regular rate, Regular Rhythm Abdomen: Soft, Non Tender, Non-Distended Skin: No rashes Vital Signs Temp Pulse Resp BP Pulse Ox 98.1 F 88 18 134/88 H 95 11/09/18 08:30 11/09/18 08:30 11/09/18 08:43 11/09/18 08:30 11/09/18 08:30 Oxygen Flow Rate (L/min) 2 Oxygen Delivery Method Room Air Weight: 98.061 kg Body Mass Index (BMI) 27.0 Intake and Output for Last 24 Hours 11/07/18 11/08/18 11/09/18 23:59 23:59 23:59 Intake Total 2591 / 2591 2997 / 2997 3146 / 3146 Output Total 1808 / 1808 1500 / 1500 3975 / 3975 Balance 783 / 783 1497 / 1497 -829 / -829 Microbiology Past 72 Hours 11/02/18 09:00 Gram Stain - Final Wound - Abdominal Wound Culture - Final Pseudomonas aeroginosa Enterococcus faecalis Staphylococcus epidermidis Anaerobic Culture - Preliminary Presumptive B. fragilis group Prevotella species Gram negative martha 11/02/18 09:00 Gram Stain - Final Wound Drainage - Aerobic & Anaerobic Swabs Wound Culture - Final Pseudomonas aeroginosa Enterococcus faecalis Staphylococcus epidermidis Anaerobic Culture - Final Presumptive B. fragilis group Anaerobic cocci Clostridium group Laboratory Tests Past 24 Hrs 11/09/18 11/09/18 07:03 07:03 WBC 11.5 H RBC 4.00 L Hgb 10.6 L Hct 33.4 L MCV 83.5 MCH 26.5 L MCHC 31.7 L RDW 16.3 H RDW Differential 47.8 H Plt Count 414 MPV 8.1 Immature Gran % (Auto) 0.400 Neut % (Auto) 82.5 H Lymph % (Auto) 4.[address] [place] % (Auto) 11.5 H Eos % (Auto) 0.8 Baso % (Auto) 0.2 Absolute Neuts (auto) 9.5 H Absolute Lymphs (auto) 0.53 L Total Counted Not Reportable Sodium 141 Potassium 3.8 Chloride 111 H Carbon Dioxide 19.0 L Anion Gap 11 BUN 19 H Creatinine 1.17 Estim Creat Clear Calc 79.24 Est GFR (MDRD) Af Amer 82 Est GFR (MDRD) Non-Af 67 BUN/Creatinine Ratio 16.2 Glucose 116 H Calcium 8.4 L Medical Necessity - Tobacco Use Smoking Status: Never smoker Tobacco Use: Non-smoker Route of nutrition/ use of supplements: [] Nutritional Intake: [] IV Site: [] Telles Catheter: [] - Assessment/Plan Antibiotics: [] Assessment/Plan: [] Active and Suspected Problems (Last Reviewed 11/01/18 @ 13:35 by Alexandre Salazar MD) Incisional infection (Acute) Anastomotic leak of intestine (Acute) S/p R hemicolectomy complicated by recurrent anastamotic leak. 11/02 wound cx with PsA, e. faecalis, MRSE, and multiple anaerobes including B. frag. Taken to OR 11/[address] Serna for ex lap, resection of prior anastomosis, and creation of end ileostomy and mucus fistula. Continue zosyn, added linezolid for MRSE coverage. ROXANN improved. Discharge plan would be for oral cipro 500mg qday, oral linezolid 600mg bid, and oral flagyl 500mg tid with stop date 11/12/18 for one week total of abx s/p surgery with good source control. Will follow
--- NOTE | 2018-11-09 15:20 | NURSING ---
Ileostomy appliance emptied for another 850 cc's watery liquid brown/green stool. Pt just started eating solid foods. Has not been up out of bed much. pain has been more controlled today though. Pt will most likely be in the hospital through the weekend. Pt's friend has not been in yet to observe ostomy/wound care. Pt now states he is unsure that she will feel comfortable enough to do the dressing changes and ostomy care. Home Health will need arranged as well. There is a script on the chart for ostomy supplies that will need signed by the surgeon. Will continue to follow.
--- NOTE | 2018-11-09 16:13 | CASEMGMT ---
ZIA ALMONTE followed-up with patient regarding discharge plans and is agreeable to [facility]. ZIA ALMONTE contacted Cristina Kilpatrick at [place] [phone] ext [phone] regarding HHC that was setup on previous admission. Per Cristina [facility] for referred to previously P: [phone] F: [phone]. ZIA ALMONTE called [facility] and referral sent for C. Per nursing, anticipate patient will be here through the weekend. CM will continue to follow this patient and plan for a safe discharge.
[2018-11-09] MEDS: Tamsulosin HCl 0.4 MG Capsule PO (17:31)
[2018-11-09] MEDS: Metoprolol Tartrate 100 MG Tablet PO ×2 (17:31→22:36)
[2018-11-09] MEDS: Atorvastatin Calcium 40 MG Tablet PO (22:36)
[2018-11-10] VITALS (7 sets, daily range): BP systolic 131–146; BP diastolic 73–95; PULSE 80–100; RESP 18; TEMP 36.8–37.2; O2SAT 94–98
[2018-11-10] MEDS: 0.9% Normal Saline 1,000 ML 125 ML IV ×3 (03:48→21:19)
[2018-11-10] MEDS: ChlorproMAZINE 25 MG Tablet PO ×2 (06:46→21:12)
[2018-11-10] MEDS: Piperacil/Tazobactam 4.5 GM in NS100 MBP IV ×3 (06:46→21:17)
[2018-11-10] MEDS: HYDROmorphone 1 MG/ML Syringe IV ×4 (06:52→21:12)
--- NOTE | 2018-11-10 08:01 | PCM.PN.SRG ---
Patient Problems: Active and Suspected Problems (Last Reviewed 11/01/18 @ 13:35 by Alexandre Salazar MD) Incisional infection (Acute) Anastomotic leak of intestine (Acute) Subjective: Patient had a good nights of sleep. His pain is improving. He is tolerating a diet. Objective: His abdomen is soft. It is slightly distended and the retention sutures are under a moderate amount of tension. The wound itself looks clean there is no signs of drainage or in the early development of granulation tissue. Mucous fistula looks good and significant output is still coming from the ileostomy. - Physical Exam Vital Signs Temp Pulse Resp BP Pulse Ox 98.9 F 80 18 131/73 H 94 11/10/18 03:46 11/10/18 03:46 11/10/18 03:46 11/10/18 03:46 11/10/18 03:46 Oxygen Flow Rate (L/min) 2 Oxygen Delivery Method Room Air Weight: 216 lb 3 oz Body Mass Index (BMI) 27.0 Intake and Output for Last 24 Hours 11/08/18 11/09/18 11/10/18 23:59 23:59 23:59 Intake Total 2997 / 2997 4296 / 4296 2098 / 2098 Output Total 1500 / 1500 7075 / 7075 2175 / 2175 Balance 1497 / 1497 -2779 / -2779 -77 / -77 Microbiology Past 72 Hours 11/02/18 09:00 Gram Stain - Final Wound - Abdominal Wound Culture - Final Pseudomonas aeroginosa Enterococcus faecalis Staphylococcus epidermidis Anaerobic Culture - Preliminary Presumptive B. fragilis group Prevotella species Gram negative martha 11/02/18 09:00 Gram Stain - Final Wound Drainage - Aerobic & Anaerobic Swabs Wound Culture - Final Pseudomonas aeroginosa Enterococcus faecalis Staphylococcus epidermidis Anaerobic Culture - Final Presumptive B. fragilis group Anaerobic cocci Clostridium group Medical Necessity - Tobacco Use Smoking Status: Never smoker Tobacco Use: Non-smoker Assessment/Plan All Active Problems (Last Reviewed 11/01/18 @ 13:35 by Alexandre Salazar MD) Incisional infection (Acute) Anastomotic leak of intestine (Acute) Postoperative urinary retention (Acute) Ileocolic anastomotic leak (Acute) Hx of exploratory laparotomy (Acute) Hx of umbilical hernia repair (Acute) Hx of right hemicolectomy (Acute) Colon cancer (Acute) Umbilical hernia (Acute) Ileus following gastrointestinal surgery (Acute) Hyperlipidemia (Acute) History of colonoscopy (Acute ~07/2018) History of coronary artery bypass graft x 6 (Acute ~10/2017) Colon cancer (Acute ~07/2018) Anemia (Acute ~06/2018) Osteoarthritis (Acute) Back pain (Acute) Myocardial infarction (Acute ~10/2017) He is continuing to get his IV antibiotics. Was starting to notice some fluid shifts. Overall small improvement. White count is slightly elevated.
[2018-11-10] MEDS: Loratadine 10 MG Tablet PO (09:12)
[2018-11-10] MEDS: Pantoprazole Sodium 20 MG Tablet PO (09:12)
[2018-11-10] MEDS: Losartan Potassium 50 MG Tablet PO (09:12)
[2018-11-10] MEDS: Enoxaparin 40 MG/0.4 ML Syringe SC (09:12)
[2018-11-10] MEDS: Linezolid 600 MG 600 MG/300 ML BAG 200 MG IV ×2 (09:15→21:17)
[2018-11-10] MEDS: 0.9% NaCl Peripheral Flush Adult/Peds IV (10:40)
[2018-11-10] MEDS: Metoprolol Tartrate 100 MG Tablet PO ×2 (17:06→21:16)
[2018-11-10] MEDS: Tamsulosin HCl 0.4 MG Capsule PO (17:06)
[2018-11-10] MEDS: Atorvastatin Calcium 40 MG Tablet PO (21:16)
[2018-11-11 03:00] VITALS: BP 132/79; PULSE 82; RESP 18; TEMP 37.5; O2SAT 96
[2018-11-11] MEDS: oxyCODONE 5 MG Tablet PO ×2 (03:19→17:15)
[2018-11-11] MEDS: Piperacil/Tazobactam 4.5 GM in NS100 MBP IV ×3 (05:30→21:45)
[2018-11-11] MEDS: 0.9% Normal Saline 1,000 ML 125 ML IV ×2 (06:31→17:40)
[2018-11-11] MEDS: HYDROmorphone 0.5 MG/0.5 ML SYRINGE IV (06:34)
--- NOTE | 2018-11-11 08:53 | PCM.PN.SRG ---
Patient Problems: Active and Suspected Problems (Last Reviewed 11/01/18 @ 13:35 by Alexandre Salazar MD) Incisional infection (Acute) Anastomotic leak of intestine (Acute) Subjective: There has been some slight thickening of the fluid coming out of his ostomy. His abdominal pain is improving. Objective: His wound looks good granulation tissue is starting. Both stomas look viable. There is no rebound guarding or peritoneal signs identified. Retention sutures are under slight tension. - Physical Exam Vital Signs Temp Pulse Resp BP Pulse Ox 99.5 F H 82 18 132/79 H 96 11/11/18 03:00 11/11/18 03:00 11/11/18 03:00 11/11/18 03:00 11/11/18 03:00 Oxygen Flow Rate (L/min) 2 Oxygen Delivery Method Room Air Weight: 216 lb 3 oz Body Mass Index (BMI) 27.0 Intake and Output for Last 24 Hours 11/09/18 11/10/18 11/11/18 23:59 23:59 23:59 Intake Total 4296 / 4296 5908 / 5908 912 / 912 Output Total 7075 / 7075 5500 / 5500 825 / 825 Balance -2779 / -2779 408 / 408 87 / 87 Microbiology Past 72 Hours 11/02/18 09:00 Gram Stain - Final Wound - Abdominal Wound Culture - Final Pseudomonas aeroginosa Enterococcus faecalis Staphylococcus epidermidis Anaerobic Culture - Final Presumptive B. fragilis group Prevotella species Gram negative martha 11/02/18 09:00 Gram Stain - Final Wound Drainage - Aerobic & Anaerobic Swabs Wound Culture - Final Pseudomonas aeroginosa Enterococcus faecalis Staphylococcus epidermidis Anaerobic Culture - Final Presumptive B. fragilis group Anaerobic cocci Clostridium group Medical Necessity - Tobacco Use Smoking Status: Never smoker Tobacco Use: Non-smoker Assessment/Plan All Active Problems (Last Reviewed 11/01/18 @ 13:35 by Alexandre Salazar MD) Incisional infection (Acute) Anastomotic leak of intestine (Acute) Postoperative urinary retention (Acute) Ileocolic anastomotic leak (Acute) Hx of exploratory laparotomy (Acute) Hx of umbilical hernia repair (Acute) Hx of right hemicolectomy (Acute) Colon cancer (Acute) Umbilical hernia (Acute) Ileus following gastrointestinal surgery (Acute) Hyperlipidemia (Acute) History of colonoscopy (Acute ~07/2018) History of coronary artery bypass graft x 6 (Acute ~10/2017) Colon cancer (Acute ~07/2018) Anemia (Acute ~06/2018) Osteoarthritis (Acute) Back pain (Acute) Myocardial infarction (Acute ~10/2017) Will need to get social work involved. I think that he would do much better at home with home health nurse coming in once a day for dressing changes.
[2018-11-11] MEDS: Enoxaparin 40 MG/0.4 ML Syringe SC (10:30)
[2018-11-11] MEDS: Loratadine 10 MG Tablet PO (10:30)
[2018-11-11] MEDS: Losartan Potassium 50 MG Tablet PO (10:30)
[2018-11-11] MEDS: Pantoprazole Sodium 20 MG Tablet PO (10:30)
[2018-11-11] MEDS: HYDROmorphone 1 MG/ML Syringe IV ×4 (10:31→22:31)
[2018-11-11] MEDS: Linezolid 600 MG 600 MG/300 ML BAG 200 MG IV ×2 (10:31→22:31)
[2018-11-11] MEDS: 0.9% NaCl Peripheral Flush Adult/Peds IV ×3 (10:32→22:32)
[2018-11-11 10:37] VITALS: BP 132/85; PULSE 76; RESP 18; TEMP 36.9; O2SAT 98
[2018-11-11 13:23] VITALS: BP 150/92; PULSE 87
[2018-11-11] MEDS: Metoprolol Tartrate 100 MG Tablet PO ×2 (13:23→21:45)
[2018-11-11 14:01] VITALS: BP 150/92; PULSE 87; RESP 16; TEMP 36.8; O2SAT 98
[2018-11-11] MEDS: Tamsulosin HCl 0.4 MG Capsule PO (17:30)
[2018-11-11 20:00] VITALS: BP 142/86; PULSE 91; RESP 18; TEMP 37.1; O2SAT 97
[2018-11-11 21:45] VITALS: PULSE 85
[2018-11-11] MEDS: Atorvastatin Calcium 40 MG Tablet PO (21:45)
[2018-11-12 02:00] VITALS: BP 143/86; PULSE 75; RESP 16; TEMP 36.7; O2SAT 97
[2018-11-12] MEDS: oxyCODONE 5 MG Tablet PO ×2 (02:11→09:19)
[2018-11-12] MEDS: 0.9% Normal Saline 1,000 ML 125 ML IV (04:13)
[2018-11-12] MEDS: Piperacil/Tazobactam 4.5 GM in NS100 MBP IV (05:43)
--- NOTE | 2018-11-12 08:53 | PCM.PN.SRG ---
Patient Problems: Active and Suspected Problems (Last Reviewed 11/01/18 @ 13:35 by Alexandre Salazar MD) Incisional infection (Acute) Anastomotic leak of intestine (Acute) Subjective: Patient seems to be doing well. He is tolerating a diet and. He is having good ileostomy output - Physical Exam General: Alert, Oriented x3, Cooperative Lungs: Normal air movement Abdomen: Soft, Non Tender, Non-Distended Vital Signs Temp Pulse Resp BP Pulse Ox 98.0 F 75 16 143/86 H 97 11/12/18 02:00 11/12/18 02:00 11/12/18 02:00 11/12/18 02:00 11/12/18 02:00 Oxygen Flow Rate (L/min) 2 Oxygen Delivery Method Room Air Weight: 216 lb 3 oz Body Mass Index (BMI) 27.0 Intake and Output for Last 24 Hours 11/10/18 11/11/18 11/12/18 23:59 23:59 23:59 Intake Total 5908 / 5908 3500 / 3500 2267 / 2267 Output Total 5500 / 5500 2275 / 2275 1700 / 1700 Balance 408 / 408 1225 / 1225 567 / 567 Microbiology Past 72 Hours 11/02/18 09:00 Gram Stain - Final Wound - Abdominal Wound Culture - Final Pseudomonas aeroginosa Enterococcus faecalis Staphylococcus epidermidis Anaerobic Culture - Final Presumptive B. fragilis group Prevotella species Gram negative martha Medical Necessity - Tobacco Use Smoking Status: Never smoker Tobacco Use: Non-smoker Assessment/Plan All Active Problems (Last Reviewed 11/01/18 @ 13:35 by Alexandre Salazar MD) Incisional infection (Acute) Anastomotic leak of intestine (Acute) Postoperative urinary retention (Acute) Ileocolic anastomotic leak (Acute) Hx of exploratory laparotomy (Acute) Hx of umbilical hernia repair (Acute) Hx of right hemicolectomy (Acute) Colon cancer (Acute) Umbilical hernia (Acute) Ileus following gastrointestinal surgery (Acute) Hyperlipidemia (Acute) History of colonoscopy (Acute ~07/2018) History of coronary artery bypass graft x 6 (Acute ~10/2017) Colon cancer (Acute ~07/2018) Anemia (Acute ~06/2018) Osteoarthritis (Acute) Back pain (Acute) Myocardial infarction (Acute ~10/2017) 63-year-old male with wound infection diverting ileostomy 1. The patient seems to be doing well with a diet. He has good ostomy output. Ensure shakes for nutrition. 2. Urinary retention-patient would like to reattempt voiding trial today. 3. Antibiotics continue per ID. 4. Discharge planning soon. The patient's friend is coming in to learn dressing changes as well as ostomy care from Belia today. Andi Serna MD Pager: [facility] [address] [place] [address] [address] [place] [address] Office:
--- NOTE | 2018-11-12 08:57 | NURSING ---
In to assess abdominal dressing and ostomy appliances. Pt states that he called his friend to come in so she can observe dressing and appliance changes. His friend will be assisting with these at home as well as home health. dressing is currently D&I. ileostomy emptied for 300 cc's soft liquid brown stool. less watery today. Pt states he is not ready to empty his appliance yet. educated patient that he will need to be doing this in order to go home. states he will do it when he has to. will continue to follow for wound/ostomy care and education.
[2018-11-12] MEDS: Linezolid 600 MG 600 MG/300 ML BAG 200 MG IV (09:12)
[2018-11-12] MEDS: Enoxaparin 40 MG/0.4 ML Syringe SC (09:13)
[2018-11-12] MEDS: Loratadine 10 MG Tablet PO (09:13)
[2018-11-12] MEDS: Losartan Potassium 50 MG Tablet PO (09:13)
[2018-11-12] MEDS: Pantoprazole Sodium 20 MG Tablet PO (09:19)
[2018-11-12 09:45] VITALS: BP 144/85; PULSE 78; RESP 18; TEMP 36.7; O2SAT 97
--- NOTE | 2018-11-12 12:48 | NURSING ---
photo: mucous fistula left upper abdomen
--- NOTE | 2018-11-12 12:50 | NURSING ---
wound photo: mid lower abdomen
--- NOTE | 2018-11-12 13:26 | NURSING ---
Pt's friend Bernie in to observe ostomy change and dressing/packing change. Bernie states that she has changed ostomy appliances in the past because a previous boyfriend had a urostomy. Bernie also states that she had been changing the patient's dressing prior to this admission as well. removed the ostomy appliance from the right lower abdomen. stoma is beefy red and well budded. peristomal skin is intact. stoma measures approx. 1 1/2 and is round in shape. cleansed the peristomal skin with warm water. pat dry. applied a 2 piece flat Dameron appliance with a small amount of stoma paste. Pt states he emptied his appliance earlier this am and feels comfortable doing this at home. Bernie states she should be able to change the ostomy appliance 2-3 times a week. Pt will also have home health nurse as well. removed the ostomy applied from the mucous fistula. not much drainage noted. plan to just apply a dry dressing over the fistula. this can be changed daily and as needed for drainage. dressing and packing removed from the abdominal wound. retention sutures remain in place. wound dimensions improved. wound granulating well. no periwound erythema noted. patient had a moderate amount of serosanguineous drainage with one small area with perez drainage noted. no odor. irrigated wound with NS and repacked wound with NS moistened gauze. covered with ABD pads and secured with Medipore tape. friend Bernie denies questions. pt had escoto cath removed this am and has not been able to void as of yet. possible discharge later today or tomorrow according to the patient. will continue education. script on chart for ostomy supplies. Student Support Counselor will send copy of script to home health and send the original with the patient. no further needs voiced at this time.
[2018-11-12 14:11] VITALS: BP 171/88; PULSE 94
[2018-11-12] MEDS: Metoprolol Tartrate 100 MG Tablet PO ×2 (14:11→21:43)
--- NOTE | 2018-11-12 14:43 | PCM.PN.ID ---
Patient Problems: Active and Suspected Problems (Last Reviewed 11/01/18 @ 13:35 by Alexandre Salazar MD) Incisional infection (Acute) Anastomotic leak of intestine (Acute) Subjective: Feeling ok, no fever. having ostomy output. - Physical Exam General: Alert, Cooperative, No apparent distress Lungs: Clear to auscultation, Normal air movement Cardiovascular: Regular rate, Regular Rhythm Abdomen: Soft, Non Tender, Non-Distended Skin: No rashes Vital Signs Temp Pulse Resp BP Pulse Ox 98.0 F 94 18 171/88 H 97 11/12/18 09:45 11/12/18 14:11 11/12/18 09:45 11/12/18 14:11 11/12/18 09:45 Oxygen Flow Rate (L/min) 2 Oxygen Delivery Method Room Air Weight: 98.061 kg Body Mass Index (BMI) 27.0 Intake and Output for Last 24 Hours 11/10/18 11/11/18 11/12/18 23:59 23:59 23:59 Intake Total 5908 / 5908 3500 / 3500 3592 / 3592 Output Total 5500 / 5500 2275 / 2275 2450 / 2450 Balance 408 / 408 1225 / 1225 1142 / 1142 Microbiology Past 72 Hours 11/02/18 09:00 Gram Stain - Final Wound - Abdominal Wound Culture - Final Pseudomonas aeroginosa Enterococcus faecalis Staphylococcus epidermidis Anaerobic Culture - Final Presumptive B. fragilis group Prevotella species Gram negative martha Medical Necessity - Tobacco Use Smoking Status: Never smoker Tobacco Use: Non-smoker Route of nutrition/ use of supplements: [] Nutritional Intake: [] IV Site: [] Telles Catheter: [] - Assessment/Plan Antibiotics: [] Assessment/Plan: [] Active and Suspected Problems (Last Reviewed 11/01/18 @ 13:35 by Alexandre Salazar MD) Incisional infection (Acute) Anastomotic leak of intestine (Acute) S/p R hemicolectomy complicated by recurrent anastamotic leak. 11/02 wound cx with PsA, e. faecalis, MRSE, and multiple anaerobes including B. frag. Taken to OR 11/[address] Serna for ex lap, resection of prior anastomosis, and creation of end ileostomy and mucus fistula. On zosyn, added linezolid for MRSE coverage. ROXANN resolved. Has completed one week of abx post-op at this point, will stop linezolid/zosyn. D/c home planned soon. Will follow
[2018-11-12] MEDS: Tamsulosin HCl 0.4 MG Capsule PO ×2 (16:36→19:42)
[2018-11-12 21:41] VITALS: BP 131/80; PULSE 84; RESP 16; TEMP 36.9; O2SAT 97
[2018-11-12 21:43] VITALS: PULSE 86
[2018-11-12] MEDS: Atorvastatin Calcium 40 MG Tablet PO (21:43)
[2018-11-13 02:49] VITALS: BP 153/94; PULSE 85; RESP 16; TEMP 36.9; O2SAT 99
--- NOTE | 2018-11-13 08:35 | NURSING ---
Pt has been doing well emptying his ostomy appliance. appliance was just changed yesterday and is intact. pt will be sent home with 3 ostomy appliances and a script for supplies for home health. Pt denies further questions or needs at this time. Did review signs and symptoms of dehydration and ways to prevent. pt aware to monitor the amount of output for a few weeks. teaching packet given. pt states understanding.
--- NOTE | 2018-11-13 08:36 | DCINST_ITS ---
Discharge Diet: Light diet - advance as tolerated Discharge Activity: May Shower Lifting Restrictions: 10 pounds Call your doctor if your incision/area has: Continuous Slow Oozing, Sudden Increased Bleeding, Increased Pain/ Swelling, Increased Redness, Foul Smelling Discharge, Swelling at the incision site Call your doctor if you observe: Fever of 101 or Higher Suture Line Care: Avoid Pulling/Pushing, Avoid Pinching/Bending Catheter: Telles to leg bag Additional Dressing/Incision Instructions:: Dressing changes twice a day Allergies/Adverse Reactions: Allergies triamterene Allergy (Mild, Verified 11/01/18 10:53) rash Medications to take at Discharge atorvastatin 40 mg tablet 40 mg PO DAILY 08/13/18 ferrous sulfate 325 mg (65 mg iron) tablet,delayed release 325 mg PO QHS tab 08/13/18 losartan 50 mg tablet 50 mg PO DAILY 08/13/18 metoprolol tartrate 100 mg tablet 100 mg PO 1600,2200 08/13/18 Hydroxyzine HCl 25 mg PO TID PRN PRN 10/16/18 Loratadine/Pseudo 240/10 [Claritin-D 24 Hr] 1 tab PO DAILY 10/21/18 Tamsulosin HCl [Flomax] 0.8 mg PO DAILY@1730 15 Days #30 capsule 11/13/18 traMADol [Ultram (G)] 50 - 100 mg PO Q4H PRN PRN 7 Days #40 tablet 11/13/18 The following prescriptions were given: traMADol [Ultram (G)] 50 - 100 mg PO Q4H PRN PRN 7 Days #40 tablet PRN Reason: Pain Tamsulosin HCl [Flomax] 0.8 mg PO DAILY@1730 15 Days #30 capsule Primary Care Physician: Lito Farrell MD [Primary Care Provider] - Test Results: Test results from this visit will be discussed in further detail at your follow- up appointment, if applicable. Please Follow Up With: Andi Serna MD When: Please call to schedule 1 week follow up appointment. [phone]
--- NOTE | 2018-11-13 08:36 | PCM.DC.SUM ---
Discharge Date and Diagnosis Date of Admission: 11/01/18 Date of Discharge: 11/13/18 - Primary Discharge Diagnosis Active and Suspected Problems (Last Reviewed 11/01/18 @ 13:35 by Alexandre Salazar MD) Incisional infection (Acute) Anastomotic leak of intestine (Acute) - Secondary Discharge Diagnosis Chronic Problems (Last Reviewed 11/01/18 @ 13:35 by Alexandre Salazar MD) HTN (hypertension) (Chronic) Hospital Course and Treatment Imaging Results: Clinical Impression(s) from Imaging Studies Abdomen/Pelvis CT 11/01/18 11:35 IMPRESSION: Focal collection of a tiny air bubbles in the mesentery in the left anterior mid abdomen at the site of the small bowel surgical anastomosis. This may represent either postoperative change versus persistent leak at that site. Anterior abdominal wall dehiscence. Decreased inflammatory changes in the right midabdomen and right lower quadrant. The remainder of the examination is unchanged. Electronically Signed: Michael Alex MD at 15:24 EST , Service support , Chest X-Ray 11/05/18 17:10 IMPRESSION: NG tube tip in the right mainstem bronchus Electronically Signed: Juan Taylor MD at 17:41 EST , Service support , ADDENDUM: 11/05/18 1754 IMPRESSION: NG tube tip in the right mainstem bronchus N.B. : The above information has been verbally conveyed by Juan Taylor MD to Pauly Salmon RN, on 11/05/2018 17:47:53 (ET). 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 When he came for follow-up visit he was having leakage of fluid from his wound and he was sent in for a CAT scan and admitted. CT scan did show some fluid around the anastomosis but the fistula was controlled and the output was contained. After a few days of being in the hospital on antibiotics the patient started to have increased output from his wound and it was decided that he was no longer contained and taken for laparotomy. During laparotomy the patient's anastomosis was taken down and the abscess was suctioned and irrigated. An end ileostomy was fashioned as well as mucous fistula and the wound was reapproximated with interrupted sutures as well as retention sutures. The patient had continued urinary retention with several attempts at removing and had to have it replaced and he was discharged with his Telles in place. His Flomax was increased during his hospitalization to 0.8 mg daily. The patient was discharged home in stable condition with a packed abdominal wound as well as ileostomy and Telles. The patient will be referred to a urologist and he is to follow-up with me in 1 week. - Physical Exam Vital Signs Temp Pulse Resp BP Pulse Ox 98.5 F 85 16 153/94 H 99 11/13/18 02:49 11/13/18 02:49 11/13/18 02:49 11/13/18 02:49 11/13/18 02:49 Oxygen Flow Rate (L/min) 2 Oxygen Delivery Method Room Air Weight: 216 lb 3 oz Body Mass Index (BMI) 27.0 Intake and Output for Last 24 Hours 11/11/18 11/12/18 11/13/18 23:59 23:59 23:59 Intake Total 3500 / 3500 4492 / 4492 600 / 600 Output Total 2275 / 2275 3050 / 3050 2350 / 2350 Balance 1225 / 1225 1442 / 1442 -1750 / -1750 Microbiology Past 72 Hours 11/02/18 09:00 Gram Stain - Final Wound - Abdominal Wound Culture - Final Pseudomonas aeroginosa Enterococcus faecalis Staphylococcus epidermidis Anaerobic Culture - Final Presumptive B. fragilis group Prevotella species Gram negative martha Discharge Diet: Light diet - advance as tolerated Discharge Activity: May Shower Call your doctor if your incision/area has: Continuous Slow Oozing, Sudden Increased Bleeding, Increased Pain/ Swelling, Increased Redness, Foul Smelling Discharge, Swelling at the incision site Call your doctor if you observe: Fever of 101 or Higher Suture Line Care: Avoid Pulling/Pushing, Avoid Pinching/Bending Catheter: Telles to leg bag Additional Dressing/Incision Instructions:: Dressing changes twice a day Home Medications: Medications to take at Discharge atorvastatin 40 mg tablet 40 mg PO DAILY 08/13/18 ferrous sulfate 325 mg (65 mg iron) tablet,delayed release 325 mg PO QHS tab 08/13/18 losartan 50 mg tablet 50 mg PO DAILY 08/13/18 metoprolol tartrate 100 mg tablet 100 mg PO 1600,2200 08/13/18 Hydroxyzine HCl 25 mg PO TID PRN PRN 10/16/18 Loratadine/Pseudo 240/10 [Claritin-D 24 Hr] 1 tab PO DAILY 10/21/18 Tamsulosin HCl [Flomax] 0.8 mg PO DAILY@1730 15 Days #30 capsule 11/13/18 traMADol [Ultram (G)] 50 - 100 mg PO Q4H PRN PRN 7 Days #40 tablet 11/13/18 Following Prescrptions Were Given to Patient: traMADol [Ultram (G)] 50 - 100 mg PO Q4H PRN PRN 7 Days #40 tablet PRN Reason: Pain Tamsulosin HCl [Flomax] 0.8 mg PO DAILY@1730 15 Days #30 capsule Primary Care Physician: Lito Farrell MD [Primary Care Provider] - Please Follow Up With: Andi Serna MD When: Please call to schedule 1 week follow up appointment. [phone] Medical Necessity - Tobacco Use Smoking Status: Never smoker Tobacco Use: Non-smoker Meaningful Use Info Meaningful Use Diagnoses (Choose all that apply): None applicable
--- NOTE | 2018-11-13 09:16 | CASEMGMT ---
ZIA ALMONTE notified of patient discharging today. Discharge instructions, wound notes and supplies faxed to [facility]. ZIA ALMONTE called and updated [facility] that patient is discharging today. ZIA ALMONTE notified patient that [facility] was confirmed with [facility].
[2018-11-13 09:35] VITALS: BP 148/96; PULSE 92; RESP 20; TEMP 36.8; O2SAT 96
--- NOTE | 2018-11-15 16:25 | CASEMGMT ---
ZIA CM DC PHONE CALL DC DATE: 11/13/18 DC DISPOSITION: Home LACE/STRATA: 06/27 Attempted call to listed number. no answer, and no identifiers on message, so no message left. Jimmie AVENDAÑO RN AC
== END 2018-11-13 10:00 | disposition home or self-care (01) | DRG 230 ==
PROVIDERS: Physician Assistant; Surgery; Admitting Provider Surgery; Family Provider Family Medicine; PCP Family Medicine; Referring Provider Surgery; Visit Provider Surgery
PROC: 0D1B0Z4 Bypass Ileum to Cutaneous, Open Approach (ICD-10-PCS; CPT 49000; principal; 2018-11-05 12:25)
DX: K91.89 Other postprocedural complications and disorders of digestive system (principal); T81.32XA Disruption of internal operation (surgical) wound, not elsewhere classified, initial encounter; T81.49XA Infection following a procedure, other surgical site, initial encounter; Y83.8 Other surgical procedures as the cause of abnormal reaction of the patient, or of later complication, without mention of misadventure at the time of the procedure; N17.9 Acute kidney failure, unspecified; C18.9 Malignant neoplasm of colon, unspecified; I25.2 Old myocardial infarction; E78.5 Hyperlipidemia, unspecified; Z95.1 Presence of aortocoronary bypass graft; B96.5 Pseudomonas (aeruginosa) (mallei) (pseudomallei) as the cause of diseases classified elsewhere; M19.90 Unspecified osteoarthritis, unspecified site; D64.9 Anemia, unspecified; R33.9 Retention of urine, unspecified; B95.2 Enterococcus as the cause of diseases classified elsewhere; B96.6 Bacteroides fragilis [B. fragilis] as the cause of diseases classified elsewhere; B95.7 Other staphylococcus as the cause of diseases classified elsewhere; I10 Essential (primary) hypertension; Z90.49 Acquired absence of other specified parts of digestive tract
CPT/HCPCS: 36415; 71045; 74018; 74177; 80048; 80053; 83605; 84484; 85025; 87070; 87075; 87076; 87077; 87184; 87186; 87205; 87506; 87640; 88307; 93005; 97802; J2020; J7030; J7040; J7120; P9047; Q9967; A4216; J2405; J3490

== ENCOUNTER 2018-11-19 12:43 | Emergency (ER) | payer MEDICAID, SELFPAY ==
[2018-11-05 10:47] VITALS: BMI 27.0
[2018-11-19 12:44] VITALS: BP 138/88; PULSE 127; RESP 17; TEMP 37; O2SAT 98; BMI 26.2
--- NOTE | 2018-11-19 13:19 | CT_ITS ---
STUDY: CT ABDOMEN AND PELVIS WITH CONTRAST REASON FOR EXAM: Male, 63 years old. Leakage from the mucosal stoma. RADIATION DOSAGE (If Supplied By Facility): CTDIvol = ( 15.34 ) mGy, DLP = ( 1128.15 ) mGycm TECHNIQUE: Transaxial images were obtained from the dome of the diaphragm to the symphysis pubis with oral contrast. Isovue 300 100 IV/Oral was administered. Nonionic contrast was also injected into the stoma. Sagittal and coronal images were reconstructed. Individualized dose optimization techniques were used for this CT. COMPARISON: Comparison is made with prior examination dated November 01, 2018. FINDINGS: Mild increased markings at the lung bases suggestive of developing atelectasis and/or scarring. Coronary artery calcification. Small amount of free intraperitoneal air is seen along the anterior aspect of the superior aspect of the liver. There is decreased attenuation of the liver consistent with steatosis. Small gallstones are seen along the dependent portion of the gallbladder. There now is evidence of a 3.2 cm x 2.8 cm x 3.9 cm circumscribed fluid collection in the right upper quadrant along the medial aspect of the right lobe of the liver. This may represent a localized seroma or postoperative fluid collection. A tiny air bubble is seen outside this collection anteriorly. Normal spleen. Normal pancreas. Normal bilateral adrenal glands. Normal right kidney. Normal left kidney. Normal visualized stomach. Normal small intestine. The patient is status post right hemicolectomy. An ostomy is seen in the right anterior abdominal wall. A mucous fistula is seen in the anterior left mid abdomen. Contrast was injected through this fistula. This opacifies the left hemicolon down to the sigmoid colon. Sigmoid diverticulosis. There is scattered atherosclerotic calcification of the abdominal aorta, without a demonstrated aneurysm. Normal inferior vena cava. Mild increased markings in the peritoneal fat is identified suggestive of postoperative changes. A Telles catheter seen within the decompressed urinary bladder. Postsurgical changes are seen in the deep portion of the umbilicus. Bilateral inguinal hernias containing fat. Loss of the normal lumbar lordosis. CT/Abdomen/Pelvis WITH Contrast IMPRESSION: Increased markings at the lung bases suggestive of linear atelectasis and/or scarring. Small amount of free intraperitoneal air along the anterior aspect of the liver. 3.2 cm x 2.8 cm x 3.9 cm well-circumscribed fluid collection in the right upper quadrant along the medial aspect of the right lobe of the liver. A tiny air bubble is seen outside this collection anteriorly. An ostomy seen in the right lower quadrant. Electronically Signed: Michael Alex MD at 15:40 EST , Service support ,
--- NOTE | 2018-11-19 13:21 | ED.VISSUMM ---
- ER Visit Summary Date of Service: 11/19/18 Chief Complaint: Abdominal pain History of Present Illness: The patient is a 63 M history of colon CA with partial colectomy and lymph node metastases. After the initial surgery in September he had dehiscence of the anastomosis. Had a second surgery and then possibly a third surgery. He had some type of wound drain placed in the left and has a colostomy in his right abdomen. He states since Monday he has had increasing periumbilical abdominal pain. He denies nausea or vomiting. He denies fever. He also is a chronic indwelling Telles catheter because he had difficulty urinating since the initial surgery. He denies any cough. Or shortness of breath. Physical Examination: Older male no acute distress. Vital signs are stable. He is afebrile. He does not look septic or toxic. He is in no acute distress. H EENT exam unremarkable. Neck nontender. Lungs clear to auscultation bilaterally. Heart tachycardic no murmur. Abdomen soft. Nondistended. Normal bowel sounds. He has retention sutures over his abdominal wall wound. There is a colostomy with loose stool in it. There is a drainage wound on left lateral abdomen and currently has no drainage. He said it looked like stool earlier. There is some old black blood but no stool at this time. No pus. No cellulitis. Patient moving all 4 extremities. Calves are nontender without edema. Neurologically he is awake and alert with no focal motor deficits. Test Results: CBC White count 11.4. Hemoglobin 12 hematocrit 39 which is better than his baseline. Electrolytes unremarkable creatinine 1.42. Liver enzymes unremarkable lipase slightly elevated 556. CT abdomen and pelvis with oral, IV and colostomy contrast. There is a small amount of free air along the liver edge. Also collection near the liver. Otherwise no acute process. I discussed the x-ray with radiologist. And the surgeon and I reviewed them together. Emergency Department Course and Treatment: Treated with a liter of normal saline. Patient doing well on repeat exam at 1635. Dr. Waldo Salazar of general surgery and I discussed the entire case. He came down to evaluate the patient talked to the patient himself. He is comfortable with the patient being discharged. He is to follow the patient up in several days later this week. He also has been discussed with the radiologist if he thinks the fluid collection amenable to CT-guided drainage. Patient and family are comfortable with the plan. Treatment Plan: Discharge. Follow-up with Dr. Waldo Salazar later this week. Return if worse. Disposition: Discharge Impression: Acute abdominal pain of uncertain etiology Status post recent partial colectomy with postop anastomosis dehiscence History of colon CA with lymph node metastases This note was generated with [employer] dictation software. It may contain incorrect words, spelling, and punctuation that were not noted in review of the chart prior to signing ED Disposition - Plan for ED Patient: Referrals: Lito Farrell MD [Primary Care Provider] -
--- NOTE | 2018-11-19 13:25 | ED.DCSUM_ITS ---
- ER Visit Summary Date of Service: 11/19/18 Chief Complaint: Abdominal pain History of Present Illness: The patient is a 63 M history of colon CA with partial colectomy and lymph node metastases. After the initial surgery in September he had dehiscence of the anastomosis. Had a second surgery and then possibly a third surgery. He had some type of wound drain placed in the left and has a colostomy in his right abdomen. He states since Monday he has had increasing periumbilical abdominal pain. He denies nausea or vomiting. He denies fever. He also is a chronic indwelling Telles catheter because he had difficulty urinating since the initial surgery. He denies any cough. Or shortness of breath. Physical Examination: Older male no acute distress. Vital signs are stable. He is afebrile. He does not look septic or toxic. He is in no acute distress. H EENT exam unremarkable. Neck nontender. Lungs clear to auscultation bilaterally. Heart tachycardic no murmur. Abdomen soft. Nondistended. Normal bowel sounds. He has retention sutures over his abdominal wall wound. There is a colostomy with loose stool in it. There is a drainage wound on left lateral abdomen and currently has no drainage. He said it looked like stool earlier. There is some old black blood but no stool at this time. No pus. No cellulitis. Patient moving all 4 extremities. Calves are nontender without edema. Neurologically he is awake and alert with no focal motor deficits. Test Results: CBC White count 11.4. Hemoglobin 12 hematocrit 39 which is better than his baseline. Electrolytes unremarkable creatinine 1.42. Liver enzymes unremarkable lipase slightly elevated 556. CT abdomen and pelvis with oral, IV and colostomy contrast. There is a small amount of free air along the liver edge. Also collection near the liver. Otherwise no acute process. I discussed the x-ray with radiologist. And the surgeon and I reviewed them together. Emergency Department Course and Treatment: Treated with a liter of normal saline. Patient doing well on repeat exam at 1635. Dr. Waldo Salazar of general surgery and I discussed the entire case. He came down to evaluate the patient talked to the patient himself. He is comfortable with the patient being discharged. He is to follow the patient up in several days later this week. He also has been discussed with the radiologist if he thinks the fluid collection amenable to CT- guided drainage. Patient and family are comfortable with the plan. Treatment Plan: Discharge. Follow-up with Dr. Waldo Salazar later this week. Return if worse. Disposition: Discharge Impression: Acute abdominal pain of uncertain etiology Status post recent partial colectomy with postop anastomosis dehiscence History of colon CA with lymph node metastases This note was generated with [employer] dictation software. It may contain incorrect words, spelling, and punctuation that were not noted in review of the chart prio r to signing ED Disposition - Plan for ED Patient: Referrals: Lito Farrell MD [Primary Care Provider] -
[2018-11-19 14:20] LABS: Absolute Lymphocyte Count 1.06 X10^3/ul (0.83-4.51); Absolute Neutrophil Count 8.6 X10^3/uL (2.0-7.7); Basophil# 0.04 X10^3/uL; Basophil% 0.4 % (0-1); Eosinophil# 0.13 X10^3/uL; Eosinophils% 1.1 % (0-5); Hematocrit 39.3 % (40-54); Hemoglobin 12.8 g/dl (13.0-16.5); Lymphocyte # 1.06 X10^3/ul (4.0); Lymphocyte % 9.3 % (19-41); Mean Corp Hgb Conc 32.6 g/gl (32-36); Mean Corpuscular Hgb 26.9 pg (27.0-32.0); Mean Corpuscular Volume 82.7 fL (80-94); Mean Platelet Vol. 8.8 fl (6.2-12.0); Monocyte# 1.45 X10^3/uL; Monocyte% 12.7 % (0-10); Neutrophil # 8.64 X10^3/uL (2.7-7.7); Neutrophil % 75.9 % (47-70); Platelet Count 451 K/mm3 (150-450); RBC Distribution Width CV 16.5 % (11.6-14.6); RBC Distribution Width SD 48.2 fl (35.1-43.9); Red Blood Count 4.75 M/mm3 (4.6-6.2); White Blood Count 11.4 K/mm3 (4.4-11.0)
[2018-11-19 14:21] LABS: POSITIVE COUNT NO; POSITIVE DIFFERENTIAL NO; POSITIVE MORPHOLOGY NO
[2018-11-19] MEDS: 0.9% Normal Saline 1,000 ML 1000 ML IV (14:23)
[2018-11-19 14:29] LABS: AST(SGOT) 60 U/L (15-37); Alanine Aminotransfer ALT/SGPT 155 U/L (16-61); Albumin, Serum 3.7 g/dL (3.2-5.0); Alkaline Phosphatase 99 U/L (45-117); Anion Gap 10 (5-15); BUN 26 mg/dL (7-18); BUN/Creat Ratio 18.3 RATIO (10-20); Bilirubin, Direct 0.15 mg/dL (0.00-0.30); Calcium,Total 9.8 mg/dL (8.5-10.1); Chloride 106 mmol/L (98-107); Creatinine, Serum 1.42 mg/dL (0.70-1.30); EST Glomerular Filtration Rate 54 mL/min (>60); Est Glom Filt Rate - Afr Amer 65 mL/min (>60); Estimated Creatinine Clearance 65.29 ml/min; Globulin 5.8 g/dL (2.2-4.2); Glucose 101 mg/dL (74-106); Lipase 556 U/L (73-393); Potassium 4.7 mmol/L (3.5-5.1); Protein, Total 9.5 g/dL (6.4-8.2); Sodium Level 137 mmol/L (136-145)
[2018-11-19 14:43] VITALS: BP 123/85; PULSE 108; RESP 16; TEMP 36.7; O2SAT 99
[2018-11-19 14:54] LABS: Mucous, Urine 0 SEEN /hpf (<or=2+); Squamous Epithelial Cells - UA 0 SEEN /hpf (0-5)
[2018-11-19 15:00] LABS: Color, Urine Yellow (Yellow); Glucose, Dipstick Normal (Normal); Ketone-Dipstick Negative (Negative); Leukocyte Esterase-Dipstick 100 /ul (Negative); Nitrite-Dipstick Negative (Negative); Occult Blood-Urine 150 /ul (Negative); Protein-Dipstick 30 mg/dl (Negative); Specific Gravity, Urine 1.025 (1.002-1.030); Urine Bilirubin Dipstick Negative (Negative); Urine Clarity Cloudy (Clear); Urine Urobilinogen Normal (Normal)
[2018-11-19 15:47] LABS: Bacteria 2+ /hpf (None Seen); White Blood Cells 25-50 SEEN /hpf (0-5); Yeast-Urine 3+ /hpf (None Seen)
[2018-11-19 15:48] LABS: Red Blood Cells-Urine 0-5 SEEN /hpf (0-5)
[2018-11-19 15:56] LABS: Calcium Oxalate Crystals Ur 1+ /hpf (<or=2+)
[2018-11-19 16:00] VITALS: BP 128/86; PULSE 109; RESP 18; TEMP 37; O2SAT 98
--- NOTE | 2018-11-19 16:43 | ED.DEP ---
ED Disposition - Plan for ED Patient: Disposition: Home or Assisted Living Instructions: ED Abdominal Pain Unkn Cause Referrals: Alexandre Salazar MD [STAFF PHYSICIAN] - Keep Ya appointment Additional Instructions: Follow-up with Dr. Waldo Salazar later this week with your scheduled appointment. Return if you are feeling worse with increasing pain or intractable vomiting.
[2018-11-19 17:48] VITALS: BP 122/78; PULSE 99; RESP 16; O2SAT 96
== END 2018-11-19 17:49 | disposition home or self-care (01) ==
PROVIDERS: Emergency Provider Emergency Medicine; Family Provider Family Medicine; PCP Family Medicine
DX: R10.9 Unspecified abdominal pain (principal); C77.9 Secondary and unspecified malignant neoplasm of lymph node, unspecified; I10 Essential (primary) hypertension; I25.10 Atherosclerotic heart disease of native coronary artery without angina pectoris; I25.2 Old myocardial infarction; Z90.49 Acquired absence of other specified parts of digestive tract; Z85.038 Personal history of other malignant neoplasm of large intestine
CPT/HCPCS: 74177; 80048; 80076; 81001; 83690; 85025; 96361; 96374; 99282; J7030; Q9967; A4216; J2405